=== PATIENT | female | born 1945 | race African-American/Black ===

== ENCOUNTER 2017-04-20 21:58 | Inpatient (IN) | payer MEDICARE, MEDICAID ==
[~2017-04-20] VITALS: Ht 165.1 cm; Wt 95.3 kg
[2017-04-20 22:00] VITALS: BP 146/110
[2017-04-20 22:43] LABS: BASOPHILS % (AUTO) 2.2 % (0.0-2.0); EOSINOPHILS % (AUTO) 2.5 % (0.0-3.0); HEMATOCRIT 31.4 % (37.0-47.0); HEMOGLOBIN 10.8 G/DL (12.0-16.0); MEAN CORPUSCULAR VOLUME 100 FL (80-99); MONOCYTES % (AUTO) 12.7 % (1.0-10.0); NEUTROPHILS % (AUTO) 68.7 % (45.0-75.0); PLATELET COUNT 207 K/UL (150-450); RED BLOOD COUNT 3.15 M/UL (4.20-5.40); RED CELL DISTRIBUTION WIDTH 12.8 % (11.6-14.8); WHITE BLOOD COUNT 5.4 K/UL (4.8-10.8)
[2017-04-20 22:57] LABS: ANION GAP 12 mmol/L (5-15); BLOOD UREA NITROGEN 22 mg/dL (7-18); CALCIUM 9.4 MG/DL (8.5-10.1); CARBON DIOXIDE 26 MMOL/L (21-32); CHLORIDE 96 MMOL/L (98-107); CREATININE 4.8 MG/DL (0.55-1.30); POTASSIUM 3.9 MMOL/L (3.5-5.1); SODIUM 134 MMOL/L (136-145)
[2017-04-20 23:13] LABS: ALANINE AMINOTRANSFERASE 11 U/L (12-78); ALBUMIN 3.6 G/DL (3.4-5.0); ALBUMIN/GLOBULIN RATIO 0.8 (1.0-2.7); ALKALINE PHOSPHATASE 43 U/L (46-116); ASPARTATE AMINO TRANSFERASE 21 U/L (15-37); BILIRUBIN,TOTAL 0.4 MG/DL (0.2-1.0); CKMB 0.9 NG/ML (0.0-3.6); CREATINE KINASE 66 U/L (26-308)
[2017-04-21] VITALS (7 sets, daily range): BP systolic 127–156; BP diastolic 54–89
--- NOTE | 2017-04-21 01:06 | Emergency Room Report ---
History of Present Illness General Chief Complaint: Dyspnea/Respdistress Source: Patient Present Illness HPI 71-year-old female presents ED physician started at home today. Sudden onset. EMS states patient was wheezing in his breathing treatments. Patient denies history of asthma. She is feeling better of the breathing treatment. Fevers or chills. Denies cough denies chest pain. History of end-stage renal disease on dialysis. States she is compliant with her dialysis. No other aggravating or leading factors. Denies any other associated symptoms Allergies: Coded Allergies: No Known Allergies (Unverified , 04/20/17) Patient History Past Medical History: HTN, renal disease, dialysis Past Surgical History: none Pertinent Family History: none Social History: Denies: smoking, alcohol use, drug use Now: No Immunizations: UTD Reviewed Nursing Documentation: PMH: Agreed, PSxH: Agreed Nursing Documentation-PMH Past Medical History: No History, Except For Hx Hypertension: Yes Hx Dialysis: Yes - right upper arm M,W,F Review of Systems All Other Systems: negative except mentioned in HPI Physical Exam Vital Signs Date Time Temp Pulse Resp B/P (MAP) Pulse Ox O2 Delivery O2 Flow Rate FiO2 04/20/17 21:51 99.0 105 22 146/110 100 Room Air Sp02 EP Interpretation: reviewed, normal General Appearance: no apparent distress, alert, GCS 15, non-toxic Head: normocephalic, atraumatic Eyes: bilateral eye normal inspection, bilateral eye PERRL ENT: hearing grossly normal, normal pharynx, no angioedema, normal voice Neck: full range of motion, supple/symm/no masses Respiratory: chest non-tender, lungs clear, normal breath sounds, speaking full sentences Cardiovascular #1: regular rate, rhythm, no edema Cardiovascular #2: 2+ carotid (R), 2+ carotid (L), 2+ radial (R), 2+ radial (L) , 2+ dorsalis pedis (R), 2+ dorsalis pedis (L) Gastrointestinal: normal bowel sounds, non tender, soft, non-distended, no guarding, no rebound Rectal: deferred Genitourinary: normal inspection, no CVA tenderness Musculoskeletal: back normal, gait/station normal, normal range of motion, non- tender Neurologic: alert, oriented x3, responsive, motor strength/tone normal, sensory intact, speech normal Psychiatric: judgement/insight normal, memory normal, mood/affect normal, no suicidal/homicidal ideation Reflexes: 3+ bicep (R), 3+ bicep (L), 3+ tricep (R), 3+ tricep (L), 3+ knee (R) , 3+ knee (L) Skin: normal color, no rash, warm/dry, well hydrated Lymphatic: no adenopathy Medical Decision Making Diagnostic Impression: Primary Impression: ESRD (end stage renal disease) on dialysis Additional Impression: Respiratory distress ER Course Hospital Course 71-year-old male presents ED complaining of shortness of breath Differential diagnoses include: NV/unstable angina, contusion, muscle strain, PTX, rib fracture Clinical course Patient placed on stretcher. on athletic monitor. After initial history and physical I ordered labs, EKG, chest x-ray Lungs clear no indication for additional breathing treatments at this time labs reviewed- no leukocytosis, hemoglobin/hematocrit stable, BUN/creatinine elevated, troponins 0.096, BNP elevated EKG - sinus tachycardia, no acute ischemic changes interpreted by me influenza negative Chest x-ray- cardiomegaly, interstitial congestion, dialysis catheter in place patient denies chest pain. likely troponin leak given ESRD Antibiotics given. Case discussed with Dr. Peters and he agreed to accept the patient to his service for further care and support I. I feel this is a highly complex case requiring extensive working including EKG/Rhythm strip, Xray/CT/US, Blood/urine lab work, repeat exams while in ED, and administration of strong opiates/narcotics for pain control, admission to hospital or close patient follow up. Diagnosis - ESRD on dialysis, respiratory distress admitted to telemetry in serious condition Labs Test 04/20/17 22:15 White Blood Count 5.4 K/UL (4.8-10.8) Red Blood Count 3.15 M/UL (4.20-5.40) Hemoglobin 10.8 G/DL (12.0-16.0) Hematocrit 31.4 % (37.0-47.0) Mean Corpuscular Volume 100 FL (80-99) Mean Corpuscular Hemoglobin 34.2 PG (27.0-31.0) Mean Corpuscular Hemoglobin Concent 34.4 G/DL (32.0-36.0) Red Cell Distribution Width 12.8 % (11.6-14.8) Platelet Count 207 K/UL (150-450) Mean Platelet Volume 6.5 FL (6.5-10.1) Neutrophils (%) (Auto) 68.7 % (45.0-75.0) Lymphocytes (%) (Auto) 14.0 % (20.0-45.0) Monocytes (%) (Auto) 12.7 % (1.0-10.0) Eosinophils (%) (Auto) 2.5 % (0.0-3.0) Basophils (%) (Auto) 2.2 % (0.0-2.0) Sodium Level 134 MMOL/L (136-145) Potassium Level 3.9 MMOL/L (3.5-5.1) Chloride Level 96 MMOL/L (98-107) Carbon Dioxide Level 26 MMOL/L (21-32) Anion Gap 12 mmol/L (5-15) Blood Urea Nitrogen 22 mg/dL (7-18) Creatinine 4.8 MG/DL (0.55-1.30) Estimat Glomerular Filtration Rate mL/min (>60) Glucose Level 110 MG/DL (74-106) Lactic Acid Level 2.30 mmol/L (0.66-2.22) Calcium Level 9.4 MG/DL (8.5-10.1) Total Bilirubin 0.4 MG/DL (0.2-1.0) Aspartate Amino Transf (AST/SGOT) 21 U/L (15-37) Alanine Aminotransferase (ALT/SGPT) 11 U/L (12-78) Alkaline Phosphatase 43 U/L (46-116) Total Creatine Kinase 66 U/L (26-308) Creatine Kinase MB 0.9 NG/ML (0.0-3.6) Creatine Kinase MB Relative Index 1.3 Troponin I 0.096 ng/mL (0.000-0.056) Pro-B-Type Natriuretic Peptide 69521 pg/mL (0-125) Total Protein 7.9 G/DL (6.4-8.2) Albumin 3.6 G/DL (3.4-5.0) Globulin 4.3 g/dL Albumin/Globulin Ratio 0.8 (1.0-2.7) EKG Diagnostic Results Rate: tachycardiac Rhythm: NSR ST Segments: no acute changes ASA given to the pt in ED: No Rhythm Strip Diag. Results EP Interpretation: yes Rhythm: NSR, no PVC's, no ectopy Chest X-Ray Diagnostic Results Chest X-Ray Diagnostic Results : Chest X-Ray Ordered: Yes # of Views/Limited/Complete: 1 View Indication: Shortness of Breath EP Interpretation: Yes Interpretation: no consolidation, no pneumothorax, other - cardiomegaly. interstitial congestion. dialysis catheter Impression: Other - CHF/congestion Electronically Signed by: Electronically signed by Rosalino Jones MD Last Vital Signs Date Time Temp Pulse Resp B/P (MAP) Pulse Ox O2 Delivery O2 Flow Rate FiO2 04/20/17 21:51 99.0 105 22 146/110 100 Room Air Status: improved Disposition: ADMITTED INPATIENT Condition: Serious Referrals: NOT CHOSEN CANDICE/,REFERRING (PCP) ROSALINO JONES M.D. Apr 21, 2017 01:05
[2017-04-21] MEDS ORDERED: ASPIR 8181 MG ORAL (03:01)
[2017-04-21] MEDS ORDERED: Promethazine/Codeine 5ml UD ORAL PRN (05:30)
[2017-04-21] MEDS ORDERED: Albuterol/Ipratropium 3ml neb HHN PRN (05:30)
[2017-04-21] MEDS ORDERED: Miralax 17gm pkt ORAL PRN (05:30)
[2017-04-21] MEDS ORDERED: Vancomycin 1.5 GM/D5W 250ML IVPB ONE ×2 (06:30→08:30)
[2017-04-21] MEDS: Albuterol/Ipratropium 3ml neb HHN SCH ×3 (07:45→19:36)
[2017-04-21] MEDS ORDERED: Piperacillin/Tazobactam 2.25 GM in NS 110 ML IVPB SCH (08:00)
[2017-04-21] MEDS: Heparin 5000 units/ml inj SUBQ SCH ×2 (08:41→21:47)
--- NOTE | 2017-04-21 09:56 | Cardiac Electrophysiology PN ---
Subjective Subjective Cardiology consult dictated HTN Troponin leak CHF ESRD [id number] Objective Last 24 Hour Vital Signs Date Time Temp Pulse Resp B/P (MAP) Pulse Ox O2 Delivery O2 Flow Rate FiO2 04/21/17 04:00 115 04/21/17 04:00 115 04/21/17 03:30 99.0 105 20 143/73 100 Nasal Cannula 2.0 04/21/17 03:15 99.0 105 20 143/73 100 Nasal Cannula 2.0 04/21/17 02:00 104 21 137/68 100 Nasal Cannula 2.0 04/21/17 00:00 101 21 142/71 100 Nasal Cannula 2.0 04/20/17 22:00 105 22 Room Air 04/20/17 22:00 99.0 105 22 146/110 100 Room Air 04/20/17 21:51 99.0 105 22 146/110 100 Room Air Intake and Output 04/20/17 04/21/17 19:00 07:00 Intake Total 0 ml Balance 0 ml Intake Oral 0 ml # Voids 2 # Bowel Movements 2 Laboratory Tests Test 04/20/17 22:15 04/21/17 02:15 White Blood Count 5.4 K/UL (4.8-10.8) Red Blood Count 3.15 M/UL (4.20-5.40) L Hemoglobin 10.8 G/DL (12.0-16.0) L Hematocrit 31.4 % (37.0-47.0) L Mean Corpuscular Volume 100 FL (80-99) H Mean Corpuscular Hemoglobin 34.2 PG (27.0-31.0) H Mean Corpuscular Hemoglobin Concent 34.4 G/DL (32.0-36.0) Red Cell Distribution Width 12.8 % (11.6-14.8) Platelet Count 207 K/UL (150-450) Mean Platelet Volume 6.5 FL (6.5-10.1) Neutrophils (%) (Auto) 68.7 % (45.0-75.0) Lymphocytes (%) (Auto) 14.0 % (20.0-45.0) L Monocytes (%) (Auto) 12.7 % (1.0-10.0) H Eosinophils (%) (Auto) 2.5 % (0.0-3.0) Basophils (%) (Auto) 2.2 % (0.0-2.0) H Sodium Level 134 MMOL/L (136-145) L Potassium Level 3.9 MMOL/L (3.5-5.1) Chloride Level 96 MMOL/L (98-107) L Carbon Dioxide Level 26 MMOL/L (21-32) Anion Gap 12 mmol/L (5-15) Blood Urea Nitrogen 22 mg/dL (7-18) H Creatinine 4.8 MG/DL (0.55-1.30) H Estimat Glomerular Filtration Rate mL/min (>60) Glucose Level 110 MG/DL (74-106) H Lactic Acid Level 2.30 mmol/L (0.66-2.22) H 2.10 mmol/L (0.66-2.22) Calcium Level 9.4 MG/DL (8.5-10.1) Total Bilirubin 0.4 MG/DL (0.2-1.0) Aspartate Amino Transf (AST/SGOT) 21 U/L (15-37) Alanine Aminotransferase (ALT/SGPT) 11 U/L (12-78) L Alkaline Phosphatase 43 U/L (46-116) L Total Creatine Kinase 66 U/L (26-308) Creatine Kinase MB 0.9 NG/ML (0.0-3.6) Creatine Kinase MB Relative Index 1.3 Troponin I 0.096 ng/mL (0.000-0.056) Pro-B-Type Natriuretic Peptide 87721 pg/mL (0-125) H Total Protein 7.9 G/DL (6.4-8.2) Albumin 3.6 G/DL (3.4-5.0) Globulin 4.3 g/dL Albumin/Globulin Ratio 0.8 (1.0-2.7) L Microbiology Date/Time Source Procedure Growth Status 04/20/17 22:15 Nasal Nares Influenza Types A,B Antigen (ANNA) - Final Complete JAKE GARCIA Apr 21, 2017 09:56
--- NOTE | 2017-04-21 12:07 | Diagnostic Imaging Report ---
Indication: Shortness of breath Technique: One view of the chest Comparison: none Findings: Heart is enlarged. There is mild interstitial edema bilaterally. There is a right jugular tunneled dialysis catheter. Aorta is tortuous and calcified Impression: Mild cardiomegaly and mild interstitial edema Other findings as noted
--- NOTE | 2017-04-21 12:24 | Consultation ---
History of Present Illness General Date patient seen: Apr 21, 2017 Chief Complaint: Dyspnea/Respdistress Reason for Consultation: dyspnea Present Illness HPI 71-year-old female with hx of ESRF on HD presented to ED with shortness of breath with sudden onset. EMS states patient was wheezing and got some breathing treatments. She didn't have any Fevers or chills. Denies cough denies chest pain. States she is compliant with her dialysis. No other aggravating or leading factors. Denies any other associated symptoms. Her troponin was high and she is admitted to telemetry for further evaluation. Allergies: Coded Allergies: No Known Allergies (Unverified , 04/20/17) Medication History Scheduled Aspirin* (Aspir 81*), 81 MG ORAL DAILY, (Reported) Patient History Healthcare decision maker Resuscitation status Full Code Advanced Directive on File Past Medical/Surgical History Past Medical/Surgical History: (1) ESRD (end stage renal disease) on dialysis Review of Systems Respiratory: Reports: shortness of breath All Other Systems: negative except mentioned in HPI Physical Exam General Appearance: WD/WN Lines, tubes and drains: peripheral HEENT: normocephalic, anicteric Neck: non-tender, normal alignment Respiratory/Chest: chest wall non-tender, normal breath sounds Cardiovascular/Chest: normal peripheral pulses, regular rhythm Abdomen: normal bowel sounds, non tender Genitourinary/Rectal: normal rectal exam, normal prostate exam Last 24 Hour Vital Signs Date Time Temp Pulse Resp B/P (MAP) Pulse Ox O2 Delivery O2 Flow Rate FiO2 04/21/17 08:00 97.7 107 20 156/89 99 Nasal Cannula 2.0 04/21/17 08:00 101 04/21/17 04:00 115 04/21/17 04:00 115 04/21/17 03:30 99.0 105 20 143/73 100 Nasal Cannula 2.0 04/21/17 03:15 99.0 105 20 143/73 100 Nasal Cannula 2.0 04/21/17 02:00 104 21 137/68 100 Nasal Cannula 2.0 04/21/17 00:00 101 21 142/71 100 Nasal Cannula 2.0 04/20/17 22:00 105 22 Room Air 04/20/17 22:00 99.0 105 22 146/110 100 Room Air 04/20/17 21:51 99.0 105 22 146/110 100 Room Air Intake and Output 04/20/17 04/21/17 19:00 07:00 Intake Total 0 ml Balance 0 ml Intake Oral 0 ml # Voids 2 # Bowel Movements 2 Laboratory Tests Test 04/20/17 22:15 04/21/17 02:15 04/21/17 11:20 White Blood Count 5.4 K/UL (4.8-10.8) Red Blood Count 3.15 M/UL (4.20-5.40) L Hemoglobin 10.8 G/DL (12.0-16.0) L Hematocrit 31.4 % (37.0-47.0) L Mean Corpuscular Volume 100 FL (80-99) H Mean Corpuscular Hemoglobin 34.2 PG (27.0-31.0) H Mean Corpuscular Hemoglobin Concent 34.4 G/DL (32.0-36.0) Red Cell Distribution Width 12.8 % (11.6-14.8) Platelet Count 207 K/UL (150-450) Mean Platelet Volume 6.5 FL (6.5-10.1) Neutrophils (%) (Auto) 68.7 % (45.0-75.0) Lymphocytes (%) (Auto) 14.0 % (20.0-45.0) L Monocytes (%) (Auto) 12.7 % (1.0-10.0) H Eosinophils (%) (Auto) 2.5 % (0.0-3.0) Basophils (%) (Auto) 2.2 % (0.0-2.0) H Sodium Level 134 MMOL/L (136-145) L Potassium Level 3.9 MMOL/L (3.5-5.1) Chloride Level 96 MMOL/L (98-107) L Carbon Dioxide Level 26 MMOL/L (21-32) Anion Gap 12 mmol/L (5-15) Blood Urea Nitrogen 22 mg/dL (7-18) H Creatinine 4.8 MG/DL (0.55-1.30) H Estimat Glomerular Filtration Rate mL/min (>60) Glucose Level 110 MG/DL (74-106) H Lactic Acid Level 2.30 mmol/L (0.66-2.22) H 2.10 mmol/L (0.66-2.22) Calcium Level 9.4 MG/DL (8.5-10.1) Total Bilirubin 0.4 MG/DL (0.2-1.0) Aspartate Amino Transf (AST/SGOT) 21 U/L (15-37) Alanine Aminotransferase (ALT/SGPT) 11 U/L (12-78) L Alkaline Phosphatase 43 U/L (46-116) L Total Creatine Kinase 66 U/L (26-308) Creatine Kinase MB 0.9 NG/ML (0.0-3.6) Creatine Kinase MB Relative Index 1.3 Troponin I 0.096 ng/mL (0.000-0.056) Pending Pro-B-Type Natriuretic Peptide 14196 pg/mL (0-125) H Total Protein 7.9 G/DL (6.4-8.2) Albumin 3.6 G/DL (3.4-5.0) Globulin 4.3 g/dL Albumin/Globulin Ratio 0.8 (1.0-2.7) L D-Dimer Pending Microbiology Date/Time Source Procedure Growth Status 04/20/17 22:15 Nasal Nares Influenza Types A,B Antigen (ANNA) - Final Complete Height (Feet): 5 Height (Inches): 5.00 Weight (Pounds): 210 Medications Current Medications Medications (Trade) Dose Ordered Sig/Ladarius Route PRN Reason Start Time Stop Time Status Last Admin Dose Admin Acetaminophen (Tylenol) 650 mg Q4H PRN ORAL Fever 04/21/17 05:30 05/21/17 05:29 Albuterol/ Ipratropium (Albuterol/ Ipratropium) 3 ml Q4H PRN HHN Shortness of Breath 04/21/17 05:30 04/26/17 05:29 Albuterol/ Ipratropium (Albuterol/ Ipratropium) 3 ml Q6HRT HHN 04/21/17 07:00 04/26/17 06:59 04/21/17 07:45 Ceftriaxone Sodium 1 gm/ Sodium Chloride 55 ml @ 110 mls/hr Q24H IVPB 04/21/17 12:00 04/28/17 11:59 Dextrose (Dextrose 50%) STAT PRN IV Hypoglycemia 04/21/17 05:30 05/21/17 05:29 Heparin Sodium (Porcine) (Heparin 5000 units/ml) 5,000 units EVERY 12 HOURS SUBQ 2/7/18 09:00 05/21/17 08:59 04/21/17 08:41 Metoprolol Tartrate (Lopressor) 25 mg Q12HR ORAL 04/21/17 21:00 05/21/17 20:59 Ondansetron HCl (Zofran) 4 mg Q6H PRN IVP Nausea & Vomiting 04/21/17 05:30 05/21/17 05:29 04/21/17 08:40 Polyethylene Glycol (Miralax) 17 gm DAILYPRN PRN ORAL Constipation 04/21/17 05:30 05/21/17 05:29 Promethazine HCl/ Codeine (Phenergan with Codeine) 5 ml Q4H PRN ORAL For Cough 04/21/17 05:30 05/21/17 05:29 Temazepam (Restoril) 15 mg HSPRN PRN ORAL Insomnia 04/21/17 05:30 04/28/17 05:29 Assessment/Plan Problem List: (1) Acute respiratory failure ICD Codes: J96.00 - Acute respiratory failure, unspecified whether with hypoxia or hypercapnia SNOMED: 78505076 (2) ESRD (end stage renal disease) on dialysis ICD Codes: N18.6 - End stage renal disease; Z99.2 - Dependence on renal dialysis SNOMED: 282280402 (3) Non-STEMI (non-ST elevated myocardial infarction) ICD Codes: I21.4 - Non-ST elevation (NSTEMI) myocardial infarction SNOMED: 543413610 Assessment/Plan HD michael check cxr respiratory treatment cxr in am 2decho cariology to follow dvt prophylaxis. SARA SAWYER Apr 21, 2017 12:24
[2017-04-21] MEDS: cefTRIAXone 1 GM in NS 55 ML IVPB SCH (13:19)
--- NOTE | 2017-04-21 13:42 | Consultation ---
Consult Note Consult Note asked to eval for dialysis management Chief Complaint: Dyspnea/Respdistress 71-year-old female presents ED physician started at home today. Sudden onset. EMS states patient was wheezing in his breathing treatments. Patient denies history of asthma. She is feeling better of the breathing treatment. Fevers or chills. Denies cough denies chest pain. History of end-stage renal disease on dialysis. States she is compliant with her dialysis. No other aggravating or leading factors. Denies any other associated symptoms Past Medical History: HTN, renal disease, dialysis Past Medical History: No History, Except For Hx Hypertension: Yes Hx Dialysis: Yes - right upper arm M,W,F Assessment/Plan 71 y old- presents with respiratory distress: HTN Troponin leak, likely NSTEMI CHF ESRD last HD 04/20- Has a permacath right chest Plan: HD in am 2D echo Adjust BP meds per orders MEGAN GUIDRY Apr 21, 2017 13:41
[2017-04-21] MEDS ORDERED: Lisinopril 2.5mg tab ORAL ONE (14:00)
--- NOTE | 2017-04-21 15:15 | Consultation ---
DATE OF CONSULTATION: 04/21/2017 CARDIOLOGY CONSULTATION CONSULTING PHYSICIAN: Duc Batista M.D. REFERRING PHYSICIAN: Mateusz Peters D.O. REASON FOR CONSULTATION: Congestive heart failure and abnormal electrocardiogram. HISTORY OF PRESENT ILLNESS: The patient is a 71-year-old lady with history of hypertension and end-stage renal disease, on hemodialysis, who was brought to the emergency room from home for sudden onset of shortness of breath and wheezing. The patient denies any prior history of asthma. Denies any fever, chills, chest pain, or cough. The patient has been compliant with her dialysis and that she gets every Wednesday, , and Wednesday. The patient's blood pressure is 146/110 with a heart rate of 120 12-lead EKG. The patient had abnormal electrocardiogram with repolarization abnormality. REVIEW OF SYSTEMS: Review of systems was performed and was negative other than what was mentioned in the history of present illness. PAST MEDICAL HISTORY: 1. Hypertension. 2. End-stage renal disease, on hemodialysis. FAMILY HISTORY: Noncontributory. SOCIAL HISTORY: She lives at home. Does not smoke or drink alcohol. PHYSICAL EXAMINATION: VITAL SIGNS: Blood pressure is 142/73, pulse is 115, respirations 18, and temperature 99. HEAD AND NECK: Shows no JVD. LUNGS: Clear. CARDIOVASCULAR: Shows regular S1 and S2 with no gallop or murmur. ABDOMEN: Soft. EXTREMITIES: There is 1+ bilateral lower extremity edema. Her dialysis access is right IJ PermCath. LABORATORY DATA: Show white count 5.1, hematocrit 10.8, hematocrit 31.4, and platelet count 207. Sodium 134, potassium 3.9, BUN of 22, creatinine 4.8, and glucose of 110. Troponin is 0.096 and BNP is 23,000. ASSESSMENT AND PLAN: 1. Troponin elevation. This is likely due to the patient's chronic kidney disease. We will consider cardiac enzymes. Again the echocardiogram to evaluate for ejection fraction and wall motion abnormality. 2. Abnormal electrocardiogram with left ventricular hypertrophy and repolarization abnormality as well as left anterior fascicular block. Again, the echocardiogram will be ordered. In the meantime, the patient's aspirin and beta-rhianna with tachycardia and hypertension. 3. Lower extremity edema. Lower extremity Doppler is pending. Echocardiogram is pending. 4. End-stage renal disease, on hemodialysis. 5. Possible sepsis. The patient is on IV antibiotic with vancomycin and Zosyn. Thank you very much, Dr. Peters, for allowing me to participate in the care of this patient. Please do not hesitate to contact me for any questions regarding my evaluation. Duc Batista M.D. DR: ALANNA JOB#: [id number] CC:
--- NOTE | 2017-04-21 15:30 | Consultation ---
DATE OF CONSULTATION: 04/21/2017 INFECTIOUS DISEASE CONSULTATION CONSULTING PHYSICIAN: Srinivas Prakash M.D. PRIMARY ATTENDING PHYSICIAN: Mateusz Peters D.O. REASON FOR CONSULTATION: Bronchitis, pneumonia. HISTORY OF PRESENT ILLNESS: This is a 71-year-old female admitted last night because of shortness of breath, wheezing, and respiratory distress. Denies any fever and coughing. She had shortness of breath for a while, but it is increasing recently. PAST MEDICAL HISTORY: Significant for end-stage renal disease, on hemodialysis for 1 year, hypertension, anemia. ALLERGIES: No known drug allergy. MEDICATIONS: Metoprolol, Zosyn, heparin, vancomycin, albuterol, ipratropium, Zofran, Tylenol, MiraLAX, temazepam, promethazine with codeine. SOCIAL HISTORY: Lives at home with son. Single. Denies alcohol, drug abuse, or smoking. REVIEW OF SYSTEMS: No fever. No chills. Shortness of breath. She has shortness of breath with exertion also. Nausea. No urinary problems. PHYSICAL EXAMINATION: VITAL SIGNS: Temperature 99, pulse is 115, blood pressure is 143/73. Afebrile since admission. GENERAL APPEARANCE: No acute distress. HEAD AND NECK: Ault conjunctivae. HEART: S1, S2. Tachycardic. LUNGS: Clear at the time of examination getting oxygen by nasal cannula. The patient has PermCath in the right side. ABDOMEN: Soft, nontender. EXTREMITIES: She has mild edema. NEUROLOGIC: Awake, alert, oriented x3. LABORATORY DATA: Sodium 134, potassium 3.9, chloride 96, bicarbonate 26, BUN 22, creatinine 4.8, glucose 110. Lactic acid was 2.3 that came down to 2.1. Troponin is modestly elevated at 0.09. BNP is 20,296. Chest x-ray showed some congestion. Echocardiogram showed severe aortic insufficiency and diastolic CHF with mild decrease in ejection fraction. IMPRESSION: Respiratory distress, may have bronchitis. The patient seems to have diastolic congestive heart failure, aortic insufficiency, has end-stage renal disease, on hemodialysis, anemia. RECOMMENDATION: We will change the antibiotic to ceftriaxone. We will follow up the cultures. At the end of my exam, I thank Dr. Mateusz Peters for involving me in the care of this patient. Srinivas Prakash M.D. DR: Eugenio JOB#: [id number] CC: PROSPER
[2017-04-21] MEDS: Morphine Sulfate 2mg/ml Inj IVP PRN (15:43)
[2017-04-21] MEDS ORDERED: Piperacillin/Tazobactam 2.25 GM in NS 110 ML IV SCH (16:00)
--- NOTE | 2017-04-21 17:11 | Cardiology Report ---
APPROVED REPORT EKG Measurement Heart [id number] [place] [id number] Sinus tachycardia Left anterior fascicular block Left ventricular hypertrophy with QRS widening and repolarization abnormality Cannot rule out Septal infarct, age undetermined Abnormal ECG
[2017-04-21] MEDS: Lisinopril 2.5mg tab ORAL SCH (17:27)
--- NOTE | 2017-04-21 20:01 | History and Physical Report ---
DATE OF ADMISSION: 04/20/2017 TIME: 1 p.m. CONSULTANTS: 1. Deshaun Jiang M.D. 2. Duc Batista M.D. 3. Dr. Cottrell. 4. Josue Miller M.D. CHIEF COMPLAINT: Shortness of breath x2 days. BRIEF HISTORY: The patient is a 71-year-old female who lives at home, presented with increased shortness breath x2 days, coughing, congestion, came to [facility] last night, diagnosed with pneumonia, sepsis, and CHF and admitted to telemetry for further care. Currently, 00:26, slightly anxious, slight short of breath, in bed, oriented x2, in no acute distress. PAST MEDICAL HISTORY: CHF and ESRD. PAST SURGICAL HISTORY: Shunt. MEDICATIONS: Lopressor, Zosyn, ceftriaxone, heparin, vancomycin, albuterol, Zofran, Tylenol, MiraLAX, temazepam, and Phenergan with codeine. ALLERGIES: Denies. SOCIAL HISTORY: No smoking. No alcohol. No intravenous drug abuse. FAMILY HISTORY: Noncontributory. REVIEW OF SYSTEMS: No chest pain. Slight short of breath. No nausea, vomiting, or diarrhea. PHYSICAL EXAMINATION: GENERAL: Slightly anxious in bed, oriented x2, in no acute distress. VITAL SIGNS: Temperature is 98 degrees, pulse 101, respiratory rate 21, and blood pressure 132/79. CARDIOVASCULAR: No murmur. LUNGS: Poor air exchange. ABDOMEN: Bowel sounds distant. EXTREMITIES: No cyanosis, clubbing or edema. NEUROLOGIC: The patient moves all extremities, slightly weak. LABORATORY AND DIAGNOSTIC DATA: Hemoglobin 10.8, otherwise CBC is normal. BMP shows sodium 134, chloride 96, BUN and creatinine 22/4.8 and glucose 110. Troponin 0.096. D-dimer is 0.81. ASSESSMENT: 1. Pneumonia. 2. Sepsis. 3. Short of breath. 4. Anemia. 5. Congestive heart failure. 6. Respiratory distress. 7. End-stage renal disease. 8. [id number] myocardial infarction. PLAN: Continue premedications. O2 and pulmonary treatment. Antibiotics per Infectious Disease. Blood pressure control. Dialysis and dietary followup. Mateusz Peters D.O. DR: CARMEN JOB#: [id number] CC:
[2017-04-21] MEDS: Metoprolol 25mg tab ORAL SCH (21:45)
[2017-04-22] VITALS: BP 125/60
[2017-04-22] MEDS: Albuterol/Ipratropium 3ml neb HHN SCH ×5 (00:58→23:14)
[2017-04-22 04:00] VITALS: BP 129/54
[2017-04-22 05:04] LABS: BASOPHILS % (AUTO) 2.2 % (0.0-2.0); EOSINOPHILS % (AUTO) 0.5 % (0.0-3.0); HEMATOCRIT 26.5 % (37.0-47.0); HEMOGLOBIN 9.7 G/DL (12.0-16.0); LYMPHOCYTES % (AUTO) 9.5 % (20.0-45.0); MEAN CORPUSCULAR VOLUME 99 FL (80-99); MONOCYTES % (AUTO) 12.8 % (1.0-10.0); NEUTROPHILS % (AUTO) 75.1 % (45.0-75.0); PLATELET COUNT 174 K/UL (150-450); RED BLOOD COUNT 2.67 M/UL (4.20-5.40); RED CELL DISTRIBUTION WIDTH 12.9 % (11.6-14.8); WHITE BLOOD COUNT 3.9 K/UL (4.8-10.8)
[2017-04-22 05:08] LABS: % IRON SATURATION 12 % (15-50); IRON 22 ug/dL (50-175); TOTAL IRON BINDING CAPACITY 177 ug/dL (250-450)
[2017-04-22 05:16] LABS: CREATINE KINASE 86 U/L (26-308); GAMMA GLUTAMYL TRANSPEPTIDASE 32 U/L (5-85); PHOSPHORUS 6.2 MG/DL (2.5-4.9)
[2017-04-22 05:40] LABS: ALANINE AMINOTRANSFERASE 10 U/L (12-78); ALBUMIN/GLOBULIN RATIO 0.8 (1.0-2.7); ALKALINE PHOSPHATASE 37 U/L (46-116); ANION GAP 11 mmol/L (5-15); ASPARTATE AMINO TRANSFERASE 16 U/L (15-37); BILIRUBIN,TOTAL 0.4 MG/DL (0.2-1.0); BLOOD UREA NITROGEN 37 mg/dL (7-18); CALCIUM 9.1 MG/DL (8.5-10.1); CARBON DIOXIDE 27 MMOL/L (21-32); CHLORIDE 95 MMOL/L (98-107); CHOLESTEROL 245 MG/DL (< 200); CREATININE 7.6 MG/DL (0.55-1.30); FERRITIN 1485 NG/ML (8-388); HDL CHOLESTEROL 63 MG/DL (40-60); POTASSIUM 4.7 MMOL/L (3.5-5.1); SODIUM 132 MMOL/L (136-145); TRIGLYCERIDES 54 MG/DL (30-150)
[2017-04-22 08:19] VITALS: BP 138/65
[2017-04-22] MEDS: Heparin 5000 units/ml inj SUBQ SCH ×2 (08:21→21:33)
[2017-04-22] MEDS: Lisinopril 2.5mg tab ORAL SCH ×2 (08:21→17:26)
[2017-04-22] MEDS: Metoprolol 25mg tab ORAL SCH ×2 (08:40→21:31)
--- NOTE | 2017-04-22 10:20 | Nephrology Progress Note ---
Assessment/Plan Problem List: (1) ESRD (end stage renal disease) on dialysis (2) Respiratory distress (3) Non-STEMI (non-ST elevated myocardial infarction) Assessment HTN Troponin leak, likely NSTEMI CHF, Ej Fx 40% - global hypokinesis ESRD last HD 04/20- Has a permacath right chest Plan Plan: HD in process 2D echo- pending Adjust BP meds PO digoxin once per orders Subjective ROS Limited/Unobtainable: No Constitutional: Reports: malaise, weakness Objective Objective Last 24 Hour Vital Signs Date Time Temp Pulse Resp B/P (MAP) Pulse Ox O2 Delivery O2 Flow Rate FiO2 04/22/17 08:40 103 138/65 04/22/17 08:21 138/65 04/22/17 08:19 101.8 103 20 138/65 97 Nasal Cannula 2.0 04/22/17 08:00 100 04/22/17 07:23 94 20 100 Nasal Cannula 2.0 04/22/17 07:17 95 20 Nasal Cannula 2.0 04/22/17 07:16 94 20 98 Nasal Cannula 2.0 04/22/17 04:12 106 04/22/17 04:00 97.2 106 20 129/54 92 Nasal Cannula 2.0 04/22/17 01:05 97 20 100 Nasal Cannula 2.0 04/22/17 00:58 90 20 98 Nasal Cannula 2.0 04/22/17 00:00 98.0 93 20 125/60 100 Nasal Cannula 2.0 04/21/17 23:51 84 04/21/17 21:45 98 127/54 04/21/17 20:00 98.1 95 20 127/54 100 Nasal Cannula 2.0 04/21/17 19:56 99 04/21/17 19:44 98 22 100 Nasal Cannula 2.0 04/21/17 19:41 94 20 Nasal Cannula 2.0 04/21/17 19:36 94 20 99 Nasal Cannula 2.0 04/21/17 17:27 140/61 04/21/17 16:13 97.8 04/21/17 16:00 97.8 116 22 140/61 99 Nasal Cannula 2.0 04/21/17 16:00 118 04/21/17 14:39 156/79 04/21/17 13:49 Nasal Cannula 2.0 04/21/17 12:00 98.0 101 21 152/79 99 Nasal Cannula 2.0 04/21/17 12:00 101 Intake and Output 04/21/17 04/22/17 19:00 07:00 Intake Total 610 ml Balance 610 ml Intake Oral 610 ml IV Total 0 ml # Voids 2 2 Laboratory Tests 04/21/17 11:20: D-Dimer 0.81H, Troponin I 0.207H 04/21/17 14:45: C-Reactive Protein, Quantitative 2.7H 04/21/17 18:52: Troponin I 0.217H 04/22/17 03:05: Troponin I 0.201H, White Blood Count 3.9L, Red Blood Count 2.67L, Hemoglobin 9.7L, Hematocrit 26.5L, Mean Corpuscular Volume 99, Mean Corpuscular Hemoglobin 36.3H, Mean Corpuscular Hemoglobin Concent 36.5H, Red Cell Distribution Width 12.9, Platelet Count 174, Mean Platelet Volume 6.6, Neutrophils (%) (Auto) 75.1H , Lymphocytes (%) (Auto) 9.5L, Monocytes (%) (Auto) 12.8H, Eosinophils (%) (Auto ) 0.5, Basophils (%) (Auto) 2.2H, Sodium Level 132L, Potassium Level 4.7, Chloride Level 95L, Carbon Dioxide Level 27, Anion Gap 11, Blood Urea Nitrogen 37H, Creatinine 7.6#H, Estimat Glomerular Filtration Rate , Glucose Level 98, Hemoglobin A1c 5.5, Uric Acid 4.7, Calcium Level 9.1, Phosphorus Level 6.2H, Magnesium Level 1.8, Iron Level 22L, Total Iron Binding Capacity 177L, Percent Iron Saturation 12L, Unsaturated Iron Binding 155, Ferritin 1485H, Total Bilirubin 0.4, Gamma Glutamyl Transpeptidase 32, Aspartate Amino Transf (AST/ SGOT) 16, Alanine Aminotransferase (ALT/SGPT) 10L, Alkaline Phosphatase 37L, Total Creatine Kinase 86, Pro-B-Type Natriuretic Peptide 68644M, Total Protein 7.0, Albumin 3.0L, Globulin 4.0, Albumin/Globulin Ratio 0.8L, Triglycerides Level 54, Cholesterol Level 245H, LDL Cholesterol 173H, HDL Cholesterol 63H, Cholesterol/HDL Ratio 3.9, Vitamin B12 Level 544, Folate 8.6, Thyroid Stimulating Hormone (TSH) 1.562, Free Thyroxine 0.85 Height (Feet): 5 Height (Inches): 5.00 Weight (Pounds): 210 General Appearance: no apparent distress, lethargic Cardiovascular: tachycardia Respiratory/Chest: decreased breath sounds Abdomen: soft Objective no other changes MEGAN GUIDRY Apr 22, 2017 10:20
--- NOTE | 2017-04-22 10:21 | Infectious Diseases Prog Note ---
Assessment/Plan Assessment/Plan A; Respiratory distress Bronchitis ESRD on HD Diastolic CHF Aortic insufficiency P: Continue Rocephin If cultures remain negative will stop antibiotics Subjective ROS Limited/Unobtainable: No Constitutional: Reports: no symptoms Respiratory: Reports: dry cough Cardiovascular: Reports: no symptoms Gastrointestinal/Abdominal: Reports: no symptoms Genitourinary: Reports: no symptoms Allergies: Coded Allergies: No Known Allergies (Unverified , 04/20/17) Objective Vital Signs Last 24 Hour Vital Signs Date Time Temp Pulse Resp B/P (MAP) Pulse Ox O2 Delivery O2 Flow Rate FiO2 04/22/17 08:40 103 138/65 04/22/17 08:21 138/65 04/22/17 08:19 101.8 103 20 138/65 97 Nasal Cannula 2.0 04/22/17 08:00 100 04/22/17 07:23 94 20 100 Nasal Cannula 2.0 04/22/17 07:17 95 20 Nasal Cannula 2.0 04/22/17 07:16 94 20 98 Nasal Cannula 2.0 04/22/17 04:12 106 04/22/17 04:00 97.2 106 20 129/54 92 Nasal Cannula 2.0 04/22/17 01:05 97 20 100 Nasal Cannula 2.0 04/22/17 00:58 90 20 98 Nasal Cannula 2.0 04/22/17 00:00 98.0 93 20 125/60 100 Nasal Cannula 2.0 04/21/17 23:51 84 04/21/17 21:45 98 127/54 04/21/17 20:00 98.1 95 20 127/54 100 Nasal Cannula 2.0 04/21/17 19:56 99 04/21/17 19:44 98 22 100 Nasal Cannula 2.0 04/21/17 19:41 94 20 Nasal Cannula 2.0 04/21/17 19:36 94 20 99 Nasal Cannula 2.0 04/21/17 17:27 140/61 04/21/17 16:13 97.8 04/21/17 16:00 97.8 116 22 140/61 99 Nasal Cannula 2.0 04/21/17 16:00 118 04/21/17 14:39 156/79 04/21/17 13:49 Nasal Cannula 2.0 04/21/17 12:00 98.0 101 21 152/79 99 Nasal Cannula 2.0 2/7/18 12:00 101 Height (Feet): 5 Height (Inches): 5.00 Weight (Pounds): 210 General Appearance: no acute distress Respiratory/Chest: lungs clear, other - O2 by nasal cannula Cardiovascular: tachycardia, other - R permacath Extremities: no edema Neurologic/Psychiatric: alert, oriented x 3, responsive Microbiology Date/Time Source Procedure Growth Status 04/20/17 22:30 Blood Blood Culture - Preliminary NO GROWTH AFTER 24 HOURS Resulted 04/20/17 22:15 Blood Blood Culture - Preliminary NO GROWTH AFTER 24 HOURS Resulted 04/21/17 15:00 Sputum Gram Stain Pending Resulted 04/21/17 15:00 Sputum Sputum Culture - Preliminary NO GROWTH Resulted 04/20/17 22:15 Nasal Nares Influenza Types A,B Antigen (ANNA) - Final Complete Laboratory Tests Test 04/21/17 11:20 04/21/17 14:45 04/21/17 18:52 04/22/17 03:05 D-Dimer 0.81 mg/L FEU (0.00-0.49) H Troponin I 0.207 ng/mL (0.000-0.056) 0.217 ng/mL (0.000-0.056) 0.201 ng/mL (0.000-0.056) C-Reactive Protein, Quantitative 2.7 mg/dL (0.00-0.90) H White Blood Count 3.9 K/UL (4.8-10.8) L Red Blood Count 2.67 M/UL (4.20-5.40) L Hemoglobin 9.7 G/DL (12.0-16.0) L Hematocrit 26.5 % (37.0-47.0) L Mean Corpuscular Volume 99 FL (80-99) Mean Corpuscular Hemoglobin 36.3 PG (27.0-31.0) H Mean Corpuscular Hemoglobin Concent 36.5 G/DL (32.0-36.0) H Red Cell Distribution Width 12.9 % (11.6-14.8) Platelet Count 174 K/UL (150-450) Mean Platelet Volume 6.6 FL (6.5-10.1) Neutrophils (%) (Auto) 75.1 % (45.0-75.0) H Lymphocytes (%) (Auto) 9.5 % (20.0-45.0) L Monocytes (%) (Auto) 12.8 % (1.0-10.0) H Eosinophils (%) (Auto) 0.5 % (0.0-3.0) Basophils (%) (Auto) 2.2 % (0.0-2.0) H Sodium Level 132 MMOL/L (136-145) L Potassium Level 4.7 MMOL/L (3.5-5.1) Chloride Level 95 MMOL/L (98-107) L Carbon Dioxide Level 27 MMOL/L (21-32) Anion Gap 11 mmol/L (5-15) Blood Urea Nitrogen 37 mg/dL (7-18) H Creatinine 7.6 MG/DL (0.55-1.30) #H Estimat Glomerular Filtration Rate mL/min (>60) Glucose Level 98 MG/DL (74-106) Hemoglobin A1c 5.5 % (4.3-6.0) Uric Acid 4.7 MG/DL (2.6-7.2) Calcium Level 9.1 MG/DL (8.5-10.1) Phosphorus Level 6.2 MG/DL (2.5-4.9) H Magnesium Level 1.8 MG/DL (1.8-2.4) Iron Level 22 ug/dL (50-175) L Total Iron Binding Capacity 177 ug/dL (250-450) L Percent Iron Saturation 12 % (15-50) L Unsaturated Iron Binding 155 ug/dL (112-346) Ferritin 1485 NG/ML (8-388) H Total Bilirubin 0.4 MG/DL (0.2-1.0) Gamma Glutamyl Transpeptidase 32 U/L (5-85) Aspartate Amino Transf (AST/SGOT) 16 U/L (15-37) Alanine Aminotransferase (ALT/SGPT) 10 U/L (12-78) L Alkaline Phosphatase 37 U/L (46-116) L Total Creatine Kinase 86 U/L (26-308) Pro-B-Type Natriuretic Peptide 21191 pg/mL (0-125) H Total Protein 7.0 G/DL (6.4-8.2) Albumin 3.0 G/DL (3.4-5.0) L Globulin 4.0 g/dL Albumin/Globulin Ratio 0.8 (1.0-2.7) L Triglycerides Level 54 MG/DL (30-150) Cholesterol Level 245 MG/DL (< 200) H LDL Cholesterol 173 mg/dL (<100) H HDL Cholesterol 63 MG/DL (40-60) H Cholesterol/HDL Ratio 3.9 (3.3-4.4) Vitamin B12 Level 544 PG/ML (193-986) Folate 8.6 NG/ML (8.6-58.9) Thyroid Stimulating Hormone (TSH) 1.562 uiU/mL (0.358-3.740) Free Thyroxine 0.85 NG/DL (0.76-1.46) Current Medications Medications (Trade) Dose Ordered Sig/Ladarius Route PRN Reason Start Time Stop Time Status Last Admin Dose Admin Acetaminophen (Tylenol) 650 mg Q4H PRN ORAL Fever 04/21/17 05:30 05/21/17 05:29 04/22/17 08:20 Albuterol/ Ipratropium (Albuterol/ Ipratropium) 3 ml Q4H PRN HHN Shortness of Breath 04/21/17 05:30 04/26/17 05:29 04/21/17 15:23 Albuterol/ Ipratropium (Albuterol/ Ipratropium) 3 ml Q6HRT HHN 04/21/17 07:00 04/26/17 06:59 04/22/17 07:16 Aspirin (ASA) 325 mg DAILY ORAL 04/21/17 14:00 05/21/17 13:59 04/22/17 08:21 Ceftriaxone Sodium 1 gm/ Sodium Chloride 55 ml @ 110 mls/hr Q24H IVPB 04/21/17 12:00 04/28/17 11:59 04/21/17 13:19 Dextrose (Dextrose 50%) STAT PRN IV Hypoglycemia 04/21/17 05:30 05/21/17 05:29 Heparin Sodium (Porcine) (Heparin 5000 units/ml) 5,000 units EVERY 12 HOURS SUBQ 04/21/17 09:00 05/21/17 08:59 04/21/17 21:47 Lisinopril (Zestril) 5 mg BID ORAL 04/21/17 18:00 05/21/17 17:59 04/22/17 08:21 Metoprolol Tartrate (Lopressor) 25 mg Q12HR ORAL 04/21/17 21:00 05/21/17 20:59 04/22/17 08:40 Morphine Sulfate (Morphine Sulfate) 2 mg Q4H PRN IVP Severe Pain (Pain Scale 7-10) 04/21/17 15:30 04/28/17 15:29 04/21/17 15:43 Ondansetron HCl (Zofran) 4 mg Q6H PRN IVP Nausea & Vomiting 04/21/17 05:30 05/21/17 05:29 04/21/17 08:40 Pantoprazole (Protonix) 40 mg DAILY ORAL 04/21/17 14:00 05/21/17 13:59 04/22/17 08:20 Polyethylene Glycol (Miralax) 17 gm DAILYPRN PRN ORAL Constipation 04/21/17 05:30 05/21/17 05:29 Promethazine HCl/ Codeine (Phenergan with Codeine) 5 ml Q4H PRN ORAL For Cough 04/21/17 05:30 05/21/17 05:29 04/21/17 22:45 Sevelamer Carbonate (Renvela) 800 mg THREE TIMES A DAY ORAL 04/22/17 13:00 05/22/17 12:59 UNV Temazepam (Restoril) 15 mg HSPRN PRN ORAL Insomnia 04/21/17 05:30 04/28/17 05:29 MERISSA LOZANO Apr 22, 2017 10:21
--- NOTE | 2017-04-22 10:41 | Cardiac Electrophysiology PN ---
Assessment/Plan Assessment/Plan 1. Troponin elevation. Due to the patient's chronic kidney disease. Echo EF 45-50% 2. Abnormal electrocardiogram with left ventricular hypertrophy and repolarization abnormality as well as left anterior fascicular block.On aspirin and Metoprolol 25 bid 3. Lower extremity edema. Lower extremity Doppler is negative yanet DVT 4. End-stage renal disease, on hemodialysis.Refusing fluid removal. 5. Possible sepsis. The patient is on IV antibiotic with vancomycin and Zosyn. ANGIE RN Subjective Subjective Feeling better. No chest pain or SOB. Getting HD but refusing fluid removal Objective Last 24 Hour Vital Signs Date Time Temp Pulse Resp B/P (MAP) Pulse Ox O2 Delivery O2 Flow Rate FiO2 04/22/17 08:40 103 138/65 04/22/17 08:21 138/65 04/22/17 08:19 101.8 103 20 138/65 97 Nasal Cannula 2.0 04/22/17 08:00 100 04/22/17 07:23 94 20 100 Nasal Cannula 2.0 04/22/17 07:17 95 20 Nasal Cannula 2.0 04/22/17 07:16 94 20 98 Nasal Cannula 2.0 04/22/17 04:12 106 04/22/17 04:00 97.2 106 20 129/54 92 Nasal Cannula 2.0 04/22/17 01:05 97 20 100 Nasal Cannula 2.0 04/22/17 00:58 90 20 98 Nasal Cannula 2.0 04/22/17 00:00 98.0 93 20 125/60 100 Nasal Cannula 2.0 04/21/17 23:51 84 04/21/17 21:45 98 127/54 04/21/17 20:00 98.1 95 20 127/54 100 Nasal Cannula 2.0 04/21/17 19:56 99 04/21/17 19:44 98 22 100 Nasal Cannula 2.0 04/21/17 19:41 94 20 Nasal Cannula 2.0 04/21/17 19:36 94 20 99 Nasal Cannula 2.0 04/21/17 17:27 140/61 04/21/17 16:13 97.8 04/21/17 16:00 97.8 116 22 140/61 99 Nasal Cannula 2.0 04/21/17 16:00 118 04/21/17 14:39 156/79 04/21/17 13:49 Nasal Cannula 2.0 04/21/17 12:00 98.0 101 21 152/79 99 Nasal Cannula 2.0 04/21/17 12:00 101 Intake and Output 04/21/17 04/22/17 19:00 07:00 Intake Total 610 ml Balance 610 ml Intake Oral 610 ml IV Total 0 ml # Voids 2 2 Laboratory Tests Test 04/21/17 11:20 04/21/17 14:45 04/21/17 18:52 04/22/17 03:05 D-Dimer 0.81 mg/L FEU (0.00-0.49) H Troponin I 0.207 ng/mL (0.000-0.056) 0.217 ng/mL (0.000-0.056) 0.201 ng/mL (0.000-0.056) C-Reactive Protein, Quantitative 2.7 mg/dL (0.00-0.90) H White Blood Count 3.9 K/UL (4.8-10.8) L Red Blood Count 2.67 M/UL (4.20-5.40) L Hemoglobin 9.7 G/DL (12.0-16.0) L Hematocrit 26.5 % (37.0-47.0) L Mean Corpuscular Volume 99 FL (80-99) Mean Corpuscular Hemoglobin 36.3 PG (27.0-31.0) H Mean Corpuscular Hemoglobin Concent 36.5 G/DL (32.0-36.0) H Red Cell Distribution Width 12.9 % (11.6-14.8) Platelet Count 174 K/UL (150-450) Mean Platelet Volume 6.6 FL (6.5-10.1) Neutrophils (%) (Auto) 75.1 % (45.0-75.0) H Lymphocytes (%) (Auto) 9.5 % (20.0-45.0) L Monocytes (%) (Auto) 12.8 % (1.0-10.0) H Eosinophils (%) (Auto) 0.5 % (0.0-3.0) Basophils (%) (Auto) 2.2 % (0.0-2.0) H Sodium Level 132 MMOL/L (136-145) L Potassium Level 4.7 MMOL/L (3.5-5.1) Chloride Level 95 MMOL/L (98-107) L Carbon Dioxide Level 27 MMOL/L (21-32) Anion Gap 11 mmol/L (5-15) Blood Urea Nitrogen 37 mg/dL (7-18) H Creatinine 7.6 MG/DL (0.55-1.30) #H Estimat Glomerular Filtration Rate mL/min (>60) Glucose Level 98 MG/DL (74-106) Hemoglobin A1c 5.5 % (4.3-6.0) Uric Acid 4.7 MG/DL (2.6-7.2) Calcium Level 9.1 MG/DL (8.5-10.1) Phosphorus Level 6.2 MG/DL (2.5-4.9) H Magnesium Level 1.8 MG/DL (1.8-2.4) Iron Level 22 ug/dL (50-175) L Total Iron Binding Capacity 177 ug/dL (250-450) L Percent Iron Saturation 12 % (15-50) L Unsaturated Iron Binding 155 ug/dL (112-346) Ferritin 1485 NG/ML (8-388) H Total Bilirubin 0.4 MG/DL (0.2-1.0) Gamma Glutamyl Transpeptidase 32 U/L (5-85) Aspartate Amino Transf (AST/SGOT) 16 U/L (15-37) Alanine Aminotransferase (ALT/SGPT) 10 U/L (12-78) L Alkaline Phosphatase 37 U/L (46-116) L Total Creatine Kinase 86 U/L (26-308) Pro-B-Type Natriuretic Peptide 47343 pg/mL (0-125) H Total Protein 7.0 G/DL (6.4-8.2) Albumin 3.0 G/DL (3.4-5.0) L Globulin 4.0 g/dL Albumin/Globulin Ratio 0.8 (1.0-2.7) L Triglycerides Level 54 MG/DL (30-150) Cholesterol Level 245 MG/DL (< 200) H LDL Cholesterol 173 mg/dL (<100) H HDL Cholesterol 63 MG/DL (40-60) H Cholesterol/HDL Ratio 3.9 (3.3-4.4) Vitamin B12 Level 544 PG/ML (193-986) Folate 8.6 NG/ML (8.6-58.9) Thyroid Stimulating Hormone (TSH) 1.562 uiU/mL (0.358-3.740) Free Thyroxine 0.85 NG/DL (0.76-1.46) Microbiology Date/Time Source Procedure Growth Status 04/20/17 22:30 Blood Blood Culture - Preliminary NO GROWTH AFTER 24 HOURS Resulted 04/20/17 22:15 Blood Blood Culture - Preliminary NO GROWTH AFTER 24 HOURS Resulted 04/21/17 15:00 Sputum Gram Stain Pending Resulted 04/21/17 15:00 Sputum Sputum Culture - Preliminary NO GROWTH Resulted 04/20/17 22:15 Nasal Nares Influenza Types A,B Antigen (ANNA) - Final Complete Objective HEAD AND NECK: No JVD. LUNGS: Clear. CARDIOVASCULAR: Regular S1 and S2 with no gallop or murmur. ABDOMEN: Soft. EXTREMITIES: 1+ bilateral lower extremity edema. Her dialysis access is right IJ PermCath. JAKE GARICA Apr 22, 2017 10:41
[2017-04-22 12:00] VITALS: BP 120/55
[2017-04-22] MEDS: cefTRIAXone 1 GM in NS 55 ML IVPB SCH (12:06)
--- NOTE | 2017-04-22 14:00 | General Progress Note ---
Assessment/Plan Problem List: (1) Pneumonia ICD Codes: J18.9 - Pneumonia, unspecified organism SNOMED: 189807316 (2) Sepsis ICD Codes: A41.9 - Sepsis, unspecified organism SNOMED: 22373300 (3) ESRD (end stage renal disease) on dialysis ICD Codes: N18.6 - End stage renal disease; Z99.2 - Dependence on renal dialysis SNOMED: 431189978 (4) Acute respiratory failure ICD Codes: J96.00 - Acute respiratory failure, unspecified whether with hypoxia or hypercapnia SNOMED: 87571773 (5) Non-STEMI (non-ST elevated myocardial infarction) ICD Codes: I21.4 - Non-ST elevation (NSTEMI) myocardial infarction SNOMED: 956132021 (6) Respiratory distress ICD Codes: R06.03 - Acute respiratory distress SNOMED: 911737563 Status: unchanged Assessment/Plan o2 pulm tx abx ot pt diet cbc bmp am Subjective Constitutional: Reports: weakness Allergies: Coded Allergies: No Known Allergies (Unverified , 04/20/17) All Systems: reviewed and negative except above Subjective sl sob Objective Last 24 Hour Vital Signs Date Time Temp Pulse Resp B/P (MAP) Pulse Ox O2 Delivery O2 Flow Rate FiO2 04/22/17 12:45 Nasal Cannula 2.0 04/22/17 12:00 97.7 90 18 120/55 97 Nasal Cannula 2.0 04/22/17 11:48 66 04/22/17 11:43 Nasal Cannula 2.0 28 04/22/17 11:43 Nasal Cannula 2.0 28 04/22/17 11:00 70 04/22/17 09:40 Nasal Cannula 2.0 04/22/17 09:19 98.6 04/22/17 09:00 98.6 04/22/17 08:40 103 138/65 04/22/17 08:21 138/65 04/22/17 08:19 101.8 103 20 138/65 97 Nasal Cannula 2.0 04/22/17 08:00 100 04/22/17 07:23 94 20 100 Nasal Cannula 2.0 04/22/17 07:17 95 20 Nasal Cannula 2.0 04/22/17 07:16 94 20 98 Nasal Cannula 2.0 04/22/17 04:12 106 04/22/17 04:00 97.2 106 20 129/54 92 Nasal Cannula 2.0 04/22/17 01:05 97 20 100 Nasal Cannula 2.0 04/22/17 00:58 90 20 98 Nasal Cannula 2.0 04/22/17 00:00 98.0 93 20 125/60 100 Nasal Cannula 2.0 04/21/17 23:51 84 04/21/17 21:45 98 127/54 04/21/17 20:00 98.1 95 20 127/54 100 Nasal Cannula 2.0 04/21/17 19:56 99 04/21/17 19:44 98 22 100 Nasal Cannula 2.0 04/21/17 19:41 94 20 Nasal Cannula 2.0 04/21/17 19:36 94 20 99 Nasal Cannula 2.0 04/21/17 17:27 140/61 04/21/17 16:13 97.8 04/21/17 16:00 97.8 116 22 140/61 99 Nasal Cannula 2.0 04/21/17 16:00 118 04/21/17 14:39 156/79 Intake and Output 04/21/17 04/22/17 19:00 07:00 Intake Total 610 ml Balance 610 ml Intake Oral 610 ml IV Total 0 ml # Voids 2 2 Laboratory Tests 04/21/17 14:45: C-Reactive Protein, Quantitative 2.7H 04/21/17 18:52: Troponin I 0.217H 04/22/17 03:05: Troponin I 0.201H, White Blood Count 3.9L, Red Blood Count 2.67L, Hemoglobin 9.7L, Hematocrit 26.5L, Mean Corpuscular Volume 99, Mean Corpuscular Hemoglobin 36.3H, Mean Corpuscular Hemoglobin Concent 36.5H, Red Cell Distribution Width 12.9, Platelet Count 174, Mean Platelet Volume 6.6, Neutrophils (%) (Auto) 75.1H , Lymphocytes (%) (Auto) 9.5L, Monocytes (%) (Auto) 12.8H, Eosinophils (%) (Auto ) 0.5, Basophils (%) (Auto) 2.2H, Sodium Level 132L, Potassium Level 4.7, Chloride Level 95L, Carbon Dioxide Level 27, Anion Gap 11, Blood Urea Nitrogen 37H, Creatinine 7.6#H, Estimat Glomerular Filtration Rate , Glucose Level 98, Hemoglobin A1c 5.5, Uric Acid 4.7, Calcium Level 9.1, Phosphorus Level 6.2H, Magnesium Level 1.8, Iron Level 22L, Total Iron Binding Capacity 177L, Percent Iron Saturation 12L, Unsaturated Iron Binding 155, Ferritin 1485H, Total Bilirubin 0.4, Gamma Glutamyl Transpeptidase 32, Aspartate Amino Transf (AST/ SGOT) 16, Alanine Aminotransferase (ALT/SGPT) 10L, Alkaline Phosphatase 37L, Total Creatine Kinase 86, Pro-B-Type Natriuretic Peptide 58699T, Total Protein 7.0, Albumin 3.0L, Globulin 4.0, Albumin/Globulin Ratio 0.8L, Triglycerides Level 54, Cholesterol Level 245H, LDL Cholesterol 173H, HDL Cholesterol 63H, Cholesterol/HDL Ratio 3.9, Vitamin B12 Level 544, Folate 8.6, Thyroid Stimulating Hormone (TSH) 1.562, Free Thyroxine 0.85 04/22/17 07:05: C-Reactive Protein, Quantitative 5.8H Height (Feet): 5 Height (Inches): 5.00 Weight (Pounds): 210 General Appearance: lethargic EENT: normal ENT inspection Neck: normal alignment Cardiovascular: normal peripheral pulses, normal rate, regular rhythm Respiratory/Chest: decreased breath sounds Abdomen: normal bowel sounds, non tender, soft Extremities: normal inspection Edema: no edema noted Arm (L), no edema noted Arm (R), no edema noted Leg (L), no edema noted Leg (R), no edema noted Pedal (L), no edema noted Pedal (R), no edema noted Generalized Neurologic: responsive, motor weakness Skin: normal pigmentation, warm/dry ROSA NEIL Apr 22, 2017 14:00
[2017-04-22 17:05] VITALS: BP 139/70
--- NOTE | 2017-04-22 17:11 | Pulmonology Progress Note ---
Assessment/Plan Problems: (1) Sepsis (2) Acute respiratory failure (3) ESRD (end stage renal disease) on dialysis (4) Non-STEMI (non-ST elevated myocardial infarction) Assessment/Plan one episode of fever last night continue HD check cultures contine abx f/u by Id check electrolytes. Subjective ROS Limited/Unobtainable: No Constitutional: Reports: no symptoms HEENT: Repors: no symptoms Respiratory: Reports: no symptoms Allergies: Coded Allergies: No Known Allergies (Unverified , 04/20/17) Objective Last 24 Hour Vital Signs Date Time Temp Pulse Resp B/P (MAP) Pulse Ox O2 Delivery O2 Flow Rate FiO2 04/22/17 12:45 Nasal Cannula 2.0 04/22/17 12:00 97.7 90 18 120/55 97 Nasal Cannula 2.0 04/22/17 11:48 66 04/22/17 11:43 Nasal Cannula 2.0 28 04/22/17 11:43 Nasal Cannula 2.0 28 04/22/17 11:00 70 04/22/17 09:40 Nasal Cannula 2.0 04/22/17 09:19 98.6 04/22/17 09:00 98.6 04/22/17 08:40 103 138/65 04/22/17 08:21 138/65 04/22/17 08:19 101.8 103 20 138/65 97 Nasal Cannula 2.0 04/22/17 08:00 100 04/22/17 07:23 94 20 100 Nasal Cannula 2.0 04/22/17 07:17 95 20 Nasal Cannula 2.0 04/22/17 07:16 94 20 98 Nasal Cannula 2.0 04/22/17 04:12 106 04/22/17 04:00 97.2 106 20 129/54 92 Nasal Cannula 2.0 04/22/17 01:05 97 20 100 Nasal Cannula 2.0 04/22/17 00:58 90 20 98 Nasal Cannula 2.0 04/22/17 00:00 98.0 93 20 125/60 100 Nasal Cannula 2.0 04/21/17 23:51 84 04/21/17 21:45 98 127/54 04/21/17 20:00 98.1 95 20 127/54 100 Nasal Cannula 2.0 04/21/17 19:56 99 04/21/17 19:44 98 22 100 Nasal Cannula 2.0 04/21/17 19:41 94 20 Nasal Cannula 2.0 04/21/17 19:36 94 20 99 Nasal Cannula 2.0 04/21/17 17:27 140/61 Intake and Output 04/21/17 04/22/17 19:00 07:00 Intake Total 610 ml Balance 610 ml Intake Oral 610 ml IV Total 0 ml # Voids 2 2 Objective General Appearance: WD/WN, mil HEENT: normocephalic, atraumatic Neck: normal alignment, supple Respiratory/Chest: chest wall non-tender, lungs clear, Hd access right chest Cardiovascular/Chest: normal peripheral pulses, normal rate Abdomen: normal bowel sounds, non tender Genitourinary/Rectal: normal genital exam Extremities: normal range of motion, Microbiology Date/Time Source Procedure Growth Status 04/20/17 22:30 Blood Blood Culture - Preliminary NO GROWTH AFTER 24 HOURS Resulted 04/20/17 22:15 Blood Blood Culture - Preliminary NO GROWTH AFTER 24 HOURS Resulted 04/21/17 15:00 Sputum Gram Stain - Final Resulted 04/21/17 15:00 Sputum Sputum Culture - Preliminary NO GROWTH Resulted 04/20/17 22:15 Nasal Nares Influenza Types A,B Antigen (ANNA) - Final Complete Laboratory Tests 04/21/17 18:52: Troponin I 0.217H 04/22/17 03:05: Troponin I 0.201H, White Blood Count 3.9L, Red Blood Count 2.67L, Hemoglobin 9.7L, Hematocrit 26.5L, Mean Corpuscular Volume 99, Mean Corpuscular Hemoglobin 36.3H, Mean Corpuscular Hemoglobin Concent 36.5H, Red Cell Distribution Width 12.9, Platelet Count 174, Mean Platelet Volume 6.6, Neutrophils (%) (Auto) 75.1H , Lymphocytes (%) (Auto) 9.5L, Monocytes (%) (Auto) 12.8H, Eosinophils (%) (Auto ) 0.5, Basophils (%) (Auto) 2.2H, Sodium Level 132L, Potassium Level 4.7, Chloride Level 95L, Carbon Dioxide Level 27, Anion Gap 11, Blood Urea Nitrogen 37H, Creatinine 7.6#H, Estimat Glomerular Filtration Rate , Glucose Level 98, Hemoglobin A1c 5.5, Uric Acid 4.7, Calcium Level 9.1, Phosphorus Level 6.2H, Magnesium Level 1.8, Iron Level 22L, Total Iron Binding Capacity 177L, Percent Iron Saturation 12L, Unsaturated Iron Binding 155, Ferritin 1485H, Total Bilirubin 0.4, Gamma Glutamyl Transpeptidase 32, Aspartate Amino Transf (AST/ SGOT) 16, Alanine Aminotransferase (ALT/SGPT) 10L, Alkaline Phosphatase 37L, Total Creatine Kinase 86, Pro-B-Type Natriuretic Peptide 02794Q, Total Protein 7.0, Albumin 3.0L, Globulin 4.0, Albumin/Globulin Ratio 0.8L, Triglycerides Level 54, Cholesterol Level 245H, LDL Cholesterol 173H, HDL Cholesterol 63H, Cholesterol/HDL Ratio 3.9, Vitamin B12 Level 544, Folate 8.6, Thyroid Stimulating Hormone (TSH) 1.562, Free Thyroxine 0.85 04/22/17 07:05: C-Reactive Protein, Quantitative 5.8H Current Medications Medications (Trade) Dose Ordered Sig/Ladarius Route PRN Reason Start Time Stop Time Status Last Admin Dose Admin Acetaminophen (Tylenol) 650 mg Q4H PRN ORAL Fever 04/21/17 05:30 05/21/17 05:29 04/22/17 08:20 Albuterol/ Ipratropium (Albuterol/ Ipratropium) 3 ml Q4H PRN HHN Shortness of Breath 04/21/17 05:30 04/26/17 05:29 04/21/17 15:23 Albuterol/ Ipratropium (Albuterol/ Ipratropium) 3 ml Q6HRT HHN 04/21/17 07:00 04/26/17 06:59 04/22/17 07:16 Aspirin (ASA) 325 mg DAILY ORAL 04/21/17 14:00 05/21/17 13:59 04/22/17 08:21 Atorvastatin Calcium (Lipitor) 10 mg BEDTIME ORAL 04/22/17 21:00 05/22/17 20:59 Ceftriaxone Sodium 1 gm/ Sodium Chloride 55 ml @ 110 mls/hr Q24H IVPB 04/21/17 12:00 04/28/17 11:59 04/22/17 12:06 Dextrose (Dextrose 50%) STAT PRN IV Hypoglycemia 04/21/17 05:30 05/21/17 05:29 Heparin Sodium (Porcine) (Heparin 5000 units/ml) 5,000 units EVERY 12 HOURS SUBQ 04/21/17 09:00 05/21/17 08:59 04/21/17 21:47 Lisinopril (Zestril) 5 mg BID ORAL 04/21/17 18:00 05/21/17 17:59 04/22/17 08:21 Metoprolol Tartrate (Lopressor) 25 mg Q12HR ORAL 04/21/17 21:00 05/21/17 20:59 04/22/17 08:40 Morphine Sulfate (Morphine Sulfate) 2 mg Q4H PRN IVP Severe Pain (Pain Scale 7-10) 04/21/17 15:30 04/28/17 15:29 04/21/17 15:43 Ondansetron HCl (Zofran) 4 mg Q6H PRN IVP Nausea & Vomiting 04/21/17 05:30 05/21/17 05:29 04/21/17 08:40 Pantoprazole (Protonix) 40 mg DAILY ORAL 04/21/17 14:00 05/21/17 13:59 04/22/17 08:20 Polyethylene Glycol (Miralax) 17 gm DAILYPRN PRN ORAL Constipation 04/21/17 05:30 05/21/17 05:29 Promethazine HCl/ Codeine (Phenergan with Codeine) 5 ml Q4H PRN ORAL For Cough 04/21/17 05:30 05/21/17 05:29 04/21/17 22:45 Sevelamer Carbonate (Renvela) 800 mg THREE TIMES A DAY ORAL 04/22/17 13:00 05/22/17 12:59 04/22/17 12:07 Temazepam (Restoril) 15 mg HSPRN PRN ORAL Insomnia 04/21/17 05:30 04/28/17 05:29 SARA SAWYER Apr 22, 2017 17:11
[2017-04-22 20:00] VITALS: BP 145/67
[2017-04-22] MEDS: Morphine Sulfate 2mg/ml Inj IVP PRN (20:13)
[2017-04-23] VITALS: BP 139/63
[2017-04-23 04:00] VITALS: BP 136/76
[2017-04-23] MEDS: Morphine Sulfate 2mg/ml Inj IVP PRN (04:44)
[2017-04-23] MEDS: Albuterol/Ipratropium 3ml neb HHN SCH ×3 (07:53→19:00)
[2017-04-23] MEDS: Metoprolol 25mg tab ORAL SCH ×2 (08:23→21:30)
[2017-04-23] MEDS: Lisinopril 2.5mg tab ORAL SCH (08:24)
[2017-04-23] MEDS: Heparin 5000 units/ml inj SUBQ SCH ×2 (08:27→21:00)
[2017-04-23 09:00] VITALS: BP 154/75
[2017-04-23 09:29] LABS: BASOPHILS % (AUTO) 1.5 % (0.0-2.0); EOSINOPHILS % (AUTO) 1.4 % (0.0-3.0); HEMATOCRIT 27.5 % (37.0-47.0); HEMOGLOBIN 9.2 G/DL (12.0-16.0); LYMPHOCYTES % (AUTO) 15.7 % (20.0-45.0); MEAN CORPUSCULAR VOLUME 103 FL (80-99); MONOCYTES % (AUTO) 10.7 % (1.0-10.0); NEUTROPHILS % (AUTO) 70.6 % (45.0-75.0); PLATELET COUNT 138 K/UL (150-450); RED BLOOD COUNT 2.66 M/UL (4.20-5.40); RED CELL DISTRIBUTION WIDTH 13.6 % (11.6-14.8); WHITE BLOOD COUNT 3.8 K/UL (4.8-10.8)
[2017-04-23 09:55] LABS: ALANINE AMINOTRANSFERASE 10 U/L (12-78); ALBUMIN 2.8 G/DL (3.4-5.0); ALBUMIN/GLOBULIN RATIO 0.7 (1.0-2.7); ALKALINE PHOSPHATASE 34 U/L (46-116); ANION GAP 10 mmol/L (5-15); ASPARTATE AMINO TRANSFERASE 23 U/L (15-37); BILIRUBIN,TOTAL 0.4 MG/DL (0.2-1.0); BLOOD UREA NITROGEN 29 mg/dL (7-18); CALCIUM 8.7 MG/DL (8.5-10.1); CARBON DIOXIDE 25 MMOL/L (21-32); CHLORIDE 104 MMOL/L (98-107); CREATININE 6.2 MG/DL (0.55-1.30); PHOSPHORUS 4.8 MG/DL (2.5-4.9); POTASSIUM 4.1 MMOL/L (3.5-5.1); SODIUM 139 MMOL/L (136-145)
--- NOTE | 2017-04-23 11:12 | Cardiac Electrophysiology PN ---
Assessment/Plan Assessment/Plan 1. Troponin elevation. Due to the patient's chronic kidney disease. Echo EF 45-50% 2. Abnormal electrocardiogram with left ventricular hypertrophy and repolarization abnormality as well as left anterior fascicular block. On aspirin and Metoprolol 25 bid 3. HTN On Lopressor 25 bid and Lisinopril 5 bid and HD. 4. Lower extremity edema. Lower extremity Doppler is negative yanet DVT 5. End-stage renal disease, on hemodialysis. 6. Possible sepsis. On IV antibiotic. ANGIE RN Subjective Subjective Feeling better. No chest pain or SOB. No arrhythmias on tele. In SR 80-90 Objective Last 24 Hour Vital Signs Date Time Temp Pulse Resp B/P (MAP) Pulse Ox O2 Delivery O2 Flow Rate FiO2 04/23/17 09:00 97.2 99 19 154/75 99 Nasal Cannula 2.0 04/23/17 08:24 154/75 04/23/17 08:23 103 154/75 04/23/17 08:03 87 18 98 Nasal Cannula 2.0 04/23/17 08:00 96 04/23/17 07:57 87 20 Nasal Cannula 2.0 04/23/17 07:53 87 18 95 Nasal Cannula 2.0 28 04/23/17 04:00 97.2 88 19 136/76 88 Nasal Cannula 2.0 04/23/17 03:54 91 04/23/17 00:00 98.4 84 19 139/63 99 Nasal Cannula 2.0 04/22/17 23:49 91 04/22/17 23:36 84 18 100 Nasal Cannula 2.0 04/22/17 23:33 67 18 97 Nasal Cannula 2.0 28 04/22/17 21:31 100 145/67 04/22/17 20:05 100 04/22/17 20:00 98.8 100 18 145/67 98 Nasal Cannula 2.0 04/22/17 19:12 114 22 Nasal Cannula 2.0 04/22/17 19:10 Nasal Cannula 2.0 28 04/22/17 19:10 Nasal Cannula 2.0 28 04/22/17 17:26 139/70 04/22/17 17:05 98.6 93 18 139/70 97 Nasal Cannula 2.0 04/22/17 15:53 85 04/22/17 12:45 Nasal Cannula 2.0 04/22/17 12:00 97.7 90 18 120/55 97 Nasal Cannula 2.0 04/22/17 11:48 66 04/22/17 11:43 Nasal Cannula 2.0 28 04/22/17 11:43 Nasal Cannula 2.0 28 Intake and Output 04/22/17 04/23/17 19:00 07:00 Intake Total 470 ml Output Total 1100 ml 300 ml Balance -630 ml -300 ml Intake Oral 360 ml IV Total 110 ml Output Urine Total 300 ml Hemodialysis UF 1100 ml # Bowel Movements 2 Laboratory Tests Test 04/23/17 07:34 White Blood Count 3.8 K/UL (4.8-10.8) L Red Blood Count 2.66 M/UL (4.20-5.40) L Hemoglobin 9.2 G/DL (12.0-16.0) L Hematocrit 27.5 % (37.0-47.0) L Mean Corpuscular Volume 103 FL (80-99) H Mean Corpuscular Hemoglobin 34.7 PG (27.0-31.0) H Mean Corpuscular Hemoglobin Concent 33.7 G/DL (32.0-36.0) Red Cell Distribution Width 13.6 % (11.6-14.8) Platelet Count 138 K/UL (150-450) L Mean Platelet Volume 6.8 FL (6.5-10.1) Neutrophils (%) (Auto) 70.6 % (45.0-75.0) Lymphocytes (%) (Auto) 15.7 % (20.0-45.0) L Monocytes (%) (Auto) 10.7 % (1.0-10.0) H Eosinophils (%) (Auto) 1.4 % (0.0-3.0) Basophils (%) (Auto) 1.5 % (0.0-2.0) Sodium Level 139 MMOL/L (136-145) Potassium Level 4.1 MMOL/L (3.5-5.1) Chloride Level 104 MMOL/L (98-107) Carbon Dioxide Level 25 MMOL/L (21-32) Anion Gap 10 mmol/L (5-15) Blood Urea Nitrogen 29 mg/dL (7-18) H Creatinine 6.2 MG/DL (0.55-1.30) H Estimat Glomerular Filtration Rate mL/min (>60) Glucose Level 139 MG/DL (74-106) H Calcium Level 8.7 MG/DL (8.5-10.1) Phosphorus Level 4.8 MG/DL (2.5-4.9) Magnesium Level 2.0 MG/DL (1.8-2.4) Total Bilirubin 0.4 MG/DL (0.2-1.0) Aspartate Amino Transf (AST/SGOT) 23 U/L (15-37) Alanine Aminotransferase (ALT/SGPT) 10 U/L (12-78) L Alkaline Phosphatase 34 U/L (46-116) L Troponin I 0.656 ng/mL (0.000-0.056) Pro-B-Type Natriuretic Peptide 48197 pg/mL (0-125) H Total Protein 6.6 G/DL (6.4-8.2) Albumin 2.8 G/DL (3.4-5.0) L Globulin 3.8 g/dL Albumin/Globulin Ratio 0.7 (1.0-2.7) L Digoxin Level 0.7 NG/ML (0.9-2.0) L Microbiology Date/Time Source Procedure Growth Status 04/20/17 22:30 Blood Blood Culture - Preliminary NO GROWTH AFTER 48 HOURS Resulted 04/20/17 22:15 Blood Blood Culture - Preliminary NO GROWTH AFTER 48 HOURS Resulted 04/21/17 15:00 Sputum Gram Stain - Final Complete 04/21/17 15:00 Sputum Sputum Culture - Final NORMAL UPPER RESPIRATORY ALEJANDRO PRESENT Complete 04/21/17 03:15 Nasal Nares MRSA Culture - Final NO METHICILLIN RESISTANT STAPH AUREUS... Complete 04/20/17 22:15 Nasal Nares Influenza Types A,B Antigen (ANNA) - Final Complete 04/21/17 03:15 Rectum VRE Culture - Final NO VANCOMYCIN RESISTANT ENTEROCOCCUS ... Complete Objective HEAD AND NECK: No JVD. LUNGS: Clear. CARDIOVASCULAR: Regular S1 and S2 with no gallop or murmur. ABDOMEN: Soft. EXTREMITIES: 1+ bilateral lower extremity edema. Her dialysis access is right IJ PermCath. JAKE GARCIA Apr 23, 2017 11:12
[2017-04-23 12:00] VITALS: BP 140/66
--- NOTE | 2017-04-23 12:23 | General Progress Note ---
Assessment/Plan Problem List: (1) Pneumonia ICD Codes: J18.9 - Pneumonia, unspecified organism SNOMED: 586633904 (2) Sepsis ICD Codes: A41.9 - Sepsis, unspecified organism SNOMED: 52957725 (3) ESRD (end stage renal disease) on dialysis ICD Codes: N18.6 - End stage renal disease; Z99.2 - Dependence on renal dialysis SNOMED: 319662746 (4) Acute respiratory failure ICD Codes: J96.00 - Acute respiratory failure, unspecified whether with hypoxia or hypercapnia SNOMED: 07085114 (5) Non-STEMI (non-ST elevated myocardial infarction) ICD Codes: I21.4 - Non-ST elevation (NSTEMI) myocardial infarction SNOMED: 786138850 (6) Respiratory distress ICD Codes: R06.03 - Acute respiratory distress SNOMED: 891321049 Status: unchanged Assessment/Plan o2 pulm tx abx ot pt diet cbc bmp am heme eval dc plan w hh Subjective Constitutional: Reports: weakness Allergies: Coded Allergies: No Known Allergies (Unverified , 04/20/17) All Systems: reviewed and negative except above Subjective sl sob Objective Last 24 Hour Vital Signs Date Time Temp Pulse Resp B/P (MAP) Pulse Ox O2 Delivery O2 Flow Rate FiO2 04/23/17 09:00 97.2 99 19 154/75 99 Nasal Cannula 2.0 04/23/17 08:24 154/75 04/23/17 08:23 103 154/75 04/23/17 08:03 87 18 98 Nasal Cannula 2.0 04/23/17 08:00 96 04/23/17 07:57 87 20 Nasal Cannula 2.0 04/23/17 07:53 87 18 95 Nasal Cannula 2.0 28 04/23/17 04:00 97.2 88 19 136/76 88 Nasal Cannula 2.0 04/23/17 03:54 91 04/23/17 00:00 98.4 84 19 139/63 99 Nasal Cannula 2.0 04/22/17 23:49 91 04/22/17 23:36 84 18 100 Nasal Cannula 2.0 04/22/17 23:33 67 18 97 Nasal Cannula 2.0 28 04/22/17 21:31 100 145/67 04/22/17 20:05 100 2/8/18 20:00 98.8 100 18 145/67 98 Nasal Cannula 2.0 04/22/17 19:12 114 22 Nasal Cannula 2.0 04/22/17 19:10 Nasal Cannula 2.0 28 04/22/17 19:10 Nasal Cannula 2.0 28 04/22/17 17:26 139/70 04/22/17 17:05 98.6 93 18 139/70 97 Nasal Cannula 2.0 04/22/17 15:53 85 04/22/17 12:45 Nasal Cannula 2.0 Intake and Output 04/22/17 04/23/17 19:00 07:00 Intake Total 470 ml Output Total 1100 ml 300 ml Balance -630 ml -300 ml Intake Oral 360 ml IV Total 110 ml Output Urine Total 300 ml Hemodialysis UF 1100 ml # Bowel Movements 2 Laboratory Tests 04/23/17 07:34: White Blood Count 3.8L, Red Blood Count 2.66L, Hemoglobin 9.2L, Hematocrit 27.5L , Mean Corpuscular Volume 103H, Mean Corpuscular Hemoglobin 34.7H, Mean Corpuscular Hemoglobin Concent 33.7, Red Cell Distribution Width 13.6, Platelet Count 138L, Mean Platelet Volume 6.8, Neutrophils (%) (Auto) 70.6, Lymphocytes ( %) (Auto) 15.7L, Monocytes (%) (Auto) 10.7H, Eosinophils (%) (Auto) 1.4, Basophils (%) (Auto) 1.5, Sodium Level 139, Potassium Level 4.1, Chloride Level 104, Carbon Dioxide Level 25, Anion Gap 10, Blood Urea Nitrogen 29H, Creatinine 6.2H, Estimat Glomerular Filtration Rate , Glucose Level 139H, Calcium Level 8.7 , Phosphorus Level 4.8, Magnesium Level 2.0, Total Bilirubin 0.4, Aspartate Amino Transf (AST/SGOT) 23, Alanine Aminotransferase (ALT/SGPT) 10L, Alkaline Phosphatase 34L, Troponin I 0.656H, Pro-B-Type Natriuretic Peptide 52489T, Total Protein 6.6, Albumin 2.8L, Globulin 3.8, Albumin/Globulin Ratio 0.7L, Digoxin Level 0.7L Height (Feet): 5 Height (Inches): 5.00 Weight (Pounds): 210 General Appearance: lethargic EENT: normal ENT inspection Neck: normal alignment Cardiovascular: normal peripheral pulses, normal rate, regular rhythm Respiratory/Chest: decreased breath sounds Abdomen: normal bowel sounds, non tender, soft Extremities: normal inspection Edema: no edema noted Arm (L), no edema noted Arm (R), no edema noted Leg (L), no edema noted Leg (R), no edema noted Pedal (L), no edema noted Pedal (R), no edema noted Generalized Neurologic: responsive, motor weakness Skin: normal pigmentation, warm/dry ROSA NEIL Apr 23, 2017 12:23
[2017-04-23] MEDS ORDERED: traMADol 50mg tab ORAL PRN (12:30)
--- NOTE | 2017-04-23 12:30 | Nephrology Progress Note ---
Assessment/Plan Problem List: (1) ESRD (end stage renal disease) on dialysis (2) Respiratory distress (3) Non-STEMI (non-ST elevated myocardial infarction) Assessment HTN Troponin leak, likely NSTEMI CHF, Ej Fx 40% - global hypokinesis ESRD last HD 04/22- Has a permacath right chest Plan Plan: increase Lisinopril- Add Nitro HD in am again 2D echo- Ej Fx 40-45% Adjust BP meds PO digoxin one more dose per orders Subjective ROS Limited/Unobtainable: No Constitutional: Reports: malaise, other - feels stronger Objective Objective Last 24 Hour Vital Signs Date Time Temp Pulse Resp B/P (MAP) Pulse Ox O2 Delivery O2 Flow Rate FiO2 04/23/17 09:00 97.2 99 19 154/75 99 Nasal Cannula 2.0 04/23/17 08:24 154/75 04/23/17 08:23 103 154/75 04/23/17 08:03 87 18 98 Nasal Cannula 2.0 04/23/17 08:00 96 04/23/17 07:57 87 20 Nasal Cannula 2.0 04/23/17 07:53 87 18 95 Nasal Cannula 2.0 28 04/23/17 04:00 97.2 88 19 136/76 88 Nasal Cannula 2.0 04/23/17 03:54 91 04/23/17 00:00 98.4 84 19 139/63 99 Nasal Cannula 2.0 04/22/17 23:49 91 04/22/17 23:36 84 18 100 Nasal Cannula 2.0 04/22/17 23:33 67 18 97 Nasal Cannula 2.0 28 04/22/17 21:31 100 145/67 04/22/17 20:05 100 04/22/17 20:00 98.8 100 18 145/67 98 Nasal Cannula 2.0 04/22/17 19:12 114 22 Nasal Cannula 2.0 04/22/17 19:10 Nasal Cannula 2.0 28 04/22/17 19:10 Nasal Cannula 2.0 28 04/22/17 17:26 139/70 04/22/17 17:05 98.6 93 18 139/70 97 Nasal Cannula 2.0 04/22/17 15:53 85 04/22/17 12:45 Nasal Cannula 2.0 Intake and Output 04/22/17 04/23/17 19:00 07:00 Intake Total 470 ml Output Total 1100 ml 300 ml Balance -630 ml -300 ml Intake Oral 360 ml IV Total 110 ml Output Urine Total 300 ml Hemodialysis UF 1100 ml # Bowel Movements 2 Laboratory Tests 04/23/17 07:34: White Blood Count 3.8L, Red Blood Count 2.66L, Hemoglobin 9.2L, Hematocrit 27.5L , Mean Corpuscular Volume 103H, Mean Corpuscular Hemoglobin 34.7H, Mean Corpuscular Hemoglobin Concent 33.7, Red Cell Distribution Width 13.6, Platelet Count 138L, Mean Platelet Volume 6.8, Neutrophils (%) (Auto) 70.6, Lymphocytes ( %) (Auto) 15.7L, Monocytes (%) (Auto) 10.7H, Eosinophils (%) (Auto) 1.4, Basophils (%) (Auto) 1.5, Sodium Level 139, Potassium Level 4.1, Chloride Level 104, Carbon Dioxide Level 25, Anion Gap 10, Blood Urea Nitrogen 29H, Creatinine 6.2H, Estimat Glomerular Filtration Rate , Glucose Level 139H, Calcium Level 8.7 , Phosphorus Level 4.8, Magnesium Level 2.0, Total Bilirubin 0.4, Aspartate Amino Transf (AST/SGOT) 23, Alanine Aminotransferase (ALT/SGPT) 10L, Alkaline Phosphatase 34L, Troponin I 0.656H, Pro-B-Type Natriuretic Peptide 84024N, Total Protein 6.6, Albumin 2.8L, Globulin 3.8, Albumin/Globulin Ratio 0.7L, Digoxin Level 0.7L Height (Feet): 5 Height (Inches): 5.00 Weight (Pounds): 210 General Appearance: no apparent distress Cardiovascular: tachycardia Respiratory/Chest: decreased breath sounds Abdomen: soft Objective no other changes MEGAN GUIDRY Apr 23, 2017 12:30
[2017-04-23] MEDS: cefTRIAXone 1 GM in NS 55 ML IVPB SCH (12:47)
[2017-04-23] MEDS ORDERED: Nitroglycerin Patch 0.4mg TDERMAL SCH (13:00)
--- NOTE | 2017-04-23 14:03 | Wound Care Consultation ---
Wound Assessment Wound Assessment : Wound Number: 1 Wound Present on Admission: Yes New Wound: No Status Change of Wound: No Wound Location Body Site Modif: mid Wound Location Body Site: sacral - and left and right buttocks Wound Type: scar Aime Test: Does not Aime Wound Thickness: Full Thickness Percent of Wound [place]/Red: 100 Wound Drainage Amount: None Wound Drainage Odor: None/Absent Tissue Surrounding Wound: Intact Wound General Appearance: Asymptomatic Wound Comment #1 Scar tissue on sacral area and left and right buttocks Recommendation -Keep clean and dry -Turn and reposition -Offload both heels -Optimize nutrition -Heel protector on both heels -Assess and f/u accordingly for any changes CAMILLE SHANKAR RN Apr 23, 2017 14:03
--- NOTE | 2017-04-23 14:28 | Pulmonology Progress Note ---
Assessment/Plan Problems: (1) Sepsis (2) Acute respiratory failure (3) ESRD (end stage renal disease) on dialysis (4) Non-STEMI (non-ST elevated myocardial infarction) Assessment/Plan no new complains continue HD check cultures contine abx f/u by Id check electrolytes. Subjective ROS Limited/Unobtainable: No Constitutional: Reports: no symptoms HEENT: Repors: no symptoms Respiratory: Reports: no symptoms Allergies: Coded Allergies: No Known Allergies (Unverified , 04/20/17) Objective Last 24 Hour Vital Signs Date Time Temp Pulse Resp B/P (MAP) Pulse Ox O2 Delivery O2 Flow Rate FiO2 04/23/17 13:01 99 04/23/17 13:00 154/75 04/23/17 09:00 97.2 99 19 154/75 99 Nasal Cannula 2.0 04/23/17 08:24 154/75 04/23/17 08:23 103 154/75 04/23/17 08:03 87 18 98 Nasal Cannula 2.0 04/23/17 08:00 96 04/23/17 07:57 87 20 Nasal Cannula 2.0 04/23/17 07:53 87 18 95 Nasal Cannula 2.0 28 04/23/17 04:00 97.2 88 19 136/76 88 Nasal Cannula 2.0 04/23/17 03:54 91 04/23/17 00:00 98.4 84 19 139/63 99 Nasal Cannula 2.0 04/22/17 23:49 91 04/22/17 23:36 84 18 100 Nasal Cannula 2.0 04/22/17 23:33 67 18 97 Nasal Cannula 2.0 28 04/22/17 21:31 100 145/67 04/22/17 20:05 100 04/22/17 20:00 98.8 100 18 145/67 98 Nasal Cannula 2.0 04/22/17 19:12 114 22 Nasal Cannula 2.0 04/22/17 19:10 Nasal Cannula 2.0 28 04/22/17 19:10 Nasal Cannula 2.0 28 04/22/17 17:26 139/70 04/22/17 17:05 98.6 93 18 139/70 97 Nasal Cannula 2.0 04/22/17 15:53 85 Intake and Output 04/22/17 04/23/17 19:00 07:00 Intake Total 470 ml Output Total 1100 ml 300 ml Balance -630 ml -300 ml Intake Oral 360 ml IV Total 110 ml Output Urine Total 300 ml Hemodialysis UF 1100 ml # Bowel Movements 2 Objective General Appearance: WD/WN, mil HEENT: normocephalic, atraumatic Neck: normal alignment, supple Respiratory/Chest: chest wall non-tender, lungs clear, Hd access right chest Cardiovascular/Chest: normal peripheral pulses, normal rate Abdomen: normal bowel sounds, non tender Genitourinary/Rectal: normal genital exam Extremities: normal range of motion, Microbiology Date/Time Source Procedure Growth Status 04/20/17 22:30 Blood Blood Culture - Preliminary NO GROWTH AFTER 48 HOURS Resulted 04/20/17 22:15 Blood Blood Culture - Preliminary NO GROWTH AFTER 48 HOURS Resulted 04/21/17 15:00 Sputum Gram Stain - Final Complete 04/21/17 15:00 Sputum Sputum Culture - Final NORMAL UPPER RESPIRATORY ALEJANDRO PRESENT Complete 04/21/17 03:15 Nasal Nares MRSA Culture - Final NO METHICILLIN RESISTANT STAPH AUREUS... Complete 04/20/17 22:15 Nasal Nares Influenza Types A,B Antigen (ANNA) - Final Complete 04/21/17 03:15 Rectum VRE Culture - Final NO VANCOMYCIN RESISTANT ENTEROCOCCUS ... Complete Laboratory Tests 04/23/17 07:34: White Blood Count 3.8L, Red Blood Count 2.66L, Hemoglobin 9.2L, Hematocrit 27.5L , Mean Corpuscular Volume 103H, Mean Corpuscular Hemoglobin 34.7H, Mean Corpuscular Hemoglobin Concent 33.7, Red Cell Distribution Width 13.6, Platelet Count 138L, Mean Platelet Volume 6.8, Neutrophils (%) (Auto) 70.6, Lymphocytes ( %) (Auto) 15.7L, Monocytes (%) (Auto) 10.7H, Eosinophils (%) (Auto) 1.4, Basophils (%) (Auto) 1.5, Sodium Level 139, Potassium Level 4.1, Chloride Level 104, Carbon Dioxide Level 25, Anion Gap 10, Blood Urea Nitrogen 29H, Creatinine 6.2H, Estimat Glomerular Filtration Rate , Glucose Level 139H, Calcium Level 8.7 , Phosphorus Level 4.8, Magnesium Level 2.0, Total Bilirubin 0.4, Aspartate Amino Transf (AST/SGOT) 23, Alanine Aminotransferase (ALT/SGPT) 10L, Alkaline Phosphatase 34L, Troponin I 0.656H, C-Reactive Protein, Quantitative 9.7H, Pro-B -Type Natriuretic Peptide 23654J, Total Protein 6.6, Albumin 2.8L, Globulin 3.8 , Albumin/Globulin Ratio 0.7L, Digoxin Level 0.7L Current Medications Medications (Trade) Dose Ordered Sig/Ladarius Route PRN Reason Start Time Stop Time Status Last Admin Dose Admin Acetaminophen (Tylenol) 650 mg Q4H PRN ORAL Fever 04/21/17 05:30 05/21/17 05:29 04/22/17 08:20 Albuterol/ Ipratropium (Albuterol/ Ipratropium) 3 ml Q4H PRN HHN Shortness of Breath 04/21/17 05:30 04/26/17 05:29 04/21/17 15:23 Albuterol/ Ipratropium (Albuterol/ Ipratropium) 3 ml Q6HRT HHN 04/21/17 07:00 04/26/17 06:59 04/23/17 07:53 Aspirin (ASA) 325 mg DAILY ORAL 04/21/17 14:00 05/21/17 13:59 04/23/17 08:24 Atorvastatin Calcium (Lipitor) 10 mg BEDTIME ORAL 04/22/17 21:00 05/22/17 20:59 04/22/17 21:31 Ceftriaxone Sodium 1 gm/ Sodium Chloride 55 ml @ 110 mls/hr Q24H IVPB 04/21/17 12:00 04/28/17 11:59 04/23/17 12:47 Dextrose (Dextrose 50%) STAT PRN IV Hypoglycemia 04/21/17 05:30 05/21/17 05:29 Heparin Sodium (Porcine) (Heparin 5000 units/ml) 5,000 units EVERY 12 HOURS SUBQ 04/21/17 09:00 05/21/17 08:59 04/23/17 08:27 Lisinopril (Zestril) 10 mg BID ORAL 04/23/17 18:00 05/23/17 17:59 Metoprolol Tartrate (Lopressor) 25 mg Q12HR ORAL 04/21/17 21:00 05/21/17 20:59 04/23/17 08:23 Nitroglycerin (Ntg) 1 patch Q24H TDERMAL 04/23/17 13:00 05/23/17 12:59 Ondansetron HCl (Zofran) 4 mg Q6H PRN IVP Nausea & Vomiting 04/21/17 05:30 05/21/17 05:29 04/21/17 08:40 Pantoprazole (Protonix) 40 mg DAILY ORAL 04/21/17 14:00 05/21/17 13:59 04/23/17 08:23 Polyethylene Glycol (Miralax) 17 gm DAILYPRN PRN ORAL Constipation 04/21/17 05:30 05/21/17 05:29 Promethazine HCl/ Codeine (Phenergan with Codeine) 5 ml Q4H PRN ORAL For Cough 04/21/17 05:30 05/21/17 05:29 04/21/17 22:45 Sevelamer Carbonate (Renvela) 800 mg THREE TIMES A DAY ORAL 04/22/17 13:00 05/22/17 12:59 04/23/17 08:24 Temazepam (Restoril) 15 mg HSPRN PRN ORAL Insomnia 04/21/17 05:30 04/28/17 05:29 Tramadol HCl (Ultram) 50 mg Q6H PRN ORAL pain of 6 and above 04/23/17 12:30 04/30/17 12:29 SARA SAWYER Apr 23, 2017 14:27
--- NOTE | 2017-04-23 14:39 | Infectious Diseases Prog Note ---
Assessment/Plan Assessment/Plan A; Respiratory distress Bronchitis ESRD on HD Diastolic CHF Aortic insufficiency P: discontinue Rocephin agree with discharge Subjective ROS Limited/Unobtainable: No Respiratory: Reports: dry cough Gastrointestinal/Abdominal: Reports: no symptoms Genitourinary: Reports: no symptoms Allergies: Coded Allergies: No Known Allergies (Unverified , 04/20/17) Objective Vital Signs Last 24 Hour Vital Signs Date Time Temp Pulse Resp B/P (MAP) Pulse Ox O2 Delivery O2 Flow Rate FiO2 04/23/17 13:01 99 04/23/17 13:00 154/75 04/23/17 12:00 98.0 87 20 140/66 96 Nasal Cannula 2.0 04/23/17 12:00 84 04/23/17 09:00 97.2 99 19 154/75 99 Nasal Cannula 2.0 04/23/17 08:24 154/75 04/23/17 08:23 103 154/75 04/23/17 08:03 87 18 98 Nasal Cannula 2.0 04/23/17 08:00 96 04/23/17 07:57 87 20 Nasal Cannula 2.0 04/23/17 07:53 87 18 95 Nasal Cannula 2.0 28 04/23/17 04:00 97.2 88 19 136/76 88 Nasal Cannula 2.0 04/23/17 03:54 91 04/23/17 00:00 98.4 84 19 139/63 99 Nasal Cannula 2.0 04/22/17 23:49 91 04/22/17 23:36 84 18 100 Nasal Cannula 2.0 04/22/17 23:33 67 18 97 Nasal Cannula 2.0 28 04/22/17 21:31 100 145/67 04/22/17 20:05 100 04/22/17 20:00 98.8 100 18 145/67 98 Nasal Cannula 2.0 04/22/17 19:12 114 22 Nasal Cannula 2.0 04/22/17 19:10 Nasal Cannula 2.0 28 04/22/17 19:10 Nasal Cannula 2.0 28 04/22/17 17:26 139/70 04/22/17 17:05 98.6 93 18 139/70 97 Nasal Cannula 2.0 04/22/17 15:53 85 Height (Feet): 5 Height (Inches): 5.00 Weight (Pounds): 210 General Appearance: no acute distress HEENT: mucous membranes moist Respiratory/Chest: other - coarese sounds Cardiovascular: normal rate, other - Permacath Abdomen: soft, non tender Extremities: no edema Neurologic/Psychiatric: alert, oriented x 3, responsive Microbiology Date/Time Source Procedure Growth Status 04/20/17 22:30 Blood Blood Culture - Preliminary NO GROWTH AFTER 48 HOURS Resulted 04/20/17 22:15 Blood Blood Culture - Preliminary NO GROWTH AFTER 48 HOURS Resulted 04/21/17 15:00 Sputum Gram Stain - Final Complete 04/21/17 15:00 Sputum Sputum Culture - Final NORMAL UPPER RESPIRATORY ALEJANDRO PRESENT Complete 04/21/17 03:15 Nasal Nares MRSA Culture - Final NO METHICILLIN RESISTANT STAPH AUREUS... Complete 04/20/17 22:15 Nasal Nares Influenza Types A,B Antigen (ANNA) - Final Complete 04/21/17 03:15 Rectum VRE Culture - Final NO VANCOMYCIN RESISTANT ENTEROCOCCUS ... Complete Laboratory Tests Test 04/23/17 07:34 White Blood Count 3.8 K/UL (4.8-10.8) L Red Blood Count 2.66 M/UL (4.20-5.40) L Hemoglobin 9.2 G/DL (12.0-16.0) L Hematocrit 27.5 % (37.0-47.0) L Mean Corpuscular Volume 103 FL (80-99) H Mean Corpuscular Hemoglobin 34.7 PG (27.0-31.0) H Mean Corpuscular Hemoglobin Concent 33.7 G/DL (32.0-36.0) Red Cell Distribution Width 13.6 % (11.6-14.8) Platelet Count 138 K/UL (150-450) L Mean Platelet Volume 6.8 FL (6.5-10.1) Neutrophils (%) (Auto) 70.6 % (45.0-75.0) Lymphocytes (%) (Auto) 15.7 % (20.0-45.0) L Monocytes (%) (Auto) 10.7 % (1.0-10.0) H Eosinophils (%) (Auto) 1.4 % (0.0-3.0) Basophils (%) (Auto) 1.5 % (0.0-2.0) Sodium Level 139 MMOL/L (136-145) Potassium Level 4.1 MMOL/L (3.5-5.1) Chloride Level 104 MMOL/L (98-107) Carbon Dioxide Level 25 MMOL/L (21-32) Anion Gap 10 mmol/L (5-15) Blood Urea Nitrogen 29 mg/dL (7-18) H Creatinine 6.2 MG/DL (0.55-1.30) H Estimat Glomerular Filtration Rate mL/min (>60) Glucose Level 139 MG/DL (74-106) H Calcium Level 8.7 MG/DL (8.5-10.1) Phosphorus Level 4.8 MG/DL (2.5-4.9) Magnesium Level 2.0 MG/DL (1.8-2.4) Total Bilirubin 0.4 MG/DL (0.2-1.0) Aspartate Amino Transf (AST/SGOT) 23 U/L (15-37) Alanine Aminotransferase (ALT/SGPT) 10 U/L (12-78) L Alkaline Phosphatase 34 U/L (46-116) L Troponin I 0.656 ng/mL (0.000-0.056) C-Reactive Protein, Quantitative 9.7 mg/dL (0.00-0.90) H Pro-B-Type Natriuretic Peptide 33205 pg/mL (0-125) H Total Protein 6.6 G/DL (6.4-8.2) Albumin 2.8 G/DL (3.4-5.0) L Globulin 3.8 g/dL Albumin/Globulin Ratio 0.7 (1.0-2.7) L Digoxin Level 0.7 NG/ML (0.9-2.0) L Current Medications Medications (Trade) Dose Ordered Sig/Ladarius Route PRN Reason Start Time Stop Time Status Last Admin Dose Admin Acetaminophen (Tylenol) 650 mg Q4H PRN ORAL Fever 04/21/17 05:30 05/21/17 05:29 04/22/17 08:20 Albuterol/ Ipratropium (Albuterol/ Ipratropium) 3 ml Q4H PRN HHN Shortness of Breath 04/21/17 05:30 04/26/17 05:29 04/21/17 15:23 Albuterol/ Ipratropium (Albuterol/ Ipratropium) 3 ml Q6HRT HHN 04/21/17 07:00 04/26/17 06:59 04/23/17 07:53 Aspirin (ASA) 325 mg DAILY ORAL 04/21/17 14:00 05/21/17 13:59 04/23/17 08:24 Atorvastatin Calcium (Lipitor) 10 mg BEDTIME ORAL 04/22/17 21:00 05/22/17 20:59 04/22/17 21:31 Ceftriaxone Sodium 1 gm/ Sodium Chloride 55 ml @ 110 mls/hr Q24H IVPB 04/21/17 12:00 04/28/17 11:59 04/23/17 12:47 Dextrose (Dextrose 50%) STAT PRN IV Hypoglycemia 04/21/17 05:30 05/21/17 05:29 Heparin Sodium (Porcine) (Heparin 5000 units/ml) 5,000 units EVERY 12 HOURS SUBQ 04/21/17 09:00 05/21/17 08:59 04/23/17 08:27 Lisinopril (Zestril) 10 mg BID ORAL 04/23/17 18:00 05/23/17 17:59 Metoprolol Tartrate (Lopressor) 25 mg Q12HR ORAL 04/21/17 21:00 05/21/17 20:59 04/23/17 08:23 Nitroglycerin (Ntg) 1 patch Q24H TDERMAL 04/23/17 13:00 05/23/17 12:59 Ondansetron HCl (Zofran) 4 mg Q6H PRN IVP Nausea & Vomiting 04/21/17 05:30 05/21/17 05:29 04/21/17 08:40 Pantoprazole (Protonix) 40 mg DAILY ORAL 04/21/17 14:00 05/21/17 13:59 04/23/17 08:23 Polyethylene Glycol (Miralax) 17 gm DAILYPRN PRN ORAL Constipation 04/21/17 05:30 05/21/17 05:29 Promethazine HCl/ Codeine (Phenergan with Codeine) 5 ml Q4H PRN ORAL For Cough 04/21/17 05:30 05/21/17 05:29 04/21/17 22:45 Sevelamer Carbonate (Renvela) 800 mg THREE TIMES A DAY ORAL 04/22/17 13:00 05/22/17 12:59 04/23/17 08:24 Temazepam (Restoril) 15 mg HSPRN PRN ORAL Insomnia 04/21/17 05:30 04/28/17 05:29 Tramadol HCl (Ultram) 50 mg Q6H PRN ORAL pain of 6 and above 04/23/17 12:30 04/30/17 12:29 MERISSA LOZANO Apr 23, 2017 14:39
[2017-04-23 16:00] VITALS: BP 148/77
[2017-04-23] MEDS ORDERED: Lisinopril 2.5mg tab ORAL SCH (18:00)
[2017-04-23 20:33] VITALS: BP 150/68
[2017-04-23] MEDS ORDERED: Promethazine/Codeine 5ml UD ORAL PRN (21:30)
[2017-04-23] MEDS ORDERED: Albuterol/Ipratropium 3ml neb HHN PRN (21:30)
[2017-04-23] MEDS: traMADol 50mg tab ORAL PRN (22:54)
[2017-04-24 00:11] VITALS: BP 141/74
[2017-04-24] MEDS: Albuterol/Ipratropium 3ml neb HHN SCH ×4 (02:07→20:55)
--- NOTE | 2017-04-24 02:30 | Consultation ---
DATE OF CONSULTATION: 04/23/2017 HEMATOLOGY/ONCOLOGY CONSULTATION CONSULTING PHYSICIAN: Chas Mijaers M.D. REQUESTING PHYSICIAN: Mateusz Peters D.O. REASON FOR CONSULTATION: Evaluation of pancytopenia. IDENTIFYING DATA: Dear First Vangie, I appreciate the courtesy of this consultation. The patient is a pleasant 71-year-old female who lives at home, at this time she presented to the hospital. She has a past medical history significant for end-stage renal disease, CHF, presented with shortness of breath for the last several days with congestion, likely sepsis, pneumonia related or CHF exacerbation, has been seen by Cardiology service, Dr. Batista. Troponin was elevated. Echocardiogram showed 45% to 50% ejection fraction. She has been on aspirin and metoprolol. Lower extremity edema, however, negative for DVT. The patient with dialysis refusing fluid removal. The patient was seen by Infectious Disease service as well with regard to bronchitis. She is on ceftriaxone. Hematology service consulted for evaluation of underlying pancytopenia, which appears to be acute onset in terms of the patient's platelet count downtrending at this time. PAST MEDICAL HISTORY: End-stage renal disease, on dialysis. PAST SURGICAL HISTORY: Shunt placement. REVIEW OF SYSTEMS: CONSTITUTIONAL: No fevers, chills, or night sweats. SKIN: No rashes, bumps, or itching. HEENT: No headache, hearing or vision changes. BREASTS: No lumps, pain, or discharge. PULMONARY: No cough, sputum, or shortness of breath. GASTROINTESTINAL: No nausea, vomiting, or diarrhea. GENITOURINARY: No dysuria, frequency, or urgency. MUSCULOSKELETAL: No joint swelling, muscle pain, or trauma. PHYSICAL EXAMINATION: VITAL SIGNS: Reviewed. GENERAL: No acute distress. PULMONARY: Decreased breath sounds. CARDIOVASCULAR: Regular rate. No S3 or S4. ABDOMEN: Soft, nontender and nondistended. EXTREMITIES: No cyanosis, clubbing, or edema. LABORATORY DATA: WBC 3.8, hemoglobin 9.2, hematocrit 28, platelet count 138,000. INR reviewed. The patient's anemia workup has been ordered and reviewed. Ferritin . ASSESSMENT AND RECOMMENDATIONS: 1. Pancytopenia related to underlying sepsis versus underlying medications. The patient is on heparin drip. We will continue to closely monitor. 2. Anemia due to underlying chronic disease. Anemia workup has been reviewed including B12, folic acid, TSH, free T4, as well as anemia workup. Continue to closely monitor. Hemoglobin goal is above 7. 3. Thrombocytopenia, currently on heparin. Closely monitor. 4. Coagulopathy. We will obtain repeat INR. 5. Demand elevated troponin, potentially related to underlying end-stage renal disease. 6. Respiratory distress. She is on broad-spectrum antibiotics. 7. [id number] myocardial infarction, seen by Cardiology Service. 8. End-stage renal disease, on hemodialysis. 9. Continue to closely monitor. Chas Mijares M.D. DR: Curly JOB#: [id number] CC:
[2017-04-24 04:53] VITALS: BP 153/73
[2017-04-24] MEDS ORDERED: Miralax 17gm pkt ORAL PRN (05:30)
[2017-04-24 08:00] VITALS: BP 165/73
--- NOTE | 2017-04-24 08:45 | General Progress Note ---
Assessment/Plan Problem List: (1) Pneumonia ICD Codes: J18.9 - Pneumonia, unspecified organism SNOMED: 624533738 (2) Sepsis ICD Codes: A41.9 - Sepsis, unspecified organism SNOMED: 61925329 (3) ESRD (end stage renal disease) on dialysis ICD Codes: N18.6 - End stage renal disease; Z99.2 - Dependence on renal dialysis SNOMED: 980349329 (4) Acute respiratory failure ICD Codes: J96.00 - Acute respiratory failure, unspecified whether with hypoxia or hypercapnia SNOMED: 91167954 (5) Non-STEMI (non-ST elevated myocardial infarction) ICD Codes: I21.4 - Non-ST elevation (NSTEMI) myocardial infarction SNOMED: 024551957 (6) Respiratory distress ICD Codes: R06.03 - Acute respiratory distress SNOMED: 823162715 Status: stable, progressing, tolerating diet Assessment/Plan o2 pulm tx abx ot pt diet cbc bmp am heme eval dc plan w hh after dialysis if clear Subjective Constitutional: Reports: weakness Allergies: Coded Allergies: No Known Allergies (Unverified , 04/20/17) All Systems: reviewed and negative except above Subjective sl sob Objective Last 24 Hour Vital Signs Date Time Temp Pulse Resp B/P (MAP) Pulse Ox O2 Delivery O2 Flow Rate FiO2 04/24/17 07:17 106 20 98 Room Air 21 04/24/17 07:08 88 20 Room Air 04/24/17 07:05 94 20 88 Room Air 04/24/17 04:53 102.0 99 19 153/73 92 04/24/17 02:00 104 20 98 Room Air 21 04/24/17 02:00 108 20 98 Room Air 21 04/24/17 00:11 98.8 99 20 141/74 93 04/23/17 21:30 96 141/73 04/23/17 20:33 99.0 94 19 150/68 93 04/23/17 19:30 Room Air 21 04/23/17 19:30 94 20 Room Air 21 04/23/17 19:30 Room Air 21 04/23/17 18:14 148/77 04/23/17 16:00 97.0 94 21 148/77 97 Nasal Cannula 2.0 04/23/17 15:01 88 18 97 Nasal Cannula 2.0 04/23/17 14:53 85 18 93 Nasal Cannula 2.0 28 04/23/17 13:01 99 04/23/17 13:00 154/75 04/23/17 12:00 98.0 87 20 140/66 96 Nasal Cannula 2.0 04/23/17 12:00 84 04/23/17 09:00 97.2 99 19 154/75 99 Nasal Cannula 2.0 Intake and Output 04/23/17 04/24/17 19:00 07:00 Intake Total 860 ml 360 ml Balance 860 ml 360 ml Intake Oral 750 ml 360 ml IV Total 110 ml # Voids 1 3 # Bowel Movements 1 Laboratory Tests 04/23/17 16:30: Prothrombin Time 10.3, Prothromb Time International Ratio 1.0 04/24/17 08:20: White Blood Count [Pending], Red Blood Count [Pending], Hemoglobin [Pending], Hematocrit [Pending], Mean Corpuscular Volume [Pending], Mean Corpuscular Hemoglobin [Pending], Mean Corpuscular Hemoglobin Concent [Pending], Red Cell Distribution Width [Pending], Platelet Count [Pending], Mean Platelet Volume [ Pending], Neutrophils (%) (Auto) [Pending], Lymphocytes (%) (Auto) [Pending], Monocytes (%) (Auto) [Pending], Eosinophils (%) (Auto) [Pending], Basophils (%) (Auto) [Pending], Sodium Level [Pending], Potassium Level [Pending], Chloride Level [Pending], Carbon Dioxide Level [Pending], Blood Urea Nitrogen [Pending], Creatinine [Pending], Estimat Glomerular Filtration Rate [Pending], Glucose Level [Pending], Uric Acid [Pending], Calcium Level [Pending], Phosphorus Level [Pending], Magnesium Level [Pending], Total Bilirubin [Pending], Aspartate Amino Transf (AST/SGOT) [Pending], Alanine Aminotransferase (ALT/SGPT) [Pending] , Alkaline Phosphatase [Pending], Troponin I [Pending], Pro-B-Type Natriuretic Peptide [Pending], Total Protein [Pending], Albumin [Pending], Globulin [Pending ] Height (Feet): 5 Height (Inches): 5.00 Weight (Pounds): 210 General Appearance: lethargic EENT: normal ENT inspection Neck: normal alignment Cardiovascular: normal peripheral pulses, normal rate, regular rhythm Respiratory/Chest: chest wall non-tender, lungs clear, normal breath sounds Abdomen: normal bowel sounds, non tender, soft Extremities: normal inspection Edema: no edema noted Arm (L), no edema noted Arm (R), no edema noted Leg (L), no edema noted Leg (R), no edema noted Pedal (L), no edema noted Pedal (R), no edema noted Generalized Neurologic: responsive, motor weakness Skin: normal pigmentation, warm/dry ROSA NELI Apr 24, 2017 08:45
[2017-04-24] MEDS: Heparin 5000 units/ml inj SUBQ SCH ×2 (09:00→20:41)
[2017-04-24] MEDS ORDERED: Lisinopril 2.5mg tab ORAL SCH (09:00)
[2017-04-24] MEDS: Metoprolol 25mg tab ORAL SCH (09:05)
[2017-04-24 09:21] LABS: BASOPHILS % (AUTO) 1.1 % (0.0-2.0); EOSINOPHILS % (AUTO) 0.9 % (0.0-3.0); HEMATOCRIT 25.3 % (37.0-47.0); HEMOGLOBIN 8.6 G/DL (12.0-16.0); LYMPHOCYTES % (AUTO) 10.8 % (20.0-45.0); MEAN CORPUSCULAR VOLUME 102 FL (80-99); MONOCYTES % (AUTO) 6.9 % (1.0-10.0); NEUTROPHILS % (AUTO) 80.4 % (45.0-75.0); PLATELET COUNT 128 K/UL (150-450); RED BLOOD COUNT 2.48 M/UL (4.20-5.40); RED CELL DISTRIBUTION WIDTH 13.1 % (11.6-14.8)
[2017-04-24 09:42] LABS: ALANINE AMINOTRANSFERASE 9 U/L (12-78); ALBUMIN 2.7 G/DL (3.4-5.0); ALBUMIN/GLOBULIN RATIO 0.7 (1.0-2.7); ALKALINE PHOSPHATASE 31 U/L (46-116); ANION GAP 14 mmol/L (5-15); ASPARTATE AMINO TRANSFERASE 21 U/L (15-37); BILIRUBIN,TOTAL 0.4 MG/DL (0.2-1.0); BLOOD UREA NITROGEN 47 mg/dL (7-18); CALCIUM 8.5 MG/DL (8.5-10.1); CARBON DIOXIDE 22 MMOL/L (21-32); CHLORIDE 104 MMOL/L (98-107); CREATININE 9.2 MG/DL (0.55-1.30); POTASSIUM 4.6 MMOL/L (3.5-5.1); SODIUM 140 MMOL/L (136-145)
--- NOTE | 2017-04-24 10:44 | Pulmonology Progress Note ---
Assessment/Plan Problems: (1) Sepsis (2) Acute respiratory failure (3) ESRD (end stage renal disease) on dialysis (4) Non-STEMI (non-ST elevated myocardial infarction) Assessment/Plan still coughing a antitussives check sputum continue HD check cultures contine abx f/u by Id check electrolytes. Subjective ROS Limited/Unobtainable: No Constitutional: Reports: no symptoms HEENT: Repors: no symptoms Allergies: Coded Allergies: No Known Allergies (Unverified , 04/20/17) Objective Last 24 Hour Vital Signs Date Time Temp Pulse Resp B/P (MAP) Pulse Ox O2 Delivery O2 Flow Rate FiO2 04/24/17 10:10 101.3 04/24/17 09:05 101 165/73 04/24/17 09:05 165/73 04/24/17 08:00 101.1 101 19 165/73 94 04/24/17 07:17 106 20 98 Room Air 21 04/24/17 07:08 88 20 Room Air 21 04/24/17 07:05 94 20 88 Room Air 21 04/24/17 04:53 102.0 99 19 153/73 92 04/24/17 02:00 104 20 98 Room Air 21 04/24/17 02:00 108 20 98 Room Air 21 04/24/17 00:11 98.8 99 20 141/74 93 04/23/17 21:30 96 141/73 04/23/17 20:33 99.0 94 19 150/68 93 04/23/17 19:30 Room Air 21 04/23/17 19:30 94 20 Room Air 21 04/23/17 19:30 Room Air 21 04/23/17 18:14 148/77 04/23/17 16:00 97.0 94 21 148/77 97 Nasal Cannula 2.0 04/23/17 15:01 88 18 97 Nasal Cannula 2.0 04/23/17 14:53 85 18 93 Nasal Cannula 2.0 28 04/23/17 13:01 99 04/23/17 13:00 154/75 04/23/17 12:00 98.0 87 20 140/66 96 Nasal Cannula 2.0 04/23/17 12:00 84 Intake and Output 04/23/17 04/24/17 19:00 07:00 Intake Total 860 ml 360 ml Balance 860 ml 360 ml Intake Oral 750 ml 360 ml IV Total 110 ml # Voids 1 3 # Bowel Movements 1 Objective General Appearance: WD/WN, mil HEENT: normocephalic, atraumatic Neck: normal alignment, supple Respiratory/Chest: chest wall non-tender, lungs clear, Hd access right chest Cardiovascular/Chest: normal peripheral pulses, normal rate Abdomen: normal bowel sounds, non tender Genitourinary/Rectal: normal genital exam Extremities: normal range of motion, Microbiology Date/Time Source Procedure Growth Status 04/21/17 15:00 Sputum Gram Stain - Final Complete 04/21/17 15:00 Sputum Sputum Culture - Final NORMAL UPPER RESPIRATORY ALEJANDRO PRESENT Complete Laboratory Tests 04/23/17 16:30: Prothrombin Time 10.3, Prothromb Time International Ratio 1.0 04/24/17 08:20: White Blood Count 6.0#, Red Blood Count 2.48L, Hemoglobin 8.6L, Hematocrit 25.3L , Mean Corpuscular Volume 102H, Mean Corpuscular Hemoglobin 34.8H, Mean Corpuscular Hemoglobin Concent 34.2, Red Cell Distribution Width 13.1, Platelet Count 128L, Mean Platelet Volume 6.8, Neutrophils (%) (Auto) 80.4H, Lymphocytes (%) (Auto) 10.8L, Monocytes (%) (Auto) 6.9, Eosinophils (%) (Auto) 0.9, Basophils (%) (Auto) 1.1, Sodium Level 140, Potassium Level 4.6, Chloride Level 104, Carbon Dioxide Level 22, Anion Gap 14, Blood Urea Nitrogen 47H, Creatinine 9.2H, Estimat Glomerular Filtration Rate , Glucose Level 91, Uric Acid 6.0, Calcium Level 8.5, Phosphorus Level 6.0H, Magnesium Level 2.1, Total Bilirubin 0.4, Aspartate Amino Transf (AST/SGOT) 21, Alanine Aminotransferase (ALT/SGPT) 9L, Alkaline Phosphatase 31L, Troponin I 0.852H, Pro-B-Type Natriuretic Peptide 31230Q, Total Protein 6.5, Albumin 2.7L, Globulin 3.8, Albumin/Globulin Ratio 0.7L Current Medications Medications (Trade) Dose Ordered Sig/Ladarius Route PRN Reason Start Time Stop Time Status Last Admin Dose Admin Acetaminophen (Tylenol) 650 mg Q4H PRN ORAL Fever 04/23/17 21:30 05/21/17 05:29 04/24/17 09:03 Albuterol/ Ipratropium (Albuterol/ Ipratropium) 3 ml Q4H PRN HHN Shortness of Breath 04/23/17 21:30 04/26/17 05:29 Albuterol/ Ipratropium (Albuterol/ Ipratropium) 3 ml Q6HRT HHN 04/23/17 19:00 04/26/17 06:59 04/24/17 07:05 Aspirin (ASA) 325 mg DAILY ORAL 04/24/17 09:00 05/21/17 13:59 04/24/17 09:06 Atorvastatin Calcium (Lipitor) 10 mg BEDTIME ORAL 04/23/17 21:00 05/22/17 20:59 04/23/17 21:30 Ceftriaxone Sodium 1 gm/ Dextrose 55 ml @ 110 mls/hr Q24H IVPB 04/24/17 10:30 05/01/17 10:29 UNV Dextrose (Dextrose 50%) STAT PRN IV Hypoglycemia 04/24/17 05:30 05/21/17 05:29 Heparin Sodium (Porcine) (Heparin 5000 units/ml) 5,000 units EVERY 12 HOURS SUBQ 04/23/17 21:00 05/21/17 08:59 Lisinopril (Zestril) 10 mg BID ORAL 04/24/17 09:00 05/23/17 17:59 04/24/17 09:05 Metoprolol Tartrate (Lopressor) 25 mg Q12HR ORAL 04/23/17 21:00 05/21/17 20:59 04/24/17 09:05 Nitroglycerin (Ntg) 1 patch Q24H TDERMAL 04/24/17 13:00 05/23/17 12:59 Ondansetron HCl (Zofran) 4 mg Q6H PRN IVP Nausea & Vomiting 04/23/17 23:30 05/21/17 05:29 04/24/17 09:25 Pantoprazole (Protonix) 40 mg DAILY ORAL 04/24/17 09:00 05/21/17 13:59 04/24/17 09:05 Polyethylene Glycol (Miralax) 17 gm DAILYPRN PRN ORAL Constipation 04/24/17 05:30 05/21/17 05:29 Promethazine HCl/ Codeine (Phenergan with Codeine) 5 ml Q4H PRN ORAL For Cough 04/23/17 21:30 05/21/17 05:29 Sevelamer Carbonate (Renvela) 800 mg THREE TIMES A DAY ORAL 04/24/17 09:00 05/22/17 12:59 Temazepam (Restoril) 15 mg HSPRN PRN ORAL Insomnia 04/24/17 05:30 04/28/17 05:29 Tramadol HCl (Ultram) 50 mg Q6H PRN ORAL pain of 6 and above 04/24/17 00:30 04/30/17 12:29 04/23/17 22:54 Vancomycin HCl (Vanco rx to dose) 1 ea DAILY PRN MISC Per rx protocol 04/24/17 10:30 05/24/17 10:29 SARA SHEPARD Apr 24, 2017 10:44
--- NOTE | 2017-04-24 11:01 | Diagnostic Imaging Report ---
Indication: Reason For Exam: INFECT Technique: XRAY Chest 1v Comparison: 04/20/2017 Findings: Patient rotation to the right. Stable cardiomegaly. Dialysis catheter again noted. There is interstitial opacification/edema. Unchanged. No new focal airspace consolidation. No pleural effusion or pneumothorax. No acute osseous abnormality. Impression: Cardiomegaly and mild interstitial opacification/edema. Dialysis catheter in place.
--- NOTE | 2017-04-24 11:29 | Infectious Diseases Prog Note ---
Assessment/Plan Assessment/Plan antibiotics : vancomycin iv, ceftriaxone A 1. pneumonia 2. fever improving 3. renal failure 4. CHF P 1. continue vancomycin iv, ceftriaxone 2. will follow up cultures Subjective Constitutional: Denies: fever, chills Respiratory: Denies: shortness of breath, dry cough Gastrointestinal/Abdominal: Denies: nausea, vomiting, diarrhea Musculoskeletal: Denies: pain Allergies: Coded Allergies: No Known Allergies (Unverified , 04/20/17) Objective Vital Signs Last 24 Hour Vital Signs Date Time Temp Pulse Resp B/P (MAP) Pulse Ox O2 Delivery O2 Flow Rate FiO2 04/24/17 10:10 101.3 04/24/17 09:05 101 165/73 04/24/17 09:05 165/73 04/24/17 08:00 101.1 101 19 165/73 94 04/24/17 07:17 106 20 98 Room Air 21 04/24/17 07:08 88 20 Room Air 21 04/24/17 07:05 94 20 88 Room Air 21 04/24/17 04:53 102.0 99 19 153/73 92 04/24/17 02:00 104 20 98 Room Air 21 04/24/17 02:00 108 20 98 Room Air 21 04/24/17 00:11 98.8 99 20 141/74 93 04/23/17 21:30 96 141/73 04/23/17 20:33 99.0 94 19 150/68 93 04/23/17 19:30 Room Air 21 04/23/17 19:30 94 20 Room Air 21 04/23/17 19:30 Room Air 21 04/23/17 18:14 148/77 04/23/17 16:00 97.0 94 21 148/77 97 Nasal Cannula 2.0 04/23/17 15:01 88 18 97 Nasal Cannula 2.0 04/23/17 14:53 85 18 93 Nasal Cannula 2.0 28 04/23/17 13:01 99 04/23/17 13:00 154/75 04/23/17 12:00 98.0 87 20 140/66 96 Nasal Cannula 2.0 04/23/17 12:00 84 Height (Feet): 5 Height (Inches): 5.00 Weight (Pounds): 210 Respiratory/Chest: lungs clear Cardiovascular: normal rate, regular rhythm, no gallop/murmur Abdomen: soft, non tender Extremities: other - + edema bilaterally, right subclavian catheter Microbiology Date/Time Source Procedure Growth Status 04/21/17 15:00 Sputum Gram Stain - Final Complete 04/21/17 15:00 Sputum Sputum Culture - Final NORMAL UPPER RESPIRATORY ALEJANDRO PRESENT Complete Laboratory Tests Test 04/23/17 16:30 04/24/17 08:20 Prothrombin Time 10.3 SEC (9.30-11.50) Prothromb Time International Ratio 1.0 (0.9-1.1) White Blood Count 6.0 K/UL (4.8-10.8) # Red Blood Count 2.48 M/UL (4.20-5.40) L Hemoglobin 8.6 G/DL (12.0-16.0) L Hematocrit 25.3 % (37.0-47.0) L Mean Corpuscular Volume 102 FL (80-99) H Mean Corpuscular Hemoglobin 34.8 PG (27.0-31.0) H Mean Corpuscular Hemoglobin Concent 34.2 G/DL (32.0-36.0) Red Cell Distribution Width 13.1 % (11.6-14.8) Platelet Count 128 K/UL (150-450) L Mean Platelet Volume 6.8 FL (6.5-10.1) Neutrophils (%) (Auto) 80.4 % (45.0-75.0) H Lymphocytes (%) (Auto) 10.8 % (20.0-45.0) L Monocytes (%) (Auto) 6.9 % (1.0-10.0) Eosinophils (%) (Auto) 0.9 % (0.0-3.0) Basophils (%) (Auto) 1.1 % (0.0-2.0) Sodium Level 140 MMOL/L (136-145) Potassium Level 4.6 MMOL/L (3.5-5.1) Chloride Level 104 MMOL/L (98-107) Carbon Dioxide Level 22 MMOL/L (21-32) Anion Gap 14 mmol/L (5-15) Blood Urea Nitrogen 47 mg/dL (7-18) H Creatinine 9.2 MG/DL (0.55-1.30) H Estimat Glomerular Filtration Rate mL/min (>60) Glucose Level 91 MG/DL (74-106) Uric Acid 6.0 MG/DL (2.6-7.2) Calcium Level 8.5 MG/DL (8.5-10.1) Phosphorus Level 6.0 MG/DL (2.5-4.9) H Magnesium Level 2.1 MG/DL (1.8-2.4) Total Bilirubin 0.4 MG/DL (0.2-1.0) Aspartate Amino Transf (AST/SGOT) 21 U/L (15-37) Alanine Aminotransferase (ALT/SGPT) 9 U/L (12-78) L Alkaline Phosphatase 31 U/L (46-116) L Troponin I 0.852 ng/mL (0.000-0.056) Pro-B-Type Natriuretic Peptide 93040 pg/mL (0-125) H Total Protein 6.5 G/DL (6.4-8.2) Albumin 2.7 G/DL (3.4-5.0) L Globulin 3.8 g/dL Albumin/Globulin Ratio 0.7 (1.0-2.7) L YOLANDA HUBBARD Apr 24, 2017 11:29
--- NOTE | 2017-04-24 11:31 | Nephrology Progress Note ---
Assessment/Plan Problem List: (1) ESRD (end stage renal disease) on dialysis (2) Respiratory distress (3) Non-STEMI (non-ST elevated myocardial infarction) Assessment HTN Troponin leak, likely NSTEMI CHF, Ej Fx 40% - global hypokinesis ESRD last HD 04/22- Has a permacath right chest Plan Plan: cultures increase Lisinopril- and lopressor Add Nitro HD today 2D echo- Ej Fx 40-45% Adjust BP meds PO digoxin one more dose per orders Subjective ROS Limited/Unobtainable: No Constitutional: Reports: malaise, other - spiked Objective Objective Last 24 Hour Vital Signs Date Time Temp Pulse Resp B/P (MAP) Pulse Ox O2 Delivery O2 Flow Rate FiO2 04/24/17 10:10 101.3 04/24/17 09:05 101 165/73 04/24/17 09:05 165/73 04/24/17 08:00 101.1 101 19 165/73 94 04/24/17 07:17 106 20 98 Room Air 21 04/24/17 07:08 88 20 Room Air 21 04/24/17 07:05 94 20 88 Room Air 21 04/24/17 04:53 102.0 99 19 153/73 92 04/24/17 02:00 104 20 98 Room Air 21 04/24/17 02:00 108 20 98 Room Air 21 04/24/17 00:11 98.8 99 20 141/74 93 04/23/17 21:30 96 141/73 04/23/17 20:33 99.0 94 19 150/68 93 04/23/17 19:30 Room Air 21 04/23/17 19:30 94 20 Room Air 21 04/23/17 19:30 Room Air 21 04/23/17 18:14 148/77 04/23/17 16:00 97.0 94 21 148/77 97 Nasal Cannula 2.0 04/23/17 15:01 88 18 97 Nasal Cannula 2.0 04/23/17 14:53 85 18 93 Nasal Cannula 2.0 28 04/23/17 13:01 99 04/23/17 13:00 154/75 04/23/17 12:00 98.0 87 20 140/66 96 Nasal Cannula 2.0 04/23/17 12:00 84 Intake and Output 04/23/17 04/24/17 19:00 07:00 Intake Total 860 ml 360 ml Balance 860 ml 360 ml Intake Oral 750 ml 360 ml IV Total 110 ml # Voids 1 3 # Bowel Movements 1 Laboratory Tests 04/23/17 16:30: Prothrombin Time 10.3, Prothromb Time International Ratio 1.0 04/24/17 08:20: White Blood Count 6.0#, Red Blood Count 2.48L, Hemoglobin 8.6L, Hematocrit 25.3L , Mean Corpuscular Volume 102H, Mean Corpuscular Hemoglobin 34.8H, Mean Corpuscular Hemoglobin Concent 34.2, Red Cell Distribution Width 13.1, Platelet Count 128L, Mean Platelet Volume 6.8, Neutrophils (%) (Auto) 80.4H, Lymphocytes (%) (Auto) 10.8L, Monocytes (%) (Auto) 6.9, Eosinophils (%) (Auto) 0.9, Basophils (%) (Auto) 1.1, Sodium Level 140, Potassium Level 4.6, Chloride Level 104, Carbon Dioxide Level 22, Anion Gap 14, Blood Urea Nitrogen 47H, Creatinine 9.2H, Estimat Glomerular Filtration Rate , Glucose Level 91, Uric Acid 6.0, Calcium Level 8.5, Phosphorus Level 6.0H, Magnesium Level 2.1, Total Bilirubin 0.4, Aspartate Amino Transf (AST/SGOT) 21, Alanine Aminotransferase (ALT/SGPT) 9L, Alkaline Phosphatase 31L, Troponin I 0.852H, Pro-B-Type Natriuretic Peptide 80124Z, Total Protein 6.5, Albumin 2.7L, Globulin 3.8, Albumin/Globulin Ratio 0.7L Height (Feet): 5 Height (Inches): 5.00 Weight (Pounds): 210 General Appearance: no apparent distress, lethargic Cardiovascular: tachycardia Respiratory/Chest: decreased breath sounds Abdomen: soft Objective no other changes MEGAN GUIDRY Apr 24, 2017 11:31
[2017-04-24 12:00] VITALS: BP 154/71
[2017-04-24] MEDS: cefTRIAXone 1 GM in NS 55 ML IVPB SCH (12:50)
[2017-04-24] MEDS: Nitroglycerin Patch 0.4mg TDERMAL SCH (12:55)
[2017-04-24] MEDS ORDERED: Vancomycin 1500mg IVPB ONE (15:00)
[2017-04-24] MEDS ORDERED: Tubing IV Secondary IV ONE (16:07)
[2017-04-24 16:47] VITALS: BP 141/76
[2017-04-24] MEDS: Lisinopril 20mg tab ORAL SCH (17:31)
--- NOTE | 2017-04-24 17:49 | Cardiac Electrophysiology PN ---
Assessment/Plan Assessment/Plan 1. Troponin elevation. Due to chronic kidney disease. Echo EF 45-50% 2. Abnormal electrocardiogram with left ventricular hypertrophy and repolarization abnormality as well as left anterior fascicular block. On aspirin and Metoprolol 25 bid 3. HTN On Lopressor 25 bid and Lisinopril 5 bid and HD. 4. Severe AI and MR. No vegetrations. 5. Lower extremity edema. Doppler is negative yanet DVT 6. End-stage renal disease, on hemodialysis. 7. Possible sepsis. On IV antibiotic. ANGIE RN Subjective Subjective No chest pain or SOB. Discharge cancelled as was febrile. Had HD. Had Blood cultures done and started on Rocephin and Vancomycin. Objective Last 24 Hour Vital Signs Date Time Temp Pulse Resp B/P (MAP) Pulse Ox O2 Delivery O2 Flow Rate FiO2 04/24/17 17:31 141/76 04/24/17 16:47 97 Nasal Cannula 3.0 04/24/17 16:47 98.6 98 20 141/76 97 04/24/17 16:29 Nasal Cannula 04/24/17 16:29 Room Air 04/24/17 16:27 Nasal Cannula 3.0 21 04/24/17 13:10 Nasal Cannula 3.0 21 04/24/17 12:55 154/71 04/24/17 12:00 97.6 98 20 154/71 99 Nasal Cannula 3.0 04/24/17 10:11 101.3 Nasal Cannula 3.0 04/24/17 10:10 101.3 04/24/17 09:05 101 165/73 04/24/17 09:05 165/73 04/24/17 08:00 94 Nasal Cannula 3.0 04/24/17 08:00 101.1 101 19 165/73 94 04/24/17 07:17 106 20 98 Room Air 21 04/24/17 07:08 88 20 Room Air 21 04/24/17 07:05 94 20 88 Room Air 21 04/24/17 04:53 102.0 99 19 153/73 92 04/24/17 02:00 104 20 98 Room Air 21 04/24/17 02:00 108 20 98 Room Air 21 04/24/17 00:11 98.8 99 20 141/74 93 04/23/17 21:30 96 141/73 04/23/17 20:33 99.0 94 19 150/68 93 04/23/17 19:30 Room Air 21 04/23/17 19:30 94 20 Room Air 21 04/23/17 19:30 Room Air 21 04/23/17 18:14 148/77 Intake and Output 04/23/17 04/24/17 19:00 07:00 Intake Total 860 ml 360 ml Balance 860 ml 360 ml Intake Oral 750 ml 360 ml IV Total 110 ml # Voids 1 3 # Bowel Movements 1 Laboratory Tests Test 04/24/17 08:20 White Blood Count 6.0 K/UL (4.8-10.8) # Red Blood Count 2.48 M/UL (4.20-5.40) L Hemoglobin 8.6 G/DL (12.0-16.0) L Hematocrit 25.3 % (37.0-47.0) L Mean Corpuscular Volume 102 FL (80-99) H Mean Corpuscular Hemoglobin 34.8 PG (27.0-31.0) H Mean Corpuscular Hemoglobin Concent 34.2 G/DL (32.0-36.0) Red Cell Distribution Width 13.1 % (11.6-14.8) Platelet Count 128 K/UL (150-450) L Mean Platelet Volume 6.8 FL (6.5-10.1) Neutrophils (%) (Auto) 80.4 % (45.0-75.0) H Lymphocytes (%) (Auto) 10.8 % (20.0-45.0) L Monocytes (%) (Auto) 6.9 % (1.0-10.0) Eosinophils (%) (Auto) 0.9 % (0.0-3.0) Basophils (%) (Auto) 1.1 % (0.0-2.0) Sodium Level 140 MMOL/L (136-145) Potassium Level 4.6 MMOL/L (3.5-5.1) Chloride Level 104 MMOL/L (98-107) Carbon Dioxide Level 22 MMOL/L (21-32) Anion Gap 14 mmol/L (5-15) Blood Urea Nitrogen 47 mg/dL (7-18) H Creatinine 9.2 MG/DL (0.55-1.30) H Estimat Glomerular Filtration Rate mL/min (>60) Glucose Level 91 MG/DL (74-106) Uric Acid 6.0 MG/DL (2.6-7.2) Calcium Level 8.5 MG/DL (8.5-10.1) Phosphorus Level 6.0 MG/DL (2.5-4.9) H Magnesium Level 2.1 MG/DL (1.8-2.4) Total Bilirubin 0.4 MG/DL (0.2-1.0) Aspartate Amino Transf (AST/SGOT) 21 U/L (15-37) Alanine Aminotransferase (ALT/SGPT) 9 U/L (12-78) L Alkaline Phosphatase 31 U/L (46-116) L Troponin I 0.852 ng/mL (0.000-0.056) C-Reactive Protein, Quantitative 8.7 mg/dL (0.00-0.90) H Pro-B-Type Natriuretic Peptide 10514 pg/mL (0-125) H Total Protein 6.5 G/DL (6.4-8.2) Albumin 2.7 G/DL (3.4-5.0) L Globulin 3.8 g/dL Albumin/Globulin Ratio 0.7 (1.0-2.7) L Objective HEAD AND NECK: No JVD. LUNGS: Clear. CARDIOVASCULAR: Regular S1 and S2 with no gallop or murmur. ABDOMEN: Soft. EXTREMITIES: 1+ bilateral lower extremity edema. Her dialysis access is right IJ PermCath. JAKE GARCIA Apr 24, 2017 17:49
[2017-04-24 20:00] VITALS: BP 158/63
[2017-04-24] MEDS: Metoprolol Tartrate 50mg tab ORAL SCH (20:40)
--- NOTE | 2017-04-24 23:35 | General Progress Note ---
Assessment/Plan Assessment/Plan 1. Pancytopenia related to underlying sepsis versus underlying medications. --> The patient is on heparin drip. --> We will continue to closely monitor. 2. Anemia due to underlying chronic disease. --> Anemia workup has been reviewed including B12, folic acid, TSH, free T4, as well as anemia workup. --> Continue to closely monitor. Hemoglobin goal is above 7. 3. Thrombocytopenia, currently on heparin. --> Closely monitor. 4. Coagulopathy. --> INR is currently 1 --> Goal between 2 and 3. On heparin. 5. Demand elevated troponin, potentially related to underlying end-stage renal disease. 6. Respiratory distress. She is on broad-spectrum antibiotics. 7. [id number] myocardial infarction, seen by Cardiology Service. 8. End-stage renal disease, on hemodialysis. 9. Continue to closely monitor. Subjective Date patient seen: Apr 24, 2017 Constitutional: Denies: no symptoms, chills, diaphoresis, fever, malaise, weakness, other HEENT: Denies: no symptoms, eye pain, blurred vision, tearing, double vision, ear pain, ear discharge, nose pain, nose congestion, throat pain, throat swelling, mouth pain, mouth swelling, other Cardiovascular: Denies: no symptoms, chest pain, edema, irregular heart rate, lightheadedness, palpitations, syncope, other Respiratory: Denies: no symptoms, cough, orthopnea, shortness of breath, SOB with excertion, SOB at rest, sputum, stridor, wheezing, other Gastrointestinal/Abdominal: Denies: no symptoms, abdomen distended, abdominal pain, black stools, tarry stools, blood in stool, constipated, diarrhea, difficulty swallowing, nausea, poor appetite, poor fluid intake, rectal bleeding , vomiting, other Genitourinary: Denies: no symptoms, burning, discharge, frequency, flank pain, hematuria, incontinence, pain, urgency, other Neurologic/Psychiatric: Denies: no symptoms, anxiety, depressed, emotional problems, headache, numbness, paresthesia, pre-existing deficit, seizure, tingling, tremors, weakness, other Allergies: Coded Allergies: No Known Allergies (Unverified , 04/20/17) Subjective On heparin. Resting in bed. Febrile. Objective Last 24 Hour Vital Signs Date Time Temp Pulse Resp B/P (MAP) Pulse Ox O2 Delivery O2 Flow Rate FiO2 04/24/17 21:06 72 16 99 Room Air 21 04/24/17 20:54 98 16 Room Air 21 04/24/17 20:54 98 16 93 Room Air 21 04/24/17 20:54 21 04/24/17 20:40 83 152/65 04/24/17 20:00 98.9 87 18 158/63 93 Room Air 04/24/17 17:31 141/76 04/24/17 16:47 97 Nasal Cannula 3.0 04/24/17 16:47 98.6 98 20 141/76 97 04/24/17 16:29 Nasal Cannula 04/24/17 16:29 Room Air 04/24/17 16:27 Nasal Cannula 3.0 21 04/24/17 13:10 Nasal Cannula 3.0 21 04/24/17 12:55 154/71 04/24/17 12:00 97.6 98 20 154/71 99 Nasal Cannula 3.0 04/24/17 10:11 101.3 Nasal Cannula 3.0 04/24/17 10:10 101.3 04/24/17 09:05 101 165/73 04/24/17 09:05 165/73 04/24/17 08:00 94 Nasal Cannula 3.0 04/24/17 08:00 101.1 101 19 165/73 94 04/24/17 07:17 106 20 98 Room Air 21 04/24/17 07:08 88 20 Room Air 21 04/24/17 07:05 94 20 88 Room Air 04/24/17 04:53 102.0 99 19 153/73 92 04/24/17 02:00 104 20 98 Room Air 21 04/24/17 02:00 108 20 98 Room Air 21 04/24/17 00:11 98.8 99 20 141/74 93 Intake and Output 04/23/17 04/24/17 19:00 07:00 Intake Total 860 ml 360 ml Balance 860 ml 360 ml Intake Oral 750 ml 360 ml IV Total 110 ml # Voids 1 3 # Bowel Movements 1 Laboratory Tests 04/24/17 08:20: White Blood Count 6.0#, Red Blood Count 2.48L, Hemoglobin 8.6L, Hematocrit 25.3L , Mean Corpuscular Volume 102H, Mean Corpuscular Hemoglobin 34.8H, Mean Corpuscular Hemoglobin Concent 34.2, Red Cell Distribution Width 13.1, Platelet Count 128L, Mean Platelet Volume 6.8, Neutrophils (%) (Auto) 80.4H, Lymphocytes (%) (Auto) 10.8L, Monocytes (%) (Auto) 6.9, Eosinophils (%) (Auto) 0.9, Basophils (%) (Auto) 1.1, Sodium Level 140, Potassium Level 4.6, Chloride Level 104, Carbon Dioxide Level 22, Anion Gap 14, Blood Urea Nitrogen 47H, Creatinine 9.2H, Estimat Glomerular Filtration Rate , Glucose Level 91, Uric Acid 6.0, Calcium Level 8.5, Phosphorus Level 6.0H, Magnesium Level 2.1, Total Bilirubin 0.4, Aspartate Amino Transf (AST/SGOT) 21, Alanine Aminotransferase (ALT/SGPT) 9L, Alkaline Phosphatase 31L, Troponin I 0.852H, C-Reactive Protein, Quantitative 8.7H, Pro-B-Type Natriuretic Peptide 20154A, Total Protein 6.5, Albumin 2.7L, Globulin 3.8, Albumin/Globulin Ratio 0.7L Height (Feet): 5 Height (Inches): 5.00 Weight (Pounds): 210 General Appearance: lethargic Cardiovascular: normal rate Respiratory/Chest: decreased breath sounds Abdomen: non tender Chas Mijares Apr 24, 2017 23:35
[2017-04-25 00:56] VITALS: BP 132/67
[2017-04-25] MEDS: Albuterol/Ipratropium 3ml neb HHN SCH ×4 (01:52→19:46)
[2017-04-25 04:00] VITALS: BP 158/68
[2017-04-25 07:54] VITALS: BP 142/72
[2017-04-25] MEDS: Lisinopril 20mg tab ORAL SCH ×2 (08:46→17:18)
[2017-04-25] MEDS: Metoprolol Tartrate 50mg tab ORAL SCH ×2 (08:47→21:41)
[2017-04-25] MEDS: Heparin 5000 units/ml inj SUBQ SCH ×2 (08:48→21:00)
--- NOTE | 2017-04-25 09:10 | General Progress Note ---
Assessment/Plan Problem List: (1) Pneumonia ICD Codes: J18.9 - Pneumonia, unspecified organism SNOMED: 968437145 (2) Sepsis ICD Codes: A41.9 - Sepsis, unspecified organism SNOMED: 80897078 (3) ESRD (end stage renal disease) on dialysis ICD Codes: N18.6 - End stage renal disease; Z99.2 - Dependence on renal dialysis SNOMED: 235804723 (4) Acute respiratory failure ICD Codes: J96.00 - Acute respiratory failure, unspecified whether with hypoxia or hypercapnia SNOMED: 29979460 (5) Non-STEMI (non-ST elevated myocardial infarction) ICD Codes: I21.4 - Non-ST elevation (NSTEMI) myocardial infarction SNOMED: 347148587 (6) Respiratory distress ICD Codes: R06.03 - Acute respiratory distress SNOMED: 982724041 Status: unchanged Assessment/Plan o2 pulm tx abx ot pt diet cbc bmp am heme eval dc plan w hh after dialysis if clear Subjective Constitutional: Reports: weakness Allergies: Coded Allergies: No Known Allergies (Unverified , 04/20/17) All Systems: reviewed and negative except above Subjective sl sob Objective Last 24 Hour Vital Signs Date Time Temp Pulse Resp B/P (MAP) Pulse Ox O2 Delivery O2 Flow Rate FiO2 04/25/17 08:47 70 142/72 04/25/17 08:46 142/72 04/25/17 08:17 Room Air 04/25/17 08:15 Room Air 04/25/17 07:54 97.0 70 19 142/72 98 Room Air 04/25/17 04:00 99.6 93 19 158/68 95 Room Air 04/25/17 02:12 98.6 04/25/17 02:09 81 20 98 Room Air 21 04/25/17 01:51 81 20 94 Room Air 21 04/25/17 01:51 21 04/25/17 00:56 99.2 89 18 132/67 95 Room Air 04/24/17 21:06 72 16 99 Room Air 21 04/24/17 20:54 98 16 Room Air 21 04/24/17 20:54 98 16 93 Room Air 21 04/24/17 20:54 21 04/24/17 20:40 83 152/65 04/24/17 20:00 98.9 87 18 158/63 93 Room Air 04/24/17 17:31 141/76 04/24/17 16:47 97 Nasal Cannula 3.0 04/24/17 16:47 98.6 98 20 141/76 97 04/24/17 16:29 Nasal Cannula 04/24/17 16:29 Room Air 04/24/17 16:27 Nasal Cannula 3.0 21 04/24/17 13:10 Nasal Cannula 3.0 21 04/24/17 12:55 154/71 04/24/17 12:00 97.6 98 20 154/71 99 Nasal Cannula 3.0 04/24/17 10:11 101.3 Nasal Cannula 3.0 04/24/17 10:10 101.3 Intake and Output 04/24/17 04/25/17 19:00 07:00 Intake Total 535 ml 300 ml Output Total 1700 ml Balance -1165 ml 300 ml Intake Oral 480 ml 300 ml IV Total 55 ml Hemodialysis UF 1700 ml # Voids 2 1 # Bowel Movements 1 1 Height (Feet): 5 Height (Inches): 5.00 Weight (Pounds): 210 General Appearance: lethargic EENT: normal ENT inspection Neck: normal alignment Cardiovascular: normal peripheral pulses, normal rate, regular rhythm Respiratory/Chest: chest wall non-tender, lungs clear, normal breath sounds Abdomen: normal bowel sounds, non tender, soft Extremities: normal inspection Edema: no edema noted Arm (L), no edema noted Arm (R), no edema noted Leg (L), no edema noted Leg (R), no edema noted Pedal (L), no edema noted Pedal (R), no edema noted Generalized Neurologic: responsive, motor weakness Skin: normal pigmentation, warm/dry ROSA NEIL Apr 25, 2017 09:10
--- NOTE | 2017-04-25 09:11 | Infectious Diseases Prog Note ---
Assessment/Plan Assessment/Plan A; Fever R/O sepsis Respiratory distress Bronchitis ESRD on HD Diastolic CHF Aortic insufficiency P: continue Rocephin & Vancomycin will f/u cultures case was D/W PMD Subjective Constitutional: Reports: fever, other - yesterday Respiratory: Reports: no symptoms Cardiovascular: Reports: no symptoms Gastrointestinal/Abdominal: Reports: no symptoms Genitourinary: Reports: no symptoms Allergies: Coded Allergies: No Known Allergies (Unverified , 04/20/17) Objective Vital Signs Last 24 Hour Vital Signs Date Time Temp Pulse Resp B/P (MAP) Pulse Ox O2 Delivery O2 Flow Rate FiO2 04/25/17 08:47 70 142/72 04/25/17 08:46 142/72 04/25/17 08:17 Room Air 04/25/17 08:15 Room Air 04/25/17 07:54 97.0 70 19 142/72 98 Room Air 04/25/17 04:00 99.6 93 19 158/68 95 Room Air 04/25/17 02:12 98.6 04/25/17 02:09 81 20 98 Room Air 21 04/25/17 01:51 81 20 94 Room Air 21 04/25/17 01:51 21 04/25/17 00:56 99.2 89 18 132/67 95 Room Air 04/24/17 21:06 72 16 99 Room Air 21 04/24/17 20:54 98 16 Room Air 21 04/24/17 20:54 98 16 93 Room Air 21 04/24/17 20:54 21 04/24/17 20:40 83 152/65 04/24/17 20:00 98.9 87 18 158/63 93 Room Air 04/24/17 17:31 141/76 04/24/17 16:47 97 Nasal Cannula 3.0 04/24/17 16:47 98.6 98 20 141/76 97 04/24/17 16:29 Nasal Cannula 04/24/17 16:29 Room Air 04/24/17 16:27 Nasal Cannula 3.0 21 04/24/17 13:10 Nasal Cannula 3.0 21 04/24/17 12:55 154/71 04/24/17 12:00 97.6 98 20 154/71 99 Nasal Cannula 3.0 04/24/17 10:11 101.3 Nasal Cannula 3.0 04/24/17 10:10 101.3 Height (Feet): 5 Height (Inches): 5.00 Weight (Pounds): 210 General Appearance: no acute distress HEENT: mucous membranes moist Respiratory/Chest: lungs clear Cardiovascular: normal rate, other - Permacath Abdomen: soft, non tender Extremities: no edema Neurologic/Psychiatric: alert, oriented x 3, responsive Current Medications Medications (Trade) Dose Ordered Sig/Ladarius Route PRN Reason Start Time Stop Time Status Last Admin Dose Admin Acetaminophen (Tylenol) 650 mg Q4H PRN ORAL Fever 04/23/17 21:30 05/21/17 05:29 04/25/17 08:25 Albuterol/ Ipratropium (Albuterol/ Ipratropium) 3 ml Q4H PRN HHN Shortness of Breath 04/23/17 21:30 04/26/17 05:29 Albuterol/ Ipratropium (Albuterol/ Ipratropium) 3 ml Q6HRT HHN 04/23/17 19:00 04/26/17 06:59 04/25/17 01:52 Aspirin (ASA) 325 mg DAILY ORAL 04/24/17 09:00 05/21/17 13:59 04/25/17 08:46 Atorvastatin Calcium (Lipitor) 10 mg BEDTIME ORAL 04/23/17 21:00 05/22/17 20:59 04/24/17 20:40 Ceftriaxone Sodium 1 gm/ Sodium Chloride 55 ml @ 110 mls/hr Q24H IVPB 04/24/17 13:00 05/01/17 12:59 04/24/17 12:50 Dextrose (Dextrose 50%) STAT PRN IV Hypoglycemia 04/24/17 05:30 05/21/17 05:29 Heparin Sodium (Porcine) (Heparin 5000 units/ml) 5,000 units EVERY 12 HOURS SUBQ 04/23/17 21:00 05/21/17 08:59 Lisinopril (Prinivil) 20 mg BID ORAL 04/24/17 18:00 05/24/17 17:59 04/25/17 08:46 Metoprolol Tartrate (Lopressor) 50 mg Q12HR ORAL 04/24/17 21:00 05/24/17 20:59 04/25/17 08:47 Nitroglycerin (Ntg) 1 patch Q24H TDERMAL 04/24/17 13:00 05/23/17 12:59 04/24/17 12:55 Ondansetron HCl (Zofran) 4 mg Q6H PRN IVP Nausea & Vomiting 04/23/17 23:30 05/21/17 05:29 04/24/17 09:25 Pantoprazole (Protonix) 40 mg DAILY ORAL 04/24/17 09:00 05/21/17 13:59 04/25/17 08:46 Polyethylene Glycol (Miralax) 17 gm DAILYPRN PRN ORAL Constipation 04/24/17 05:30 05/21/17 05:29 Promethazine HCl/ Codeine (Phenergan with Codeine) 5 ml Q4H PRN ORAL For Cough 04/23/17 21:30 05/21/17 05:29 Sevelamer Carbonate (Renvela) 1,600 mg THREE TIMES A DAY ORAL 04/24/17 13:00 05/24/17 12:59 Temazepam (Restoril) 15 mg HSPRN PRN ORAL Insomnia 04/24/17 05:30 04/28/17 05:29 Tramadol HCl (Ultram) 50 mg Q6H PRN ORAL pain of 6 and above 04/24/17 00:30 04/30/17 12:29 04/23/17 22:54 Vancomycin HCl (Vanco rx to dose) 1 ea DAILY PRN MISC Per rx protocol 04/24/17 10:30 05/24/17 10:29 MERISSA LOZANO Apr 25, 2017 09:11
--- NOTE | 2017-04-25 09:37 | Pulmonology Progress Note ---
Assessment/Plan Problems: (1) Sepsis (2) Acute respiratory failure (3) ESRD (end stage renal disease) on dialysis (4) Non-STEMI (non-ST elevated myocardial infarction) Assessment/Plan less cough getting better antitussives check sputum continue HD check cultures contine abx f/u by Id check electrolytes. dc planning soon Subjective ROS Limited/Unobtainable: No Allergies: Coded Allergies: No Known Allergies (Unverified , 04/20/17) Objective Last 24 Hour Vital Signs Date Time Temp Pulse Resp B/P (MAP) Pulse Ox O2 Delivery O2 Flow Rate FiO2 04/25/17 09:24 97.0 04/25/17 08:47 70 142/72 04/25/17 08:46 142/72 04/25/17 08:17 Room Air 04/25/17 08:15 Room Air 04/25/17 07:54 97.0 70 19 142/72 98 Room Air 04/25/17 04:00 99.6 93 19 158/68 95 Room Air 04/25/17 02:12 98.6 04/25/17 02:09 81 20 98 Room Air 21 04/25/17 01:51 81 20 94 Room Air 21 04/25/17 01:51 21 04/25/17 00:56 99.2 89 18 132/67 95 Room Air 04/24/17 21:06 72 16 99 Room Air 21 04/24/17 20:54 98 16 Room Air 21 04/24/17 20:54 98 16 93 Room Air 21 04/24/17 20:54 21 04/24/17 20:40 83 152/65 04/24/17 20:00 98.9 87 18 158/63 93 Room Air 04/24/17 17:31 141/76 04/24/17 16:47 97 Nasal Cannula 3.0 04/24/17 16:47 98.6 98 20 141/76 97 04/24/17 16:29 Nasal Cannula 04/24/17 16:29 Room Air 04/24/17 16:27 Nasal Cannula 3.0 21 04/24/17 13:10 Nasal Cannula 3.0 21 04/24/17 12:55 154/71 04/24/17 12:00 97.6 98 20 154/71 99 Nasal Cannula 3.0 04/24/17 10:11 101.3 Nasal Cannula 3.0 Intake and Output 2/10/18 2/11/18 19:00 07:00 Intake Total 535 ml 300 ml Output Total 1700 ml Balance -1165 ml 300 ml Intake Oral 480 ml 300 ml IV Total 55 ml Hemodialysis UF 1700 ml # Voids 2 1 # Bowel Movements 1 1 Objective General Appearance: WD/WN, mil HEENT: normocephalic, atraumatic Neck: normal alignment, supple Respiratory/Chest: chest wall non-tender, lungs clear, Hd access right chest Cardiovascular/Chest: normal peripheral pulses, normal rate Abdomen: normal bowel sounds, non tender Genitourinary/Rectal: normal genital exam Extremities: normal range of motion, Current Medications Medications (Trade) Dose Ordered Sig/Ladarius Route PRN Reason Start Time Stop Time Status Last Admin Dose Admin Acetaminophen (Tylenol) 650 mg Q4H PRN ORAL Fever 04/23/17 21:30 05/21/17 05:29 04/25/17 08:25 Albuterol/ Ipratropium (Albuterol/ Ipratropium) 3 ml Q4H PRN HHN Shortness of Breath 04/23/17 21:30 04/26/17 05:29 Albuterol/ Ipratropium (Albuterol/ Ipratropium) 3 ml Q6HRT HHN 04/23/17 19:00 04/26/17 06:59 04/25/17 01:52 Aspirin (ASA) 325 mg DAILY ORAL 04/24/17 09:00 05/21/17 13:59 04/25/17 08:46 Atorvastatin Calcium (Lipitor) 10 mg BEDTIME ORAL 04/23/17 21:00 05/22/17 20:59 04/24/17 20:40 Ceftriaxone Sodium 1 gm/ Sodium Chloride 55 ml @ 110 mls/hr Q24H IVPB 04/24/17 13:00 05/01/17 12:59 04/24/17 12:50 Dextrose (Dextrose 50%) STAT PRN IV Hypoglycemia 04/24/17 05:30 05/21/17 05:29 Heparin Sodium (Porcine) (Heparin 5000 units/ml) 5,000 units EVERY 12 HOURS SUBQ 04/23/17 21:00 05/21/17 08:59 Lisinopril (Prinivil) 20 mg BID ORAL 04/24/17 18:00 05/24/17 17:59 04/25/17 08:46 Metoprolol Tartrate (Lopressor) 50 mg Q12HR ORAL 04/24/17 21:00 05/24/17 20:59 04/25/17 08:47 Nitroglycerin (Ntg) 1 patch Q24H TDERMAL 04/24/17 13:00 05/23/17 12:59 04/24/17 12:55 Ondansetron HCl (Zofran) 4 mg Q6H PRN IVP Nausea & Vomiting 04/23/17 23:30 05/21/17 05:29 04/24/17 09:25 Pantoprazole (Protonix) 40 mg DAILY ORAL 04/24/17 09:00 05/21/17 13:59 04/25/17 08:46 Polyethylene Glycol (Miralax) 17 gm DAILYPRN PRN ORAL Constipation 04/24/17 05:30 05/21/17 05:29 Promethazine HCl/ Codeine (Phenergan with Codeine) 5 ml Q4H PRN ORAL For Cough 04/23/17 21:30 05/21/17 05:29 Sevelamer Carbonate (Renvela) 1,600 mg THREE TIMES A DAY ORAL 04/24/17 13:00 05/24/17 12:59 Temazepam (Restoril) 15 mg HSPRN PRN ORAL Insomnia 04/24/17 05:30 04/28/17 05:29 Tramadol HCl (Ultram) 50 mg Q6H PRN ORAL pain of 6 and above 04/24/17 00:30 04/30/17 12:29 04/23/17 22:54 Vancomycin HCl (Vanco rx to dose) 1 ea DAILY PRN MISC Per rx protocol 04/24/17 10:30 05/24/17 10:29 SARA SAWYER Apr 25, 2017 09:37
--- NOTE | 2017-04-25 10:48 | Nephrology Progress Note ---
Assessment/Plan Problem List: (1) ESRD (end stage renal disease) on dialysis (2) Respiratory distress (3) Non-STEMI (non-ST elevated myocardial infarction) Assessment HTN Troponin leak, likely NSTEMI CHF, Ej Fx 40% - global hypokinesis ESRD last HD 04/22- Has a permacath right chest Plan Plan: cultures increase Lisinopril- and lopressor Add Nitro HD next 04/26 2D echo- Ej Fx 40-45% Adjust BP meds PO digoxin one more dose per orders Subjective ROS Limited/Unobtainable: No Constitutional: Reports: malaise Objective Objective Last 24 Hour Vital Signs Date Time Temp Pulse Resp B/P (MAP) Pulse Ox O2 Delivery O2 Flow Rate FiO2 04/25/17 09:24 97.0 04/25/17 08:47 70 142/72 04/25/17 08:46 142/72 04/25/17 08:17 Room Air 04/25/17 08:15 Room Air 04/25/17 07:54 97.0 70 19 142/72 98 Room Air 04/25/17 04:00 99.6 93 19 158/68 95 Room Air 04/25/17 02:12 98.6 04/25/17 02:09 81 20 98 Room Air 21 04/25/17 01:51 81 20 94 Room Air 21 04/25/17 01:51 21 04/25/17 00:56 99.2 89 18 132/67 95 Room Air 04/24/17 21:06 72 16 99 Room Air 21 04/24/17 20:54 98 16 Room Air 21 04/24/17 20:54 98 16 93 Room Air 21 04/24/17 20:54 21 04/24/17 20:40 83 152/65 04/24/17 20:00 98.9 87 18 158/63 93 Room Air 04/24/17 17:31 141/76 04/24/17 16:47 97 Nasal Cannula 3.0 04/24/17 16:47 98.6 98 20 141/76 97 04/24/17 16:29 Nasal Cannula 04/24/17 16:29 Room Air 04/24/17 16:27 Nasal Cannula 3.0 21 04/24/17 13:10 Nasal Cannula 3.0 21 04/24/17 12:55 154/71 04/24/17 12:00 97.6 98 20 154/71 99 Nasal Cannula 3.0 Intake and Output 04/24/17 04/25/17 19:00 07:00 Intake Total 535 ml 300 ml Output Total 1700 ml Balance -1165 ml 300 ml Intake Oral 480 ml 300 ml IV Total 55 ml Hemodialysis UF 1700 ml # Voids 2 1 # Bowel Movements 1 1 Laboratory Tests 04/25/17 09:45: White Blood Count [Pending], Red Blood Count [Pending], Hemoglobin [Pending], Hematocrit [Pending], Mean Corpuscular Volume [Pending], Mean Corpuscular Hemoglobin [Pending], Mean Corpuscular Hemoglobin Concent [Pending], Red Cell Distribution Width [Pending], Platelet Count [Pending], Mean Platelet Volume [ Pending], Neutrophils (%) (Auto) [Pending], Lymphocytes (%) (Auto) [Pending], Monocytes (%) (Auto) [Pending], Eosinophils (%) (Auto) [Pending], Basophils (%) (Auto) [Pending], Sodium Level [Pending], Potassium Level [Pending], Chloride Level [Pending], Carbon Dioxide Level [Pending], Blood Urea Nitrogen [Pending], Creatinine [Pending], Estimat Glomerular Filtration Rate [Pending], Glucose Level [Pending], Uric Acid [Pending], Calcium Level [Pending], Phosphorus Level [Pending], Magnesium Level [Pending], Total Bilirubin [Pending], Aspartate Amino Transf (AST/SGOT) [Pending], Alanine Aminotransferase (ALT/SGPT) [Pending] , Alkaline Phosphatase [Pending], Pro-B-Type Natriuretic Peptide [Pending], Total Protein [Pending], Albumin [Pending], Globulin [Pending], Digoxin Level [ Pending] Height (Feet): 5 Height (Inches): 5.00 Weight (Pounds): 210 General Appearance: no apparent distress Cardiovascular: normal rate Respiratory/Chest: decreased breath sounds Abdomen: soft Objective no other changes MEGAN GUIDRY Apr 25, 2017 10:48
[2017-04-25 11:07] LABS: ALANINE AMINOTRANSFERASE 10 U/L (12-78); ALBUMIN 2.6 G/DL (3.4-5.0); ALBUMIN/GLOBULIN RATIO 0.7 (1.0-2.7); ALKALINE PHOSPHATASE 31 U/L (46-116); ANION GAP 9 mmol/L (5-15); ASPARTATE AMINO TRANSFERASE 24 U/L (15-37); BILIRUBIN,TOTAL 0.4 MG/DL (0.2-1.0); BLOOD UREA NITROGEN 37 mg/dL (7-18); CALCIUM 8.4 MG/DL (8.5-10.1); CARBON DIOXIDE 28 MMOL/L (21-32); CHLORIDE 101 MMOL/L (98-107); CREATININE 7.9 MG/DL (0.55-1.30); SODIUM 138 MMOL/L (136-145)
[2017-04-25 11:19] LABS: EOSINOPHILS % (AUTO) 5.3 % (0.0-3.0); HEMATOCRIT 26.4 % (37.0-47.0); HEMOGLOBIN 8.8 G/DL (12.0-16.0); LYMPHOCYTES % (AUTO) 8.7 % (20.0-45.0); MEAN CORPUSCULAR VOLUME 102 FL (80-99); MONOCYTES % (AUTO) 9.5 % (1.0-10.0); NEUTROPHILS % (AUTO) 74.6 % (45.0-75.0); PLATELET COUNT 114 K/UL (150-450); RED BLOOD COUNT 2.59 M/UL (4.20-5.40); RED CELL DISTRIBUTION WIDTH 12.8 % (11.6-14.8); WHITE BLOOD COUNT 4.4 K/UL (4.8-10.8)
[2017-04-25] MEDS: traMADol 50mg tab ORAL PRN (11:28)
[2017-04-25 12:00] VITALS: BP 142/76
[2017-04-25] MEDS: Nitroglycerin Patch 0.4mg TDERMAL SCH (12:31)
[2017-04-25] MEDS: cefTRIAXone 1 GM in NS 55 ML IVPB SCH (12:31)
[2017-04-25 15:54] VITALS: BP 156/72
[2017-04-25 20:00] VITALS: BP 130/60
[2017-04-26] VITALS (8 sets, daily range): BP systolic 143–179; BP diastolic 65–110
--- NOTE | 2017-04-26 00:19 | General Progress Note ---
Assessment/Plan Assessment/Plan 1. Pancytopenia related to underlying sepsis versus underlying medications. --> The patient is on heparin drip. --> We will continue to closely monitor. --> Trend cbc daily. 2. Anemia due to underlying chronic disease. --> Anemia workup has been reviewed including B12, folic acid, TSH, free T4, as well as anemia workup. --> Continue to closely monitor. Hemoglobin goal is above 7. --> Blood transfusion not required unless symptomatic or hgb below goal. 3. Thrombocytopenia, currently on heparin. --> Closely monitor. 4. Coagulopathy. --> INR is currently 1 --> Goal between 2 and 3. On heparin. 5. Demand elevated troponin, potentially related to underlying end-stage renal disease. 6. Respiratory distress. She is on broad-spectrum antibiotics. 7. [id number] myocardial infarction, seen by Cardiology Service. 8. End-stage renal disease, on hemodialysis. 9. Continue to closely monitor. Subjective Date patient seen: Apr 26, 2017 Constitutional: Denies: no symptoms, chills, diaphoresis, fever, malaise, weakness, other HEENT: Denies: no symptoms, eye pain, blurred vision, tearing, double vision, ear pain, ear discharge, nose pain, nose congestion, throat pain, throat swelling, mouth pain, mouth swelling, other Cardiovascular: Denies: no symptoms, chest pain, edema, irregular heart rate, lightheadedness, palpitations, syncope, other Respiratory: Denies: no symptoms, cough, orthopnea, shortness of breath, SOB with excertion, SOB at rest, sputum, stridor, wheezing, other Gastrointestinal/Abdominal: Denies: no symptoms, abdomen distended, abdominal pain, black stools, tarry stools, blood in stool, constipated, diarrhea, difficulty swallowing, nausea, poor appetite, poor fluid intake, rectal bleeding , vomiting, other Genitourinary: Denies: no symptoms, burning, discharge, frequency, flank pain, hematuria, incontinence, pain, urgency, other Neurologic/Psychiatric: Denies: no symptoms, anxiety, depressed, emotional problems, headache, numbness, paresthesia, pre-existing deficit, seizure, tingling, tremors, weakness, other Hematologic/Lymphatic: Reports: anemia, other - pancytopenia Allergies: Coded Allergies: No Known Allergies (Unverified , 04/20/17) Subjective On heparin. No fever or chills. NAD. Objective Last 24 Hour Vital Signs Date Time Temp Pulse Resp B/P (MAP) Pulse Ox O2 Delivery O2 Flow Rate FiO2 04/25/17 21:41 79 130/60 04/25/17 20:00 98.2 79 18 130/60 94 Room Air 04/25/17 19:57 68 20 99 Room Air 21 04/25/17 19:46 21 04/25/17 19:46 79 20 93 Room Air 21 04/25/17 17:18 156/72 04/25/17 15:54 98.0 80 18 156/72 93 Room Air 04/25/17 12:58 64 18 99 Room Air 21 04/25/17 12:50 21 04/25/17 12:48 72 20 95 Room Air 21 04/25/17 12:31 142/76 04/25/17 12:27 99.4 04/25/17 12:00 99.4 70 18 142/76 95 Room Air 04/25/17 09:24 97.0 04/25/17 08:47 70 142/72 04/25/17 08:46 142/72 04/25/17 08:17 Room Air 04/25/17 08:15 Room Air 04/25/17 07:54 97.0 70 19 142/72 98 Room Air 04/25/17 04:00 99.6 93 19 158/68 95 Room Air 04/25/17 02:12 98.6 04/25/17 02:09 81 20 98 Room Air 21 04/25/17 01:51 81 20 94 Room Air 21 04/25/17 01:51 21 04/25/17 00:56 99.2 89 18 132/67 95 Room Air Intake and Output 04/25/17 04/26/17 19:00 07:00 Intake Total 505 ml Balance 505 ml Intake Oral 450 ml IV Total 55 ml # Voids 2 # Bowel Movements 3 Laboratory Tests 04/25/17 09:45: White Blood Count 4.4L, Red Blood Count 2.59L, Hemoglobin 8.8L, Hematocrit 26.4L , Mean Corpuscular Volume 102H, Mean Corpuscular Hemoglobin 34.1H, Mean Corpuscular Hemoglobin Concent 33.4, Red Cell Distribution Width 12.8, Platelet Count 114L, Mean Platelet Volume 7.9, Neutrophils (%) (Auto) 74.6, Lymphocytes ( %) (Auto) 8.7L, Monocytes (%) (Auto) 9.5, Eosinophils (%) (Auto) 5.3H, Basophils (%) (Auto) 2.0, Sodium Level 138, Potassium Level 4.0, Chloride Level 101, Carbon Dioxide Level 28, Anion Gap 9, Blood Urea Nitrogen 37H, Creatinine 7.9H, Estimat Glomerular Filtration Rate , Glucose Level 114H, Uric Acid 4.6, Calcium Level 8.4L, Phosphorus Level 5.0H, Magnesium Level 2.0, Total Bilirubin 0.4, Aspartate Amino Transf (AST/SGOT) 24, Alanine Aminotransferase (ALT/SGPT) 10L, Alkaline Phosphatase 31L, C-Reactive Protein, Quantitative 11.8H, Pro-B- Type Natriuretic Peptide 46122I, Total Protein 6.4, Albumin 2.6L, Globulin 3.8, Albumin/Globulin Ratio 0.7L, Digoxin Level 1.7 Height (Feet): 5 Height (Inches): 5.00 Weight (Pounds): 210 Chas Mijares Apr 26, 2017 00:19
[2017-04-26] MEDS: Albuterol/Ipratropium 3ml neb HHN SCH (01:49)
[2017-04-26 05:47] LABS: BASOPHILS % (AUTO) 1.4 % (0.0-2.0); EOSINOPHILS % (AUTO) 6.7 % (0.0-3.0); HEMATOCRIT 26.1 % (37.0-47.0); HEMOGLOBIN 8.7 G/DL (12.0-16.0); LYMPHOCYTES % (AUTO) 14.4 % (20.0-45.0); MEAN CORPUSCULAR VOLUME 102 FL (80-99); MONOCYTES % (AUTO) 12.4 % (1.0-10.0); NEUTROPHILS % (AUTO) 65.2 % (45.0-75.0); PLATELET COUNT 122 K/UL (150-450); RED BLOOD COUNT 2.57 M/UL (4.20-5.40); RED CELL DISTRIBUTION WIDTH 12.6 % (11.6-14.8); WHITE BLOOD COUNT 4.3 K/UL (4.8-10.8)
[2017-04-26 06:03] LABS: ALANINE AMINOTRANSFERASE 12 U/L (12-78); ALBUMIN 2.5 G/DL (3.4-5.0); ALBUMIN/GLOBULIN RATIO 0.7 (1.0-2.7); ALKALINE PHOSPHATASE 33 U/L (46-116); ANION GAP 12 mmol/L (5-15); ASPARTATE AMINO TRANSFERASE 20 U/L (15-37); BILIRUBIN,TOTAL 0.4 MG/DL (0.2-1.0); BLOOD UREA NITROGEN 44 mg/dL (7-18); CALCIUM 8.4 MG/DL (8.5-10.1); CARBON DIOXIDE 26 MMOL/L (21-32); CHLORIDE 103 MMOL/L (98-107); CREATININE 9.6 MG/DL (0.55-1.30); POTASSIUM 4.2 MMOL/L (3.5-5.1); SODIUM 141 MMOL/L (136-145)
[2017-04-26 07:37] LABS: PHOSPHORUS 6.3 MG/DL (2.5-4.9)
[2017-04-26] MEDS: Heparin 5000 units/ml inj SUBQ SCH ×2 (08:48→20:22)
[2017-04-26] MEDS: Metoprolol Tartrate 50mg tab ORAL SCH ×2 (09:00→20:22)
[2017-04-26] MEDS: Lisinopril 20mg tab ORAL SCH ×2 (09:00→18:20)
[2017-04-26] MEDS ORDERED: Tubing IV Secondary IV ONE (10:07)
--- NOTE | 2017-04-26 11:21 | Nephrology Progress Note ---
Assessment/Plan Problem List: (1) ESRD (end stage renal disease) on dialysis (2) Respiratory distress (3) Non-STEMI (non-ST elevated myocardial infarction) Assessment HTN Troponin leak, likely NSTEMI CHF, Ej Fx 40% - global hypokinesis ESRD last HD 04/22- Has a permacath right chest Plan Plan: cultures increase Lisinopril- and lopressor Add Nitro HD next 04/26 2D echo- Ej Fx 40-45% Adjust BP meds stable for DC from renal stand point after HD per orders Subjective ROS Limited/Unobtainable: No Constitutional: Reports: malaise Objective Objective Last 24 Hour Vital Signs Date Time Temp Pulse Resp B/P (MAP) Pulse Ox O2 Delivery O2 Flow Rate FiO2 04/26/17 08:00 98.5 79 16 160/69 96 Room Air 04/26/17 05:09 99.1 04/26/17 04:00 98.6 80 16 149/71 95 Room Air 04/26/17 01:58 66 20 98 Room Air 21 04/26/17 01:49 21 04/26/17 01:49 60 22 93 Room Air 21 04/26/17 00:00 99.1 82 22 149/71 94 Room Air 04/25/17 21:41 79 130/60 04/25/17 20:00 98.2 79 18 130/60 94 Room Air 04/25/17 19:57 68 20 99 Room Air 21 04/25/17 19:46 21 04/25/17 19:46 79 20 93 Room Air 21 04/25/17 17:18 156/72 04/25/17 15:54 98.0 80 18 156/72 93 Room Air 04/25/17 12:58 64 18 99 Room Air 21 04/25/17 12:50 21 04/25/17 12:48 72 20 95 Room Air 21 04/25/17 12:31 142/76 04/25/17 12:27 99.4 04/25/17 12:00 99.4 70 18 142/76 95 Room Air Intake and Output 04/25/17 04/26/17 19:00 07:00 Intake Total 505 ml 120 ml Balance 505 ml 120 ml Intake Oral 450 ml 120 ml IV Total 55 ml # Voids 2 1 # Bowel Movements 3 1 Laboratory Tests 04/26/17 05:05: White Blood Count 4.3L, Red Blood Count 2.57L, Hemoglobin 8.7L, Hematocrit 26.1L , Mean Corpuscular Volume 102H, Mean Corpuscular Hemoglobin 33.9H, Mean Corpuscular Hemoglobin Concent 33.4, Red Cell Distribution Width 12.6, Platelet Count 122L, Mean Platelet Volume 7.3, Neutrophils (%) (Auto) 65.2, Lymphocytes ( %) (Auto) 14.4L, Monocytes (%) (Auto) 12.4H, Eosinophils (%) (Auto) 6.7H, Basophils (%) (Auto) 1.4, Sodium Level 141, Potassium Level 4.2, Chloride Level 103, Carbon Dioxide Level 26, Anion Gap 12, Blood Urea Nitrogen 44H, Creatinine 9.6H, Estimat Glomerular Filtration Rate , Glucose Level 90, Uric Acid 5.7, Calcium Level 8.4L, Phosphorus Level 6.3H, Magnesium Level 2.2, Total Bilirubin 0.4, Aspartate Amino Transf (AST/SGOT) 20, Alanine Aminotransferase (ALT/SGPT) 12, Alkaline Phosphatase 33L, Troponin I 0.324H, Pro-B-Type Natriuretic Peptide 22008A, Total Protein 6.3L, Albumin 2.5L, Globulin 3.8, Albumin/Globulin Ratio 0.7L, Random Vancomycin Level 33.6 Height (Feet): 5 Height (Inches): 5.00 Weight (Pounds): 210 General Appearance: no apparent distress Cardiovascular: normal rate Respiratory/Chest: decreased breath sounds Abdomen: soft Objective no other changes MEGAN GUIDRY Apr 26, 2017 11:21
--- NOTE | 2017-04-26 12:05 | Cardiac Electrophysiology PN ---
Assessment/Plan Assessment/Plan 1. Troponin elevation. Due to chronic kidney disease. Echo EF 45-50% 2. Abnormal electrocardiogram with left ventricular hypertrophy and repolarization abnormality as well as left anterior fascicular block. On aspirin and Metoprolol 25 bid 3. HTN On Lopressor 50 bid and Lisinopril 20 bid and HD. 4. Severe AI and MR. No vegetations. May need bivalvular surgery as out patient 5. Lower extremity edema. Doppler is negative yanet DVT 6. End-stage renal disease, on hemodialysis. 7. Possible sepsis. On IV Vancomycin DW RN Subjective Subjective No chest pain or SOB. Discharge planning today after HD.RN at bedside. Objective Last 24 Hour Vital Signs Date Time Temp Pulse Resp B/P (MAP) Pulse Ox O2 Delivery O2 Flow Rate FiO2 04/26/17 08:00 98.5 79 16 160/69 96 Room Air 04/26/17 05:09 99.1 04/26/17 04:00 98.6 80 16 149/71 95 Room Air 04/26/17 01:58 66 20 98 Room Air 21 04/26/17 01:49 21 04/26/17 01:49 60 22 93 Room Air 21 04/26/17 00:00 99.1 82 22 149/71 94 Room Air 04/25/17 21:41 79 130/60 04/25/17 20:00 98.2 79 18 130/60 94 Room Air 04/25/17 19:57 68 20 99 Room Air 21 04/25/17 19:46 21 04/25/17 19:46 79 20 93 Room Air 21 04/25/17 17:18 156/72 04/25/17 15:54 98.0 80 18 156/72 93 Room Air 04/25/17 12:58 64 18 99 Room Air 21 04/25/17 12:50 21 04/25/17 12:48 72 20 95 Room Air 21 04/25/17 12:31 142/76 04/25/17 12:27 99.4 Intake and Output 04/25/17 04/26/17 19:00 07:00 Intake Total 505 ml 120 ml Balance 505 ml 120 ml Intake Oral 450 ml 120 ml IV Total 55 ml # Voids 2 1 # Bowel Movements 3 1 Laboratory Tests Test 04/26/17 05:05 White Blood Count 4.3 K/UL (4.8-10.8) L Red Blood Count 2.57 M/UL (4.20-5.40) L Hemoglobin 8.7 G/DL (12.0-16.0) L Hematocrit 26.1 % (37.0-47.0) L Mean Corpuscular Volume 102 FL (80-99) H Mean Corpuscular Hemoglobin 33.9 PG (27.0-31.0) H Mean Corpuscular Hemoglobin Concent 33.4 G/DL (32.0-36.0) Red Cell Distribution Width 12.6 % (11.6-14.8) Platelet Count 122 K/UL (150-450) L Mean Platelet Volume 7.3 FL (6.5-10.1) Neutrophils (%) (Auto) 65.2 % (45.0-75.0) Lymphocytes (%) (Auto) 14.4 % (20.0-45.0) L Monocytes (%) (Auto) 12.4 % (1.0-10.0) H Eosinophils (%) (Auto) 6.7 % (0.0-3.0) H Basophils (%) (Auto) 1.4 % (0.0-2.0) Sodium Level 141 MMOL/L (136-145) Potassium Level 4.2 MMOL/L (3.5-5.1) Chloride Level 103 MMOL/L (98-107) Carbon Dioxide Level 26 MMOL/L (21-32) Anion Gap 12 mmol/L (5-15) Blood Urea Nitrogen 44 mg/dL (7-18) H Creatinine 9.6 MG/DL (0.55-1.30) H Estimat Glomerular Filtration Rate mL/min (>60) Glucose Level 90 MG/DL (74-106) Uric Acid 5.7 MG/DL (2.6-7.2) Calcium Level 8.4 MG/DL (8.5-10.1) L Phosphorus Level 6.3 MG/DL (2.5-4.9) H Magnesium Level 2.2 MG/DL (1.8-2.4) Total Bilirubin 0.4 MG/DL (0.2-1.0) Aspartate Amino Transf (AST/SGOT) 20 U/L (15-37) Alanine Aminotransferase (ALT/SGPT) 12 U/L (12-78) Alkaline Phosphatase 33 U/L (46-116) L Troponin I 0.324 ng/mL (0.000-0.056) Pro-B-Type Natriuretic Peptide 88478 pg/mL (0-125) H Total Protein 6.3 G/DL (6.4-8.2) L Albumin 2.5 G/DL (3.4-5.0) L Globulin 3.8 g/dL Albumin/Globulin Ratio 0.7 (1.0-2.7) L Random Vancomycin Level 33.6 ug/mL Microbiology Date/Time Source Procedure Growth Status 04/24/17 10:55 Blood Blood Culture - Preliminary NO GROWTH AFTER 24 HOURS Resulted 04/24/17 10:50 Blood Blood Culture - Preliminary NO GROWTH AFTER 24 HOURS Resulted Objective HEAD AND NECK: No JVD. LUNGS: Clear. CARDIOVASCULAR: Regular S1 and S2 with no gallop or murmur. ABDOMEN: Soft. EXTREMITIES: 1+ bilateral lower extremity edema. Dialysis access is right IJ PermCath. JAKE GARCIA Apr 26, 2017 12:05
--- NOTE | 2017-04-26 12:31 | Infectious Diseases Prog Note ---
Assessment/Plan Assessment/Plan A; Fever resolved Respiratory distress Bronchitis ESRD on HD Diastolic CHF Aortic insufficiency P: discontinue Rocephin & Vancomycin PO Levaquin X 3 days, agree with discharge Subjective ROS Limited/Unobtainable: No Constitutional: Reports: no symptoms Respiratory: Reports: dry cough Gastrointestinal/Abdominal: Reports: no symptoms Genitourinary: Reports: no symptoms Allergies: Coded Allergies: No Known Allergies (Unverified , 04/20/17) Objective Vital Signs Last 24 Hour Vital Signs Date Time Temp Pulse Resp B/P (MAP) Pulse Ox O2 Delivery O2 Flow Rate FiO2 04/26/17 08:00 98.5 79 16 160/69 96 Room Air 04/26/17 05:09 99.1 04/26/17 04:00 98.6 80 16 149/71 95 Room Air 04/26/17 01:58 66 20 98 Room Air 21 04/26/17 01:49 21 04/26/17 01:49 60 22 93 Room Air 21 04/26/17 00:00 99.1 82 22 149/71 94 Room Air 04/25/17 21:41 79 130/60 04/25/17 20:00 98.2 79 18 130/60 94 Room Air 04/25/17 19:57 68 20 99 Room Air 21 04/25/17 19:46 21 04/25/17 19:46 79 20 93 Room Air 21 04/25/17 17:18 156/72 04/25/17 15:54 98.0 80 18 156/72 93 Room Air 04/25/17 12:58 64 18 99 Room Air 21 04/25/17 12:50 21 04/25/17 12:48 72 20 95 Room Air 21 04/25/17 12:31 142/76 Height (Feet): 5 Height (Inches): 5.00 Weight (Pounds): 210 General Appearance: no acute distress HEENT: mucous membranes moist Respiratory/Chest: lungs clear Cardiovascular: normal rate, other - Portacath Abdomen: soft, non tender Extremities: no edema Neurologic/Psychiatric: alert, oriented x 3, responsive Microbiology Date/Time Source Procedure Growth Status 04/24/17 10:55 Blood Blood Culture - Preliminary NO GROWTH AFTER 24 HOURS Resulted 04/24/17 10:50 Blood Blood Culture - Preliminary NO GROWTH AFTER 24 HOURS Resulted Laboratory Tests Test 04/26/17 05:05 White Blood Count 4.3 K/UL (4.8-10.8) L Red Blood Count 2.57 M/UL (4.20-5.40) L Hemoglobin 8.7 G/DL (12.0-16.0) L Hematocrit 26.1 % (37.0-47.0) L Mean Corpuscular Volume 102 FL (80-99) H Mean Corpuscular Hemoglobin 33.9 PG (27.0-31.0) H Mean Corpuscular Hemoglobin Concent 33.4 G/DL (32.0-36.0) Red Cell Distribution Width 12.6 % (11.6-14.8) Platelet Count 122 K/UL (150-450) L Mean Platelet Volume 7.3 FL (6.5-10.1) Neutrophils (%) (Auto) 65.2 % (45.0-75.0) Lymphocytes (%) (Auto) 14.4 % (20.0-45.0) L Monocytes (%) (Auto) 12.4 % (1.0-10.0) H Eosinophils (%) (Auto) 6.7 % (0.0-3.0) H Basophils (%) (Auto) 1.4 % (0.0-2.0) Sodium Level 141 MMOL/L (136-145) Potassium Level 4.2 MMOL/L (3.5-5.1) Chloride Level 103 MMOL/L (98-107) Carbon Dioxide Level 26 MMOL/L (21-32) Anion Gap 12 mmol/L (5-15) Blood Urea Nitrogen 44 mg/dL (7-18) H Creatinine 9.6 MG/DL (0.55-1.30) H Estimat Glomerular Filtration Rate mL/min (>60) Glucose Level 90 MG/DL (74-106) Uric Acid 5.7 MG/DL (2.6-7.2) Calcium Level 8.4 MG/DL (8.5-10.1) L Phosphorus Level 6.3 MG/DL (2.5-4.9) H Magnesium Level 2.2 MG/DL (1.8-2.4) Total Bilirubin 0.4 MG/DL (0.2-1.0) Aspartate Amino Transf (AST/SGOT) 20 U/L (15-37) Alanine Aminotransferase (ALT/SGPT) 12 U/L (12-78) Alkaline Phosphatase 33 U/L (46-116) L Troponin I 0.324 ng/mL (0.000-0.056) Pro-B-Type Natriuretic Peptide 16596 pg/mL (0-125) H Total Protein 6.3 G/DL (6.4-8.2) L Albumin 2.5 G/DL (3.4-5.0) L Globulin 3.8 g/dL Albumin/Globulin Ratio 0.7 (1.0-2.7) L Random Vancomycin Level 33.6 ug/mL Current Medications Medications (Trade) Dose Ordered Sig/Ladarius Route PRN Reason Start Time Stop Time Status Last Admin Dose Admin Acetaminophen (Tylenol) 650 mg Q4H PRN ORAL Fever 04/23/17 21:30 05/21/17 05:29 04/26/17 04:10 Aspirin (ASA) 325 mg DAILY ORAL 04/24/17 09:00 05/21/17 13:59 04/26/17 08:47 Atorvastatin Calcium (Lipitor) 10 mg BEDTIME ORAL 04/23/17 21:00 05/22/17 20:59 04/25/17 21:41 Ceftriaxone Sodium 1 gm/ Sodium Chloride 55 ml @ 110 mls/hr Q24H IVPB 04/24/17 13:00 05/01/17 12:59 04/25/17 12:31 Dextrose (Dextrose 50%) STAT PRN IV Hypoglycemia 04/24/17 05:30 05/21/17 05:29 Epoetin Devon (Procrit (for ESRD on dialysis)) 4,000 units WED-WED-WED SUBQ 04/26/17 21:00 05/26/17 20:59 Heparin Sodium (Porcine) (Heparin 5000 units/ml) 5,000 units EVERY 12 HOURS SUBQ 04/23/17 21:00 05/21/17 08:59 Lisinopril (Prinivil) 20 mg BID ORAL 04/24/17 18:00 05/24/17 17:59 04/25/17 17:18 Metoprolol Tartrate (Lopressor) 50 mg Q12HR ORAL 04/24/17 21:00 05/24/17 20:59 04/25/17 21:41 Nitroglycerin (Ntg) 1 patch Q24H TDERMAL 04/24/17 13:00 05/23/17 12:59 04/25/17 12:31 Ondansetron HCl (Zofran) 4 mg Q6H PRN IVP Nausea & Vomiting 04/23/17 23:30 05/21/17 05:29 04/24/17 09:25 Pantoprazole (Protonix) 40 mg DAILY ORAL 04/24/17 09:00 05/21/17 13:59 04/26/17 08:47 Polyethylene Glycol (Miralax) 17 gm DAILYPRN PRN ORAL Constipation 04/24/17 05:30 05/21/17 05:29 Promethazine HCl/ Codeine (Phenergan with Codeine) 5 ml Q4H PRN ORAL For Cough 04/23/17 21:30 05/21/17 05:29 04/25/17 21:41 Sevelamer Carbonate (Renvela) 2,400 mg THREE TIMES A DAY ORAL 04/26/17 13:00 05/26/17 12:59 Temazepam (Restoril) 15 mg HSPRN PRN ORAL Insomnia 04/24/17 05:30 04/28/17 05:29 Tramadol HCl (Ultram) 50 mg Q6H PRN ORAL pain of 6 and above 04/24/17 00:30 04/30/17 12:29 04/25/17 11:28 Vancomycin HCl (Vanco rx to dose) 1 ea DAILY PRN MISC Per rx protocol 04/24/17 10:30 05/24/17 10:29 MERISSA LOZANO Apr 26, 2017 12:31
[2017-04-26] MEDS: Nitroglycerin Patch 0.4mg TDERMAL SCH ×2 (13:00→15:59)
--- NOTE | 2017-04-26 13:13 | Pulmonology Progress Note ---
Assessment/Plan Problems: (1) Sepsis (2) Acute respiratory failure (3) ESRD (end stage renal disease) on dialysis (4) Non-STEMI (non-ST elevated myocardial infarction) Assessment/Plan doing better less cough antitussives continue HD check cultures f/u by Id check electrolytes. dc planning for today Subjective ROS Limited/Unobtainable: No Allergies: Coded Allergies: No Known Allergies (Unverified , 04/20/17) Objective Last 24 Hour Vital Signs Date Time Temp Pulse Resp B/P (MAP) Pulse Ox O2 Delivery O2 Flow Rate FiO2 04/26/17 08:00 98.5 79 16 160/69 96 Room Air 04/26/17 05:09 99.1 04/26/17 04:00 98.6 80 16 149/71 95 Room Air 04/26/17 01:58 66 20 98 Room Air 21 04/26/17 01:49 21 04/26/17 01:49 60 22 93 Room Air 21 04/26/17 00:00 99.1 82 22 149/71 94 Room Air 04/25/17 21:41 79 130/60 04/25/17 20:00 98.2 79 18 130/60 94 Room Air 04/25/17 19:57 68 20 99 Room Air 21 04/25/17 19:46 21 04/25/17 19:46 79 20 93 Room Air 21 04/25/17 17:18 156/72 04/25/17 15:54 98.0 80 18 156/72 93 Room Air Intake and Output 04/25/17 04/26/17 19:00 07:00 Intake Total 505 ml 120 ml Balance 505 ml 120 ml Intake Oral 450 ml 120 ml IV Total 55 ml # Voids 2 1 # Bowel Movements 3 1 Objective General Appearance: WD/WN, mil HEENT: normocephalic, atraumatic Neck: normal alignment, supple Respiratory/Chest: chest wall non-tender, lungs clear, Hd access right chest Cardiovascular/Chest: normal peripheral pulses, normal rate Abdomen: normal bowel sounds, non tender Genitourinary/Rectal: normal genital exam Extremities: normal range of motion, Microbiology Date/Time Source Procedure Growth Status 04/24/17 10:55 Blood Blood Culture - Preliminary NO GROWTH AFTER 24 HOURS Resulted 04/24/17 10:50 Blood Blood Culture - Preliminary NO GROWTH AFTER 24 HOURS Resulted Laboratory Tests 04/26/17 05:05: White Blood Count 4.3L, Red Blood Count 2.57L, Hemoglobin 8.7L, Hematocrit 26.1L , Mean Corpuscular Volume 102H, Mean Corpuscular Hemoglobin 33.9H, Mean Corpuscular Hemoglobin Concent 33.4, Red Cell Distribution Width 12.6, Platelet Count 122L, Mean Platelet Volume 7.3, Neutrophils (%) (Auto) 65.2, Lymphocytes ( %) (Auto) 14.4L, Monocytes (%) (Auto) 12.4H, Eosinophils (%) (Auto) 6.7H, Basophils (%) (Auto) 1.4, Sodium Level 141, Potassium Level 4.2, Chloride Level 103, Carbon Dioxide Level 26, Anion Gap 12, Blood Urea Nitrogen 44H, Creatinine 9.6H, Estimat Glomerular Filtration Rate , Glucose Level 90, Uric Acid 5.7, Calcium Level 8.4L, Phosphorus Level 6.3H, Magnesium Level 2.2, Total Bilirubin 0.4, Aspartate Amino Transf (AST/SGOT) 20, Alanine Aminotransferase (ALT/SGPT) 12, Alkaline Phosphatase 33L, Troponin I 0.324H, Pro-B-Type Natriuretic Peptide 74865Q, Total Protein 6.3L, Albumin 2.5L, Globulin 3.8, Albumin/Globulin Ratio 0.7L, Random Vancomycin Level 33.6 Current Medications Medications (Trade) Dose Ordered Sig/Ladarius Route PRN Reason Start Time Stop Time Status Last Admin Dose Admin Acetaminophen (Tylenol) 650 mg Q4H PRN ORAL Fever 04/23/17 21:30 05/21/17 05:29 04/26/17 04:10 Aspirin (ASA) 325 mg DAILY ORAL 04/24/17 09:00 05/21/17 13:59 04/26/17 08:47 Atorvastatin Calcium (Lipitor) 10 mg BEDTIME ORAL 04/23/17 21:00 05/22/17 20:59 04/25/17 21:41 Dextrose (Dextrose 50%) STAT PRN IV Hypoglycemia 04/24/17 05:30 05/21/17 05:29 Epoetin Devon (Procrit (for ESRD on dialysis)) 4,000 units MON-WED-WED SUBQ 04/26/17 21:00 05/26/17 20:59 Heparin Sodium (Porcine) (Heparin 5000 units/ml) 5,000 units EVERY 12 HOURS SUBQ 04/23/17 21:00 05/21/17 08:59 Levofloxacin (Levaquin) 250 mg DAILY ORAL 04/27/17 09:00 05/04/17 08:59 Lisinopril (Prinivil) 20 mg BID ORAL 04/24/17 18:00 05/24/17 17:59 04/25/17 17:18 Metoprolol Tartrate (Lopressor) 50 mg Q12HR ORAL 04/24/17 21:00 05/24/17 20:59 04/25/17 21:41 Nitroglycerin (Ntg) 1 patch Q24H TDERMAL 04/24/17 13:00 05/23/17 12:59 04/25/17 12:31 Ondansetron HCl (Zofran) 4 mg Q6H PRN IVP Nausea & Vomiting 04/23/17 23:30 05/21/17 05:29 04/24/17 09:25 Pantoprazole (Protonix) 40 mg DAILY ORAL 04/24/17 09:00 05/21/17 13:59 04/26/17 08:47 Polyethylene Glycol (Miralax) 17 gm DAILYPRN PRN ORAL Constipation 04/24/17 05:30 05/21/17 05:29 Promethazine HCl/ Codeine (Phenergan with Codeine) 5 ml Q4H PRN ORAL For Cough 04/23/17 21:30 05/21/17 05:29 04/25/17 21:41 Sevelamer Carbonate (Renvela) 2,400 mg THREE TIMES A DAY ORAL 04/26/17 13:00 05/26/17 12:59 Temazepam (Restoril) 15 mg HSPRN PRN ORAL Insomnia 04/24/17 05:30 04/28/17 05:29 Tramadol HCl (Ultram) 50 mg Q6H PRN ORAL pain of 6 and above 04/24/17 00:30 04/30/17 12:29 04/25/17 11:28 SARA SAWYER Apr 26, 2017 13:13
--- NOTE | 2017-04-26 13:36 | General Progress Note ---
Assessment/Plan Problem List: (1) Pneumonia ICD Codes: J18.9 - Pneumonia, unspecified organism SNOMED: 394193808 (2) Sepsis ICD Codes: A41.9 - Sepsis, unspecified organism SNOMED: 19025356 (3) ESRD (end stage renal disease) on dialysis ICD Codes: N18.6 - End stage renal disease; Z99.2 - Dependence on renal dialysis SNOMED: 229873591 (4) Acute respiratory failure ICD Codes: J96.00 - Acute respiratory failure, unspecified whether with hypoxia or hypercapnia SNOMED: 82019616 (5) Non-STEMI (non-ST elevated myocardial infarction) ICD Codes: I21.4 - Non-ST elevation (NSTEMI) myocardial infarction SNOMED: 210163910 (6) Respiratory distress ICD Codes: R06.03 - Acute respiratory distress SNOMED: 467977991 Status: stable, progressing, tolerating diet Assessment/Plan o2 pulm tx abx ot pt diet cbc bmp am heme eval dc plan w hh after dialysis if clear Subjective Constitutional: Reports: weakness Allergies: Coded Allergies: No Known Allergies (Unverified , 04/20/17) All Systems: reviewed and negative except above Subjective sl sob Objective Last 24 Hour Vital Signs Date Time Temp Pulse Resp B/P (MAP) Pulse Ox O2 Delivery O2 Flow Rate FiO2 04/26/17 12:00 97.9 77 19 143/65 99 Room Air 04/26/17 08:00 98.5 79 16 160/69 96 Room Air 04/26/17 05:09 99.1 04/26/17 04:00 98.6 80 16 149/71 95 Room Air 04/26/17 01:58 66 20 98 Room Air 21 04/26/17 01:49 21 04/26/17 01:49 60 22 93 Room Air 21 04/26/17 00:00 99.1 82 22 149/71 94 Room Air 04/25/17 21:41 79 130/60 04/25/17 20:00 98.2 79 18 130/60 94 Room Air 04/25/17 19:57 68 20 99 Room Air 21 04/25/17 19:46 21 04/25/17 19:46 79 20 93 Room Air 21 04/25/17 17:18 156/72 04/25/17 15:54 98.0 80 18 156/72 93 Room Air Intake and Output 04/25/17 04/26/17 19:00 07:00 Intake Total 505 ml 120 ml Balance 505 ml 120 ml Intake Oral 450 ml 120 ml IV Total 55 ml # Voids 2 1 # Bowel Movements 3 1 Laboratory Tests 04/26/17 05:05: White Blood Count 4.3L, Red Blood Count 2.57L, Hemoglobin 8.7L, Hematocrit 26.1L , Mean Corpuscular Volume 102H, Mean Corpuscular Hemoglobin 33.9H, Mean Corpuscular Hemoglobin Concent 33.4, Red Cell Distribution Width 12.6, Platelet Count 122L, Mean Platelet Volume 7.3, Neutrophils (%) (Auto) 65.2, Lymphocytes ( %) (Auto) 14.4L, Monocytes (%) (Auto) 12.4H, Eosinophils (%) (Auto) 6.7H, Basophils (%) (Auto) 1.4, Sodium Level 141, Potassium Level 4.2, Chloride Level 103, Carbon Dioxide Level 26, Anion Gap 12, Blood Urea Nitrogen 44H, Creatinine 9.6H, Estimat Glomerular Filtration Rate , Glucose Level 90, Uric Acid 5.7, Calcium Level 8.4L, Phosphorus Level 6.3H, Magnesium Level 2.2, Total Bilirubin 0.4, Aspartate Amino Transf (AST/SGOT) 20, Alanine Aminotransferase (ALT/SGPT) 12, Alkaline Phosphatase 33L, Troponin I 0.324H, Pro-B-Type Natriuretic Peptide 78801V, Total Protein 6.3L, Albumin 2.5L, Globulin 3.8, Albumin/Globulin Ratio 0.7L, Random Vancomycin Level 33.6 Height (Feet): 5 Height (Inches): 5.00 Weight (Pounds): 210 General Appearance: alert EENT: normal ENT inspection Neck: normal alignment Cardiovascular: normal peripheral pulses, normal rate, regular rhythm Respiratory/Chest: chest wall non-tender, lungs clear, normal breath sounds Abdomen: normal bowel sounds, non tender, soft Extremities: normal inspection Edema: no edema noted Arm (L), no edema noted Arm (R), no edema noted Leg (L), no edema noted Leg (R), no edema noted Pedal (L), no edema noted Pedal (R), no edema noted Generalized Neurologic: responsive, motor weakness Skin: normal pigmentation, warm/dry NEIL,ROSA Apr 26, 2017 13:36
[2017-04-26] MEDS: traMADol 50mg tab ORAL PRN (15:00)
[2017-04-26] MEDS ORDERED: LEVAQUIN250 M1 ORAL (15:12)
[2017-04-26] MEDS ORDERED: LISINOPRIL20 MG ORAL (17:48)
[2017-04-26] MEDS ORDERED: METOPROLOL TART50 M1 ORAL (17:50)
[2017-04-26] MEDS ORDERED: LOPRESSOR25 M1 ORAL (17:50)
[2017-04-26] MEDS ORDERED: NITROGLYCERIN1 EAC2 TD (17:52)
[2017-04-26] MEDS ORDERED: NITROGLYCERIN1 EAC3 TD (17:55)
[2017-04-26] MEDS ORDERED: PANTOPRAZOLE SO40 MG ORAL (17:56)
[2017-04-26] MEDS ORDERED: MIRALAX17 G2 ORAL (17:57)
[2017-04-26] MEDS ORDERED: RENVELA2.4 GM ORAL (17:58)
[2017-04-26] MEDS ORDERED: TEMAZEPAM15 MG ORAL (17:59)
[2017-04-26] MEDS ORDERED: TRAMADOL HCL50 MG ORAL (18:00)
[2017-04-26] MEDS ORDERED: ASPIRIN325 MG ORAL (18:01)
[2017-04-26] MEDS ORDERED: ACETAMINOPHEN325 M1 ORAL (18:02)
[2017-04-26] MEDS ORDERED: ATORVASTATIN CA10 MG ORAL (18:07)
[2017-04-26] MEDS ORDERED: HEPARIN SO5000 UNIT2 SUBQ (18:09)
[2017-04-26] MEDS ORDERED: EPOGEN4000 UNIT/ SUBQ (18:10)
[2017-04-26] MEDS ORDERED: Epogen (for ESRD on dialysis) SUBQ SCH (21:00)
--- NOTE | 2017-04-26 23:55 | General Progress Note ---
Assessment/Plan Status: stable Assessment/Plan 1. Pancytopenia related to underlying sepsis versus underlying medications. --> Has improved. --> The patient is on heparin drip. --> We will continue to closely monitor. --> Trend cbc daily. 2. Anemia due to underlying chronic disease. --> Anemia workup has been reviewed including B12, folic acid, TSH, free T4, as well as anemia workup. --> Continue to closely monitor. Hemoglobin goal is above 7. --> Blood transfusion not required unless symptomatic or hgb below goal. --> Has not required blood transfusion 3. Thrombocytopenia, currently on heparin. --> Closely monitor. 4. Coagulopathy. --> INR is currently 1 --> Goal between 2 and 3. On heparin. 5. Demand elevated troponin, potentially related to underlying end-stage renal disease. 6. Respiratory distress. She is on broad-spectrum antibiotics. 7. [id number] myocardial infarction, seen by Cardiology Service. 8. End-stage renal disease, on hemodialysis. 9. Continue to closely monitor. Subjective Date patient seen: Apr 26, 2017 Constitutional: Denies: no symptoms, chills, diaphoresis, fever, malaise, weakness, other HEENT: Denies: no symptoms, eye pain, blurred vision, tearing, double vision, ear pain, ear discharge, nose pain, nose congestion, throat pain, throat swelling, mouth pain, mouth swelling, other Cardiovascular: Denies: no symptoms, chest pain, edema, irregular heart rate, lightheadedness, palpitations, syncope, other Respiratory: Denies: no symptoms, cough, orthopnea, shortness of breath, SOB with excertion, SOB at rest, sputum, stridor, wheezing, other Gastrointestinal/Abdominal: Denies: no symptoms, abdomen distended, abdominal pain, black stools, tarry stools, blood in stool, constipated, diarrhea, difficulty swallowing, nausea, poor appetite, poor fluid intake, rectal bleeding , vomiting, other Genitourinary: Denies: no symptoms, burning, discharge, frequency, flank pain, hematuria, incontinence, pain, urgency, other Allergies: Coded Allergies: No Known Allergies (Unverified , 04/20/17) Subjective On heparin. No major events. Stable. Objective Last 24 Hour Vital Signs Date Time Temp Pulse Resp B/P (MAP) Pulse Ox O2 Delivery O2 Flow Rate FiO2 04/26/17 20:22 88 179/81 04/26/17 20:00 98.6 82 18 179/82 100 Room Air 04/26/17 18:20 160/75 04/26/17 16:30 99.0 82 20 160/110 Room Air 04/26/17 16:30 Room Air 04/26/17 15:59 160/100 04/26/17 13:30 98.1 80 20 158/75 Room Air 04/26/17 13:30 Room Air 04/26/17 12:00 97.9 77 19 143/65 99 Room Air 04/26/17 08:00 98.5 79 16 160/69 96 Room Air 04/26/17 05:09 99.1 04/26/17 04:00 98.6 80 16 149/71 95 Room Air 04/26/17 01:58 66 20 98 Room Air 21 04/26/17 01:49 21 04/26/17 01:49 60 22 93 Room Air 21 04/26/17 00:00 99.1 82 22 149/71 94 Room Air Intake and Output 04/25/17 04/26/17 19:00 07:00 Intake Total 505 ml 120 ml Balance 505 ml 120 ml Intake Oral 450 ml 120 ml IV Total 55 ml # Voids 2 1 # Bowel Movements 3 1 Laboratory Tests 04/26/17 05:05: White Blood Count 4.3L, Red Blood Count 2.57L, Hemoglobin 8.7L, Hematocrit 26.1L , Mean Corpuscular Volume 102H, Mean Corpuscular Hemoglobin 33.9H, Mean Corpuscular Hemoglobin Concent 33.4, Red Cell Distribution Width 12.6, Platelet Count 122L, Mean Platelet Volume 7.3, Neutrophils (%) (Auto) 65.2, Lymphocytes ( %) (Auto) 14.4L, Monocytes (%) (Auto) 12.4H, Eosinophils (%) (Auto) 6.7H, Basophils (%) (Auto) 1.4, Sodium Level 141, Potassium Level 4.2, Chloride Level 103, Carbon Dioxide Level 26, Anion Gap 12, Blood Urea Nitrogen 44H, Creatinine 9.6H, Estimat Glomerular Filtration Rate , Glucose Level 90, Uric Acid 5.7, Calcium Level 8.4L, Phosphorus Level 6.3H, Magnesium Level 2.2, Total Bilirubin 0.4, Aspartate Amino Transf (AST/SGOT) 20, Alanine Aminotransferase (ALT/SGPT) 12, Alkaline Phosphatase 33L, Troponin I 0.324H, Pro-B-Type Natriuretic Peptide 45096D, Total Protein 6.3L, Albumin 2.5L, Globulin 3.8, Albumin/Globulin Ratio 0.7L, Random Vancomycin Level 33.6 Height (Feet): 5 Height (Inches): 5.00 Weight (Pounds): 210 General Appearance: no apparent distress Cardiovascular: normal rate, regular rhythm Respiratory/Chest: lungs clear Abdomen: soft Chas Mijares Apr 26, 2017 23:55
--- NOTE | 2017-04-27 13:16 | Diagnostic Imaging Report ---
APPROVED REPORT CPT Code: 48352 Present Symptoms Lower Extremity Pain: Bilateral Comments: R/O DVT Technically difficult study due to vessel depth (mid-thigh and calf area) and pain. BILATERAL: Imaging reveals a patent deep venous system bilaterally. There is no evidence of thrombus within the femoral, popliteal or tibial segments. The greater saphenous veins are also within normal limits. Doppler indicates normal spontaneous flow within these segments.
--- NOTE | 2017-04-28 13:49 | Discharge Summary ---
Discharge Summary Hospital Course Date of Admission Apr 20, 2017 at 23:02 Date of Discharge Apr 26, 2017 at 20:50 Admitting Diagnosis SOB HPI Scarlet Murray is a 71 year old female who was admitted on Apr 20, 2017 at 23:02 for Shortness Of Breath Hospital Course dc summary #[id number] Discharge Medications Continued Medications: Acetaminophen* (Acetaminophen 325MG Tablet*) 325 Mg Tablet 650 MG ORAL Q4H PRN for Fever/Headache/Mild Pain, TAB Aspirin* (Aspirin*) 325 Mg Tablet 325 MG ORAL DAILY, TAB Atorvastatin Calcium* (Lipitor*) 10 Mg Tablet 10 MG ORAL BEDTIME, TAB Epoetin Devon (Epogen) 4,000 Unit/1 Ml Vial 4000 UNIT SUBQ 3XW, VIAL Heparin Sod (Porcine) (Heparin Sodium*) 5 000/1 Ml Vial 5000 UNITS SUBQ EVERY 12 HOURS, VIAL Levofloxacin* (Levaquin*) 250 Mg Tablet 250 MG ORAL DAILY for 3 Days, TAB Lisinopril (Lisinopril*) 20 Mg Tablet 20 MG ORAL BID, TAB Metoprolol Tartrate* (Metoprolol Tartrate*) 50 Mg Tablet 50 MG ORAL EVERY 12 HOURS, TAB Nitroglycerin (Nitroglycerin Patch) 1 Each Patch.td24 1 EACH TD Q24 HR, PATCH Pantoprazole* (Pantoprazole*) 40 Mg Tablet.dr 40 MG ORAL DAILY, TAB Polyethylene Glycol 3350* (Miralax*) 17 Gm Powd.pack 17 GM ORAL DAILY PRN for Constipation, PACKET Sevelamer Carbonate* (Renvela*) 2.4 Gm Powd.pack 2400 MG ORAL THREE TIMES A DAY, PACK Temazepam (Temazepam*) 15 Mg Capsule 15 MG ORAL BEDTIME PRN for Insomnia, CAP 0 Refills Tramadol Hcl* (Ultram*) 50 Mg Tablet 50 MG ORAL Q6H PRN for For Pain, TAB 0 Refills Discontinued Medications: Aspirin* (Aspir 81*) 81 Mg Tablet.dr 81 MG ORAL DAILY, TAB Discharge Condition Upon Discharge: stable Discharge Disposition Patient was discharged to Home with Home Health(06) Discharge Diagnoses: Franki (Reyna)Neha NP Apr 28, 2017 13:49
--- NOTE | 2017-04-29 03:01 | Discharge Summary 2 SIG ---
DATE OF ADMISSION: 04/20/2017 DATE OF DISCHARGE: 04/26/2017 CONSULTANTS: 1. Commercial Artist, Dr. Duc Batista. 2. Anchorman, Dr. Deshaun Jiang. 3. Infectious Disease, Dr. Srinivas Prakash. 4. Nurse'S Assistant, Dr. Josue Miller. 5. Model Technician, Dr. Chas Mijares. REASON FOR ADMISSION: 71-year-old female with a history of end-stage renal disease, on hemodialysis and hypertension, presented to emergency department with shortness of breath and wheezing. The patient had no history of asthma. She denied chest pain, but reported dry cough. Blood pressure in the emergency room was elevated-146/110. The patient exhibited evidence of respiratory distress. Troponin was elevated -0.096. The patient was admitted with respiratory distress and end-stage renal disease, on hemodialysis. HOSPITAL COURSE: The patient was admitted to telemetry floor. Hemodialysis was requested as soon as possible. Nurse'S Assistant directed the hemodialysis management. Electrolytes and renal parameters were closely monitored. Electrolytes were corrected as needed. Nephrotoxics were avoided. Commercial Artist closely followed. Serial troponin from initial 0.096 increased to maximal-0.852 and then started to trend down, last -0.324. The patient probably had troponin leak secondary to renal failure, likely NSTEMI. The patient was on aspirin, beta rhianna, and statin. Blood pressure was managed with beta-rhianna and SHAUN inhibitor. Venous duplex of bilateral lower extremities was negative. Patient had abnormal electrocardiogram with left ventricular hypertrophy, repolarization abnormality, as well as the left anterior fascicular block. Echocardiogram revealed ejection fraction 45% to 50% and right ventricular systolic pressure of 36 consistent with mild pulmonary hypertension. There was also evidence of severe aortic insufficiency and severe mitral regurgitation. The patient had evidence of diastolic congestive heart failure. Per deck steward, the patient may need bivalvular surgery as an outpatient. Patient to follow up with deck steward as outpatient. The patient was on empiric antibiotic. ID closely followed. Blood culture negative. Sputum culture negative. Influenza screen test negative. The patient had bronchitis and possible pneumonia. Supplemental oxygen and pulmonary toilet with bronchodilators 'provided as needed. Antitussives administered as needed. The patient was followed up with chest x-ray. The patient to continue on oral Levaquin for additional three days upon discharge as specified by ID specialist. Per ID specialist, the patient possibly had sepsis. Anemia workup was consistent with anemia of chronic disease. Counts were closely monitored. Model Technician followed. No need for transfusion unless the patient hemodynamically unstable or hemoglobin below 7. The patient clinically improved and was stable for discharge home with home health services. FINAL DIAGNOSES: 1. Possible sepsis. 2. Acute respiratory failure. 3. End-stage renal disease. 4. Bronchitis. 5. Possible pneumonia. 6. Probable troponin leak. 7. Likely djk-YR-ounemhtbt myocardial infarction. 8. Severe mitral regurgitation. 9. Severe aortic insufficiency. 10.Anemia of chronic kidney disease. 11. Diastolic congestive heart failure. 12. Hypertension. 13. Bilateral lower extremities edema. DISCHARGE MEDICATIONS: See medication reconciliation list. DISCHARGE INSTRUCTIONS: The patient was discharged home with home health services. Follow up with the primary care provider and deck steward. Follow up with outpatient hemodialysis. Mateusz Peters D.O. I have been assigned to dictate discharge summary on this account and I was not involved in the patient's management. Neha Bolanosmyesha N.PSalbador DR: DARYL JOB#: [id number] CC: PROSPER
== END 2017-04-26 20:50 | disposition home health service (06) | DRG 871 ==
LOC: EDBD 21:58 → EMR 23:01 → 2E 23:02 → EDBEDREQ 23:36 → 3E 04-23 18:48
PROC: 5A1D70Z Performance of Urinary Filtration, Intermittent, Less than 6 Hours Per Day (ICD-10-PCS; principal; 2017-04-21)
DX: A41.9 Sepsis, unspecified organism (principal); J96.00 Acute respiratory failure, unspecified whether with hypoxia or hypercapnia; I21.4 Non-ST elevation (NSTEMI) myocardial infarction; I13.2 Hypertensive heart and chronic kidney disease with heart failure and with stage 5 chronic kidney disease, or end stage renal disease; J18.9 Pneumonia, unspecified organism; N18.6 End stage renal disease; D68.9 Coagulation defect, unspecified; D61.818 Other pancytopenia; I50.30 Unspecified diastolic (congestive) heart failure; Z99.2 Dependence on renal dialysis; D63.1 Anemia in chronic kidney disease; D69.6 Thrombocytopenia, unspecified; I35.1 Nonrheumatic aortic (valve) insufficiency; I34.0 Nonrheumatic mitral (valve) insufficiency; J40 Bronchitis, not specified as acute or chronic; I27.20 Pulmonary hypertension, unspecified
CPT/HCPCS: 36415; 71045; 80053; 80061; 80162; 80202; 82550; 82553; 82607; 82728; 82746; 82977; 83036; 83540; 83550; 83605; 83735; 83880; 84100; 84439; 84443; 84484; 84550; 85025; 85379; 85610; 86140; 86710; 87040; 87070; 87081; 87205; 93005; 93306; 93970; 94640; 94664; 97803; 99285; J2405; J7620

== ENCOUNTER 2017-06-02 22:53 | Inpatient (IN) | payer MEDICARE, MEDICAID ==
[~2017-06-02] VITALS: Ht 152.4 cm; Wt 74.0 kg
[~2017-06-02 22:53] MED LIST: ACETAMINOPHEN325 M1 ORAL; ASPIR 8181 MG ORAL; ASPIRIN325 MG ORAL; ATORVASTATIN CA10 MG ORAL; EPOGEN4000 UNIT/ SUBQ; HEPARIN SO5000 UNIT2 SUBQ; LEVAQUIN250 M1 ORAL; LISINOPRIL20 MG ORAL; LOPRESSOR25 M1 ORAL; METOPROLOL TART50 M1 ORAL; MIRALAX17 G2 ORAL; NITROGLYCERIN1 EAC2 TD; NITROGLYCERIN1 EAC3 TD; PANTOPRAZOLE SO40 MG ORAL; RENVELA2.4 GM ORAL; TEMAZEPAM15 MG ORAL; TRAMADOL HCL50 MG ORAL
[2017-06-02] MEDS ORDERED: ATENOLOL25 MG ORAL (22:58)
[2017-06-02] MEDS ORDERED: ZANTAC150 MG ORAL (22:58)
[2017-06-02 23:40] LABS: BASOPHILS % (AUTO) 1.6 % (0.0-2.0); EOSINOPHILS % (AUTO) 6.2 % (0.0-3.0); HEMATOCRIT 32.9 % (37.0-47.0); LYMPHOCYTES % (AUTO) 14.4 % (20.0-45.0); MEAN CORPUSCULAR VOLUME 104 FL (80-99); MONOCYTES % (AUTO) 8.4 % (1.0-10.0); NEUTROPHILS % (AUTO) 69.4 % (45.0-75.0); PLATELET COUNT 188 K/UL (150-450); RED BLOOD COUNT 3.16 M/UL (4.20-5.40); RED CELL DISTRIBUTION WIDTH 15.9 % (11.6-14.8); WHITE BLOOD COUNT 5.6 K/UL (4.8-10.8)
[2017-06-02 23:46] LABS: ANION GAP 13 mmol/L (5-15); BLOOD UREA NITROGEN 52 mg/dL (7-18); CALCIUM 9.5 MG/DL (8.5-10.1); CARBON DIOXIDE 26 MMOL/L (21-32); CHLORIDE 102 MMOL/L (98-107); CREATININE 9.5 MG/DL (0.55-1.30); SODIUM 141 MMOL/L (136-145)
[2017-06-02 23:57] LABS: ALANINE AMINOTRANSFERASE 13 U/L (12-78); ALBUMIN 3.5 G/DL (3.4-5.0); ALBUMIN/GLOBULIN RATIO 0.8 (1.0-2.7); ALKALINE PHOSPHATASE 46 U/L (46-116); ASPARTATE AMINO TRANSFERASE 16 U/L (15-37); BILIRUBIN,TOTAL 0.4 MG/DL (0.2-1.0); CREATINE KINASE 45 U/L (26-308)
[2017-06-03] VITALS (7 sets, daily range): BP systolic 128–155; BP diastolic 61–79
[2017-06-03 00:06] LABS: INR 0.9 (0.9-1.1)
--- NOTE | 2017-06-03 00:10 | Emergency Room Report ---
History of Present Illness General Chief Complaint: Palpitations Source: Patient Present Illness HPI The patient presents after feeling palpitations. She felt that her heart rate was racing. Paramedics transported the patient's year and did a 12-lead to did not show a STEMI. She stated she did not feel dizzy at the time, but felt anxious. The patient is a dialysis patient. Her last dialysis was on Wednesday. She states she still makes urine. She states that the palpitations feel better at this time. She feels this is related to her relaxing somewhat. They allegedly treated her with aspirin in the field. She denies having any pain or shortness of breath. She does have edema in her legs but denies pain there. No fevers, chills, NVD, dysuria, rashes. No bleeding problems. She denies any heart valve problems. Allergies: Coded Allergies: No Known Allergies (Unverified , 04/20/17) Patient History Past Medical History: see triage record Social History: Denies: smoking, alcohol use, drug use Social History Narrative SNF Last Menstrual Period: NA Reviewed Nursing Documentation: PMH: Agreed; PSxH: Agreed Nursing Documentation-PMH Hx Hypertension: Yes Hx Cancer: No Hx Gastrointestinal Problems: No Hx Dialysis: Yes - Wednesday, , Wednesday Hx Neurological Problems: No Hx Cerebrovascular Accident: Yes Review of Systems All Other Systems: negative except mentioned in HPI Physical Exam Vital Signs Date Time Temp Pulse Resp B/P (MAP) Pulse Ox O2 Delivery O2 Flow Rate FiO2 06/02/17 22:54 99.1 106 14 172/94 98 Room Air 99.1 Sp02 EP Interpretation: reviewed, normal General Appearance: no apparent distress, GCS 15, Chronically Ill Head: normocephalic, atraumatic Eyes: bilateral eye normal inspection, bilateral eye PERRL ENT: moist mucus membranes Neck: supple Respiratory: no respiratory distress, no wheezing, other - vascath R chest Cardiovascular #1: no JVD, no rub, systolic murmur - radiate to axilla 4/6, gallop/S3, other - heave , edema - bilaterally 2+ pitting Cardiovascular #2: 2+ radial (R) Gastrointestinal: normal inspection, normal bowel sounds, non tender, no mass, non-distended, overweight Musculoskeletal: back normal, normal range of motion, no calf tenderness, pelvis stable Neurologic: alert, sensory intact, speech normal, motor weakness - LE -- UE with normal strength, oriented - X2 Psychiatric: depressed affect Skin: warm/dry, other - minimal erythema LE Medical Decision Making Diagnostic Impression: Primary Impression: Non-STEMI (non-ST elevated myocardial infarction) Additional Impressions: ESRD (end stage renal disease) Mitral regurgitation Qualified Codes: I34.0 - Nonrheumatic mitral (valve) insufficiency ER Course Patient with palpitations and ESRD. DDx: arrhythmia, AMI, CHF, electrolyte abnormality. Clear mitral regurgitant murmur and heave. Evaluation with EKG, CXR, labs. Treatment with cardiac observation. EKG without injury (ST). CXR with inc cor, no chf. Labs with ESRD. Called with + troponin. Aspirin had been given in the field. Nitrolpaste was ordered as well as metoprolol. Patient still denies pain. No longer tachycardic. Improved but needs cardiac evaluation and treatment. Will need dialysis. Consider echocardiogram to evaluate wall motion and also regurgitant murmur. Still reports no pain. Laboratory Tests Test 06/02/17 23:32 06/03/17 09:25 White Blood Count 5.6 K/UL (4.8-10.8) 4.9 K/UL (4.8-10.8) Red Blood Count 3.16 M/UL (4.20-5.40) L 2.76 M/UL (4.20-5.40) L Hemoglobin 11.0 G/DL (12.0-16.0) L 9.4 G/DL (12.0-16.0) L Hematocrit 32.9 % (37.0-47.0) L 29.3 % (37.0-47.0) L Mean Corpuscular Volume 104 FL (80-99) H 106 FL (80-99) H Mean Corpuscular Hemoglobin 34.8 PG (27.0-31.0) H 34.2 PG (27.0-31.0) H Mean Corpuscular Hemoglobin Concent 33.4 G/DL (32.0-36.0) 32.3 G/DL (32.0-36.0) Red Cell Distribution Width 15.9 % (11.6-14.8) H 15.9 % (11.6-14.8) H Platelet Count 188 K/UL (150-450) 166 K/UL (150-450) Mean Platelet Volume 7.7 FL (6.5-10.1) 6.8 FL (6.5-10.1) Neutrophils (%) (Auto) 69.4 % (45.0-75.0) 66.4 % (45.0-75.0) Lymphocytes (%) (Auto) 14.4 % (20.0-45.0) L 16.7 % (20.0-45.0) L Monocytes (%) (Auto) 8.4 % (1.0-10.0) 9.4 % (1.0-10.0) Eosinophils (%) (Auto) 6.2 % (0.0-3.0) H 6.0 % (0.0-3.0) H Basophils (%) (Auto) 1.6 % (0.0-2.0) 1.5 % (0.0-2.0) Prothrombin Time 9.8 SEC (9.30-11.50) Prothrombin Time INR 0.9 (0.9-1.1) PTT 23 SEC (23-33) Sodium Level 141 MMOL/L (136-145) 146 MMOL/L (136-145) H Potassium Level 4.0 MMOL/L (3.5-5.1) 4.2 MMOL/L (3.5-5.1) Chloride Level 102 MMOL/L (98-107) 106 MMOL/L (98-107) Carbon Dioxide Level 26 MMOL/L (21-32) 27 MMOL/L (21-32) Anion Gap 13 mmol/L (5-15) 13 mmol/L (5-15) Blood Urea Nitrogen 52 mg/dL (7-18) H 58 mg/dL (7-18) H Creatinine 9.5 MG/DL (0.55-1.30) H 10.3 MG/DL (0.55-1.30) H Estimate Glomerular Filtration Rate mL/min (>60) mL/min (>60) Glucose Level 94 MG/DL (74-106) 108 MG/DL (74-106) H Calcium Level 9.5 MG/DL (8.5-10.1) 9.2 MG/DL (8.5-10.1) Total Bilirubin 0.4 MG/DL (0.2-1.0) Aspartate Amino Transferase (AST) 16 U/L (15-37) Alanine Aminotransferase (ALT) 13 U/L (12-78) Alkaline Phosphatase 46 U/L (46-116) Total Creatine Kinase 45 U/L (26-308) Troponin I 0.097 ng/mL (0.000-0.056) 0.104 ng/mL (0.000-0.056) Pro-B-Type Natriuretic Peptide 28447 pg/mL (0-125) H Total Protein 8.1 G/DL (6.4-8.2) Albumin 3.5 G/DL (3.4-5.0) Globulin 4.6 g/dL Albumin/Globulin Ratio 0.8 (1.0-2.7) L Phosphorus Level 7.0 MG/DL (2.5-4.9) H Magnesium Level 2.5 MG/DL (1.8-2.4) H EKG Diagnostic Results Rate: tachycardiac ST Segments: no acute changes Rhythm Strip Diag. Results EP Interpretation: yes Rhythm: no PVC's, no ectopy, other - ST Chest X-Ray Diagnostic Results Chest X-Ray Diagnostic Results : Chest X-Ray Ordered: Yes # of Views/Limited/Complete: 1 View Indication: Other EP Interpretation: Yes Interpretation: no consolidation, no effusion, no pneumothorax, other - inc cor and vas cath Impression: Other Electronically Signed by: Electronically signed by Phil Evans MD Last Vital Signs Date Time Temp Pulse Resp B/P (MAP) Pulse Ox O2 Delivery O2 Flow Rate FiO2 06/03/17 09:00 139/79 06/03/17 08:00 97.5 87 18 97 Room Air 97.5 Status: improved Disposition: ADMITTED INPATIENT Condition: Serious Phil Evans M.D. Jun 03, 2017 00:10
[2017-06-03] MEDS ORDERED: Metoprolol 5mg/5ml Inj IVP SCH (00:15)
[2017-06-03] MEDS ORDERED: Nitroglycerin 2% oint pkt TOPIC ONE (00:15)
[2017-06-03] MEDS ORDERED: Lisinopril 20mg tab ORAL SCH (09:00)
--- NOTE | 2017-06-03 09:47 | Diagnostic Imaging Report ---
Indication: Chest pain Technique: One view of the chest Comparison: April 24, 2017 Findings: Lungs and pleural spaces are clear. The heart is borderline enlarged. Right jugular central dialysis catheter is again demonstrated. Findings are unchanged Impression: No acute process This agrees with the preliminary interpretation provided by the emergency room physician
[2017-06-03 10:12] LABS: BASOPHILS % (AUTO) 1.5 % (0.0-2.0); HEMATOCRIT 29.3 % (37.0-47.0); HEMOGLOBIN 9.4 G/DL (12.0-16.0); LYMPHOCYTES % (AUTO) 16.7 % (20.0-45.0); MEAN CORPUSCULAR VOLUME 106 FL (80-99); MONOCYTES % (AUTO) 9.4 % (1.0-10.0); NEUTROPHILS % (AUTO) 66.4 % (45.0-75.0); PLATELET COUNT 166 K/UL (150-450); RED BLOOD COUNT 2.76 M/UL (4.20-5.40); RED CELL DISTRIBUTION WIDTH 15.9 % (11.6-14.8); WHITE BLOOD COUNT 4.9 K/UL (4.8-10.8)
[2017-06-03 10:28] LABS: ANION GAP 13 mmol/L (5-15); BLOOD UREA NITROGEN 58 mg/dL (7-18); CALCIUM 9.2 MG/DL (8.5-10.1); CARBON DIOXIDE 27 MMOL/L (21-32); CHLORIDE 106 MMOL/L (98-107); CREATININE 10.3 MG/DL (0.55-1.30); POTASSIUM 4.2 MMOL/L (3.5-5.1); SODIUM 146 MMOL/L (136-145)
--- NOTE | 2017-06-03 11:03 | General Progress Note ---
Progress Note Progress Note [id number] full consult dictated SCAR COOLEY Jun 03, 2017 11:03
--- NOTE | 2017-06-03 12:37 | Consultation ---
History of Present Illness General Date patient seen: Jun 03, 2017 Chief Complaint: Palpitations Present Illness HPI 71 year old female with hx of HTN, ESRF on HD presented to ER after feeling palpitations and dyspnea. She felt that her heart rate was racing. She states that the palpitations feel better in the ER. She feels this is related to her relaxing somewhat. They treated with aspirin in the field. Her troponin was elevated and she is admitted to telemetry for further evaluation. She is asymptomatic right now. Allergies: Coded Allergies: No Known Allergies (Unverified , 04/20/17) Medication History Scheduled Aspirin* (Aspirin*), 325 MG ORAL DAILY, (Reported) Atenolol* (Tenormin*), Unknown Dose ORAL DAILY, (Reported) Atorvastatin Calcium* (Lipitor*), 10 MG ORAL BEDTIME, (Reported) Epoetin Devon (Epogen), 4,000 UNIT SUBQ 3XW, (Reported) Heparin Sod (Porcine) (Heparin Sodium*), 5,000 UNITS SUBQ EVERY 12 HOURS, ( Reported) Levofloxacin* (Levaquin*), 250 MG ORAL DAILY, (Reported) Lisinopril (Lisinopril*), 20 MG ORAL BID, (Reported) Metoprolol Tartrate (Metoprolol Tartrate), 25 MG ORAL EVERY 12 HOURS, (Reported) Metoprolol Tartrate* (Metoprolol Tartrate*), 50 MG ORAL EVERY 12 HOURS, ( Reported) Nitroglycerin (Nitroglycerin Patch), 1 EACH TD Q24 HR, (Reported) Pantoprazole* (Pantoprazole*), 40 MG ORAL DAILY, (Reported) Ranitidine Hcl* (Zantac*), Unknown Dose ORAL DAILY, (Reported) Sevelamer Carbonate* (Renvela*), 2,400 MG ORAL THREE TIMES A DAY, (Reported) Scheduled PRN Acetaminophen* (Acetaminophen 325MG Tablet*), 650 MG ORAL Q4H PRN for Fever/ Headache/Mild Pain, (Reported) Polyethylene Glycol 3350* (Miralax*), 17 GM ORAL DAILY PRN for Constipation, ( Reported) Temazepam (Temazepam*), 15 MG ORAL BEDTIME PRN for Insomnia, (Reported) Tramadol Hcl* (Ultram*), 50 MG ORAL Q6H PRN for For Pain, (Reported) Miscellaneous Medications Nitroglycerin (Nitroglycerin Patch), 1 EACH TD, (Reported) Patient History Healthcare decision maker Resuscitation status Advanced Directive on File Past Medical/Surgical History Past Medical/Surgical History: (1) ESRD (end stage renal disease) (2) Non-STEMI (non-ST elevated myocardial infarction) (3) Mitral regurgitation Review of Systems Respiratory: Reports: shortness of breath Cardiovascular: Reports: palpitations All Other Systems: negative except mentioned in HPI Physical Exam General Appearance: WD/WN Lines, tubes and drains: peripheral, dialysis access - right chest HEENT: normocephalic, atraumatic Neck: non-tender, normal alignment, supple Respiratory/Chest: no respiratory distress Cardiovascular/Chest: regular rhythm Abdomen: normal bowel sounds, non tender Genitourinary/Rectal: normal genital exam, normal rectal exam Extremities: normal range of motion, non-tender, non-pitting Neurologic: anesthesia attending II-XII grossly normal Last 24 Hour Vital Signs Date Time Temp Pulse Resp B/P (MAP) Pulse Ox O2 Delivery O2 Flow Rate FiO2 06/03/17 11:53 97.2 90 20 151/73 99 Room Air 97.2 06/03/17 09:00 139/79 06/03/17 08:00 97.5 87 18 139/79 97 Room Air 97.5 06/03/17 07:34 93 06/03/17 04:00 78 06/03/17 04:00 97.7 89 18 141/73 97 Room Air 97.7 06/03/17 01:30 98.1 78 18 128/66 99 Room Air 98.1 06/03/17 01:25 98.3 82 21 131/61 98 Room Air 98.3 06/03/17 01:12 98.3 82 21 131/61 98 Room Air 98.3 06/03/17 00:24 93 145/65 06/03/17 00:19 145/65 06/02/17 22:54 99.1 106 14 172/94 98 Room Air 99.1 Intake and Output 06/02/17 06/03/17 19:00 07:00 Intake Total 20 ml Output Total 0 ml Balance 20 ml Intake Oral 20 ml Output Urine Total 0 ml # Bowel Movements 2 Laboratory Tests Test 06/02/17 23:32 06/03/17 09:25 White Blood Count 5.6 K/UL (4.8-10.8) 4.9 K/UL (4.8-10.8) Red Blood Count 3.16 M/UL (4.20-5.40) L 2.76 M/UL (4.20-5.40) L Hemoglobin 11.0 G/DL (12.0-16.0) L 9.4 G/DL (12.0-16.0) L Hematocrit 32.9 % (37.0-47.0) L 29.3 % (37.0-47.0) L Mean Corpuscular Volume 104 FL (80-99) H 106 FL (80-99) H Mean Corpuscular Hemoglobin 34.8 PG (27.0-31.0) H 34.2 PG (27.0-31.0) H Mean Corpuscular Hemoglobin Concent 33.4 G/DL (32.0-36.0) 32.3 G/DL (32.0-36.0) Red Cell Distribution Width 15.9 % (11.6-14.8) H 15.9 % (11.6-14.8) H Platelet Count 188 K/UL (150-450) 166 K/UL (150-450) Mean Platelet Volume 7.7 FL (6.5-10.1) 6.8 FL (6.5-10.1) Neutrophils (%) (Auto) 69.4 % (45.0-75.0) 66.4 % (45.0-75.0) Lymphocytes (%) (Auto) 14.4 % (20.0-45.0) L 16.7 % (20.0-45.0) L Monocytes (%) (Auto) 8.4 % (1.0-10.0) 9.4 % (1.0-10.0) Eosinophils (%) (Auto) 6.2 % (0.0-3.0) H 6.0 % (0.0-3.0) H Basophils (%) (Auto) 1.6 % (0.0-2.0) 1.5 % (0.0-2.0) Prothrombin Time 9.8 SEC (9.30-11.50) Prothromb Time International Ratio 0.9 (0.9-1.1) Activated Partial Thromboplast Time 23 SEC (23-33) Sodium Level 141 MMOL/L (136-145) 146 MMOL/L (136-145) H Potassium Level 4.0 MMOL/L (3.5-5.1) 4.2 MMOL/L (3.5-5.1) Chloride Level 102 MMOL/L (98-107) 106 MMOL/L (98-107) Carbon Dioxide Level 26 MMOL/L (21-32) 27 MMOL/L (21-32) Anion Gap 13 mmol/L (5-15) 13 mmol/L (5-15) Blood Urea Nitrogen 52 mg/dL (7-18) H 58 mg/dL (7-18) H Creatinine 9.5 MG/DL (0.55-1.30) H 10.3 MG/DL (0.55-1.30) H Estimat Glomerular Filtration Rate mL/min (>60) mL/min (>60) Glucose Level 94 MG/DL (74-106) 108 MG/DL (74-106) H Calcium Level 9.5 MG/DL (8.5-10.1) 9.2 MG/DL (8.5-10.1) Total Bilirubin 0.4 MG/DL (0.2-1.0) Aspartate Amino Transf (AST/SGOT) 16 U/L (15-37) Alanine Aminotransferase (ALT/SGPT) 13 U/L (12-78) Alkaline Phosphatase 46 U/L (46-116) Total Creatine Kinase 45 U/L (26-308) Troponin I 0.097 ng/mL (0.000-0.056) 0.104 ng/mL (0.000-0.056) Pro-B-Type Natriuretic Peptide 69268 pg/mL (0-125) H Total Protein 8.1 G/DL (6.4-8.2) Albumin 3.5 G/DL (3.4-5.0) Globulin 4.6 g/dL Albumin/Globulin Ratio 0.8 (1.0-2.7) L Phosphorus Level 7.0 MG/DL (2.5-4.9) H Magnesium Level 2.5 MG/DL (1.8-2.4) H Height (Feet): 5 Height (Inches): 0.00 Weight (Pounds): 150 Medications Current Medications Medications (Trade) Dose Ordered Sig/Ladarius Route PRN Reason Start Time Stop Time Status Last Admin Dose Admin Acetaminophen (Tylenol) 650 mg Q4H PRN ORAL Mild Pain/Temp > 100.5 06/03/17 08:00 07/03/17 07:59 Aspirin (ASA) 325 mg DAILY ORAL 06/03/17 09:00 07/03/17 08:59 06/03/17 09:40 Chlorhexidine Gluconate (Nisha-Hex 2%) 1 applic DAILY@1999 TOPIC 06/03/17 20:00 07/03/17 19:59 Epoetin Devon (Procrit (for ESRD on dialysis)) 5,000 units WED-WED-WED SUBQ 06/04/17 21:00 07/04/17 20:59 Lisinopril (Prinivil) 20 mg BID ORAL 06/03/17 09:00 07/03/17 08:59 Sevelamer Carbonate (Renvela) 800 mg THREE TIMES A DAY ORAL 06/03/17 13:00 07/03/17 12:59 Assessment/Plan Problem List: (1) Non-STEMI (non-ST elevated myocardial infarction) ICD Codes: I21.4 - Non-ST elevation (NSTEMI) myocardial infarction SNOMED: 778010056 (2) Dyspnea ICD Codes: R06.00 - Dyspnea, unspecified SNOMED: 622629491 (3) Mitral regurgitation ICD Codes: I34.0 - Nonrheumatic mitral (valve) insufficiency SNOMED: 64331081 Qualifiers: Qualified Codes: I34.0 - Nonrheumatic mitral (valve) insufficiency (4) ESRD (end stage renal disease) ICD Codes: N18.6 - End stage renal disease SNOMED: 00272255 Assessment/Plan serial ekg, troponin echo symptomatic treatment f/u troponin check electrolytes HD by renal dvt prophylaxis Deshaun Jiang MD Jun 03, 2017 12:37
[2017-06-03 14:47] LABS: APPEARANCE,URINE CLOUDY; BILIRUBIN, URINE NEGATIVE (NEGATIVE); COLOR,URINE YELLOW; GLUCOSE, URINE (UA) NEGATIVE (NEGATIVE); KETONES,URINE NEGATIVE (NEGATIVE); NITRITE,URINE NEGATIVE (NEGATIVE); PH,URINE 7 (4.5-8.0); PROTEIN,URINE 4+ (NEGATIVE); UROBILINOGEN,URINE NORMAL MG/DL (0.0-1.0)
[2017-06-03 14:48] LABS: LEUKOCYTE ESTERASE ,URINE 3+ (NEGATIVE)
[2017-06-03] MEDS ORDERED: Cathflo Alteplase 2mg Inj INJ ONE ×2 (16:15→18:00)
--- NOTE | 2017-06-03 16:50 | Consultation ---
History of Present Illness General Date patient seen: Jun 03, 2017 Chief Complaint: Palpitations Present Illness HPI 71 y/o F with hx of HTN, CVA, ESRD on HD T//Wed presents to ED on 06/02 with palpitations, SOB. Took aspirin. Trops elevated and admitted to telemetry. Afebrile, no leukocytosis CXR with o acute process. Dnies f/c, abd pain,n/v/d, dysuria Allergies: Coded Allergies: No Known Allergies (Unverified , 04/20/17) Medication History Scheduled Aspirin* (Aspirin*), 325 MG ORAL DAILY, (Reported) Atenolol* (Tenormin*), Unknown Dose ORAL DAILY, (Reported) Atorvastatin Calcium* (Lipitor*), 10 MG ORAL BEDTIME, (Reported) Epoetin Devon (Epogen), 4,000 UNIT SUBQ 3XW, (Reported) Heparin Sod (Porcine) (Heparin Sodium*), 5,000 UNITS SUBQ EVERY 12 HOURS, ( Reported) Levofloxacin* (Levaquin*), 250 MG ORAL DAILY, (Reported) Lisinopril (Lisinopril*), 20 MG ORAL BID, (Reported) Metoprolol Tartrate (Metoprolol Tartrate), 25 MG ORAL EVERY 12 HOURS, (Reported) Metoprolol Tartrate* (Metoprolol Tartrate*), 50 MG ORAL EVERY 12 HOURS, ( Reported) Nitroglycerin (Nitroglycerin Patch), 1 EACH TD Q24 HR, (Reported) Pantoprazole* (Pantoprazole*), 40 MG ORAL DAILY, (Reported) Ranitidine Hcl* (Zantac*), Unknown Dose ORAL DAILY, (Reported) Sevelamer Carbonate* (Renvela*), 2,400 MG ORAL THREE TIMES A DAY, (Reported) Scheduled PRN Acetaminophen* (Acetaminophen 325MG Tablet*), 650 MG ORAL Q4H PRN for Fever/ Headache/Mild Pain, (Reported) Polyethylene Glycol 3350* (Miralax*), 17 GM ORAL DAILY PRN for Constipation, ( Reported) Temazepam (Temazepam*), 15 MG ORAL BEDTIME PRN for Insomnia, (Reported) Tramadol Hcl* (Ultram*), 50 MG ORAL Q6H PRN for For Pain, (Reported) Miscellaneous Medications Nitroglycerin (Nitroglycerin Patch), 1 EACH TD, (Reported) Patient History Healthcare decision maker Resuscitation status Advanced Directive on File Review of Systems All Other Systems: negative except mentioned in HPI Physical Exam Physical Exam Narrative General Appearance: WD/WN Lines, tubes and drains: peripheral, dialysis access - right chest HEENT: normocephalic, atraumatic Neck: non-tender, normal alignment, supple Respiratory/Chest: no respiratory distress Cardiovascular/Chest: regular rhythm Abdomen: normal bowel sounds, non tender Genitourinary/Rectal: normal genital exam, normal rectal exam Extremities: normal range of motion, non-tender, non-pitting Neurologic: aircraft servicer II-XII grossly normal Last 24 Hour Vital Signs Date Time Temp Pulse Resp B/P (MAP) Pulse Ox O2 Delivery O2 Flow Rate FiO2 06/03/17 16:00 98.1 91 21 147/74 94 Room Air 98.1 06/03/17 11:53 97.2 90 20 151/73 99 Room Air 97.2 06/03/17 11:43 90 06/03/17 09:00 139/79 06/03/17 08:00 97.5 87 18 139/79 97 Room Air 97.5 06/03/17 07:34 93 06/03/17 04:00 78 06/03/17 04:00 97.7 89 18 141/73 97 Room Air 97.7 06/03/17 01:30 98.1 78 18 128/66 99 Room Air 98.1 06/03/17 01:25 98.3 82 21 131/61 98 Room Air 98.3 06/03/17 01:12 98.3 82 21 131/61 98 Room Air 98.3 06/03/17 00:24 93 145/65 06/03/17 00:19 145/65 06/02/17 22:54 99.1 106 14 172/94 98 Room Air 99.1 Intake and Output 06/02/17 06/03/17 19:00 07:00 Intake Total 20 ml Output Total 0 ml Balance 20 ml Intake Oral 20 ml Output Urine Total 0 ml # Bowel Movements 2 Laboratory Tests Test 06/02/17 23:32 06/03/17 09:25 06/03/17 14:15 06/03/17 15:35 White Blood Count 5.6 K/UL (4.8-10.8) 4.9 K/UL (4.8-10.8) Red Blood Count 3.16 M/UL (4.20-5.40) L 2.76 M/UL (4.20-5.40) L Hemoglobin 11.0 G/DL (12.0-16.0) L 9.4 G/DL (12.0-16.0) L Hematocrit 32.9 % (37.0-47.0) L 29.3 % (37.0-47.0) L Mean Corpuscular Volume 104 FL (80-99) H 106 FL (80-99) H Mean Corpuscular Hemoglobin 34.8 PG (27.0-31.0) H 34.2 PG (27.0-31.0) H Mean Corpuscular Hemoglobin Concent 33.4 G/DL (32.0-36.0) 32.3 G/DL (32.0-36.0) Red Cell Distribution Width 15.9 % (11.6-14.8) H 15.9 % (11.6-14.8) H Platelet Count 188 K/UL (150-450) 166 K/UL (150-450) Mean Platelet Volume 7.7 FL (6.5-10.1) 6.8 FL (6.5-10.1) Neutrophils (%) (Auto) 69.4 % (45.0-75.0) 66.4 % (45.0-75.0) Lymphocytes (%) (Auto) 14.4 % (20.0-45.0) L 16.7 % (20.0-45.0) L Monocytes (%) (Auto) 8.4 % (1.0-10.0) 9.4 % (1.0-10.0) Eosinophils (%) (Auto) 6.2 % (0.0-3.0) H 6.0 % (0.0-3.0) H Basophils (%) (Auto) 1.6 % (0.0-2.0) 1.5 % (0.0-2.0) Prothrombin Time 9.8 SEC (9.30-11.50) Pending Prothromb Time International Ratio 0.9 (0.9-1.1) Pending Activated Partial Thromboplast Time 23 SEC (23-33) Pending Sodium Level 141 MMOL/L (136-145) 146 MMOL/L (136-145) H Potassium Level 4.0 MMOL/L (3.5-5.1) 4.2 MMOL/L (3.5-5.1) Chloride Level 102 MMOL/L (98-107) 106 MMOL/L (98-107) Carbon Dioxide Level 26 MMOL/L (21-32) 27 MMOL/L (21-32) Anion Gap 13 mmol/L (5-15) 13 mmol/L (5-15) Blood Urea Nitrogen 52 mg/dL (7-18) H 58 mg/dL (7-18) H Creatinine 9.5 MG/DL (0.55-1.30) H 10.3 MG/DL (0.55-1.30) H Estimat Glomerular Filtration Rate mL/min (>60) mL/min (>60) Glucose Level 94 MG/DL (74-106) 108 MG/DL (74-106) H Calcium Level 9.5 MG/DL (8.5-10.1) 9.2 MG/DL (8.5-10.1) Total Bilirubin 0.4 MG/DL (0.2-1.0) Aspartate Amino Transf (AST/SGOT) 16 U/L (15-37) Alanine Aminotransferase (ALT/SGPT) 13 U/L (12-78) Alkaline Phosphatase 46 U/L (46-116) Total Creatine Kinase 45 U/L (26-308) Troponin I 0.097 ng/mL (0.000-0.056) 0.104 ng/mL (0.000-0.056) Pro-B-Type Natriuretic Peptide 38308 pg/mL (0-125) H Total Protein 8.1 G/DL (6.4-8.2) Albumin 3.5 G/DL (3.4-5.0) Globulin 4.6 g/dL Albumin/Globulin Ratio 0.8 (1.0-2.7) L Phosphorus Level 7.0 MG/DL (2.5-4.9) H Magnesium Level 2.5 MG/DL (1.8-2.4) H Urine Color Yellow Urine Appearance Cloudy Urine pH 7 (4.5-8.0) Urine Specific [place] 1.010 (1.005-1.035) Urine Protein 4+ (NEGATIVE) H Urine Glucose (UA) Negative (NEGATIVE) Urine Ketones Negative (NEGATIVE) Urine Occult Blood 2+ (NEGATIVE) H Urine Nitrite Negative (NEGATIVE) Urine Bilirubin Negative (NEGATIVE) Urine Urobilinogen Normal MG/DL (0.0-1.0) Urine Leukocyte Esterase 3+ (NEGATIVE) H Urine RBC 5-10 /HPF (0 - 2) H Urine WBC 20-30 /HPF (0 - 2) H Urine Squamous Epithelial Cells Many /LPF (NONE/OCC) H Urine Bacteria Moderate /HPF (NONE) H Urine Eosinophils None seen Urine Random Creatinine Pending Urine Random Microalbumin Pending Urine Random Total Protein 465 MG/DL (< 11.9) H Urine Random Sodium 79 mmol/L (20-110) Urine Creatinine 154.7 MG/DL (30.0-125.0) H Urine Microalbumin/Creatinine Ratio Pending Height (Feet): 5 Height (Inches): 0.00 Weight (Pounds): 150 Medications Current Medications Medications (Trade) Dose Ordered Sig/Ladarius Route PRN Reason Start Time Stop Time Status Last Admin Dose Admin Acetaminophen (Tylenol) 650 mg Q4H PRN ORAL Mild Pain/Temp > 100.5 06/03/17 08:00 07/03/17 07:59 Aspirin (ASA) 325 mg DAILY ORAL 06/03/17 09:00 07/03/17 08:59 06/03/17 09:40 Chlorhexidine Gluconate (Nisha-Hex 2%) 1 applic DAILY@2000 TOPIC 06/03/17 20:00 07/03/17 19:59 Epoetin Devon (Procrit (for ESRD on dialysis)) 5,000 units WED-WED-WED SUBQ 06/04/17 21:00 07/04/17 20:59 Heparin Sodium (Porcine) (Heparin 5000 units/ml) 5,000 units EVERY 12 HOURS SUBQ 06/03/17 21:00 07/03/17 20:59 Lisinopril (Prinivil) 20 mg Q12HR ORAL 06/03/17 21:00 07/03/17 08:59 Sevelamer Carbonate (Renvela) 800 mg THREE TIMES A DAY ORAL 06/03/17 13:00 07/03/17 12:59 Assessment/Plan Assessment/Plan Abx: None Assessment: NSTEMI SOB - 2ry to above. CXR no PNA -CXR: no acute process Afebrile, no leukocytosis Pyuria, mild-however u/a contaminated with many sq cells HTN ESRD on HD hx CVA Plan: -Continue to monitor off abx -f/u Cx -MOnitor CBC/BMP, temperatures -aspiration precautions -cards, renal f/u Thank you for this consultation. Will continue to follow along with you. Discussed with REAGAN. Sapna Bautista M.D. Jun 03, 2017 16:50
[2017-06-03] MEDS: Heparin 5000 units/ml inj SUBQ SCH (20:35)
[2017-06-03] MEDS: Lisinopril 20mg tab ORAL SCH (20:35)
[2017-06-03] MEDS: Dyna-Hex 2% Top Sol 2oz TOPIC SCH (20:36)
--- NOTE | 2017-06-03 21:46 | History and Physical Report ---
DATE OF ADMISSION: 06/03/2017 TIME SEEN: At 3 p.m. ATTENDING: Mateusz Peters D.O. CONSULTANTS: 1. Deshaun Jiang M.D. 2. Duc Hawk M.D. 3. Anne Mcneill M.D. 4. Parish Fajardo M.D. CHIEF COMPLAINT: Shortness of breath, tachycardia, and weak. BRIEF HISTORY: The patient is a 71-year-old female, who lives at home by herself, presents with increased shortness of breath with feeling fast heartbeat as well. The patient went to [facility], diagnosed with the above, NSTEMI, ESRD, shortness of breath, and tachycardia and admitted to [facility] for further care. Currently, slight short of breath in bed. Slightly anxious. No complaints. REVIEW OF SYSTEMS: No chest pain. Slight short of breath. No nausea, vomiting, or diarrhea. PAST MEDICAL HISTORY: Includes ESRD, shortness of breath, and hypertension. PAST SURGICAL HISTORY: None. ALLERGIES: Denies. MEDICATIONS: Include Procrit, heparin, lisinopril, Glucophage, sevelamer, aspirin, lisinopril, and metoprolol. SOCIAL HISTORY: No smoke. No alcohol. No intravenous drug abuse. FAMILY HISTORY: Noncontributory. PHYSICAL EXAMINATION: GENERAL: Slightly anxious in bed, oriented x2, in no acute distress. VITAL SIGNS: Temperature is 97, pulse 90, respirations 20, and blood pressure 151/73. CARDIOVASCULAR: No murmur. LUNGS: Poor air exchange. ABDOMEN: Bowel sounds positive. Nontender, nondistended. EXTREMITIES: Showed no cyanosis, clubbing, or edema. NEUROLOGIC: The patient moves all extremities slightly weak. LABORATORY DATA: Labs at this time show hemoglobin and hematocrit of 9.4/29.3, otherwise CBC is normal. BMP shows sodium of 146, BUN and creatinine 50/10.3, and glucose 108. Troponin 0.097 to 0.104. INR 0.9. Urinalysis show 3+ leukocyte esterase. ASSESSMENT: 1. UTI. 2. NSTEMI. 3. Shortness of breath. 4. Tachycardia. 5. ESRD. 6. Anemia. 7. Hypertension. PLAN: 1. Continue premeds. 2. Antibiotics per Infectious Disease. 3. OT, PT, and dietary evaluation. 4. O2 and pulmonary treatment. 5. Resume home medications. 6. Blood pressure control. 7. Pain control. 8. CBC and BMP in the morning. 9. We will continue to follow this patient medically. Mateusz Peters D.O. DR: KATHY JOB#: [id number] CC:
--- NOTE | 2017-06-03 23:55 | Cardiology Progress Note ---
Assessment/Plan Assessment/Plan The patient is seen and examined, full consultation note will be provided shortly. Objective Last 24 Hour Vital Signs Date Time Temp Pulse Resp B/P (MAP) Pulse Ox O2 Delivery O2 Flow Rate FiO2 06/03/17 22:00 Room Air 06/03/17 20:00 98.1 88 20 155/74 94 Room Air 96.0 98.1 06/03/17 19:30 95 06/03/17 19:15 Room Air 06/03/17 16:00 98.1 91 21 147/74 94 Room Air 98.1 06/03/17 15:16 94 06/03/17 11:53 97.2 90 20 151/73 99 Room Air 97.2 06/03/17 11:43 90 06/03/17 09:00 139/79 06/03/17 08:00 97.5 87 18 139/79 97 Room Air 97.5 06/03/17 07:34 93 06/03/17 04:00 78 06/03/17 04:00 97.7 89 18 141/73 97 Room Air 97.7 06/03/17 01:30 98.1 78 18 128/66 99 Room Air 98.1 06/03/17 01:25 98.3 82 21 131/61 98 Room Air 98.3 06/03/17 01:12 98.3 82 21 131/61 98 Room Air 98.3 06/03/17 00:24 93 145/65 06/03/17 00:19 145/65 Intake and Output 06/02/17 06/03/17 19:00 07:00 Intake Total 20 ml Output Total 0 ml Balance 20 ml Intake Oral 20 ml Output Urine Total 0 ml # Bowel Movements 2 Laboratory Tests Test 06/03/17 09:25 06/03/17 14:15 06/03/17 15:35 White Blood Count 4.9 K/UL (4.8-10.8) Red Blood Count 2.76 M/UL (4.20-5.40) L Hemoglobin 9.4 G/DL (12.0-16.0) L Hematocrit 29.3 % (37.0-47.0) L Mean Corpuscular Volume 106 FL (80-99) H Mean Corpuscular Hemoglobin 34.2 PG (27.0-31.0) H Mean Corpuscular Hemoglobin Concent 32.3 G/DL (32.0-36.0) Red Cell Distribution Width 15.9 % (11.6-14.8) H Platelet Count 166 K/UL (150-450) Mean Platelet Volume 6.8 FL (6.5-10.1) Neutrophils (%) (Auto) 66.4 % (45.0-75.0) Lymphocytes (%) (Auto) 16.7 % (20.0-45.0) L Monocytes (%) (Auto) 9.4 % (1.0-10.0) Eosinophils (%) (Auto) 6.0 % (0.0-3.0) H Basophils (%) (Auto) 1.5 % (0.0-2.0) Sodium Level 146 MMOL/L (136-145) H Potassium Level 4.2 MMOL/L (3.5-5.1) Chloride Level 106 MMOL/L (98-107) Carbon Dioxide Level 27 MMOL/L (21-32) Anion Gap 13 mmol/L (5-15) Blood Urea Nitrogen 58 mg/dL (7-18) H Creatinine 10.3 MG/DL (0.55-1.30) H Estimat Glomerular Filtration Rate mL/min (>60) Glucose Level 108 MG/DL (74-106) H Calcium Level 9.2 MG/DL (8.5-10.1) Phosphorus Level 7.0 MG/DL (2.5-4.9) H Magnesium Level 2.5 MG/DL (1.8-2.4) H Troponin I 0.104 ng/mL (0.000-0.056) Urine Color Yellow Urine Appearance Cloudy Urine pH 7 (4.5-8.0) Urine Specific [place] 1.010 (1.005-1.035) Urine Protein 4+ (NEGATIVE) H Urine Glucose (UA) Negative (NEGATIVE) Urine Ketones Negative (NEGATIVE) Urine Occult Blood 2+ (NEGATIVE) H Urine Nitrite Negative (NEGATIVE) Urine Bilirubin Negative (NEGATIVE) Urine Urobilinogen Normal MG/DL (0.0-1.0) Urine Leukocyte Esterase 3+ (NEGATIVE) H Urine RBC 5-10 /HPF (0 - 2) H Urine WBC 20-30 /HPF (0 - 2) H Urine Squamous Epithelial Cells Many /LPF (NONE/OCC) H Urine Bacteria Moderate /HPF (NONE) H Urine Eosinophils None seen Urine Random Creatinine Pending Urine Random Microalbumin Pending Urine Random Total Protein 465 MG/DL (< 11.9) H Urine Random Sodium 79 mmol/L (20-110) Urine Creatinine 154.7 MG/DL (30.0-125.0) H Urine Microalbumin/Creatinine Ratio Pending Prothrombin Time 10.4 SEC (9.30-11.50) Prothromb Time International Ratio 1.0 (0.9-1.1) Activated Partial Thromboplast Time 34 SEC (23-33) H JAKE DOE Jun 03, 2017 23:54
[2017-06-04] VITALS: BP 145/74
--- NOTE | 2017-06-04 01:16 | Consultation ---
DATE OF CONSULTATION: 06/03/2017 NOTE: POOR AUDIO NEPHROLOGY CONSULTATION CONSULTING PHYSICIAN: Anne Mcneill M.D. REFERRING PHYSICIAN: Mateusz Peters D.O. REASON FOR CONSULTATION: End-stage renal disease and hypernatremia. HISTORY OF PRESENT ILLNESS: The patient is a very pleasant 71-year-old female with past medical history significant for history of end-stage renal disease and chronic kidney disease, renal osteodystrophy, history of admission not too long ago in April for CHF exacerbation and pneumonia with ejection fraction of 45%-50%. She was discharged on 04/26/2017 and she presented to emergency room with increasing palpitation and shortness of breath. The patient found to have a mild elevation in troponin and an elevation of the BNP around 3000. The patient was admitted with non-ST elevation NE in the hospital. I was called for management of renal disease and electrolyte imbalance. The patient is found to have a malfunctioning catheter at dialysis unit. Her last dialysis was on Wednesday and was not also found to be effective due to malfunctioning catheter. This morning, she is complaining of mild shortness of breath, palpitation, had resolved. She complained of decreased appetite. Denies any nausea, vomiting, or any other complaints. PAST MEDICAL HISTORY: 1. End-stage renal disease. 2. Anemia of chronic kidney disease. 3. Renal osteodystrophy. 4. History of mitral regurgitation. 5. History of CHF with ejection fraction of 45% to 50%. 6. History of aortic insufficiency. 7. History of diastolic heart failure. 8. History of hypertension. 9. History of pneumonia. PAST SURGICAL HISTORY: History of Perm-A-Cath placement. ALLERGIES: No known drug allergies. MEDICATIONS: At home are includin. Tylenol 650 mg q.6 h. p.r.n. pain. 2. Aspirin 325 mg p.o. daily. 3. 5 mg p.o. daily. 4. Epogen 4000 units. 5. Levaquin 250 mg daily. 6. mg p.o. daily. 7. Metoprolol 25 mg p.o. b.i.d. 8. Nitroglycerin p.r.n. 9. Protonix 40 mg p.o. daily. 10. Zantac 150 mg p.o. daily. 11. Renvela 2.4 mg p.o. t.i.d. with meals. 12. Tramadol p.r.n. pain. REVIEW OF SYSTEMS: GENERAL: She complained of generalized weakness. Denies any fever, chills, or night sweats. HEAD AND NECK: Denies any dysphagia, odynophagia, blurry vision, headache, or neck stiffness. PULMONARY: Mild shortness of breath. There is occasional cough. No hemoptysis. CARDIOVASCULAR: Complained of palpitation. Complained of orthopnea and leg swelling. GASTROINTESTINAL: Denies any nausea, vomiting, diarrhea, hematemesis, or hematochezia. GENITOURINARY: Denies any dysuria, frequency, or hematuria. MUSCULOSKELETAL: Complained of generalized weakness. Denies any localized weakness or numbness. PHYSICAL EXAMINATION: VITAL SIGNS: The patient has a temperature of 98 degrees, blood pressure 131/61, pulse rate of 98 and respiratory rate of 18. HEAD AND NECK: No JVP. No LAD. No thyromegaly. Extraocular movement intact. Pupils are reactive to light and accommodation. LUNGS: She has bilateral rhonchi. CARDIAC: Regular rate and rhythm. S1 and S2. No murmur. No rub. ABDOMEN: Soft, nontender, and nondistended. EXTREMITIES: No edema. No clubbing. No cyanosis. LABORATORY AND DIAGNOSTIC DATA: Sodium 141, potassium 4, chloride 102, bicarbonate 26, BUN 63, creatinine 9.5, and glucose of 94. Calcium of 9.5. AST of 16 and ALT is 13, and alkaline phosphatase of 46 and total protein of 8.1. ASSESSMENT: 1. Fluid overload. 2. End-stage renal disease with hypernatremia. 3. Renal osteodystrophy with elevation of the phosphorus of 7. 4. Anemia of chronic kidney disease. PLAN: To start the patient back on Renvela . I would plan for patient to receive dialysis and also plan for patient to have an elevation of dialysis catheter. I would restart the patient back on Epogen and check the iron panel. I would like to the check the . I would like to thank, Dr. Mateusz Peters, for allowing me to participate in the care of this patient. Anne Mcneill M.D. DR: SOLOMON JOB#: [id number] CC:
[2017-06-04 04:00] VITALS: BP 141/71
[2017-06-04 05:46] LABS: BASOPHILS % (AUTO) 1.3 % (0.0-2.0); EOSINOPHILS % (AUTO) 5.3 % (0.0-3.0); HEMATOCRIT 28.3 % (37.0-47.0); HEMOGLOBIN 9.3 G/DL (12.0-16.0); LYMPHOCYTES % (AUTO) 20.3 % (20.0-45.0); MEAN CORPUSCULAR VOLUME 104 FL (80-99); MONOCYTES % (AUTO) 10.7 % (1.0-10.0); NEUTROPHILS % (AUTO) 62.4 % (45.0-75.0); PLATELET COUNT 129 K/UL (150-450); RED BLOOD COUNT 2.73 M/UL (4.20-5.40); RED CELL DISTRIBUTION WIDTH 15.6 % (11.6-14.8); WHITE BLOOD COUNT 4.4 K/UL (4.8-10.8)
[2017-06-04 06:01] LABS: ALANINE AMINOTRANSFERASE 11 U/L (12-78); ALBUMIN 2.7 G/DL (3.4-5.0); ALBUMIN/GLOBULIN RATIO 0.7 (1.0-2.7); ALKALINE PHOSPHATASE 43 U/L (46-116); ANION GAP 12 mmol/L (5-15); ASPARTATE AMINO TRANSFERASE 15 U/L (15-37); BILIRUBIN,TOTAL 0.4 MG/DL (0.2-1.0); BLOOD UREA NITROGEN 35 mg/dL (7-18); CALCIUM 8.7 MG/DL (8.5-10.1); CARBON DIOXIDE 29 MMOL/L (21-32); CHLORIDE 100 MMOL/L (98-107); CREATININE 7.4 MG/DL (0.55-1.30); POTASSIUM 3.2 MMOL/L (3.5-5.1); SODIUM 141 MMOL/L (136-145)
[2017-06-04 08:00] VITALS: BP 139/71
[2017-06-04] MEDS: Lisinopril 20mg tab ORAL SCH ×2 (08:58→20:55)
[2017-06-04] MEDS: Heparin 5000 units/ml inj SUBQ SCH ×2 (08:59→21:00)
--- NOTE | 2017-06-04 10:48 | Pulmonology Progress Note ---
Assessment/Plan Problems: (1) Non-STEMI (non-ST elevated myocardial infarction) (2) Dyspnea (3) Mitral regurgitation (4) ESRD (end stage renal disease) (5) Decubital ulcer Assessment/Plan feeling better cardio evaluation appreciated Dobutamine echo has been ordered. check electrolytes HD by nephrology f/u trend of troponin. wound care dvt prophylaxis. Subjective ROS Limited/Unobtainable: No Interval Events: awake, comfortable Allergies: Coded Allergies: No Known Allergies (Unverified , 04/20/17) Objective Last 24 Hour Vital Signs Date Time Temp Pulse Resp B/P (MAP) Pulse Ox O2 Delivery O2 Flow Rate FiO2 06/04/17 08:58 139/71 06/04/17 08:00 98.0 87 18 139/71 97 Room Air 98.0 06/04/17 06:13 98.9 06/04/17 05:14 98.9 06/04/17 04:00 84 06/04/17 04:00 98.9 84 20 141/71 100 Room Air 98.9 06/04/17 00:00 98.1 85 20 145/74 96 Room Air 98.1 06/04/17 00:00 85 06/03/17 22:00 Room Air 06/03/17 20:00 98.1 88 20 155/74 94 Room Air 98.1 06/03/17 19:30 95 06/03/17 19:15 Room Air 06/03/17 16:00 98.1 91 21 147/74 94 Room Air 98.1 06/03/17 15:16 94 06/03/17 11:53 97.2 90 20 151/73 99 Room Air 97.2 06/03/17 11:43 90 Intake and Output 06/03/17 06/04/17 19:00 07:00 Intake Total 532 ml 300 ml Output Total 1730 ml Balance 532 ml -1430 ml Intake Oral 532 ml 300 ml Hemodialysis UF 1730 ml # Voids 1 # Bowel Movements 2 2 General Appearance: WD/WN HEENT: normocephalic, atraumatic Respiratory/Chest: chest wall non-tender, normal breath sounds Cardiovascular: normal peripheral pulses, normal rate Abdomen: soft, non tender Genitourinary: normal external genitalia Extremities: no cyanosis Skin: no lesions Laboratory Tests 06/03/17 14:15: Urine Color Yellow, Urine Appearance Cloudy, Urine pH 7, Urine Specific [place] 1.010, Urine Protein 4+H, Urine Glucose (UA) Negative, Urine Ketones Negative, Urine Occult Blood 2+H, Urine Nitrite Negative, Urine Bilirubin Negative, Urine Urobilinogen Normal, Urine Leukocyte Esterase 3+H, Urine RBC 5-10H, Urine WBC 20 -30H, Urine Squamous Epithelial Cells ManyH, Urine Bacteria ModerateH, Urine Eosinophils None seen, Urine Random Creatinine [Pending], Urine Random Microalbumin [Pending], Urine Random Total Protein 465H, Urine Random Sodium 79 , Urine Creatinine 154.7H, Urine Microalbumin/Creatinine Ratio [Pending] 06/03/17 15:35: Prothrombin Time 10.4, Prothromb Time International Ratio 1.0, Activated Partial Thromboplast Time 34H 06/04/17 04:00: White Blood Count 4.4L, Red Blood Count 2.73L, Hemoglobin 9.3L, Hematocrit 28.3L , Mean Corpuscular Volume 104H, Mean Corpuscular Hemoglobin 34.2H, Mean Corpuscular Hemoglobin Concent 33.0, Red Cell Distribution Width 15.6H, Platelet Count 129L, Mean Platelet Volume 7.3, Neutrophils (%) (Auto) 62.4, Lymphocytes (%) (Auto) 20.3, Monocytes (%) (Auto) 10.7H, Eosinophils (%) (Auto) 5.3H, Basophils (%) (Auto) 1.3 06/04/17 04:30: Sodium Level 141, Potassium Level 3.2L, Chloride Level 100, Carbon Dioxide Level 29, Anion Gap 12, Blood Urea Nitrogen 35H, Creatinine 7.4H, Estimat Glomerular Filtration Rate , Glucose Level 108H, Calcium Level 8.7, Total Bilirubin 0.4, Aspartate Amino Transf (AST/SGOT) 15, Alanine Aminotransferase ( ALT/SGPT) 11L, Alkaline Phosphatase 43L, Troponin I 0.092H, Total Protein 6.6, Albumin 2.7L, Globulin 3.9, Albumin/Globulin Ratio 0.7L Current Medications Medications (Trade) Dose Ordered Sig/Ladarius Route PRN Reason Start Time Stop Time Status Last Admin Dose Admin Acetaminophen (Tylenol) 650 mg Q4H PRN ORAL Mild Pain/Temp > 100.5 06/03/17 08:00 07/03/17 07:59 06/04/17 05:14 Aspirin (ASA) 325 mg DAILY ORAL 06/03/17 09:00 07/03/17 08:59 06/04/17 08:58 Chlorhexidine Gluconate (Nisha-Hex 2%) 1 applic DAILY@2000 TOPIC 06/03/17 20:00 07/03/17 19:59 06/03/17 20:36 Epoetin Devon (Procrit (for ESRD on dialysis)) 5,000 units WED-WED-WED SUBQ 06/04/17 21:00 07/04/17 20:59 Heparin Sodium (Porcine) (Heparin 5000 units/ml) 5,000 units EVERY 12 HOURS SUBQ 06/03/17 21:00 07/03/17 20:59 Lisinopril (Prinivil) 20 mg Q12HR ORAL 06/03/17 21:00 07/03/17 08:59 06/04/17 08:58 Sevelamer Carbonate (Renvela) 800 mg THREE TIMES A DAY ORAL 06/03/17 13:00 07/03/17 12:59 06/04/17 08:58 Deshaun Jiang MD Jun 04, 2017 10:48
--- NOTE | 2017-06-04 11:44 | Nephrology Progress Note ---
Assessment/Plan Assessment 1. Fluid overload. 2. End-stage renal disease with hypernatremia. 3. Renal osteodystrophy with elevation of the phosphorus of 7. 4. Anemia of chronic kidney disease. Plan use TPA Continue epogen continue renagel monitoring electrolyte Subjective Constitutional: Reports: no symptoms Genitourinary: Reports: no symptoms Neurologic/Psychiatric: Reports: no symptoms - have Subjective to have clothed arterial port refused intervention Objective Objective Last 24 Hour Vital Signs Date Time Temp Pulse Resp B/P (MAP) Pulse Ox O2 Delivery O2 Flow Rate FiO2 06/04/17 08:58 139/71 06/04/17 08:00 90 06/04/17 08:00 98.0 87 18 139/71 97 Room Air 98.0 06/04/17 06:13 98.9 06/04/17 05:14 98.9 06/04/17 04:00 84 06/04/17 04:00 98.9 84 20 141/71 100 Room Air 98.9 06/04/17 00:00 98.1 85 20 145/74 96 Room Air 98.1 06/04/17 00:00 85 06/03/17 22:00 Room Air 06/03/17 20:00 98.1 88 20 155/74 94 Room Air 98.1 06/03/17 19:30 95 06/03/17 19:15 Room Air 06/03/17 16:00 98.1 91 21 147/74 94 Room Air 98.1 06/03/17 15:16 94 06/03/17 11:53 97.2 90 20 151/73 99 Room Air 97.2 06/03/17 11:43 90 Intake and Output 06/03/17 06/04/17 19:00 07:00 Intake Total 532 ml 300 ml Output Total 1730 ml Balance 532 ml -1430 ml Intake Oral 532 ml 300 ml Hemodialysis UF 1730 ml # Voids 1 # Bowel Movements 2 2 Laboratory Tests 06/03/17 14:15: Urine Color Yellow, Urine Appearance Cloudy, Urine pH 7, Urine Specific [place] 1.010, Urine Protein 4+H, Urine Glucose (UA) Negative, Urine Ketones Negative, Urine Occult Blood 2+H, Urine Nitrite Negative, Urine Bilirubin Negative, Urine Urobilinogen Normal, Urine Leukocyte Esterase 3+H, Urine RBC 5-10H, Urine WBC 20 -30H, Urine Squamous Epithelial Cells ManyH, Urine Bacteria ModerateH, Urine Eosinophils None seen, Urine Random Creatinine [Pending], Urine Random Microalbumin [Pending], Urine Random Total Protein 465H, Urine Random Sodium 79 , Urine Creatinine 154.7H, Urine Microalbumin/Creatinine Ratio [Pending] 06/03/17 15:35: Prothrombin Time 10.4, Prothromb Time International Ratio 1.0, Activated Partial Thromboplast Time 34H 06/04/17 04:00: White Blood Count 4.4L, Red Blood Count 2.73L, Hemoglobin 9.3L, Hematocrit 28.3L , Mean Corpuscular Volume 104H, Mean Corpuscular Hemoglobin 34.2H, Mean Corpuscular Hemoglobin Concent 33.0, Red Cell Distribution Width 15.6H, Platelet Count 129L, Mean Platelet Volume 7.3, Neutrophils (%) (Auto) 62.4, Lymphocytes (%) (Auto) 20.3, Monocytes (%) (Auto) 10.7H, Eosinophils (%) (Auto) 5.3H, Basophils (%) (Auto) 1.3 06/04/17 04:30: Sodium Level 141, Potassium Level 3.2L, Chloride Level 100, Carbon Dioxide Level 29, Anion Gap 12, Blood Urea Nitrogen 35H, Creatinine 7.4H, Estimat Glomerular Filtration Rate , Glucose Level 108H, Calcium Level 8.7, Total Bilirubin 0.4, Aspartate Amino Transf (AST/SGOT) 15, Alanine Aminotransferase ( ALT/SGPT) 11L, Alkaline Phosphatase 43L, Troponin I 0.092H, Total Protein 6.6, Albumin 2.7L, Globulin 3.9, Albumin/Globulin Ratio 0.7L Height (Feet): 5 Height (Inches): 0.00 Weight (Pounds): 150 Objective HEAD AND NECK: No JVP. No LAD. No thyromegaly. Extraocular movement intact. Pupils are reactive to light and accommodation. LUNGS: She has bilateral rhonchi. CARDIAC: Regular rate and rhythm. S1 and S2. No murmur. No rub. ABDOMEN: Soft, nontender, and nondistended. EXTREMITIES: No edema. No clubbing. No cyanosis. SCAR COOLEY Jun 04, 2017 11:44
[2017-06-04 12:00] VITALS: BP 154/77
--- NOTE | 2017-06-04 14:11 | General Progress Note ---
Assessment/Plan Problem List: (1) UTI (urinary tract infection) ICD Codes: N39.0 - Urinary tract infection, site not specified SNOMED: 35302631 (2) HTN (hypertension) ICD Codes: I10 - Essential (primary) hypertension SNOMED: 09351010 (3) Anemia ICD Codes: D64.9 - Anemia, unspecified SNOMED: 902149086 (4) ESRD (end stage renal disease) ICD Codes: N18.6 - End stage renal disease SNOMED: 67922515 (5) Non-STEMI (non-ST elevated myocardial infarction) ICD Codes: I21.4 - Non-ST elevation (NSTEMI) myocardial infarction SNOMED: 751400982 (6) Dyspnea ICD Codes: R06.00 - Dyspnea, unspecified SNOMED: 639969200 Status: stable, progressing, tolerating diet Assessment/Plan ot pt diet dialysis abx cbc bmp am dc plan w hh Subjective Constitutional: Reports: weakness Allergies: Coded Allergies: No Known Allergies (Unverified , 04/20/17) All Systems: reviewed and negative except above Subjective calm in bed Objective Last 24 Hour Vital Signs Date Time Temp Pulse Resp B/P (MAP) Pulse Ox O2 Delivery O2 Flow Rate FiO2 06/04/17 08:58 139/71 06/04/17 08:00 90 06/04/17 08:00 98.0 87 18 139/71 97 Room Air 98.0 06/04/17 06:13 98.9 06/04/17 05:14 98.9 06/04/17 04:00 84 06/04/17 04:00 98.9 84 20 141/71 100 Room Air 98.9 06/04/17 00:00 98.1 85 20 145/74 96 Room Air 98.1 06/04/17 00:00 85 06/03/17 22:00 Room Air 06/03/17 20:00 98.1 88 20 155/74 94 Room Air 98.1 06/03/17 19:30 95 06/03/17 19:15 Room Air 06/03/17 16:00 98.1 91 21 147/74 94 Room Air 98.1 06/03/17 15:16 94 Intake and Output 06/03/17 06/04/17 19:00 07:00 Intake Total 532 ml 300 ml Output Total 1730 ml Balance 532 ml -1430 ml Intake Oral 532 ml 300 ml Hemodialysis UF 1730 ml # Voids 1 # Bowel Movements 2 2 Laboratory Tests 06/03/17 14:15: Urine Color Yellow, Urine Appearance Cloudy, Urine pH 7, Urine Specific [place] 1.010, Urine Protein 4+H, Urine Glucose (UA) Negative, Urine Ketones Negative, Urine Occult Blood 2+H, Urine Nitrite Negative, Urine Bilirubin Negative, Urine Urobilinogen Normal, Urine Leukocyte Esterase 3+H, Urine RBC 5-10H, Urine WBC 20 -30H, Urine Squamous Epithelial Cells ManyH, Urine Bacteria ModerateH, Urine Eosinophils None seen, Urine Random Creatinine [Pending], Urine Random Microalbumin [Pending], Urine Random Total Protein 465H, Urine Random Sodium 79 , Urine Creatinine 154.7H, Urine Microalbumin/Creatinine Ratio [Pending] 06/03/17 15:35: Prothrombin Time 10.4, Prothromb Time International Ratio 1.0, Activated Partial Thromboplast Time 34H 06/04/17 04:00: White Blood Count 4.4L, Red Blood Count 2.73L, Hemoglobin 9.3L, Hematocrit 28.3L , Mean Corpuscular Volume 104H, Mean Corpuscular Hemoglobin 34.2H, Mean Corpuscular Hemoglobin Concent 33.0, Red Cell Distribution Width 15.6H, Platelet Count 129L, Mean Platelet Volume 7.3, Neutrophils (%) (Auto) 62.4, Lymphocytes (%) (Auto) 20.3, Monocytes (%) (Auto) 10.7H, Eosinophils (%) (Auto) 5.3H, Basophils (%) (Auto) 1.3 06/04/17 04:30: Sodium Level 141, Potassium Level 3.2L, Chloride Level 100, Carbon Dioxide Level 29, Anion Gap 12, Blood Urea Nitrogen 35H, Creatinine 7.4H, Estimat Glomerular Filtration Rate , Glucose Level 108H, Calcium Level 8.7, Total Bilirubin 0.4, Aspartate Amino Transf (AST/SGOT) 15, Alanine Aminotransferase ( ALT/SGPT) 11L, Alkaline Phosphatase 43L, Troponin I 0.092H, Total Protein 6.6, Albumin 2.7L, Globulin 3.9, Albumin/Globulin Ratio 0.7L Height (Feet): 5 Height (Inches): 0.00 Weight (Pounds): 150 General Appearance: lethargic EENT: normal ENT inspection Neck: normal alignment Cardiovascular: normal peripheral pulses, normal rate, regular rhythm Respiratory/Chest: chest wall non-tender, lungs clear, normal breath sounds Abdomen: normal bowel sounds, non tender, soft Extremities: normal inspection Edema: no edema noted Arm (L), no edema noted Arm (R), no edema noted Leg (L), no edema noted Leg (R), no edema noted Pedal (L), no edema noted Pedal (R), no edema noted Generalized Neurologic: responsive, motor weakness Skin: normal pigmentation, warm/dry ROSA NEIL Jun 04, 2017 14:11
--- NOTE | 2017-06-04 14:45 | Infectious Diseases Prog Note ---
Assessment/Plan Assessment/Plan Abx: None Assessment: NSTEMI SOB - 2ry to above. CXR no PNA -CXR: no acute process Afebrile, no leukocytosis Pyuria, mild-however u/a contaminated with many sq cells HTN ESRD on HD hx CVA Plan: -Continue to monitor off abx -f/u Cx -MOnitor CBC/BMP, temperatures -aspiration precautions -cards, renal f/u Thank you for this consultation. Will continue to follow along with you. Discussed with RN. Subjective Allergies: Coded Allergies: No Known Allergies (Unverified , 04/20/17) Subjective afebrile no leukocytosis at RA off abx Objective Vital Signs Last 24 Hour Vital Signs Date Time Temp Pulse Resp B/P (MAP) Pulse Ox O2 Delivery O2 Flow Rate FiO2 06/04/17 08:58 139/71 06/04/17 08:00 90 06/04/17 08:00 98.0 87 18 139/71 97 Room Air 98.0 06/04/17 06:13 98.9 06/04/17 05:14 98.9 06/04/17 04:00 84 06/04/17 04:00 98.9 84 20 141/71 100 Room Air 98.9 06/04/17 00:00 98.1 85 20 145/74 96 Room Air 98.1 06/04/17 00:00 85 06/03/17 22:00 Room Air 06/03/17 20:00 98.1 88 20 155/74 94 Room Air 98.1 06/03/17 19:30 95 06/03/17 19:15 Room Air 06/03/17 16:00 98.1 91 21 147/74 94 Room Air 98.1 06/03/17 15:16 94 Height (Feet): 5 Height (Inches): 0.00 Weight (Pounds): 150 Objective General Appearance: WD/WN Lines, tubes and drains: peripheral, dialysis access - right chest HEENT: normocephalic, atraumatic Neck: non-tender, normal alignment, supple Respiratory/Chest: no respiratory distress Cardiovascular/Chest: regular rhythm Abdomen: normal bowel sounds, non tender Genitourinary/Rectal: normal genital exam, normal rectal exam Extremities: normal range of motion, non-tender, non-pitting 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 Complete Laboratory Tests Test 06/03/17 15:35 06/04/17 04:00 06/04/17 04:30 Prothrombin Time 10.4 SEC (9.30-11.50) Prothromb Time International Ratio 1.0 (0.9-1.1) Activated Partial Thromboplast Time 34 SEC (23-33) H White Blood Count 4.4 K/UL (4.8-10.8) L Red Blood Count 2.73 M/UL (4.20-5.40) L Hemoglobin 9.3 G/DL (12.0-16.0) L Hematocrit 28.3 % (37.0-47.0) L Mean Corpuscular Volume 104 FL (80-99) H Mean Corpuscular Hemoglobin 34.2 PG (27.0-31.0) H Mean Corpuscular Hemoglobin Concent 33.0 G/DL (32.0-36.0) Red Cell Distribution Width 15.6 % (11.6-14.8) H Platelet Count 129 K/UL (150-450) L Mean Platelet Volume 7.3 FL (6.5-10.1) Neutrophils (%) (Auto) 62.4 % (45.0-75.0) Lymphocytes (%) (Auto) 20.3 % (20.0-45.0) Monocytes (%) (Auto) 10.7 % (1.0-10.0) H Eosinophils (%) (Auto) 5.3 % (0.0-3.0) H Basophils (%) (Auto) 1.3 % (0.0-2.0) Sodium Level 141 MMOL/L (136-145) Potassium Level 3.2 MMOL/L (3.5-5.1) L Chloride Level 100 MMOL/L (98-107) Carbon Dioxide Level 29 MMOL/L (21-32) Anion Gap 12 mmol/L (5-15) Blood Urea Nitrogen 35 mg/dL (7-18) H Creatinine 7.4 MG/DL (0.55-1.30) H Estimat Glomerular Filtration Rate mL/min (>60) Glucose Level 108 MG/DL (74-106) H Calcium Level 8.7 MG/DL (8.5-10.1) Total Bilirubin 0.4 MG/DL (0.2-1.0) Aspartate Amino Transf (AST/SGOT) 15 U/L (15-37) Alanine Aminotransferase (ALT/SGPT) 11 U/L (12-78) L Alkaline Phosphatase 43 U/L (46-116) L Troponin I 0.092 ng/mL (0.000-0.056) Total Protein 6.6 G/DL (6.4-8.2) Albumin 2.7 G/DL (3.4-5.0) L Globulin 3.9 g/dL Albumin/Globulin Ratio 0.7 (1.0-2.7) L Current Medications Medications (Trade) Dose Ordered Sig/Ladarius Route PRN Reason Start Time Stop Time Status Last Admin Dose Admin Acetaminophen (Tylenol) 650 mg Q4H PRN ORAL Mild Pain/Temp > 100.5 06/03/17 08:00 07/03/17 07:59 06/04/17 05:14 Aspirin (ASA) 325 mg DAILY ORAL 06/03/17 09:00 07/03/17 08:59 06/04/17 08:58 Chlorhexidine Gluconate (Nisha-Hex 2%) 1 applic DAILY@1999 TOPIC 06/03/17 20:00 07/03/17 19:59 06/03/17 20:36 Epoetin Devon (Procrit (for ESRD on dialysis)) 5,000 units WED-WED-WED SUBQ 06/04/17 21:00 07/04/17 20:59 Heparin Sodium (Porcine) (Heparin 5000 units/ml) 5,000 units EVERY 12 HOURS SUBQ 06/03/17 21:00 07/03/17 20:59 Lisinopril (Prinivil) 20 mg Q12HR ORAL 06/03/17 21:00 07/03/17 08:59 06/04/17 08:58 Sevelamer Carbonate (Renvela) 800 mg THREE TIMES A DAY ORAL 06/03/17 13:00 07/03/17 12:59 06/04/17 08:58 Sapna Bautista M.D. Jun 04, 2017 14:45
[2017-06-04 16:00] VITALS: BP 149/74
--- NOTE | 2017-06-04 17:21 | Cardiology Progress Note ---
Subjective Cardiovascular: Reports: no symptoms Respiratory: Reports: no symptoms Gastrointestinal/Abdominal: Reports: no symptoms Genitourinary: Reports: no symptoms Objective Last 24 Hour Vital Signs Date Time Temp Pulse Resp B/P (MAP) Pulse Ox O2 Delivery O2 Flow Rate FiO2 06/04/17 16:00 94 06/04/17 16:00 98.5 87 20 149/74 97 Room Air 98.5 06/04/17 12:00 97.6 89 18 154/77 98 Room Air 97.6 06/04/17 12:00 85 06/04/17 08:58 139/71 06/04/17 08:00 90 06/04/17 08:00 98.0 87 18 139/71 97 Room Air 98.0 06/04/17 06:13 98.9 06/04/17 05:14 98.9 06/04/17 04:00 84 06/04/17 04:00 98.9 84 20 141/71 100 Room Air 98.9 06/04/17 00:00 98.1 85 20 145/74 96 Room Air 98.1 06/04/17 00:00 85 06/03/17 22:00 Room Air 06/03/17 20:00 98.1 88 20 155/74 94 Room Air 98.1 06/03/17 19:30 95 06/03/17 19:15 Room Air Intake and Output 06/03/17 06/04/17 19:00 07:00 Intake Total 532 ml 300 ml Output Total 1730 ml Balance 532 ml -1430 ml Intake Oral 532 ml 300 ml Hemodialysis UF 1730 ml # Voids 1 # Bowel Movements 2 2 Laboratory Tests Test 06/04/17 04:00 06/04/17 04:30 White Blood Count 4.4 K/UL (4.8-10.8) L Red Blood Count 2.73 M/UL (4.20-5.40) L Hemoglobin 9.3 G/DL (12.0-16.0) L Hematocrit 28.3 % (37.0-47.0) L Mean Corpuscular Volume 104 FL (80-99) H Mean Corpuscular Hemoglobin 34.2 PG (27.0-31.0) H Mean Corpuscular Hemoglobin Concent 33.0 G/DL (32.0-36.0) Red Cell Distribution Width 15.6 % (11.6-14.8) H Platelet Count 129 K/UL (150-450) L Mean Platelet Volume 7.3 FL (6.5-10.1) Neutrophils (%) (Auto) 62.4 % (45.0-75.0) Lymphocytes (%) (Auto) 20.3 % (20.0-45.0) Monocytes (%) (Auto) 10.7 % (1.0-10.0) H Eosinophils (%) (Auto) 5.3 % (0.0-3.0) H Basophils (%) (Auto) 1.3 % (0.0-2.0) Sodium Level 141 MMOL/L (136-145) Potassium Level 3.2 MMOL/L (3.5-5.1) L Chloride Level 100 MMOL/L (98-107) Carbon Dioxide Level 29 MMOL/L (21-32) Anion Gap 12 mmol/L (5-15) Blood Urea Nitrogen 35 mg/dL (7-18) H Creatinine 7.4 MG/DL (0.55-1.30) H Estimat Glomerular Filtration Rate mL/min (>60) Glucose Level 108 MG/DL (74-106) H Calcium Level 8.7 MG/DL (8.5-10.1) Total Bilirubin 0.4 MG/DL (0.2-1.0) Aspartate Amino Transf (AST/SGOT) 15 U/L (15-37) Alanine Aminotransferase (ALT/SGPT) 11 U/L (12-78) L Alkaline Phosphatase 43 U/L (46-116) L Troponin I 0.092 ng/mL (0.000-0.056) Total Protein 6.6 G/DL (6.4-8.2) Albumin 2.7 G/DL (3.4-5.0) L Globulin 3.9 g/dL Albumin/Globulin Ratio 0.7 (1.0-2.7) L Microbiology Date/Time Source Procedure Growth Status 06/03/17 06:00 Rectum VRE Culture - Final NO VANCOMYCIN RESISTANT ENTEROCOCCUS ... Complete Objective CARDIOVASCULAR: No murmur. LUNGS: Poor air exchange. ABDOMEN: Bowel sounds positive. Nontender, nondistended. EXTREMITIES: Showed no cyanosis, clubbing, or edema. NEUROLOGIC: The patient moves all extremities slightly weak. JAKE DOE Jun 04, 2017 17:21
[2017-06-04 20:00] VITALS: BP 141/81
[2017-06-04] MEDS: Dyna-Hex 2% Top Sol 2oz TOPIC SCH (20:54)
[2017-06-04] MEDS: HydrALAZINE 25mg tab ORAL SCH (20:54)
[2017-06-04] MEDS: Atorvastatin 20mg tab ORAL SCH (21:00)
[2017-06-04] MEDS ORDERED: Epogen (for ESRD on dialysis) SUBQ SCH (21:00)
--- NOTE | 2017-06-04 23:33 | Cardiology Progress Note ---
Assessment/Plan Assessment/Plan 1. Severe Aortic regurgitation, given low EF, symtomatic with dyspnea and e/o heart failure, she requires to have AVR done. Afterload therapy at this time. 2. Severe MR, based in internal dimension in systole and EF, she requires to have MVR as well. Afterload therapy with the meds, continue HD for decreasing preload. 3. Acute heart failure with preserved LV function. 4. Slight elevation of trop is due to renal failure. Subjective Subjective Sinus rhythm at 88. SOB with less than ordinary activities. Objective Last 24 Hour Vital Signs Date Time Temp Pulse Resp B/P (MAP) Pulse Ox O2 Delivery O2 Flow Rate FiO2 06/04/17 20:55 141/81 06/04/17 20:54 141/81 06/04/17 20:00 98.1 88 24 141/81 97 Room Air 98.1 06/04/17 16:00 94 06/04/17 16:00 98.5 87 20 149/74 97 Room Air 98.5 06/04/17 12:00 97.6 89 18 154/77 98 Room Air 97.6 06/04/17 12:00 85 06/04/17 08:58 139/71 06/04/17 08:00 90 06/04/17 08:00 98.0 87 18 139/71 97 Room Air 98.0 06/04/17 06:13 98.9 06/04/17 05:14 98.9 06/04/17 04:00 84 06/04/17 04:00 98.9 84 20 141/71 100 Room Air 98.9 06/04/17 00:00 98.1 85 20 145/74 96 Room Air 98.1 06/04/17 00:00 85 Intake and Output 06/03/17 06/04/17 19:00 07:00 Intake Total 532 ml 300 ml Output Total 1730 ml Balance 532 ml -1430 ml Intake Oral 532 ml 300 ml Hemodialysis UF 1730 ml # Voids 1 # Bowel Movements 2 2 2D Echo: EF45%,LVE,Global LV HK,SevMR/AR(poorly tolerated hemodyn), Pseudonormal LVDD Laboratory Tests Test 06/04/17 04:00 06/04/17 04:30 White Blood Count 4.4 K/UL (4.8-10.8) L Red Blood Count 2.73 M/UL (4.20-5.40) L Hemoglobin 9.3 G/DL (12.0-16.0) L Hematocrit 28.3 % (37.0-47.0) L Mean Corpuscular Volume 104 FL (80-99) H Mean Corpuscular Hemoglobin 34.2 PG (27.0-31.0) H Mean Corpuscular Hemoglobin Concent 33.0 G/DL (32.0-36.0) Red Cell Distribution Width 15.6 % (11.6-14.8) H Platelet Count 129 K/UL (150-450) L Mean Platelet Volume 7.3 FL (6.5-10.1) Neutrophils (%) (Auto) 62.4 % (45.0-75.0) Lymphocytes (%) (Auto) 20.3 % (20.0-45.0) Monocytes (%) (Auto) 10.7 % (1.0-10.0) H Eosinophils (%) (Auto) 5.3 % (0.0-3.0) H Basophils (%) (Auto) 1.3 % (0.0-2.0) Sodium Level 141 MMOL/L (136-145) Potassium Level 3.2 MMOL/L (3.5-5.1) L Chloride Level 100 MMOL/L (98-107) Carbon Dioxide Level 29 MMOL/L (21-32) Anion Gap 12 mmol/L (5-15) Blood Urea Nitrogen 35 mg/dL (7-18) H Creatinine 7.4 MG/DL (0.55-1.30) H Estimat Glomerular Filtration Rate mL/min (>60) Glucose Level 108 MG/DL (74-106) H Calcium Level 8.7 MG/DL (8.5-10.1) Total Bilirubin 0.4 MG/DL (0.2-1.0) Aspartate Amino Transf (AST/SGOT) 15 U/L (15-37) Alanine Aminotransferase (ALT/SGPT) 11 U/L (12-78) L Alkaline Phosphatase 43 U/L (46-116) L Troponin I 0.092 ng/mL (0.000-0.056) Total Protein 6.6 G/DL (6.4-8.2) Albumin 2.7 G/DL (3.4-5.0) L Globulin 3.9 g/dL Albumin/Globulin Ratio 0.7 (1.0-2.7) L Microbiology Date/Time Source Procedure Growth Status 06/03/17 06:00 Rectum VRE Culture - Final NO VANCOMYCIN RESISTANT ENTEROCOCCUS ... Complete Objective HEENT: PERRLA, EOMI, Anicteric, + pallor NECK: JVP cannot be assessed, B/L bruit CARDIOVASCULAR: Normal S1S2, 2/6 MSM at B, 3/6 EDM at [facility] ICS LUNGS: Poor air exchange o/w clear ABDOMEN: Bowel sounds positive. Nontender, nondistended. EXTREMITIES: No cyanosis, clubbing, or edema. NEUROLOGIC: The patient moves all extremities slightly weak. JAKE DOE Jun 04, 2017 23:33
[2017-06-05] VITALS: BP 154/85
--- NOTE | 2017-06-05 01:00 | Consultation ---
DATE OF CONSULTATION: 06/04/2017 CARDIOLOGY CONSULTATION CONSULTING PHYSICIAN: Duc Hawk M.D. REFERRING PHYSICIAN: Mateusz Peters D.O. REASON FOR CONSULTATION: Management of shortness of breath and palpitations. HISTORY OF PRESENT ILLNESS: The patient is an very unfortunate 71-year-old black [place] who presents to the hospital after feeling palpitations and heart flutters. She had some associated anxiety with this, new onset of palpitations, called the paramedics who brought the patient to the emergency department. A 12-lead electrocardiogram at the time of arrival to the emergency department was significant for sinus tachycardia. There was no ST and T-wave abnormalities. She claims that she is not short of breath. At the time of arrival to the hospital, blood pressure was 172/94 and pulse of 106. Cardiology consultation was made at request of Dr. Peters for management of this condition. PAST MEDICAL HISTORY: Including end-stage renal disease, history of hypertension, history of cerebrovascular accident with left hemiparesis. ALLERGIES: No known drug allergies. SOCIAL HISTORY: Denies any tobacco, alcohol, or illicit drug use. She lives at home with supportive family. MEDICATIONS: List of medications at home including acetaminophen 650 mg q.4 h. p.r.n. fever and headache pain, aspirin 325 mg p.o. daily, Tenormin 25 mg p.o. daily, Lipitor 10 mg p.o. at bedtime, Epogen 4000 subcutaneous three times a day, heparin 5000 subcutaneous q.12. and Levaquin 250 mg daily, lisinopril 20 mg p.o. twice daily, metoprolol 25 mg p.o. twice daily, nitroglycerin patch one patch transdermal daily, pantoprazole 40 mg p.o. daily, MiraLAX 17 g p.o. daily p.r.n. constipation, Zantac 150 mg p.o. daily, Renvela 2400 mg three times daily, temazepam 15 mg p.o. at bedtime p.r.n. insomnia, tramadol 50 mg p.o. q. 6 h p.r.n. pain. REVIEW OF SYSTEMS: HEENT: Denies any headache, diplopia, or blurred vision. CONSTITUTIONAL: any fever, chills, night sweats, or weight loss. Complaining of generalized weakness. CVS: Complains of palpitation but denies any chest pain. She states that she gets short of breath with less than ordinary activities. She is NYHA class 3. Complains of bilateral lower extremity edema as well as 3+ orthopnea but no PND. There is no history of syncope in the past. PULMONARY: Denies any cough, wheezing, or hemoptysis. GASTROINTESTINAL: Denies any nausea, vomiting, diarrhea, constipation, abdominal pain, or GI bleed. GENITOURINARY: On hemodialysis three days a week. Very compliant with it. NEUROLOGY: Denies any motor dysfunction, sensory deficit. There is some decrease in motor function in the left upper arm due to prior strokes. LABORATORY FINDINGS: INR was 0.9. WBC is 5.6, hemoglobin 11.0, hematocrit 32.9, and platelet count 188. Sodium was 141, potassium 4.0, chloride 102, bicarbonate 26, BUN 52, creatinine 9.5, glucose 94, and calcium is 9.5. ProBNP was 39,812. Chest x-ray showed mild interstitial edema with cardiomegaly and right subclavian PermCath. A 2D echocardiography was reviewed and essentially shows dilated left ventricle, left ventricular end-systolic diameter 46 mmHg with associated severe mitral regurgitation signifying poorly compensated mitral regurgitation and there is also severe aortic regurgitation with pressure half-time of regurgitant flow to be 400 millisecond consistent with poorly tolerated severe aortic regurgitation, there is grade 2 LV diastolic dysfunction LV pseudo-normal pattern consistent with moderately elevated intracardiac filling pressure or left atrial pressure. Right ventricular systolic pressure is not measured. ASSESSMENT AND PLAN: The patient is an very unfortunate 71-year-old female seen in Cardiology consultation at the request of Dr. Peters. 1. Acute diastolic heart failure most likely due to combined severe aortic and mitral regurgitation. The patient is on hemodialysis. We will continue with hemodialysis for afterload reduction. I would like to continue lisinopril which is afterload director of program management but do not recommend use of beta-rhianna in this patient. The patient will require consideration for both mitral and aortic valve replacement which can be discussed in the outpatient setting. In the meantime, the patient will continue with hemodialysis and optimization of her afterload reducers. 2. End-stage renal disease. 3. Palpitations, it appears that the patient was in sinus tachycardia which could be secondary to heart failure. 4. History of CVA with left hemiparesis. The patient will benefit from combination of aspirin and statins. I would like to thank, Dr. Peters, for the courtesy of this consultation Duc Hawk M.D. DR: Kathy JOB#: [id number] CC:
[2017-06-05 04:00] VITALS: BP 143/74
[2017-06-05] MEDS ORDERED: LORazepam 1mg tab ORAL PRN (04:15)
[2017-06-05 04:37] LABS: BASOPHILS % (AUTO) 1.9 % (0.0-2.0); EOSINOPHILS % (AUTO) 6.2 % (0.0-3.0); HEMATOCRIT 31.6 % (37.0-47.0); HEMOGLOBIN 10.2 G/DL (12.0-16.0); LYMPHOCYTES % (AUTO) 14.6 % (20.0-45.0); MEAN CORPUSCULAR VOLUME 105 FL (80-99); MONOCYTES % (AUTO) 13.4 % (1.0-10.0); NEUTROPHILS % (AUTO) 63.9 % (45.0-75.0); PLATELET COUNT 158 K/UL (150-450); RED CELL DISTRIBUTION WIDTH 15.7 % (11.6-14.8); WHITE BLOOD COUNT 4.9 K/UL (4.8-10.8)
[2017-06-05 05:11] LABS: ANION GAP 11 mmol/L (5-15); BLOOD UREA NITROGEN 54 mg/dL (7-18); CALCIUM 9.3 MG/DL (8.5-10.1); CARBON DIOXIDE 29 MMOL/L (21-32); CHLORIDE 101 MMOL/L (98-107); CREATININE 9.7 MG/DL (0.55-1.30); POTASSIUM 3.6 MMOL/L (3.5-5.1); SODIUM 141 MMOL/L (136-145)
[2017-06-05] MEDS: HydrALAZINE 25mg tab ORAL SCH ×3 (06:48→22:00)
--- NOTE | 2017-06-05 07:35 | Pulmonology Progress Note ---
Assessment/Plan Assessment/Plan ASSESSMENT Elevated troponin Possible NSTEMI Acute diastolic heart failure Valvular heart disease with moderate to severe AR and severe MR Dyspnea (due to CHF exacerbation ), resolving ESRD with hyper Na, on HD HTN Anemia of chronic kidney disease Hx of CVA PLAN OF CARE BARRY O2 HHN prn CXR no acute CP pathology, borderline CM fup with CXR on Wednesday Venous Duplex BLE ECHO with EF 35-40% and evidence of moderate to severe AR and severe MR as well as diastolic dysfunction grade II cardio follows on ASA , BP management with SHAUN and Hydralazine medical management of CHF per cardio cardio does not recommend BB for this patient but SHAUN ( for afterload reduction ) along with HD continue statin and ASA will need valve replacement both aortic and mitral as per cardio - as outpt HD as per nephro monitor renal parameters, correct lytes as needed Continue Renagel DVT prophylaxis ID input appreciated monitor off abx, no obvious source of infection monitor HH, transfuse prn with goal to keep Hgb above 7 On EPO case discussed and evaluated by supervising physician Subjective Allergies: Coded Allergies: No Known Allergies (Unverified , 04/20/17) Subjective denies chest pain, occasional SOB weaned from BiPAP to o2 via NC awaiting for HD Objective Last 24 Hour Vital Signs Date Time Temp Pulse Resp B/P (MAP) Pulse Ox O2 Delivery O2 Flow Rate FiO2 06/05/17 06:48 143/74 06/05/17 04:00 98.2 87 22 143/74 97 Room Air 98.2 06/05/17 03:35 77 06/05/17 00:00 97.7 96 24 154/85 96 Room Air 97.7 06/04/17 23:39 95 06/04/17 20:55 141/81 06/04/17 20:54 141/81 06/04/17 20:00 98.1 88 24 141/81 97 Room Air 98.1 06/04/17 19:06 92 06/04/17 16:00 94 06/04/17 16:00 98.5 87 20 149/74 97 Room Air 98.5 06/04/17 12:00 97.6 89 18 154/77 98 Room Air 97.6 06/04/17 12:00 85 06/04/17 08:58 139/71 06/04/17 08:00 90 06/04/17 08:00 98.0 87 18 139/71 97 Room Air 98.0 Intake and Output 06/04/17 06/05/17 19:00 07:00 Intake Total 600 ml 20 ml Balance 600 ml 20 ml Intake Oral 600 ml Other 20 ml # Voids 1 1 # Bowel Movements 2 2 General Appearance: no acute distress HEENT: normocephalic, atraumatic, anicteric Respiratory/Chest: decreased breath sounds - with poor air exchange , other - R jugular permacath intact Cardiovascular: normal peripheral pulses, normal rate, regular rhythm, murmur diastolic - EDM 2/6 at 2 nd ICS, murmur systolic - SM at LSB Abdomen: normal bowel sounds, soft, non tender Extremities: pedal pulses normal, other - trace eema Neurologic/Psychiatric: abnormal gait - with walker , alert, oriented x 3, responsive Musculoskeletal: atrophy - BLE Microbiology Date/Time Source Procedure Growth Status 06/03/17 06:00 Nasal Nares MRSA Culture - Final NO METHICILLIN RESISTANT STAPH AUREUS... Complete 06/03/17 14:15 Urine,Clean Catch Urine Culture - Preliminary Diphtheroids Resulted 06/03/17 06:00 Rectum VRE Culture - Final NO VANCOMYCIN RESISTANT ENTEROCOCCUS ... Complete Laboratory Tests 06/05/17 03:50: White Blood Count 4.9, Red Blood Count 3.00L, Hemoglobin 10.2L, Hematocrit 31.6L , Mean Corpuscular Volume 105H, Mean Corpuscular Hemoglobin 34.1H, Mean Corpuscular Hemoglobin Concent 32.3, Red Cell Distribution Width 15.7H, Platelet Count 158, Mean Platelet Volume 7.4, Neutrophils (%) (Auto) 63.9, Lymphocytes (%) (Auto) 14.6L, Monocytes (%) (Auto) 13.4H, Eosinophils (%) (Auto ) 6.2H, Basophils (%) (Auto) 1.9, Sodium Level 141, Potassium Level 3.6, Chloride Level 101, Carbon Dioxide Level 29, Anion Gap 11, Blood Urea Nitrogen 54H, Creatinine 9.7H, Estimat Glomerular Filtration Rate , Glucose Level 95, Calcium Level 9.3 Current Medications Medications (Trade) Dose Ordered Sig/Ladarius Route PRN Reason Start Time Stop Time Status Last Admin Dose Admin Acetaminophen (Tylenol) 650 mg Q4H PRN ORAL Mild Pain/Temp > 100.5 06/03/17 08:00 07/03/17 07:59 06/04/17 05:14 Aspirin (ASA) 325 mg DAILY ORAL 06/03/17 09:00 07/03/17 08:59 06/04/17 08:58 Atorvastatin Calcium (Lipitor) 40 mg BEDTIME ORAL 06/04/17 21:00 07/04/17 20:59 Chlorhexidine Gluconate (Nisha-Hex 2%) 1 applic DAILY@2000 TOPIC 06/03/17 20:00 07/03/17 19:59 06/04/17 20:54 Epoetin Devon (Procrit (for ESRD on dialysis)) 5,000 units WED-WED-WED SUBQ 06/04/17 21:00 07/04/17 20:59 06/04/17 21:21 Heparin Sodium (Porcine) (Heparin 5000 units/ml) 5,000 units EVERY 12 HOURS SUBQ 06/03/17 21:00 07/03/17 20:59 Hydralazine HCl (Apresoline) 25 mg Q8HR ORAL 06/04/17 20:16 07/04/17 20:15 06/05/17 06:48 Lisinopril (Prinivil) 20 mg Q12HR ORAL 06/03/17 21:00 07/03/17 08:59 06/04/17 20:55 Lorazepam (Ativan) 1 mg Q6H PRN ORAL For Anxiety 06/05/17 04:15 06/12/17 04:14 Sertraline HCl (Zoloft) 25 mg DAILY ORAL 06/05/17 09:00 07/05/17 08:59 Sevelamer Carbonate (Renvela) 800 mg THREE TIMES A DAY ORAL 06/03/17 13:00 07/03/17 12:59 06/04/17 08:58 Franki (Reyna)Neha NP Jun 05, 2017 07:35
--- NOTE | 2017-06-05 07:45 | Consultation ---
DATE OF CONSULTATION: 06/05/2017 INITIAL PSYCHIATRIC EVALUATION CONSULTING PHYSICIAN: Parish Fajardo M.D. HISTORY OF PRESENT ILLNESS: This patient came into the hospital complaining of some mood lability. , she came to the hospital at [facility]. Initially, her chief complaint was she has shortness of breath, tachycardia, but she has an overlying history of generalized anxiety disorder, that is why her attending physician has requested daily psychiatric consultation to evaluate this patient anxious and shortness of breath in the hospital. MEDICAL HISTORY: End-stage renal disease, shortness of breath, and hypertension. ALLERGIES: No known drug allergies. FAMILY PSYCHIATRIC HISTORY: Denies. SOCIAL HISTORY: Lives at home. Financially supported by [employer] and Medicare. SUBSTANCE ABUSE HISTORY: Denies drug and alcohol use. PSYCHIATRIC HISTORY: Major depressive disorder. MENTAL STATUS EXAMINATION: This is a 71-year-old female with psychomotor retardation. Mood is depressed and anxious. Affect is guarded and restricted. Intellect is fair. Appearance is slightly disheveled. Denies auditory or visual hallucinations or delusions. Denies suicidal or homicidal thoughts. Insight and judgement is fair. DIAGNOSIS: Generalized anxiety disorder, rule out major depressive disorder. PLAN: Treat her with Zoloft 25 mg daily and then also Ativan 1 q.6 h. p.r.n. anxiety and agitation. Chart was reviewed and discussed with staff. The patient was seen and assessed at bedside. A 20 minutes of supportive therapy provided. I would like to thank, Dr. Mateusz Peters, for this interesting consultation. Parish Fajardo M.D. DR: RACHEL JOB#: [id number] CC:
[2017-06-05 08:00] VITALS: BP 140/62
[2017-06-05] MEDS: Sertraline 50mg tab ORAL SCH (09:02)
[2017-06-05] MEDS: Lisinopril 20mg tab ORAL SCH ×2 (09:03→20:45)
[2017-06-05] MEDS: Heparin 5000 units/ml inj SUBQ SCH ×2 (09:05→20:43)
--- NOTE | 2017-06-05 11:08 | Infectious Diseases Prog Note ---
Assessment/Plan Assessment/Plan Abx: None Assessment: NSTEMI SOB - 2ry to above. CXR no PNA -CXR: no acute process Afebrile, no leukocytosis Pyuria, mild-however u/a contaminated with many sq cells; no UTI symptosm -ucx >100k diptheroids- colonizers HTN ESRD on HD hx CVA Plan: -Continue to monitor off abx; ok to discharge from ID perspective -f/u Cx -MOnitor CBC/BMP, temperatures -aspiration precautions -cards, renal f/u Thank you for this consultation. Will continue to follow along with you. Discussed with RN. Subjective Allergies: Coded Allergies: No Known Allergies (Unverified , 04/20/17) Subjective afebrile no leukocytosis at RA off abx awaiting discharge Objective Vital Signs Last 24 Hour Vital Signs Date Time Temp Pulse Resp B/P (MAP) Pulse Ox O2 Delivery O2 Flow Rate FiO2 06/05/17 09:03 140/62 06/05/17 08:00 96 06/05/17 08:00 97.0 89 20 140/62 95 Room Air 97.0 06/05/17 06:48 143/74 06/05/17 04:00 98.2 87 22 143/74 97 Room Air 98.2 06/05/17 03:35 77 06/05/17 00:00 97.7 96 24 154/85 96 Room Air 97.7 06/04/17 23:39 95 06/04/17 20:55 141/81 06/04/17 20:54 141/81 06/04/17 20:00 98.1 88 24 141/81 97 Room Air 98.1 06/04/17 19:06 92 06/04/17 16:00 94 06/04/17 16:00 98.5 87 20 149/74 97 Room Air 98.5 06/04/17 12:00 97.6 89 18 154/77 98 Room Air 97.6 06/04/17 12:00 85 Height (Feet): 5 Height (Inches): 0.00 Weight (Pounds): 170 Objective General Appearance: WD/WN Lines, tubes and drains: peripheral, dialysis access - right chest HEENT: normocephalic, atraumatic Neck: non-tender, normal alignment, supple Respiratory/Chest: no respiratory distress Cardiovascular/Chest: regular rhythm Abdomen: normal bowel sounds, non tender Genitourinary/Rectal: normal genital exam, normal rectal exam Extremities: normal range of motion, non-tender, non-pitting Neurologic: sports physiologist II-XII grossly normal Microbiology Date/Time Source Procedure Growth Status 06/03/17 06:00 Nasal Nares MRSA Culture - Final NO METHICILLIN RESISTANT STAPH AUREUS... Complete 06/03/17 14:15 Urine,Clean Catch Urine Culture - Preliminary Diphtheroids Resulted 06/03/17 06:00 Rectum VRE Culture - Final NO VANCOMYCIN RESISTANT ENTEROCOCCUS ... Complete Laboratory Tests Test 06/05/17 03:50 White Blood Count 4.9 K/UL (4.8-10.8) Red Blood Count 3.00 M/UL (4.20-5.40) L Hemoglobin 10.2 G/DL (12.0-16.0) L Hematocrit 31.6 % (37.0-47.0) L Mean Corpuscular Volume 105 FL (80-99) H Mean Corpuscular Hemoglobin 34.1 PG (27.0-31.0) H Mean Corpuscular Hemoglobin Concent 32.3 G/DL (32.0-36.0) Red Cell Distribution Width 15.7 % (11.6-14.8) H Platelet Count 158 K/UL (150-450) Mean Platelet Volume 7.4 FL (6.5-10.1) Neutrophils (%) (Auto) 63.9 % (45.0-75.0) Lymphocytes (%) (Auto) 14.6 % (20.0-45.0) L Monocytes (%) (Auto) 13.4 % (1.0-10.0) H Eosinophils (%) (Auto) 6.2 % (0.0-3.0) H Basophils (%) (Auto) 1.9 % (0.0-2.0) Sodium Level 141 MMOL/L (136-145) Potassium Level 3.6 MMOL/L (3.5-5.1) Chloride Level 101 MMOL/L (98-107) Carbon Dioxide Level 29 MMOL/L (21-32) Anion Gap 11 mmol/L (5-15) Blood Urea Nitrogen 54 mg/dL (7-18) H Creatinine 9.7 MG/DL (0.55-1.30) H Estimat Glomerular Filtration Rate mL/min (>60) Glucose Level 95 MG/DL (74-106) Calcium Level 9.3 MG/DL (8.5-10.1) Current Medications Medications (Trade) Dose Ordered Sig/Ladarius Route PRN Reason Start Time Stop Time Status Last Admin Dose Admin Acetaminophen (Tylenol) 650 mg Q4H PRN ORAL Mild Pain/Temp > 100.5 06/03/17 08:00 07/03/17 07:59 06/04/17 05:14 Aspirin (ASA) 325 mg DAILY ORAL 06/03/17 09:00 07/03/17 08:59 06/05/17 09:02 Atorvastatin Calcium (Lipitor) 40 mg BEDTIME ORAL 06/04/17 21:00 07/04/17 20:59 Chlorhexidine Gluconate (Nisha-Hex 2%) 1 applic DAILY@1999 TOPIC 06/03/17 20:00 07/03/17 19:59 06/04/17 20:54 Epoetin Devon (Procrit (for ESRD on dialysis)) 5,000 units WED-WED-WED SUBQ 06/04/17 21:00 07/04/17 20:59 06/04/17 21:21 Heparin Sodium (Porcine) (Heparin 5000 units/ml) 5,000 units EVERY 12 HOURS SUBQ 06/03/17 21:00 07/03/17 20:59 06/05/17 09:05 Hydralazine HCl (Apresoline) 25 mg Q8HR ORAL 06/04/17 20:16 07/04/17 20:15 06/05/17 06:48 Lisinopril (Prinivil) 20 mg Q12HR ORAL 06/03/17 21:00 07/03/17 08:59 06/05/17 09:03 Lorazepam (Ativan) 1 mg Q6H PRN ORAL For Anxiety 06/05/17 04:15 06/12/17 04:14 Sertraline HCl (Zoloft) 25 mg DAILY ORAL 06/05/17 09:00 07/05/17 08:59 06/05/17 09:02 Sevelamer Carbonate (Renvela) 800 mg THREE TIMES A DAY ORAL 06/03/17 13:00 07/03/17 12:59 06/05/17 09:03 Sapna Bautista M.D. Jun 05, 2017 11:08
[2017-06-05 12:00] VITALS: BP 167/79
--- NOTE | 2017-06-05 12:09 | General Progress Note ---
Assessment/Plan Problem List: (1) Pneumonia ICD Codes: J18.9 - Pneumonia, unspecified organism SNOMED: 671308397 (2) Dyspnea ICD Codes: R06.00 - Dyspnea, unspecified SNOMED: 830334364 (3) Mitral regurgitation ICD Codes: I34.0 - Nonrheumatic mitral (valve) insufficiency SNOMED: 99737074 Qualifiers: Qualified Codes: I34.0 - Nonrheumatic mitral (valve) insufficiency (4) ESRD (end stage renal disease) ICD Codes: N18.6 - End stage renal disease SNOMED: 25928302 (5) Non-STEMI (non-ST elevated myocardial infarction) ICD Codes: I21.4 - Non-ST elevation (NSTEMI) myocardial infarction SNOMED: 082223508 (6) Anemia ICD Codes: D64.9 - Anemia, unspecified SNOMED: 929457978 (7) HTN (hypertension) ICD Codes: I10 - Essential (primary) hypertension SNOMED: 75051661 Status: progressing Assessment/Plan afebrile chf resp insuff nstemi dyspnea reviewed chart and labs no cp Subjective ROS Limited/Unobtainable: Yes Allergies: Coded Allergies: No Known Allergies (Unverified , 04/20/17) Objective Last 24 Hour Vital Signs Date Time Temp Pulse Resp B/P (MAP) Pulse Ox O2 Delivery O2 Flow Rate FiO2 06/05/17 09:03 140/62 06/05/17 08:00 96 06/05/17 08:00 97.0 89 20 140/62 95 Room Air 97.0 06/05/17 06:48 143/74 06/05/17 04:00 98.2 87 22 143/74 97 Room Air 98.2 06/05/17 03:35 77 06/05/17 00:00 97.7 96 24 154/85 96 Room Air 97.7 06/04/17 23:39 95 06/04/17 20:55 141/81 06/04/17 20:54 141/81 06/04/17 20:00 98.1 88 24 141/81 97 Room Air 98.1 06/04/17 19:06 92 06/04/17 16:00 94 06/04/17 16:00 98.5 87 20 149/74 97 Room Air 98.5 Intake and Output 06/04/17 06/05/17 19:00 07:00 Intake Total 600 ml 20 ml Balance 600 ml 20 ml Intake Oral 600 ml Other 20 ml # Voids 1 1 # Bowel Movements 2 2 Laboratory Tests 06/05/17 03:50: White Blood Count 4.9, Red Blood Count 3.00L, Hemoglobin 10.2L, Hematocrit 31.6L , Mean Corpuscular Volume 105H, Mean Corpuscular Hemoglobin 34.1H, Mean Corpuscular Hemoglobin Concent 32.3, Red Cell Distribution Width 15.7H, Platelet Count 158, Mean Platelet Volume 7.4, Neutrophils (%) (Auto) 63.9, Lymphocytes (%) (Auto) 14.6L, Monocytes (%) (Auto) 13.4H, Eosinophils (%) (Auto ) 6.2H, Basophils (%) (Auto) 1.9, Sodium Level 141, Potassium Level 3.6, Chloride Level 101, Carbon Dioxide Level 29, Anion Gap 11, Blood Urea Nitrogen 54H, Creatinine 9.7H, Estimat Glomerular Filtration Rate , Glucose Level 95, Calcium Level 9.3 Height (Feet): 5 Height (Inches): 0.00 Weight (Pounds): 170 Respiratory/Chest: lungs clear Abdomen: soft Jon Martel MD Jun 05, 2017 12:09
--- NOTE | 2017-06-05 12:19 | Nephrology Progress Note ---
Assessment/Plan Assessment 1. Fluid overload. 2. End-stage renal disease with hypernatremia. 3. Renal osteodystrophy with elevation of the phosphorus of 7. 4. Anemia of chronic kidney disease. Plan use TPA Continue epogen continue renagel monitoring electrolyte Subjective Subjective to have clothed arterial port refused intervention Objective Objective Last 24 Hour Vital Signs Date Time Temp Pulse Resp B/P (MAP) Pulse Ox O2 Delivery O2 Flow Rate FiO2 06/05/17 09:03 140/62 06/05/17 08:00 96 06/05/17 08:00 97.0 89 20 140/62 95 Room Air 97.0 06/05/17 06:48 143/74 06/05/17 04:00 98.2 87 22 143/74 97 Room Air 98.2 06/05/17 03:35 77 06/05/17 00:00 97.7 96 24 154/85 96 Room Air 97.7 06/04/17 23:39 95 06/04/17 20:55 141/81 06/04/17 20:54 141/81 06/04/17 20:00 98.1 88 24 141/81 97 Room Air 98.1 06/04/17 19:06 92 06/04/17 16:00 94 06/04/17 16:00 98.5 87 20 149/74 97 Room Air 98.5 Intake and Output 06/04/17 06/05/17 19:00 07:00 Intake Total 600 ml 20 ml Balance 600 ml 20 ml Intake Oral 600 ml Other 20 ml # Voids 1 1 # Bowel Movements 2 2 Laboratory Tests 06/05/17 03:50: White Blood Count 4.9, Red Blood Count 3.00L, Hemoglobin 10.2L, Hematocrit 31.6L , Mean Corpuscular Volume 105H, Mean Corpuscular Hemoglobin 34.1H, Mean Corpuscular Hemoglobin Concent 32.3, Red Cell Distribution Width 15.7H, Platelet Count 158, Mean Platelet Volume 7.4, Neutrophils (%) (Auto) 63.9, Lymphocytes (%) (Auto) 14.6L, Monocytes (%) (Auto) 13.4H, Eosinophils (%) (Auto ) 6.2H, Basophils (%) (Auto) 1.9, Sodium Level 141, Potassium Level 3.6, Chloride Level 101, Carbon Dioxide Level 29, Anion Gap 11, Blood Urea Nitrogen 54H, Creatinine 9.7H, Estimat Glomerular Filtration Rate , Glucose Level 95, Calcium Level 9.3 Height (Feet): 5 Height (Inches): 0.00 Weight (Pounds): 170 Objective HEAD AND NECK: No JVP. No LAD. No thyromegaly. Extraocular movement intact. Pupils are reactive to light and accommodation. LUNGS: She has bilateral rhonchi. CARDIAC: Regular rate and rhythm. S1 and S2. No murmur. No rub. ABDOMEN: Soft, nontender, and nondistended. EXTREMITIES: No edema. No clubbing. No cyanosis. SCAR COOLEY Jun 05, 2017 12:19
[2017-06-05 16:00] VITALS: BP 160/80
--- NOTE | 2017-06-05 19:56 | Wound Care Consultation ---
Wound Assessment Wound Assessment #1: Wound Number: 1 Wound Present on Admission: Yes New Wound: No Status Change of Wound: No Wound Location Body Site Modif: mid Wound Location Body Site: sacral Wound Type: pressure ulcer Aime Test: Does not Aime Pressure Ulcer Stage: II Wound Thickness: Partial Thickness Wound Length: 0.5 Wound Width: 0.3 Wound Depth: less than 0.1 Percent of Wound [place]/Red: 100 Wound Drainage Amount: None Wound Drainage Odor: None/Absent Tissue Surrounding Wound: Intact Wound General Appearance: Reddened, Draining Wound Assessment #2: Wound Number: 2 Wound Present on Admission: Yes New Wound: No Status Change of Wound: No Wound Location Body Site Modif: right Wound Location Body Site: heel Wound Type: pressure ulcer Aime Test: Does not Aime Pressure Ulcer Stage: Deep Tissue Injury Wound Thickness: Full Thickness Wound Length: 2.0 Wound Width: 2.0 Wound Depth: utd Percent of Wound Bed Yellow/Wh: 100 - dry Wound Drainage Amount: None Wound Drainage Odor: None/Absent Tissue Surrounding Wound: Intact Wound General Appearance: Asymptomatic Wound Comment #1 Sacral stage II pressure ulcer #2 Right resolving DTI pressure ulcer Recommendation -Local wound care per protocol -Keep clean dry -Turn and reposition -Optimize nutrition -Heel Protector on both heels -Offload both heels -Low air loss mattress -Assess and f/u accordingly for any changes CAMILLE SHANKAR RN Jun 05, 2017 19:56
[2017-06-05 20:00] VITALS: BP 141/72
[2017-06-05] MEDS: Atorvastatin 20mg tab ORAL SCH (20:44)
[2017-06-05] MEDS: Dyna-Hex 2% Top Sol 2oz TOPIC SCH (20:45)
--- NOTE | 2017-06-05 23:57 | Cardiology Progress Note ---
Assessment/Plan Assessment/Plan 1. Severe Aortic regurgitation, given low EF, symtomatic with dyspnea and e/o heart failure, she requires to have AVR done. Afterload therapy at this time. Discussed with her and she agreed to follow up in the office. Will require to discuss with her next of kin. 2. Severe MR, based in internal dimension in systole and EF, she requires to have MVR as well. Afterload therapy with the meds, continue HD for decreasing preload. 3. Acute heart failure with preserved LV function. 4. Slight elevation of trop is due to renal failure. Subjective Subjective Sinus rhythm at 88. SOB with less than ordinary activities. Objective Last 24 Hour Vital Signs Date Time Temp Pulse Resp B/P (MAP) Pulse Ox O2 Delivery O2 Flow Rate FiO2 06/05/17 20:45 141/72 06/05/17 16:00 101 06/05/17 16:00 97.3 82 16 160/80 97 Room Air 97.3 06/05/17 14:45 Nasal Cannula 06/05/17 12:25 Nasal Cannula 06/05/17 12:00 98.1 96 22 167/79 97 Room Air 98.1 06/05/17 11:47 101 06/05/17 09:03 140/62 06/05/17 08:00 96 06/05/17 08:00 97.0 89 20 140/62 95 Room Air 97.0 06/05/17 06:48 143/74 06/05/17 04:00 98.2 87 22 143/74 97 Room Air 98.2 06/05/17 03:35 77 06/05/17 00:00 97.7 96 24 154/85 96 Room Air 97.7 Intake and Output 06/04/17 06/05/17 19:00 07:00 Intake Total 600 ml 20 ml Balance 600 ml 20 ml Intake Oral 600 ml Other 20 ml # Voids 1 1 # Bowel Movements 2 2 2D Echo: EF45%,LVE,Global LV HK,SevMR/AR(poorly tolerated hemodyn), Pseudonormal LVDD Laboratory Tests Test 06/05/17 03:50 White Blood Count 4.9 K/UL (4.8-10.8) Red Blood Count 3.00 M/UL (4.20-5.40) L Hemoglobin 10.2 G/DL (12.0-16.0) L Hematocrit 31.6 % (37.0-47.0) L Mean Corpuscular Volume 105 FL (80-99) H Mean Corpuscular Hemoglobin 34.1 PG (27.0-31.0) H Mean Corpuscular Hemoglobin Concent 32.3 G/DL (32.0-36.0) Red Cell Distribution Width 15.7 % (11.6-14.8) H Platelet Count 158 K/UL (150-450) Mean Platelet Volume 7.4 FL (6.5-10.1) Neutrophils (%) (Auto) 63.9 % (45.0-75.0) Lymphocytes (%) (Auto) 14.6 % (20.0-45.0) L Monocytes (%) (Auto) 13.4 % (1.0-10.0) H Eosinophils (%) (Auto) 6.2 % (0.0-3.0) H Basophils (%) (Auto) 1.9 % (0.0-2.0) Sodium Level 141 MMOL/L (136-145) Potassium Level 3.6 MMOL/L (3.5-5.1) Chloride Level 101 MMOL/L (98-107) Carbon Dioxide Level 29 MMOL/L (21-32) Anion Gap 11 mmol/L (5-15) Blood Urea Nitrogen 54 mg/dL (7-18) H Creatinine 9.7 MG/DL (0.55-1.30) H Estimat Glomerular Filtration Rate mL/min (>60) Glucose Level 95 MG/DL (74-106) Calcium Level 9.3 MG/DL (8.5-10.1) Microbiology Date/Time Source Procedure Growth Status 06/03/17 06:00 Nasal Nares MRSA Culture - Final NO METHICILLIN RESISTANT STAPH AUREUS... Complete 06/03/17 14:15 Urine,Clean Catch Urine Culture - Preliminary Diphtheroids Resulted 06/03/17 06:00 Rectum VRE Culture - Final NO VANCOMYCIN RESISTANT ENTEROCOCCUS ... Complete Objective HEENT: PERRLA, EOMI, Anicteric, + pallor NECK: JVP cannot be assessed, B/L bruit CARDIOVASCULAR: Normal S1S2, 2/6 MSM at LSB, 3/6 EDM at 2nd ICS LUNGS: Poor air exchange o/w clear ABDOMEN: Bowel sounds positive. Nontender, nondistended. EXTREMITIES: No cyanosis, clubbing, or edema. NEUROLOGIC: The patient moves all extremities slightly weak. JAKE DOE Jun 05, 2017 23:57
[2017-06-06] VITALS: BP 138/66
[2017-06-06 04:00] VITALS: BP 129/72
[2017-06-06] MEDS: HydrALAZINE 25mg tab ORAL SCH ×3 (06:00→21:48)
[2017-06-06 07:18] LABS: EOSINOPHILS % (AUTO) 6.9 % (0.0-3.0); HEMATOCRIT 29.9 % (37.0-47.0); HEMOGLOBIN 9.9 G/DL (12.0-16.0); MEAN CORPUSCULAR VOLUME 103 FL (80-99); MONOCYTES % (AUTO) 13.9 % (1.0-10.0); NEUTROPHILS % (AUTO) 53.1 % (45.0-75.0); PLATELET COUNT 134 K/UL (150-450); RED CELL DISTRIBUTION WIDTH 15.2 % (11.6-14.8); WHITE BLOOD COUNT 3.5 K/UL (4.8-10.8)
[2017-06-06 08:00] VITALS: BP 132/60
[2017-06-06] MEDS ORDERED: Albuterol/Ipratropium 3ml neb HHN PRN (08:00)
--- NOTE | 2017-06-06 08:00 | Pulmonology Progress Note ---
Assessment/Plan Assessment/Plan ASSESSMENT Elevated troponin Possible NSTEMI Acute diastolic heart failure Valvular heart disease with moderate to severe AR and severe MR Dyspnea (due to CHF exacerbation ), resolving ESRD with hyper Na, on HD HTN Anemia of chronic kidney disease Hx of CVA PLAN OF CARE tele O2 HHN prn CXR no acute CP pathology, borderline CM fup with CXR Venous Duplex BLE ECHO with EF 35-40% and evidence of moderate to severe AR and severe MR as well as diastolic dysfunction grade II cardio follows on ASA , BP management with SHAUN and Hydralazine medical management of CHF per cardio cardio does not recommend BB for this patient but SHAUN ( for afterload reduction ) along with HD continue statin and ASA will need valve replacement both aortic and mitral as per cardio - as outpt HD as per nephro monitor renal parameters, correct lytes as needed Continue Renagel DVT prophylaxis ID input appreciated monitor off abx, no obvious source of infection monitor HH, transfuse prn with goal to keep Hgb above 7 On EPO case discussed and evaluated by supervising physician Subjective Allergies: Coded Allergies: No Known Allergies (Unverified , 04/20/17) Subjective denies chest pain, occasional SOB weaned from BiPAP to O2 via NC Objective Last 24 Hour Vital Signs Date Time Temp Pulse Resp B/P (MAP) Pulse Ox O2 Delivery O2 Flow Rate FiO2 06/06/17 04:00 88 06/06/17 04:00 97.7 89 18 129/72 100 Room Air 97.7 06/06/17 00:00 98.1 87 18 138/66 98 Room Air 98.1 06/06/17 00:00 92 06/05/17 20:45 141/72 06/05/17 20:00 97.7 93 16 141/72 98 Room Air 97.7 06/05/17 20:00 93 06/05/17 16:00 101 06/05/17 16:00 97.3 82 16 160/80 97 Room Air 97.3 06/05/17 14:45 Nasal Cannula 06/05/17 12:25 Nasal Cannula 06/05/17 12:00 98.1 96 22 167/79 97 Room Air 98.1 06/05/17 11:47 101 06/05/17 09:03 140/62 06/05/17 08:00 96 06/05/17 08:00 97.0 89 20 140/62 95 Room Air 97.0 Intake and Output 06/05/17 06/06/17 19:00 07:00 Intake Total 350 ml 50 ml Output Total 1300 ml Balance -950 ml 50 ml Intake Oral 350 ml 50 ml Hemodialysis UF 1300 ml # Bowel Movements 2 2 Objective General Appearance: no acute distress HEENT: normocephalic, atraumatic, anicteric Respiratory/Chest: decreased breath sounds - with poor air exchange , other - R jugular permacath intact Cardiovascular: normal peripheral pulses, normal rate, regular rhythm, diastolic murmur - 2/6 at 2 nd ICS, systolic murmur at LSB Abdomen: normal bowel sounds, soft, non tender Extremities: pedal pulses normal, trace edema Neurologic/Psychiatric: abnormal gait - with walker , alert, oriented x 3, responsive Musculoskeletal: atrophy - BLE Microbiology Date/Time Source Procedure Growth Status 06/03/17 14:15 Urine,Clean Catch Urine Culture - Final Diphtheroids Complete Laboratory Tests 06/06/17 06:35: White Blood Count 3.5L, Red Blood Count 2.90L, Hemoglobin 9.9L, Hematocrit 29.9L , Mean Corpuscular Volume 103H, Mean Corpuscular Hemoglobin 34.0H, Mean Corpuscular Hemoglobin Concent 33.0, Red Cell Distribution Width 15.2H, Platelet Count 134L, Mean Platelet Volume 6.9, Neutrophils (%) (Auto) 53.1, Lymphocytes (%) (Auto) 24.0, Monocytes (%) (Auto) 13.9H, Eosinophils (%) (Auto) 6.9H, Basophils (%) (Auto) 2.0 Current Medications Medications (Trade) Dose Ordered Sig/Ladarius Route PRN Reason Start Time Stop Time Status Last Admin Dose Admin Acetaminophen (Tylenol) 650 mg Q4H PRN ORAL Mild Pain/Temp > 100.5 06/03/17 08:00 07/03/17 07:59 06/04/17 05:14 Aspirin (ASA) 325 mg DAILY ORAL 06/03/17 09:00 07/03/17 08:59 06/05/17 09:02 Atorvastatin Calcium (Lipitor) 40 mg BEDTIME ORAL 06/04/17 21:00 07/04/17 20:59 06/05/17 20:44 Chlorhexidine Gluconate (Nisha-Hex 2%) 1 applic DAILY@1999 TOPIC 06/03/17 20:00 07/03/17 19:59 06/05/17 20:45 Epoetin Devon (Procrit (for ESRD on dialysis)) 5,000 units WED-WED-WED SUBQ 06/04/17 21:00 07/04/17 20:59 06/04/17 21:21 Heparin Sodium (Porcine) (Heparin 5000 units/ml) 5,000 units EVERY 12 HOURS SUBQ 06/03/17 21:00 07/03/17 20:59 06/05/17 20:43 Hydralazine HCl (Apresoline) 25 mg Q8HR ORAL 06/04/17 20:16 07/04/17 20:15 06/05/17 06:48 Lisinopril (Prinivil) 20 mg Q12HR ORAL 06/03/17 21:00 07/03/17 08:59 06/05/17 20:45 Lorazepam (Ativan) 1 mg Q6H PRN ORAL For Anxiety 06/05/17 04:15 06/12/17 04:14 Ondansetron HCl (Zofran) 4 mg Q6H PRN IVP Nausea & Vomiting 06/05/17 12:00 07/05/17 11:59 06/05/17 11:55 Sertraline HCl (Zoloft) 25 mg DAILY ORAL 06/05/17 09:00 07/05/17 08:59 06/05/17 09:02 Sevelamer Carbonate (Renvela) 800 mg THREE TIMES A DAY ORAL 06/03/17 13:00 07/03/17 12:59 06/05/17 09:03 Frank[facility] CarlsonDoctors' HospitalNeha Motley NP Jun 06, 2017 08:00
[2017-06-06] MEDS: Lisinopril 20mg tab ORAL SCH ×2 (08:29→21:46)
[2017-06-06] MEDS: Sertraline 50mg tab ORAL SCH ×2 (08:29→08:38)
[2017-06-06] MEDS: Heparin 5000 units/ml inj SUBQ SCH ×3 (08:31→21:00)
--- NOTE | 2017-06-06 10:37 | Diagnostic Imaging Report ---
Indication: Shortness of breath Technique: XRAY Chest 1v Comparison: 06/02/2017 Findings: Cardiac silhouette is prominent. There is pulmonary vascular congestion and mild interstitial edema. There is atelectasis or small pleural effusion in the left base. Right internal jugular permacath is present. Degenerative changes of the spine are seen. Impression: Cardiomegaly with pulmonary congestion and mild interstitial edema. Left basilar atelectasis or small pleural effusion.
[2017-06-06 12:00] VITALS: BP 140/49
[2017-06-06 16:00] VITALS: BP 138/63
--- NOTE | 2017-06-06 16:48 | Nephrology Progress Note ---
Assessment/Plan Assessment 1. Fluid overload. 2. End-stage renal disease 3. Renal osteodystrophy with elevation of the phosphorus of 7. 4. Anemia of chronic kidney disease. Plan dialysis as schedule Continue epogen continue renagel monitoring electrolyte Subjective Constitutional: Reports: no symptoms HEENT: Reports: no symptoms Genitourinary: Reports: no symptoms Neurologic/Psychiatric: Reports: no symptoms Subjective had dialysis yesterday feeling much better good appetite Objective Objective Last 24 Hour Vital Signs Date Time Temp Pulse Resp B/P (MAP) Pulse Ox O2 Delivery O2 Flow Rate FiO2 06/06/17 14:07 132/60 06/06/17 12:00 96.6 86 19 140/49 94 Room Air 96.6 06/06/17 12:00 87 06/06/17 08:29 132/60 06/06/17 08:00 96.6 83 20 132/60 94 Room Air 96.6 06/06/17 08:00 86 06/06/17 04:00 88 06/06/17 04:00 97.7 89 18 129/72 100 Room Air 97.7 06/06/17 00:00 98.1 87 18 138/66 98 Room Air 98.1 06/06/17 00:00 92 06/05/17 20:45 141/72 06/05/17 20:00 97.7 93 16 141/72 98 Room Air 97.7 06/05/17 20:00 93 Intake and Output 06/05/17 06/06/17 19:00 07:00 Intake Total 350 ml 50 ml Output Total 1300 ml Balance -950 ml 50 ml Intake Oral 350 ml 50 ml Hemodialysis UF 1300 ml # Bowel Movements 2 2 Laboratory Tests 06/06/17 06:35: White Blood Count 3.5L, Red Blood Count 2.90L, Hemoglobin 9.9L, Hematocrit 29.9L , Mean Corpuscular Volume 103H, Mean Corpuscular Hemoglobin 34.0H, Mean Corpuscular Hemoglobin Concent 33.0, Red Cell Distribution Width 15.2H, Platelet Count 134L, Mean Platelet Volume 6.9, Neutrophils (%) (Auto) 53.1, Lymphocytes (%) (Auto) 24.0, Monocytes (%) (Auto) 13.9H, Eosinophils (%) (Auto) 6.9H, Basophils (%) (Auto) 2.0 Height (Feet): 5 Height (Inches): 0.00 Weight (Pounds): 151 Objective HEAD AND NECK: No JVP. No LAD. No thyromegaly. Extraocular movement intact. Pupils are reactive to light and accommodation. LUNGS: She has bilateral rhonchi. CARDIAC: Regular rate and rhythm. S1 and S2. No murmur. No rub. ABDOMEN: Soft, nontender, and nondistended. EXTREMITIES: No edema. No clubbing. No cyanosis. SCAR COOLEY Jun 06, 2017 16:48
[2017-06-06 20:00] VITALS: BP 136/66
--- NOTE | 2017-06-06 20:35 | General Progress Note ---
Assessment/Plan Problem List: (1) Pneumonia ICD Codes: J18.9 - Pneumonia, unspecified organism SNOMED: 803366754 (2) Dyspnea ICD Codes: R06.00 - Dyspnea, unspecified SNOMED: 285004895 (3) Mitral regurgitation ICD Codes: I34.0 - Nonrheumatic mitral (valve) insufficiency SNOMED: 97396245 Qualifiers: Qualified Codes: I34.0 - Nonrheumatic mitral (valve) insufficiency (4) ESRD (end stage renal disease) ICD Codes: N18.6 - End stage renal disease SNOMED: 87394223 (5) Non-STEMI (non-ST elevated myocardial infarction) ICD Codes: I21.4 - Non-ST elevation (NSTEMI) myocardial infarction SNOMED: 668055228 (6) Anemia ICD Codes: D64.9 - Anemia, unspecified SNOMED: 453219117 (7) HTN (hypertension) ICD Codes: I10 - Essential (primary) hypertension SNOMED: 39666644 Status: stable Assessment/Plan occasional cough chf improving rt to do cpt resp insuff nstemi Subjective ROS Limited/Unobtainable: Yes Allergies: Coded Allergies: No Known Allergies (Unverified , 04/20/17) Objective Last 24 Hour Vital Signs Date Time Temp Pulse Resp B/P (MAP) Pulse Ox O2 Delivery O2 Flow Rate FiO2 06/06/17 16:00 97.0 86 18 138/63 93 Room Air 97.0 06/06/17 16:00 95 06/06/17 14:07 132/60 06/06/17 12:00 96.6 86 19 140/49 94 Room Air 96.6 06/06/17 12:00 87 06/06/17 08:29 132/60 06/06/17 08:00 96.6 83 20 132/60 94 Room Air 96.6 06/06/17 08:00 86 06/06/17 04:00 88 06/06/17 04:00 97.7 89 18 129/72 100 Room Air 97.7 06/06/17 00:00 98.1 87 18 138/66 98 Room Air 98.1 06/06/17 00:00 92 06/05/17 20:45 141/72 Intake and Output 06/05/17 06/06/17 19:00 07:00 Intake Total 350 ml 50 ml Output Total 1300 ml Balance -950 ml 50 ml Intake Oral 350 ml 50 ml Hemodialysis UF 1300 ml # Bowel Movements 2 2 Laboratory Tests 06/06/17 06:35: White Blood Count 3.5L, Red Blood Count 2.90L, Hemoglobin 9.9L, Hematocrit 29.9L , Mean Corpuscular Volume 103H, Mean Corpuscular Hemoglobin 34.0H, Mean Corpuscular Hemoglobin Concent 33.0, Red Cell Distribution Width 15.2H, Platelet Count 134L, Mean Platelet Volume 6.9, Neutrophils (%) (Auto) 53.1, Lymphocytes (%) (Auto) 24.0, Monocytes (%) (Auto) 13.9H, Eosinophils (%) (Auto) 6.9H, Basophils (%) (Auto) 2.0 Height (Feet): 5 Height (Inches): 0.00 Weight (Pounds): 151 Neck: supple Cardiovascular: normal rate Respiratory/Chest: lungs clear Jon Martel MD Jun 06, 2017 20:35
[2017-06-06] MEDS: Atorvastatin 20mg tab ORAL SCH ×2 (21:00→21:45)
[2017-06-06] MEDS: Dyna-Hex 2% Top Sol 2oz TOPIC SCH (21:44)
--- NOTE | 2017-06-06 22:47 | Cardiology Progress Note ---
Assessment/Plan Assessment/Plan 1. Severe aortic regurgitation, given low EF, symptomatic with dyspnea and e/o heart failure, she requires to have AVR done. Continue hydralazine and lisinopril. 2. Severe MR, based in internal dimension in systole and EF, she requires to have MVR as well, continue HD for decreasing preload. 3. Acute heart failure with preserved LV function likely due to valvular disease. 4. Slight elevation of trop is due to renal failure. Subjective Subjective Sinus rhythm at 95. Objective Last 24 Hour Vital Signs Date Time Temp Pulse Resp B/P (MAP) Pulse Ox O2 Delivery O2 Flow Rate FiO2 06/06/17 21:48 136/66 06/06/17 21:46 136/66 06/06/17 16:00 97.0 86 18 138/63 93 Room Air 97.0 06/06/17 16:00 95 06/06/17 14:07 132/60 06/06/17 12:00 96.6 86 19 140/49 94 Room Air 96.6 06/06/17 12:00 87 06/06/17 08:29 132/60 06/06/17 08:00 96.6 83 20 132/60 94 Room Air 96.6 06/06/17 08:00 86 06/06/17 04:00 88 06/06/17 04:00 97.7 89 18 129/72 100 Room Air 97.7 06/06/17 00:00 98.1 87 18 138/66 98 Room Air 98.1 06/06/17 00:00 92 Intake and Output 06/05/17 06/06/17 19:00 07:00 Intake Total 350 ml 50 ml Output Total 1300 ml Balance -950 ml 50 ml Intake Oral 350 ml 50 ml Hemodialysis UF 1300 ml # Bowel Movements 2 2 2D Echo: EF45%,LVE,Global LV HK,SevMR/AR(poorly tolerated hemodyn), Pseudonormal LVD Laboratory Tests Test 06/06/17 06:35 White Blood Count 3.5 K/UL (4.8-10.8) L Red Blood Count 2.90 M/UL (4.20-5.40) L Hemoglobin 9.9 G/DL (12.0-16.0) L Hematocrit 29.9 % (37.0-47.0) L Mean Corpuscular Volume 103 FL (80-99) H Mean Corpuscular Hemoglobin 34.0 PG (27.0-31.0) H Mean Corpuscular Hemoglobin Concent 33.0 G/DL (32.0-36.0) Red Cell Distribution Width 15.2 % (11.6-14.8) H Platelet Count 134 K/UL (150-450) L Mean Platelet Volume 6.9 FL (6.5-10.1) Neutrophils (%) (Auto) 53.1 % (45.0-75.0) Lymphocytes (%) (Auto) 24.0 % (20.0-45.0) Monocytes (%) (Auto) 13.9 % (1.0-10.0) H Eosinophils (%) (Auto) 6.9 % (0.0-3.0) H Basophils (%) (Auto) 2.0 % (0.0-2.0) Objective HEENT: PERRLA, EOMI, Anicteric, + pallor NECK: JVP cannot be assessed, B/L bruit CARDIOVASCULAR: Normal S1S2, 2/6 MSM at LSB, 3/6 EDM at 2nd ICS LUNGS: Poor air exchange o/w clear ABDOMEN: Bowel sounds positive. Nontender, nondistended. EXTREMITIES: No cyanosis, clubbing, or edema. NEUROLOGIC: The patient moves all extremities slightly weak. JAKE DOE Jun 06, 2017 22:47
[2017-06-07] VITALS: BP 131/60
[2017-06-07 04:00] VITALS: BP 147/75
[2017-06-07] MEDS: HydrALAZINE 25mg tab ORAL SCH ×2 (05:56→14:52)
[2017-06-07 08:00] VITALS: BP 122/57
[2017-06-07 08:00] LABS: BASOPHILS % (AUTO) 1.4 % (0.0-2.0); EOSINOPHILS % (AUTO) 8.7 % (0.0-3.0); HEMATOCRIT 29.8 % (37.0-47.0); HEMOGLOBIN 9.9 G/DL (12.0-16.0); LYMPHOCYTES % (AUTO) 23.4 % (20.0-45.0); MEAN CORPUSCULAR VOLUME 103 FL (80-99); MONOCYTES % (AUTO) 9.9 % (1.0-10.0); NEUTROPHILS % (AUTO) 56.7 % (45.0-75.0); PLATELET COUNT 148 K/UL (150-450); RED BLOOD COUNT 2.88 M/UL (4.20-5.40); RED CELL DISTRIBUTION WIDTH 14.9 % (11.6-14.8); WHITE BLOOD COUNT 3.6 K/UL (4.8-10.8)
[2017-06-07 08:09] LABS: ANION GAP 11 mmol/L (5-15); BLOOD UREA NITROGEN 53 mg/dL (7-18); CARBON DIOXIDE 30 MMOL/L (21-32); CHLORIDE 102 MMOL/L (98-107); CREATININE 9.8 MG/DL (0.55-1.30); POTASSIUM 3.8 MMOL/L (3.5-5.1); SODIUM 143 MMOL/L (136-145)
--- NOTE | 2017-06-07 08:19 | Pulmonology Progress Note ---
Assessment/Plan Assessment/Plan ASSESSMENT Elevated troponin Possible NSTEMI Acute diastolic heart failure Valvular heart disease with moderate to severe AR and severe MR Dyspnea (due to CHF exacerbation ), resolving ESRD with hyper Na, on HD HTN Anemia of chronic kidney disease Hx of CVA PLAN OF CARE tele O2 HHN prn CXR no acute CP pathology, borderline CM fup with CXR this am Venous Duplex BLE ECHO with EF 35-40% and evidence of moderate to severe AR and severe MR as well as diastolic dysfunction grade II cardio follows on ASA , BP management with SHAUN and Hydralazine medical management of CHF per cardio cardio does not recommend BB for this patient but SHAUN ( for afterload reduction ) along with HD continue statin and ASA will need valve replacement both aortic and mitral as per cardio - as outpt HD as per nephro monitor renal parameters, correct lytes as needed Continue Renagel DVT prophylaxis ID input appreciated monitor off abx, no obvious source of infection monitor HH, transfuse prn with goal to keep Hgb above 7 On EPO case discussed and evaluated by supervising physician Subjective Allergies: Coded Allergies: No Known Allergies (Unverified , 04/20/17) Subjective on tele denies chest pain, occasional SOB weaned from BiPAP to O2 via NC Objective Last 24 Hour Vital Signs Date Time Temp Pulse Resp B/P (MAP) Pulse Ox O2 Delivery O2 Flow Rate FiO2 06/07/17 08:01 95 18 Room Air 21 06/07/17 05:56 147/75 06/07/17 04:00 98.1 89 21 147/75 96 Room Air 98.1 06/07/17 04:00 84 06/07/17 00:00 97.0 87 20 131/60 97 Room Air 97.0 06/07/17 00:00 89 06/06/17 21:48 136/66 06/06/17 21:46 136/66 06/06/17 20:00 89 06/06/17 20:00 98.0 88 20 136/66 100 Room Air 98.0 06/06/17 16:00 97.0 86 18 138/63 93 Room Air 97.0 06/06/17 16:00 95 06/06/17 14:07 132/60 06/06/17 12:00 96.6 86 19 140/49 94 Room Air 96.6 06/06/17 12:00 87 06/06/17 08:29 132/60 Intake and Output 06/06/17 06/07/17 19:00 07:00 Intake Total 476 ml Balance 476 ml Intake Oral 476 ml # Voids 1 2 # Bowel Movements 2 Objective General Appearance: no acute distress HEENT: normocephalic, atraumatic, anicteric Respiratory/Chest: decreased breath sounds - with poor air exchange , other - R jugular permacath intact Cardiovascular: normal peripheral pulses, normal rate, regular rhythm, diastolic murmur - 2/6 at 2 nd ICS, systolic murmur at LSB Abdomen: normal bowel sounds, soft, non tender Extremities: pedal pulses normal, trace edema Neurologic/Psychiatric: abnormal gait - with walker , alert, oriented x 3, responsive Musculoskeletal: atrophy - BLE Laboratory Tests 06/07/17 07:05: White Blood Count 3.6L, Red Blood Count 2.88L, Hemoglobin 9.9L, Hematocrit 29.8L , Mean Corpuscular Volume 103H, Mean Corpuscular Hemoglobin 34.3H, Mean Corpuscular Hemoglobin Concent 33.1, Red Cell Distribution Width 14.9H, Platelet Count 148L, Mean Platelet Volume 7.1, Neutrophils (%) (Auto) 56.7, Lymphocytes (%) (Auto) 23.4, Monocytes (%) (Auto) 9.9, Eosinophils (%) (Auto) 8.7H, Basophils (%) (Auto) 1.4, Sodium Level 143, Potassium Level 3.8, Chloride Level 102, Carbon Dioxide Level 30, Anion Gap 11, Blood Urea Nitrogen 53H, Creatinine 9.8H, Estimat Glomerular Filtration Rate , Glucose Level 85, Calcium Level 9.0 Current Medications Medications (Trade) Dose Ordered Sig/Ladarius Route PRN Reason Start Time Stop Time Status Last Admin Dose Admin Acetaminophen (Tylenol) 650 mg Q4H PRN ORAL Mild Pain/Temp > 100.5 06/03/17 08:00 07/03/17 07:59 06/04/17 05:14 Albuterol/ Ipratropium (Albuterol/ Ipratropium) 3 ml Q4H PRN HHN Shortness of Breath 06/06/17 08:00 06/11/17 07:59 Aspirin (ASA) 325 mg DAILY ORAL 06/03/17 09:00 07/03/17 08:59 06/06/17 08:29 Atorvastatin Calcium (Lipitor) 40 mg BEDTIME ORAL 06/04/17 21:00 07/04/17 20:59 06/05/17 20:44 Chlorhexidine Gluconate (Nisha-Hex 2%) 1 applic DAILY@2000 TOPIC 06/03/17 20:00 07/03/17 19:59 06/06/17 21:44 Epoetin Devon (Procrit (for ESRD on dialysis)) 5,000 units WED-WED-WED SUBQ 06/04/17 21:00 07/04/17 20:59 06/04/17 21:21 Heparin Sodium (Porcine) (Heparin 5000 units/ml) 5,000 units EVERY 12 HOURS SUBQ 06/03/17 21:00 07/03/17 20:59 06/05/17 20:43 Hydralazine HCl (Apresoline) 25 mg Q8HR ORAL 06/04/17 20:16 07/04/17 20:15 06/07/17 05:56 Lisinopril (Prinivil) 20 mg Q12HR ORAL 06/03/17 21:00 07/03/17 08:59 06/06/17 21:46 Lorazepam (Ativan) 1 mg Q6H PRN ORAL For Anxiety 06/05/17 04:15 06/12/17 04:14 Ondansetron HCl (Zofran) 4 mg Q6H PRN IVP Nausea & Vomiting 06/05/17 12:00 07/05/17 11:59 06/05/17 11:55 Sertraline HCl (Zoloft) 25 mg DAILY ORAL 06/05/17 09:00 07/05/17 08:59 06/05/17 09:02 Sevelamer Carbonate (Renvela) 800 mg THREE TIMES A DAY ORAL 06/03/17 13:00 07/03/17 12:59 06/05/17 09:03 Neha Doan NP ([facility]) Jun 07, 2017 08:19
[2017-06-07] MEDS: Sertraline 50mg tab ORAL SCH (08:35)
[2017-06-07] MEDS: Lisinopril 20mg tab ORAL SCH (08:35)
[2017-06-07] MEDS: Heparin 5000 units/ml inj SUBQ SCH ×2 (08:37→08:45)
--- NOTE | 2017-06-07 09:00 | Consultation ---
DATE OF CONSULTATION: 06/06/2017 CONSULTING PHYSICIAN: Parish Fajardo M.D. REFERRING PHYSICIAN: Mateusz Peters D.O. HISTORY OF PRESENT ILLNESS: This is a 71-year-old female patient with congestive heart failure. She has increased depression high levels of anxiety worsened by stress of her medical illness, that is why her attending has requested daily psychiatric consultation. MENTAL STATUS EXAMINATION: This is a 71-year-old female with psychomotor retardation. Mood is depressed. Affect guarded and restricted. Thought process is disorganized. Denies any present suicidal or homicidal thoughts. Insight and judgment is poor. DIAGNOSIS: Generalized mild, recurrent without psychotic features. PLAN: Treat her with Ativan 1 every 6 hours p.r.n. anxiety and agitation, and Zoloft mg a day. Provide supportive therapy provided. Chart reviewed. Discussed with staff. Seen and assessed at bedside. Parish Fajardo M.D. : Geraldine JOB#: [id number] CC:
--- NOTE | 2017-06-07 09:46 | Nephrology Progress Note ---
Assessment/Plan Assessment 1. Fluid overload. 2. End-stage renal disease 3. Renal osteodystrophy with elevation of the phosphorus of 7. 4. Anemia of chronic kidney disease. Plan dialysis as schedule Continue epogen continue renagel monitoring electrolyte Subjective Constitutional: Reports: no symptoms HEENT: Reports: no symptoms Genitourinary: Reports: no symptoms Neurologic/Psychiatric: Reports: no symptoms Subjective feeling much better good appetite Objective Objective Last 24 Hour Vital Signs Date Time Temp Pulse Resp B/P (MAP) Pulse Ox O2 Delivery O2 Flow Rate FiO2 06/07/17 08:35 122/57 06/07/17 08:01 95 18 Room Air 21 06/07/17 08:00 98.1 91 18 122/57 97 98.1 06/07/17 05:56 147/75 06/07/17 04:00 98.1 89 21 147/75 96 Room Air 98.1 06/07/17 04:00 84 06/07/17 00:00 97.0 87 20 131/60 97 Room Air 97.0 06/07/17 00:00 89 06/06/17 21:48 136/66 06/06/17 21:46 136/66 06/06/17 20:00 89 06/06/17 20:00 98.0 88 20 136/66 100 Room Air 98.0 06/06/17 16:00 97.0 86 18 138/63 93 Room Air 97.0 06/06/17 16:00 95 06/06/17 14:07 132/60 06/06/17 12:00 96.6 86 19 140/49 94 Room Air 96.6 06/06/17 12:00 87 Intake and Output 06/06/17 06/07/17 19:00 07:00 Intake Total 476 ml Balance 476 ml Intake Oral 476 ml # Voids 1 2 # Bowel Movements 2 Laboratory Tests 06/07/17 07:05: White Blood Count 3.6L, Red Blood Count 2.88L, Hemoglobin 9.9L, Hematocrit 29.8L , Mean Corpuscular Volume 103H, Mean Corpuscular Hemoglobin 34.3H, Mean Corpuscular Hemoglobin Concent 33.1, Red Cell Distribution Width 14.9H, Platelet Count 148L, Mean Platelet Volume 7.1, Neutrophils (%) (Auto) 56.7, Lymphocytes (%) (Auto) 23.4, Monocytes (%) (Auto) 9.9, Eosinophils (%) (Auto) 8.7H, Basophils (%) (Auto) 1.4, Sodium Level 143, Potassium Level 3.8, Chloride Level 102, Carbon Dioxide Level 30, Anion Gap 11, Blood Urea Nitrogen 53H, Creatinine 9.8H, Estimat Glomerular Filtration Rate , Glucose Level 85, Calcium Level 9.0 Height (Feet): 5 Height (Inches): 0.00 Weight (Pounds): 163 Objective HEAD AND NECK: No JVP. No LAD. No thyromegaly. Extraocular movement intact. Pupils are reactive to light and accommodation. LUNGS: She has bilateral rhonchi. CARDIAC: Regular rate and rhythm. S1 and S2. No murmur. No rub. ABDOMEN: Soft, nontender, and nondistended. EXTREMITIES: No edema. No clubbing. No cyanosis. SCAR COOLEY Jun 07, 2017 09:46
--- NOTE | 2017-06-07 11:00 | Infectious Diseases Prog Note ---
Assessment/Plan Assessment/Plan Abx: None Assessment: NSTEMI SOB - 2ry to above. CXR no PNA -CXR: no acute process Afebrile, no leukocytosis Pyuria, mild-however u/a contaminated with many sq cells; no UTI symptosm -ucx >100k diptheroids- colonizers HTN ESRD on HD hx CVA Plan: -Continue to monitor off abx; ok to discharge from ID perspective -f/u Cx -MOnitor CBC/BMP, temperatures -aspiration precautions -cards, renal f/u Thank you for this consultation. Will continue to follow along with you. Discussed with RN. Subjective Allergies: Coded Allergies: No Known Allergies (Unverified , 04/20/17) Subjective afebrile no leukocytosis at RA off abx awaiting discharge Objective Vital Signs Last 24 Hour Vital Signs Date Time Temp Pulse Resp B/P (MAP) Pulse Ox O2 Delivery O2 Flow Rate FiO2 06/07/17 08:35 122/57 06/07/17 08:01 95 18 Room Air 21 06/07/17 08:00 98.1 91 18 122/57 97 98.1 06/07/17 05:56 147/75 06/07/17 04:00 98.1 89 21 147/75 96 Room Air 98.1 06/07/17 04:00 84 06/07/17 00:00 97.0 87 20 131/60 97 Room Air 97.0 06/07/17 00:00 89 06/06/17 21:48 136/66 06/06/17 21:46 136/66 06/06/17 20:00 89 06/06/17 20:00 98.0 88 20 136/66 100 Room Air 98.0 06/06/17 16:00 97.0 86 18 138/63 93 Room Air 97.0 06/06/17 16:00 95 06/06/17 14:07 132/60 06/06/17 12:00 96.6 86 19 140/49 94 Room Air 96.6 06/06/17 12:00 87 Height (Feet): 5 Height (Inches): 0.00 Weight (Pounds): 163 Objective General Appearance: WD/WN Lines, tubes and drains: peripheral, dialysis access - right chest HEENT: normocephalic, atraumatic Neck: non-tender, normal alignment, supple Respiratory/Chest: no respiratory distress Cardiovascular/Chest: regular rhythm Abdomen: normal bowel sounds, non tender Genitourinary/Rectal: normal genital exam, normal rectal exam Extremities: normal range of motion, non-tender, non-pitting Neurologic: director of agriculture II-XII grossly normal Laboratory Tests Test 06/07/17 07:05 White Blood Count 3.6 K/UL (4.8-10.8) L Red Blood Count 2.88 M/UL (4.20-5.40) L Hemoglobin 9.9 G/DL (12.0-16.0) L Hematocrit 29.8 % (37.0-47.0) L Mean Corpuscular Volume 103 FL (80-99) H Mean Corpuscular Hemoglobin 34.3 PG (27.0-31.0) H Mean Corpuscular Hemoglobin Concent 33.1 G/DL (32.0-36.0) Red Cell Distribution Width 14.9 % (11.6-14.8) H Platelet Count 148 K/UL (150-450) L Mean Platelet Volume 7.1 FL (6.5-10.1) Neutrophils (%) (Auto) 56.7 % (45.0-75.0) Lymphocytes (%) (Auto) 23.4 % (20.0-45.0) Monocytes (%) (Auto) 9.9 % (1.0-10.0) Eosinophils (%) (Auto) 8.7 % (0.0-3.0) H Basophils (%) (Auto) 1.4 % (0.0-2.0) Sodium Level 143 MMOL/L (136-145) Potassium Level 3.8 MMOL/L (3.5-5.1) Chloride Level 102 MMOL/L (98-107) Carbon Dioxide Level 30 MMOL/L (21-32) Anion Gap 11 mmol/L (5-15) Blood Urea Nitrogen 53 mg/dL (7-18) H Creatinine 9.8 MG/DL (0.55-1.30) H Estimat Glomerular Filtration Rate mL/min (>60) Glucose Level 85 MG/DL (74-106) Calcium Level 9.0 MG/DL (8.5-10.1) Current Medications Medications (Trade) Dose Ordered Sig/Ladarius Route PRN Reason Start Time Stop Time Status Last Admin Dose Admin Acetaminophen (Tylenol) 650 mg Q4H PRN ORAL Mild Pain/Temp > 100.5 06/03/17 08:00 07/03/17 07:59 06/04/17 05:14 Albuterol/ Ipratropium (Albuterol/ Ipratropium) 3 ml Q4H PRN HHN Shortness of Breath 06/06/17 08:00 06/11/17 07:59 Aspirin (ASA) 325 mg DAILY ORAL 06/03/17 09:00 07/03/17 08:59 06/07/17 08:35 Atorvastatin Calcium (Lipitor) 40 mg BEDTIME ORAL 06/04/17 21:00 07/04/17 20:59 06/05/17 20:44 Chlorhexidine Gluconate (Nisha-Hex 2%) 1 applic DAILY@1999 TOPIC 06/03/17 20:00 07/03/17 19:59 06/06/17 21:44 Epoetin Devon (Procrit (for ESRD on dialysis)) 5,000 units WED-WED-WED SUBQ 06/04/17 21:00 07/04/17 20:59 06/04/17 21:21 Heparin Sodium (Porcine) (Heparin 5000 units/ml) 5,000 units EVERY 12 HOURS SUBQ 06/03/17 21:00 07/03/17 20:59 06/05/17 20:43 Hydralazine HCl (Apresoline) 25 mg Q8HR ORAL 06/04/17 20:16 07/04/17 20:15 06/07/17 05:56 Lisinopril (Prinivil) 20 mg Q12HR ORAL 06/03/17 21:00 07/03/17 08:59 06/07/17 08:35 Lorazepam (Ativan) 1 mg Q6H PRN ORAL For Anxiety 06/05/17 04:15 06/12/17 04:14 Ondansetron HCl (Zofran) 4 mg Q6H PRN IVP Nausea & Vomiting 06/05/17 12:00 07/05/17 11:59 06/07/17 10:22 Sertraline HCl (Zoloft) 25 mg DAILY ORAL 06/05/17 09:00 07/05/17 08:59 06/07/17 08:35 Sevelamer Carbonate (Renvela) 800 mg THREE TIMES A DAY ORAL 06/03/17 13:00 07/03/17 12:59 06/05/17 09:03 Sapna Bautista M.D. Jun 07, 2017 11:00
[2017-06-07 12:00] VITALS: BP 137/68
--- NOTE | 2017-06-07 13:10 | General Progress Note ---
Assessment/Plan Problem List: (1) Pneumonia ICD Codes: J18.9 - Pneumonia, unspecified organism SNOMED: 467875827 (2) Dyspnea ICD Codes: R06.00 - Dyspnea, unspecified SNOMED: 610431175 (3) Mitral regurgitation ICD Codes: I34.0 - Nonrheumatic mitral (valve) insufficiency SNOMED: 77847135 Qualifiers: Qualified Codes: I34.0 - Nonrheumatic mitral (valve) insufficiency (4) ESRD (end stage renal disease) ICD Codes: N18.6 - End stage renal disease SNOMED: 38409342 (5) Non-STEMI (non-ST elevated myocardial infarction) ICD Codes: I21.4 - Non-ST elevation (NSTEMI) myocardial infarction SNOMED: 378537132 (6) Anemia ICD Codes: D64.9 - Anemia, unspecified SNOMED: 930187412 (7) HTN (hypertension) ICD Codes: I10 - Essential (primary) hypertension SNOMED: 05672634 Status: progressing Assessment/Plan anemia esrd afebrile reviwed chart and labs no wheezing resp insuff nstemi Subjective ROS Limited/Unobtainable: Yes Constitutional: Reports: no symptoms Allergies: Coded Allergies: No Known Allergies (Unverified , 04/20/17) Objective Last 24 Hour Vital Signs Date Time Temp Pulse Resp B/P (MAP) Pulse Ox O2 Delivery O2 Flow Rate FiO2 06/07/17 08:35 122/57 06/07/17 08:01 95 18 Room Air 21 06/07/17 08:00 95 06/07/17 08:00 98.1 91 18 122/57 97 98.1 06/07/17 05:56 147/75 06/07/17 04:00 98.1 89 21 147/75 96 Room Air 98.1 06/07/17 04:00 84 06/07/17 00:00 97.0 87 20 131/60 97 Room Air 97.0 06/07/17 00:00 89 06/06/17 21:48 136/66 06/06/17 21:46 136/66 06/06/17 20:00 89 06/06/17 20:00 98.0 88 20 136/66 100 Room Air 98.0 06/06/17 16:00 97.0 86 18 138/63 93 Room Air 97.0 06/06/17 16:00 95 06/06/17 14:07 132/60 Intake and Output 06/06/17 06/07/17 19:00 07:00 Intake Total 476 ml Balance 476 ml Intake Oral 476 ml # Voids 1 2 # Bowel Movements 2 Laboratory Tests 06/07/17 07:05: White Blood Count 3.6L, Red Blood Count 2.88L, Hemoglobin 9.9L, Hematocrit 29.8L , Mean Corpuscular Volume 103H, Mean Corpuscular Hemoglobin 34.3H, Mean Corpuscular Hemoglobin Concent 33.1, Red Cell Distribution Width 14.9H, Platelet Count 148L, Mean Platelet Volume 7.1, Neutrophils (%) (Auto) 56.7, Lymphocytes (%) (Auto) 23.4, Monocytes (%) (Auto) 9.9, Eosinophils (%) (Auto) 8.7H, Basophils (%) (Auto) 1.4, Sodium Level 143, Potassium Level 3.8, Chloride Level 102, Carbon Dioxide Level 30, Anion Gap 11, Blood Urea Nitrogen 53H, Creatinine 9.8H, Estimat Glomerular Filtration Rate , Glucose Level 85, Calcium Level 9.0 Height (Feet): 5 Height (Inches): 0.00 Weight (Pounds): 163 EENT: PERRL/EOMI Neck: supple Cardiovascular: normal rate Respiratory/Chest: lungs clear Abdomen: non tender Jon Martel MD Jun 07, 2017 13:10
[2017-06-07 16:00] VITALS: BP 140/98
[2017-06-07] MEDS ORDERED: HYDRALAZINE HCL25 M2 PO (17:14)
[2017-06-07] MEDS ORDERED: ASPIRIN-LOW81 MG ORAL (17:17)
[2017-06-07] MEDS ORDERED: EPOGEN20000 UNI1 SUBQ (17:19)
[2017-06-07] MEDS ORDERED: DUONEB 0.5-3(2.53 ML HHN (17:21)
[2017-06-07] MEDS ORDERED: ATIVAN1 MG ORAL ×2 (17:25→17:26)
[2017-06-07] MEDS ORDERED: SEVELAMER CARB0.8 GM PO (17:28)
[2017-06-07] MEDS ORDERED: SERTRALINE HCL25 MG ORAL (17:30)
[2017-06-07] MEDS ORDERED: RENVELA800 MG ORAL (17:31)
--- NOTE | 2017-06-07 19:14 | Cardiology Report ---
APPROVED REPORT EXAM: Two-dimensional and M-mode echocardiogram with Doppler and color Doppler. INDICATION Acute IL M-Mode DIMENSIONS IVSd1.8 (0.7-1.1cm)Left Atrium (MM)4.2 (1.6-4.0cm) LVDd5.7 (3.5-5.6cm)Aortic Root2.8 (2.0-3.7cm) PWd1.0 (0.7-1.1cm)Aortic Cusp Exc.1.2 (1.5-2.0cm) IVSs1.9 cm LVDs4.6 (2.5-4.0cm) PWs1.4 cm Mild global left ventricular hypokinesis. Mild left ventricular enlargement. Left ventricular ejection fraction estimated to be 35-40%. No evidence of left ventricular hypertrophy. No evidence of pericardial effusion Mild Left atrial enlargement. Right ventricular chamber sizes is within normal limits. Focal aortic valve sclerosis . Moderately Thickened mitral valve leaflets with normal excursion. Moderately Mitral annulus and aortic root calcification. Pulmonic valve not well visualized. Normal tricuspid valve structure. IVC at normal size with physiologic collapse. A color flow and spectral Doppler study was performed and revealed: Severe aortic regurgitation, poorly tolerated from the hemodynamic standpoint. Peak aortic valve gradient of 18 mm Hg and a mean of 7mmHg. Aortic valve area 1.7cm2 calculated by continuity equation. Severe mitral regurgitation. Mitral inflow velocities indicates possible pseudo normalization pattern implying moderately elevated left atrial pressure (Grade II ). Mild tricuspid regurgitation. Trace Pulmonic regurgitation present.
--- NOTE | 2017-06-07 23:16 | Progress Note ---
DATE: 06/07/2017 HISTORY OF PRESENT ILLNESS: She is a 71-year-old female patient with non ST-segment elevated NE. The patient also has congestive heart failure. She also has mood lability and confusion secondary to stress of her illness that is why she does require daily psychiatric consultation as requested by her attending physician. Attending physician has requested daily psychiatric consultation. She still has mood lability, confusion and disorganized thought process depression and anxiety. MENTAL STATUS EXAMINATION: Appearance is disheveled, irritable, and agitated. Affect guarded and restricted. Intellect poor. Mood depressed and anxious. Motor activity, psychomotor agitation. Attention span is poor. Orientation x2. Speech is low volume and slurred. Insight and judgment is poor. DIAGNOSIS: Generalized anxiety disorder, rule out major depressive disorder, mild, recurrent without psychotic features. PLAN: Treat with Zoloft 25 mg daily and Ativan 1 mg every six hours p.r.n. anxiety and agitation. Provide 18 to 20 minutes of supportive therapy and encourage her to interact appropriately with staff and other patients. Chart reviewed and discussed with staff. The patient was seen and assessed in her room. Parish Fajardo M.D. DR: Harvey JOB#: [id number] CC:
--- NOTE | 2017-06-10 08:49 | Discharge Summary ---
Discharge Summary Hospital Course Date of Admission Jun 03, 2017 at 00:18 Date of Discharge Jun 07, 2017 at 21:30 Admitting Diagnosis CONGESTIVE HEART FAILURE,NSTEMI HPI Scarlet Murray is a 71 year old female who was admitted on Jun 03, 2017 at 00:18 for Congestive Heart Failure,Nstemi Hospital Course dc summary #[id number] Discharge Medications Changed Medications: Epoetin Devon (Epogen) 20,000 Unit/2 Ml Vial 5000 UNIT SUBQ 3XW, VIAL (Changed from: 70504 UNIT) Hydralazine HCl (Hydralazine HCl) 25 Mg Tablet 1 TAB PO QID, TAB (Changed from: 25 MG) Ipratropium/Albuterol Sulfate (DuoNeb 0.5-3(2.5)mg/3ml) 3 Ml Ampul.neb 3 ML HHN PRN Q 4 hours for Shortness Of Breath , EA (Medication details modified) Lorazepam* (Ativan*) 1 Mg Tablet 1 MG ORAL PRN PRN for For Anxiety, TAB (Changed from: BEDTIME) Continued Medications: Acetaminophen* (Acetaminophen 325MG Tablet*) 325 Mg Tablet 650 MG ORAL Q4H PRN for Fever/Headache/Mild Pain, TAB (This prescription has been renewed) Aspirin (Aspirin EC) 81 Mg Tablet.dr 81 MG ORAL DAILY, TAB (This prescription has been renewed) Atorvastatin Calcium* (Lipitor*) 10 Mg Tablet 10 MG ORAL BEDTIME, TAB (This prescription has been renewed) Heparin Sod (Porcine) (Heparin Sodium*) 5 000/1 Ml Vial 5000 UNITS SUBQ EVERY 12 HOURS, VIAL (This prescription has been renewed) Lisinopril (Lisinopril*) 20 Mg Tablet 20 MG ORAL BID, TAB (This prescription has been renewed) Sertraline Hcl* (Sertraline Hcl*) 25 Mg Tablet 25 MG ORAL DAILY, TAB (This prescription has been renewed) Sevelamer Carbonate (Renvela) 800 Mg Tablet 800 MG ORAL THREE TIMES A DAY, TAB (This prescription has been renewed) Discontinued Medications: Aspirin* (Aspirin*) 325 Mg Tablet 325 MG ORAL DAILY, TAB Atenolol* (Tenormin*) 25 Mg Tablet Unknown Dose ORAL DAILY, TAB Epoetin Devon (Epogen) 4,000 Unit/1 Ml Vial 4000 UNIT SUBQ 3XW, VIAL Levofloxacin* (Levaquin*) 250 Mg Tablet 250 MG ORAL DAILY for 3 Days, TAB Lorazepam* (Ativan*) 1 Mg Tablet 1 MG ORAL BEDTIME, TAB Metoprolol Tartrate (Metoprolol Tartrate) 25 Mg Tablet 25 MG ORAL EVERY 12 HOURS, TAB Metoprolol Tartrate* (Metoprolol Tartrate*) 50 Mg Tablet 50 MG ORAL EVERY 12 HOURS, TAB Nitroglycerin (Nitroglycerin Patch) 1 Each Patch.td24 1 EACH TD, PATCH Nitroglycerin (Nitroglycerin Patch) 1 Each Patch.td24 1 EACH TD Q24 HR, PATCH Pantoprazole* (Pantoprazole*) 40 Mg Tablet.dr 40 MG ORAL DAILY, TAB Polyethylene Glycol 3350* (Miralax*) 17 Gm Powd.pack 17 GM ORAL DAILY PRN for Constipation, PACKET Ranitidine Hcl* (Zantac*) 150 Mg Tablet Unknown Dose ORAL DAILY, #30 TAB 0 Refills Sevelamer Carbonate* (Renvela*) 2.4 Gm Powd.pack 2400 MG ORAL THREE TIMES A DAY, PACK Temazepam (Temazepam*) 15 Mg Capsule 15 MG ORAL BEDTIME PRN for Insomnia, CAP 0 Refills Tramadol Hcl* (Ultram*) 50 Mg Tablet 50 MG ORAL Q6H PRN for For Pain, TAB 0 Refills Discharge Discharge Disposition Patient was discharged to Home with Home Health(06) Franki (Api HealthcareNeha Motley NP Jun 10, 2017 08:49
--- NOTE | 2017-06-11 01:01 | Discharge Summary 2 SIG ---
DATE OF ADMISSION: 06/03/2017 DATE OF DISCHARGE: 06/07/2017 REASON FOR ADMISSION: 71-year-old female with a history of end-stage renal disease on hemodialysis, hypertension, and cerebrovascular accident with left hemiparesis presented to the hospital with complaints of palpitations and shortness of breath. Chest x-ray showed increased congestion. Renal parameters were consistent with known history of end-stage renal disease. Noted elevated troponin 0.097 and pro BNP 39,812. EKG showed sinus tachycardia, no acute ischemic changes. Pulse oximetry was stable on room air. Aspirin was given in the field, nitroglycerin patch was placed, and metoprolol were given. The patient denied chest pain. Initial tachycardia of 106 resolved. Urinalysis with evidence of moderate bacteria and pyuria. Hemoglobin 9.4 and hematocrit 29.3.The patient was admitted for elevated troponin, possible non-STEMI, CHF, end-stage renal disease, anemia, hypertension, and urinary tract infection. CONSULTANTS: 1. Duc Hawk M.D., Gear Tooth Grinding Machine Operator. 2. Deshaun Jiang M.D., Furnace Mechanic Helper. 3. Anne Mcneill M.D., Senior Advisor. 4. Parish Fajardo M.D., Psychiatrist. HOSPITAL COURSE: The patient was admitted to telemetry floor. Serial troponin were monitored. The patient had an echocardiogram done, which revealed mild global left ventricular hypokinesis with mild left ventricular enlargement, left ventricular ejection fraction of 35% to 40%, no evidence of left ventricular hypertrophy, moderately elevated left arterial pressure grade 2, severe mitral regurgitation, and severe aortic regurgitation. Venous duplex pf bilateral lower extremities revealed chronic recanalized thrombus of left lower extremity. No evidence of acute DVT. According to box toe maker, the patient had a valvular disease with severe aortic regurgitation and severe mitral regurgitation. Given low ejection fraction, the patient was symptomatic with dyspnea and evidence of heart failure.The patient will require aortic valve replacement. At this time, the patient was continued on hydralazine and lisinopril. Blood pressure was stable. She will also require mitral valve replacement based on internal dimension and ejection fraction. Hemodialysis for decreasing preload continued. Gear Tooth Grinding Machine Operator stated that the patient had acute heart failure likely due to valvular heart disease and slight elevation of troponin was probably due to renal failure. However consideration for possible NSTEMi was given by attending physician and sound assistant/education specialist. Per box toe maker, palpitations were due to tachycardia and resolved when heart rate stabilized. Supplemental oxygen and pulmonary toilet provided as needed. Chest x-ray revealed no acute cardiopulmonary pathology. Borderline cardiomegaly. Followup chest x-ray still revealed some mild interstitial edema. ID followed the patient. Cardiology did not recommend beta-rhianna for this patient, but started on SHAUN inhibitor for afterload reduction along with the hemodialysis. Statin and aspirin were continued. The patient will need both aortic and mitral valve replacement as an outpatient. Hemodialysis provided as per internet specialist's orders. Renal parameters were closely monitored. Electrolytes corrected as needed. Renagel was continued. DVT prophylaxis provided. Urine culture showed diphtheroids, which was colonizer per Infectious Disease specialist. The patient did have pyuria, but no evidence of urinary tract infection. No urinary symptoms. She recommended to keep the patient off antibiotics. Hemoglobin and hematocrit were closely monitored and remained on the baseline. The patient was on Epogen. Pulse oximetry on room air prior to discharge was stable. Initial hypernatremia resolved, sodium -143.The patient was stable for discharge back home and follow up with the primary care provider. DISCHARGE MEDICATIONS: See medication reconciliation list. DISCHARGE INSTRUCTIONS: The patient was discharged home with home health services. Patient to follow up with primary care provider with referral for both aortic and mitral valve replacement, which was explained to patient in detail. FINAL DIAGNOSES: 1. Elevated troponin, possible non-ST elevation myocardial infarction. 2. Acute diastolic heart failure. 3. Valvular heart disease with [id number] aortic regurgitation and severe mitral regurgitation. 4. Dyspnea due to CHF exacerbation, resolving. 5. End-stage renal disease with hypernatremia, on hemodialysis. 6. Hypertension. 7. Anemia of chronic kidney disease. 8. History of CVA. Mateusz Peters D.O. Neha Doan (Vanchtein) N.PSalbador DR: DARYL JOB#: [id number] CC: PROSPER
--- NOTE | 2017-06-11 08:54 | Diagnostic Imaging Report ---
APPROVED REPORT CPT Code: 35934 Present Symptoms Comments: PAIN RIGHT LEG: Venous imaging reveals a patent deep venous system. There is no evidence of thrombus within the femoral, popliteal or tibial segments. The greater saphenous vein is also within normal limits. Doppler indicates normal spontaneous flow within these segments. LEFT LEG: Venous imaging reveals recanalized chronic thrombus in the superficial femoral vein. Large collateral vein noted anterior to the superficial femoral artery. Imaging also reveals patency of the common femoral, popliteal and calf veins. The greater saphenous vein is also within normal limits. Doppler indicates normal spontaneous flow within these segments. There is no evidence of acute deep vein thrombosis.
--- NOTE | 2017-06-12 18:20 | Cardiology Report ---
APPROVED REPORT EKG Measurement Heart [id number] Normal sinus rhythm with sinus arrhythmia Left anterior fascicular block Left ventricular hypertrophy with QRS widening and repolarization abnormality Cannot rule out Septal infarct, age undetermined Abnormal ECG
== END 2017-06-07 21:30 | disposition home health service (06) | DRG 280 ==
LOC: EDUNIT# 22:53 → EDBD 22:53 → EMR 23:03 → 2W 06-03 00:18 → EDBEDREQ 06-03 00:28 → EDBEDREQSVC 06-03 00:28 → EDBEDREQ 06-03 00:43 → 2W 06-03 15:35 → 2E 06-05 12:55
DX: I21.4 Non-ST elevation (NSTEMI) myocardial infarction (principal); N18.6 End stage renal disease; I50.33 Acute on chronic diastolic (congestive) heart failure; E87.0 Hyperosmolality and hypernatremia; I69.354 Hemiplegia and hemiparesis following cerebral infarction affecting left non-dominant side; I13.2 Hypertensive heart and chronic kidney disease with heart failure and with stage 5 chronic kidney disease, or end stage renal disease; L89.152 Pressure ulcer of sacral region, stage 2; L89.610 Pressure ulcer of right heel, unstageable; D63.1 Anemia in chronic kidney disease; Z99.2 Dependence on renal dialysis; I34.0 Nonrheumatic mitral (valve) insufficiency; N25.0 Renal osteodystrophy; I35.1 Nonrheumatic aortic (valve) insufficiency; R00.0 Tachycardia, unspecified; F41.1 Generalized anxiety disorder
CPT/HCPCS: 36415; 71045; 80048; 80053; 81001; 82043; 82044; 82550; 82570; 82962; 83735; 83880; 84100; 84300; 84484; 85025; 85610; 85730; 87081; 87086; 89050; 93005; 93306; 93970; 94664; 97803; 99285; J2405; J8499

== ENCOUNTER 2017-06-27 20:54 | Inpatient (IN) | payer MEDICARE, MEDICAID ==
[~2017-06-27] VITALS: Ht 157.5 cm; Wt 73.5 kg
[~2017-06-27 20:54] MED LIST changes: +ASPIRIN-LOW81 MG ORAL; +ATENOLOL25 MG ORAL; +ATIVAN1 MG ORAL; +DUONEB 0.5-3(2.53 ML HHN; +EPOGEN20000 UNI1 SUBQ; +HYDRALAZINE HCL25 M2 PO; +RENVELA800 MG ORAL; +SERTRALINE HCL25 MG ORAL; +SEVELAMER CARB0.8 GM PO; +ZANTAC150 MG ORAL
[2017-06-27 20:55] VITALS: BP 151/80
--- NOTE | 2017-06-27 21:30 | Emergency Room Report ---
History of Present Illness General Chief Complaint: Dyspnea/Respdistress Source: Patient, Medical Record Present Illness HPI 71-year-old female, history of CHF, end-stage renal disease on dialysis, Wednesday, but the last dialysis was Wednesday, severe aortic and mitral regurgitation, recent hospitalization within the last month for possible N STEMI, presenting with shortness of breath for one day. Patient is at home, has home health aid, states she more short of breath the last 2-3 hours. No chest pain. Not any oxygen at home. Has lower extremity extremity swelling but not worse than her normal. Denying fever chills or cough. Allergies: Coded Allergies: No Known Allergies (Unverified , 04/20/17) Patient History Past Medical History: see triage record Past Surgical History: none Pertinent Family History: none Now: No Reviewed Nursing Documentation: PMH: Agreed; PSxH: Agreed Nursing Documentation-PMH Past Medical History: No History, Except For Hx Hypertension: Yes Hx Cancer: No Hx Gastrointestinal Problems: No Hx Dialysis: Yes - Wednesday, , Wednesday Hx Neurological Problems: No Hx Cerebrovascular Accident: Yes Review of Systems All Other Systems: negative except mentioned in HPI Physical Exam Vital Signs Date Time Temp Pulse Resp B/P (MAP) Pulse Ox O2 Delivery O2 Flow Rate FiO2 06/27/17 20:41 97.5 104 24 172/108 100 Room Air 97.5 Sp02 EP Interpretation: reviewed, normal General Appearance: alert, GCS 15, moderate distress Head: normocephalic, atraumatic Eyes: bilateral eye normal inspection, bilateral eye PERRL, bilateral eye EOMI ENT: normal ENT inspection, normal pharynx, normal voice, moist mucus membranes Neck: normal inspection, full range of motion, supple Respiratory: respiratory distress, accessory muscle use, crackles, speaking full sentences Cardiovascular #1: regular rate, rhythm, normal capillary refill, edema Cardiovascular #2: 2+ radial (R), 2+ radial (L) Gastrointestinal: normal inspection, non tender, soft, non-distended, no guarding Musculoskeletal: normal inspection, back normal, normal range of motion, non- tender Neurologic: normal inspection, alert, oriented x3, responsive, motor strength/ tone normal, sensory intact, normal gait, speech normal Psychiatric: normal inspection, judgement/insight normal, memory normal Skin: normal inspection, normal color, no rash, warm/dry, well hydrated, normal turgor Medical Decision Making Diagnostic Impression: Primary Impression: Respiratory distress Additional Impressions: Dyspnea ESRD (end stage renal disease) Hyperkalemia ER Course 71-year-old female history of end-stage renal disease, CHF p/w SOB for 1 day DDX: CHF exacerbation, fluid overload/end-stage renal disease, ACS, pneumonia, asthma /copd Plan: IV access, telemetry monitor, O2 nasal cannula obtain basic labs including blood gas, troponin, BNP Will consider BIPAP for persistent or worsening respiratory status Anticipate admission ER course: Patient has remained on the monitor. Continues to be tachypneic. hyperkalemia treated remains on 2L NC and satting 100 Disposition: Patient to be admitted to Tele D/w hospitalist Dr Mateusz Peters Please note that this Emergency Department Report was dictated using [employer]ensors[employer] tester technology software, occasionally this can lead to erroneous entry secondary to interpretation by the dictation equipment. EKG Diagnostic Results EP Interpretation: Yes Rate: Tachycardic Rhythm: NSR ST Segments: T-wave inversion 1, aVL, left axis ASA given to patient:no Rhythm Strip EP Interpretation: Yes Rate: 109 Rhythm: NSR, no PVCs, no ectopy Chest X-ray CXR: Ordered: Yes 1 view Indication: SOB EP interpretation: Yes Interpretation: Cardiomegaly, CHF Impression: Cardiomegaly and CHF Electronically signed by Alison Vega MD Laboratory Tests Test 06/27/17 21:30 06/27/17 22:38 Sodium Level 139 MMOL/L (136-145) Potassium Level 5.7 MMOL/L (3.5-5.1) H Chloride Level 101 MMOL/L (98-107) Carbon Dioxide Level 24 MMOL/L (21-32) Anion Gap 15 mmol/L (5-15) Blood Urea Nitrogen 73 mg/dL (7-18) H Creatinine 11.1 MG/DL (0.55-1.30) H Estimate Glomerular Filtration Rate mL/min (>60) Glucose Level 94 MG/DL (74-106) Lactic Acid Level 1.50 mmol/L (0.66-2.22) Calcium Level 10.0 MG/DL (8.5-10.1) Total Bilirubin 0.4 MG/DL (0.2-1.0) Aspartate Amino Transferase (AST) 28 U/L (15-37) Alanine Aminotransferase (ALT) 23 U/L (12-78) Alkaline Phosphatase 59 U/L (46-116) Total Creatine Kinase 47 U/L (26-308) Troponin I 0.078 ng/mL (0.000-0.056) Pro-B-Type Natriuretic Peptide 46769 pg/mL (0-125) H Total Protein 7.6 G/DL (6.4-8.2) Albumin 3.3 G/DL (3.4-5.0) L Globulin 4.3 g/dL Albumin/Globulin Ratio 0.8 (1.0-2.7) L White Blood Count 6.6 K/UL (4.8-10.8) Red Blood Count 3.29 M/UL (4.20-5.40) L Hemoglobin 10.7 G/DL (12.0-16.0) L Hematocrit 32.7 % (37.0-47.0) L Mean Corpuscular Volume 99 FL (80-99) Mean Corpuscular Hemoglobin 32.5 PG (27.0-31.0) H Mean Corpuscular Hemoglobin Concent 32.7 G/DL (32.0-36.0) Red Cell Distribution Width 15.4 % (11.6-14.8) H Platelet Count 192 K/UL (150-450) Mean Platelet Volume 6.0 FL (6.5-10.1) L Neutrophils (%) (Auto) 74.9 % (45.0-75.0) Lymphocytes (%) (Auto) 12.6 % (20.0-45.0) L Monocytes (%) (Auto) 7.0 % (1.0-10.0) Eosinophils (%) (Auto) 4.0 % (0.0-3.0) H Basophils (%) (Auto) 1.5 % (0.0-2.0) Last Vital Signs Date Time Temp Pulse Resp B/P (MAP) Pulse Ox O2 Delivery O2 Flow Rate FiO2 06/27/17 20:41 97.5 104 24 172/108 100 Room Air 97.5 Disposition: ADMITTED INPATIENT Condition: Serious Alison Vega M.D. Jun 27, 2017 21:30
[2017-06-27 22:37] LABS: ANION GAP 15 mmol/L (5-15); BLOOD UREA NITROGEN 73 mg/dL (7-18); CARBON DIOXIDE 24 MMOL/L (21-32); CHLORIDE 101 MMOL/L (98-107); CREATININE 11.1 MG/DL (0.55-1.30); POTASSIUM 5.7 MMOL/L (3.5-5.1); SODIUM 139 MMOL/L (136-145)
[2017-06-27] MEDS ORDERED: Calcium Gluconate 1gm/10ml vial IVP ONE (22:45)
[2017-06-27] MEDS ORDERED: Sodium Bicarbonate 50ml Carp IV ONE (22:45)
[2017-06-27 22:48] LABS: ALANINE AMINOTRANSFERASE 23 U/L (12-78); ALBUMIN 3.3 G/DL (3.4-5.0); ALBUMIN/GLOBULIN RATIO 0.8 (1.0-2.7); ALKALINE PHOSPHATASE 59 U/L (46-116); ASPARTATE AMINO TRANSFERASE 28 U/L (15-37); BILIRUBIN,TOTAL 0.4 MG/DL (0.2-1.0); CREATINE KINASE 47 U/L (26-308)
[2017-06-27 22:51] LABS: BASOPHILS % (AUTO) 1.5 % (0.0-2.0); HEMATOCRIT 32.7 % (37.0-47.0); HEMOGLOBIN 10.7 G/DL (12.0-16.0); LYMPHOCYTES % (AUTO) 12.6 % (20.0-45.0); MEAN CORPUSCULAR VOLUME 99 FL (80-99); NEUTROPHILS % (AUTO) 74.9 % (45.0-75.0); PLATELET COUNT 192 K/UL (150-450); RED BLOOD COUNT 3.29 M/UL (4.20-5.40); RED CELL DISTRIBUTION WIDTH 15.4 % (11.6-14.8); WHITE BLOOD COUNT 6.6 K/UL (4.8-10.8)
[2017-06-27] MEDS ORDERED: LORazepam Inj 2mg/ml 1ml IV ONE (23:00)
[2017-06-28] VITALS (8 sets, daily range): BP systolic 127–158; BP diastolic 66–93
[2017-06-28] MEDS ORDERED: LORazepam 0.5mg tab ORAL PRN (04:00)
[2017-06-28] MEDS ORDERED: Albuterol/Ipratropium 3ml neb HHN PRN (07:00)
[2017-06-28] MEDS ORDERED: Miralax 17gm pkt ORAL PRN (07:00)
--- NOTE | 2017-06-28 08:17 | General Progress Note ---
Progress Note Progress Note pt seen and examined stat dialysis was placed also I also informed dialysis nurse regarding stat order SCAR COOLEY Jun 28, 2017 08:17
--- NOTE | 2017-06-28 09:07 | Diagnostic Imaging Report ---
Indication: Shortness of breath Technique: One view of the chest Comparison: 06/06/2017 Findings: Inspiration is suboptimal. The heart is enlarged. There is mild interstitial congestion, appearing similar to the previous exam. The aorta is calcified. No focal airspace consolidation. There may be trace pleural fluid bilaterally. Tunneled dialysis catheter is again demonstrated on the right Impression: Pulmonary interstitial congestion, appearing similar to prior study 06/06/2017 Possible trace bilateral pleural effusions
[2017-06-28] MEDS: Aspirin EC 81mg tab ORAL SCH (09:36)
[2017-06-28] MEDS: HydrALAZINE 10mg Tab ORAL SCH ×4 (09:37→20:59)
[2017-06-28] MEDS: Sertraline 50mg tab ORAL SCH (09:37)
[2017-06-28] MEDS: Lisinopril 20mg tab ORAL SCH ×2 (09:38→18:00)
[2017-06-28] MEDS: Heparin 5000 units/ml inj SUBQ SCH ×2 (09:39→21:01)
--- NOTE | 2017-06-28 12:30 | Consultation ---
History of Present Illness General Date patient seen: Jun 28, 2017 Chief Complaint: Dyspnea/Respdistress Present Illness HPI 71-year-old female with hx of CHF, severe aortic and mitral regurgitation end- stage renal disease on dialysis, Wednesday missed her dialysis and , presented to ER with shortness of breath for one day. No chest pain. Not any oxygen at home. She is admitted to telemetry for acute pulmonary edema and dyspnea. Allergies: Coded Allergies: No Known Allergies (Unverified , 04/20/17) Medication History Scheduled Aspirin (Aspirin EC), 81 MG ORAL DAILY, (Reported) Atorvastatin Calcium* (Lipitor*), 10 MG ORAL BEDTIME, (Reported) Epoetin Devon (Epogen), 5,000 UNIT SUBQ 3XW, (Reported) Heparin Sod (Porcine) (Heparin Sodium*), 5,000 UNITS SUBQ EVERY 12 HOURS, ( Reported) Hydralazine HCl (Hydralazine HCl), 1 TAB PO QID, (Reported) Ipratropium/Albuterol Sulfate (DuoNeb 0.5-3(2.5)mg/3ml), 3 ML HHN PRN Q 4 hours , (Reported) Lisinopril (Lisinopril*), 20 MG ORAL BID, (Reported) Sertraline Hcl* (Sertraline Hcl*), 25 MG ORAL DAILY, (Reported) Sevelamer Carbonate (Renvela), 800 MG ORAL THREE TIMES A DAY, (Reported) Scheduled PRN Acetaminophen* (Acetaminophen 325MG Tablet*), 650 MG ORAL Q4H PRN for Fever/ Headache/Mild Pain, (Reported) Lorazepam* (Ativan*), 1 MG ORAL PRN PRN for For Anxiety, (Reported) Patient History Healthcare decision maker Resuscitation status Full Code Advanced Directive on File Past Medical/Surgical History Past Medical/Surgical History: (1) ESRD (end stage renal disease) (2) HTN (hypertension) (3) Anemia (4) Decubital ulcer Review of Systems Respiratory: Reports: cough, GILBERT All Other Systems: negative except mentioned in HPI Physical Exam General Appearance: WD/WN, no apparent distress Lines, tubes and drains: peripheral HEENT: normocephalic Neck: non-tender, normal alignment Respiratory/Chest: chest wall non-tender, normal breath sounds Cardiovascular/Chest: normal peripheral pulses, normal rate Abdomen: hyperactive bowel sounds Genitourinary/Rectal: normal genital exam, normal prostate exam Extremities: normal range of motion Last 24 Hour Vital Signs Date Time Temp Pulse Resp B/P (MAP) Pulse Ox O2 Delivery O2 Flow Rate FiO2 06/28/17 09:38 136/76 06/28/17 09:37 136/76 06/28/17 08:00 98.1 91 20 136/76 94 Room Air 98.1 06/28/17 07:50 114 06/28/17 04:00 101 06/28/17 04:00 97.3 111 20 139/78 96 Room Air 97.3 06/28/17 01:40 97.2 108 25 134/78 98 Room Air 97.2 06/28/17 01:30 97.5 103 25 127/71 100 Room Air 97.5 06/28/17 01:25 97.5 103 25 127/71 100 Room Air 97.5 06/28/17 00:01 97.3 100 26 147/77 100 Room Air 97.3 06/27/17 20:55 104 29 Room Air 06/27/17 20:55 97.5 106 26 151/80 100 Room Air 97.5 06/27/17 20:41 97.5 104 24 172/108 100 Room Air 97.5 Intake and Output 06/27/17 06/28/17 19:00 07:00 Intake Total 120 ml Balance 120 ml Intake Oral 120 ml # Bowel Movements 1 Laboratory Tests Test 06/27/17 21:30 06/27/17 22:38 06/28/17 10:15 Sodium Level 139 MMOL/L (136-145) Potassium Level 5.7 MMOL/L (3.5-5.1) H Chloride Level 101 MMOL/L (98-107) Carbon Dioxide Level 24 MMOL/L (21-32) Anion Gap 15 mmol/L (5-15) Blood Urea Nitrogen 73 mg/dL (7-18) H Creatinine 11.1 MG/DL (0.55-1.30) H Estimat Glomerular Filtration Rate mL/min (>60) Glucose Level 94 MG/DL (74-106) Lactic Acid Level 1.50 mmol/L (0.66-2.22) Calcium Level 10.0 MG/DL (8.5-10.1) Total Bilirubin 0.4 MG/DL (0.2-1.0) Aspartate Amino Transf (AST/SGOT) 28 U/L (15-37) Alanine Aminotransferase (ALT/SGPT) 23 U/L (12-78) Alkaline Phosphatase 59 U/L (46-116) Total Creatine Kinase 47 U/L (26-308) Troponin I 0.078 ng/mL (0.000-0.056) 0.091 ng/mL (0.000-0.056) Pro-B-Type Natriuretic Peptide 75186 pg/mL (0-125) H Total Protein 7.6 G/DL (6.4-8.2) Albumin 3.3 G/DL (3.4-5.0) L Globulin 4.3 g/dL Albumin/Globulin Ratio 0.8 (1.0-2.7) L White Blood Count 6.6 K/UL (4.8-10.8) Red Blood Count 3.29 M/UL (4.20-5.40) L Hemoglobin 10.7 G/DL (12.0-16.0) L Hematocrit 32.7 % (37.0-47.0) L Mean Corpuscular Volume 99 FL (80-99) Mean Corpuscular Hemoglobin 32.5 PG (27.0-31.0) H Mean Corpuscular Hemoglobin Concent 32.7 G/DL (32.0-36.0) Red Cell Distribution Width 15.4 % (11.6-14.8) H Platelet Count 192 K/UL (150-450) Mean Platelet Volume 6.0 FL (6.5-10.1) L Neutrophils (%) (Auto) 74.9 % (45.0-75.0) Lymphocytes (%) (Auto) 12.6 % (20.0-45.0) L Monocytes (%) (Auto) 7.0 % (1.0-10.0) Eosinophils (%) (Auto) 4.0 % (0.0-3.0) H Basophils (%) (Auto) 1.5 % (0.0-2.0) Height (Feet): 5 Height (Inches): 2.00 Weight (Pounds): 162 Medications Current Medications Medications (Trade) Dose Ordered Sig/Ladarius Route PRN Reason Start Time Stop Time Status Last Admin Dose Admin Acetaminophen (Tylenol) 650 mg Q4H PRN ORAL Fever 06/28/17 07:00 07/28/17 06:59 Albuterol/ Ipratropium (Albuterol/ Ipratropium) 3 ml EVERY 4 HOURS PRN HHN Shortness of Breath 06/28/17 07:00 07/03/17 06:59 Aspirin (Ecotrin) 81 mg DAILY ORAL 06/28/17 09:00 07/28/17 08:59 06/28/17 09:36 Atorvastatin Calcium (Lipitor) 10 mg BEDTIME ORAL 06/28/17 21:00 07/28/17 20:59 Dextrose (Dextrose 50%) 25 ml STAT PRN IV Hypoglycemia BS 60-69 06/28/17 07:00 07/28/17 06:59 Dextrose (Dextrose 50%) 50 ml STAT PRN IV Hypoglycemia BS<60 06/28/17 08:15 07/28/17 08:14 Heparin Sodium (Porcine) (Heparin 5000 units/ml) 5,000 units EVERY 12 HOURS SUBQ 06/28/17 09:00 07/28/17 08:59 06/28/17 09:39 Hydralazine HCl (Apresoline) 10 mg QID ORAL 06/28/17 09:00 07/28/17 08:59 06/28/17 09:37 Lisinopril (Prinivil) 20 mg BID ORAL 06/28/17 09:00 07/28/17 08:59 06/28/17 09:38 Lorazepam (Ativan) 0.5 mg Q6H PRN ORAL For Anxiety 06/28/17 04:00 07/05/17 03:59 Ondansetron HCl (Zofran) 4 mg Q6H PRN IVP Nausea & Vomiting 06/28/17 07:00 07/28/17 06:59 Polyethylene Glycol (Miralax) 17 gm DAILYPRN PRN ORAL Constipation 06/28/17 07:00 07/28/17 06:59 Sertraline HCl (Zoloft) 25 mg DAILY ORAL 06/28/17 09:00 07/28/17 08:59 06/28/17 09:37 Sevelamer Carbonate (Renvela) 800 mg THREE TIMES A DAY ORAL 06/28/17 09:00 07/28/17 08:59 06/28/17 09:37 Temazepam (Restoril) 15 mg HSPRN PRN ORAL Insomnia 06/28/17 07:00 07/05/17 06:59 Assessment/Plan Problem List: (1) Acute respiratory failure ICD Codes: J96.00 - Acute respiratory failure, unspecified whether with hypoxia or hypercapnia SNOMED: 17474255 (2) Dyspnea ICD Codes: R06.00 - Dyspnea, unspecified SNOMED: 629204001 (3) Anemia ICD Codes: D64.9 - Anemia, unspecified SNOMED: 363748416 (4) Hyperkalemia ICD Codes: E87.5 - Hyperkalemia SNOMED: 47729899 (5) HTN (hypertension) ICD Codes: I10 - Essential (primary) hypertension SNOMED: 32417241 Assessment/Plan respiratory treatment titrate fio2 HD michael monitor BP watch h/h cxr in am med/surg after HD. Deshaun Jiang MD Jun 28, 2017 12:30
--- NOTE | 2017-06-28 16:00 | Consultation ---
DATE OF CONSULTATION: 06/28/2017 HISTORY OF PRESENT ILLNESS: The patient is a 71-year-old female patient with dyspnea. She has some confusion and disorganized thought process but she came in with but she also has a history of major depressive disorder, that is why daily psychiatric consultation requested to manage this patient's depression, she is still slightly sedated and confused but she does state that she does have some anxiety from time to time. She is unsure of this depression. ALLERGIES: She has no known drug allergies. MEDICAL HISTORY: She has a history of hypertension, COPD, hyperlipidemia. She is status post urinary tract infection, dyspnea, end-stage renal disease, non-ST segment elevated NE in the past. SOCIAL HISTORY: She is financially supported by [employer] and Medicare. SUBSTANCE ABUSE HISTORY: Denies drug and alcohol use. PSYCHIATRIC HISTORY: Major depressive disorder. STRENGTHS: She is motivated to get better. WEAKNESSES: She is slightly impulsive. MENTAL STATUS EXAMINATION: This is a 71-year-old female. Appearance is slightly disheveled. Attitude irritable and agitated. Affect guarded and restricted. Intellect poor. Mood depressed and anxious. Motor activity, psychomotor agitation. Attention span is poor. Orientation x2. Speech is low volume and slurred. Thought process disorganized. Thought content, slight paranoia. Insight and judgment is poor. 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 PLAN: Plan for this patient, I am going to treat with Zoloft 25 mg daily, Ativan 0.5 mg every four hours as needed for anxiety and 20 minutes of supportive therapy is provided. Chart reviewed and discussed with staff. The patient seen and assessed in her room. I would like to thank Dr. Mateusz Peters for this interesting consultation. Parish Fajardo M.D. DR: Rupa JOB#: [id number] CC:
--- NOTE | 2017-06-28 18:15 | History and Physical Report ---
DATE OF ADMISSION: 06/27/2017 CONSULTANTS: 1. Deshaun Jiang M.D. 2. Duc Hawk M.D. 3. Anne Mcneill M.D. CHIEF COMPLAINT: 1. ESRD. 2. Missed dialysis. 3. Shortness of breath. 4. Edema. BRIEF HISTORY: This is a 31-year-old female with history ESRD, apparently missed her dialysis. She became very short of breath, came to [facility], diagnosed with the above, and admitted to telemetry for further care. Currently calm, slightly short of breath, O2 mask in place, in bed, no complaint. REVIEW OF SYSTEMS: No chest pain. Slight short of breath. No nausea, vomiting, or diarrhea. PAST MEDICAL HISTORY: Includes hypertension and ESRD. PAST SURGICAL HISTORY: Shunt. ALLERGIES: Denies. SOCIAL HISTORY: No smoking. No alcohol. No intravenous drug abuse. FAMILY HISTORY: Noncontributory. PHYSICAL EXAMINATION: GENERAL: Calm, slightly short of breath in bed, oriented x3, in no acute distress. VITAL SIGNS: Temperature 97, pulse 114, respiratory rate 21, blood pressure 150/87. CARDIOVASCULAR: No murmur. LUNGS: Poor air exchange. ABDOMEN: Soft. Bowel sound distant. EXTREMITIES: No cyanosis or clubbing. 1+ edema. NEUROLOGIC: The patient moves all extremities, slightly weak. LABORATORY AND DIAGNOSTIC DATA: Hemoglobin 10.7, otherwise, CBC is normal. BMP shows potassium 5.7, BUN and creatinine 72 and 1.1. BNP is 34,690. Troponin 0.078, 0.091. Albumin 3.3. MEDICATIONS: Include Lipitor, Zoloft, Ecotrin, Apresoline, Prinivil, Renvela, albuterol, Zofran, and MiraLAX. ASSESSMENT: 1. End-stage renal disease. 2. Shortness of breath. 3. Elevated troponin. 4. Edema. 5. Hypertension. 6. Anemia. PLAN: 1. O2 and pulmonary treatment. 2. OT/PT. 3. Dietary followup. 4. Blood pressure control. 5. Pain control. 6. Troponin q.8 h. x3. 7. Resume home medications. 8. Dialysis. 9. CBC and BMP in the morning. 10. Dr. Jiang, Dr. Hawk, and Dr. Mcneill to consult. Mateusz Peters D.O. DR: JUANJO JOB#: [id number] CC:
--- NOTE | 2017-06-28 21:30 | Consultation ---
DATE OF CONSULTATION: 06/28/2017 NEPHROLOGY CONSULTATION CONSULTING PHYSICIAN: Anne Mcneill M.D. REFERRING PHYSICIAN: Mateusz Peters D.O. REASON FOR CONSULTATION: End-stage renal disease, hyperkalemia, and need for dialysis. HISTORY OF PRESENT ILLNESS: The patient is a 71-year-old female with past medical history significant for history of end-stage renal disease anemia of chronic kidney disease, renal osteodystrophy, history of hypertension, and history of fluid overload in the past. In the past, she had this noncompliance issue that even on the last admission, she does not want any dialysis more than two hours. She refused everyday dialysis. She refused AV fistula placement. So, basically she refused to get the treatment for her fluid overload. At this time, the patient again presented to the emergency room complaining of increasing shortness of breath and hyperkalemia. The patient was admitted. I was called for management of renal disease and electrolyte imbalance. PAST MEDICAL HISTORY: 1. History of end-stage renal disease. 2. Anemia of chronic kidney disease. 3. Renal osteodystrophy. 4. Hypertension. 5. Fluid overload. 6. History of noncompliance with treatment. 7. History of dyslipidemia. 8. History of decubitus ulcer. ALLERGIES: Not known drug allergies. MEDICATIONS AT HOME: 1. Aspirin 81 mg p.o. daily. 2. mg p.o. daily. 3. Epogen 5000 units 3 times a week. 4. Hydralazine 50 mg p.o. t.i.d. 5. Lisinopril 20 mg daily. 6. Elavil 25 mg p.o. daily. 7. Renvela 800 mg p.o. daily. 8. Ativan p.r.n. FAMILY HISTORY: Noncontributory. REVIEW OF SYSTEMS: GENERAL: He is complaining of generalized weakness. Denied any fever, chills, or night sweats. HEAD AND NECK: Denies any dysphagia, odynophagia, blurry vision, headache, or neck stiffness. PULMONARY: Complained of shortness of breath. No cough. No sputum. CARDIOVASCULAR: Denies any chest pain or palpitations. GASTROINTESTINAL: Denies any nausea, vomiting, diarrhea, hematemesis, or hematochezia. GENITOURINARY: Denies any dysuria, frequency, or hematuria. PHYSICAL EXAMINATION: VITAL SIGNS: Temperature of 98 degrees, blood pressure 136/76, pulse rate of 94, and respiratory rate of 18. HEAD AND NECK: No JVP. No LAD. No thyromegaly. Extraocular movement intact. Pupils are reactive to light and accommodation. LUNGS: Clear to auscultation. CARDIAC: Regular rate and rhythm. S1, S2. No murmur. No rub. ABDOMEN: Soft, nontender, and nondistended. EXTREMITIES: A 3+ edema. No clubbing. No cyanosis. LABORATORY DATA: On admission, the patient had sodium 139, potassium 5.7, chloride , bicarb 24, BUN is 73, creatinine of 11.1, glucose of 94, and calcium of 10. AST of 28 and ALT of 23. Alkaline phosphatase of 59. CBC revealed WBC count of 6.6, hemoglobin of 10.7, hematocrit of 32, and platelet count of 192,000. ASSESSMENT: 1. End-stage renal disease. 2. Fluid overload. 3. Hyperkalemia. 4. Anemia of chronic kidney disease. 5. Renal osteodystrophy. 6. Noncompliant with treatment. PLAN: Plan for the patient to schedule the patient for dialysis to be done today. Continue with Epogen and low-potassium diet. I will discuss with the patient with possible repeating dialysis in the morning. I would monitor electrolytes closely. Restart the patient on Renagel. At the end, I would like to thank, Dr. Mateusz Peters for allowing me to participate in the care of this patient. Anne Mcneill M.D. DR: YESSICA JOB#: [id number] CC:
--- NOTE | 2017-06-28 21:40 | Cardiology Report ---
APPROVED REPORT EKG Measurement Heart [id number] PA 144P51 [id number] Sinus tachycardia Left anterior fascicular block Left ventricular hypertrophy with repolarization abnormality Cannot rule out Septal infarct, age undetermined Abnormal ECG
--- NOTE | 2017-06-28 23:44 | Cardiology Progress Note ---
Assessment/Plan Assessment/Plan The patient is seen and examined, full consult note will be dictated shortly. Objective Last 24 Hour Vital Signs Date Time Temp Pulse Resp B/P (MAP) Pulse Ox O2 Delivery O2 Flow Rate FiO2 06/28/17 20:59 157/93 06/28/17 20:00 97.3 114 21 157/93 96 Room Air 97.3 06/28/17 20:00 114 06/28/17 18:15 82 06/28/17 16:00 97.6 111 18 132/66 96 Room Air 97.6 06/28/17 14:42 Simple Mask 06/28/17 12:00 97.7 114 21 158/87 95 Nasal Cannula 3.0 97.7 06/28/17 11:46 121 06/28/17 11:15 Simple Mask 06/28/17 09:38 136/76 06/28/17 09:37 136/76 06/28/17 08:00 98.1 91 20 136/76 94 Room Air 98.1 06/28/17 07:50 114 06/28/17 04:00 101 06/28/17 04:00 97.3 111 20 139/78 96 Room Air 97.3 06/28/17 01:40 97.2 108 25 134/78 98 Room Air 97.2 06/28/17 01:30 97.5 103 25 127/71 100 Room Air 97.5 06/28/17 01:25 97.5 103 25 127/71 100 Room Air 97.5 06/28/17 00:01 97.3 100 26 147/77 100 Room Air 97.3 Intake and Output 06/27/17 06/28/17 19:00 07:00 Intake Total 120 ml Balance 120 ml Intake Oral 120 ml # Bowel Movements 1 Laboratory Tests Test 06/28/17 10:15 Troponin I 0.091 ng/mL (0.000-0.056) JAKE DOE Jun 28, 2017 23:44
[2017-06-29] VITALS: BP 151/78
[2017-06-29 04:00] VITALS: BP 150/85
--- NOTE | 2017-06-29 05:30 | Progress Note ---
DATE: 06/29/2017 SUBJECTIVE: The patient is a 71-year-old female patient with dyspnea. She has some confusion and altered mental status. She has some mood lability, confusion, disorganized thought process, and poor cognition, secondary to stress of her medical illness. That is why, she does require inpatient treatment at this time and so her attending has requested daily psychiatric consultation because she has increased depression and anxiety and her cognition has declined below her baseline. MENTAL STATUS EXAM: The patient is a 71-year-old female. Appearance is disheveled. Attitude, irritable and agitated. Affect, guarded and restricted. Intellect poor. Mood depressed and anxious. Motor activity, psychomotor agitation. Attention span is poor. Orientation x2. Speech is pressured. Thought process is disorganized and illogical. Thought content, auditory hallucinations and paranoid delusions. Insight and judgment is poor. 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 PLAN: Treat her with Zoloft 25 mg daily. Also provide Ativan 0.5 mg every four hours p.r.n. anxiety and agitation. Encouraged her to interact appropriately with staff and other patients, and provide 18 to 20 minutes of supportive therapy. Chart is reviewed and discussed with staff. Seen and assessed at the bedside. Parish Fajardo M.D. DR: CASSIA JOB#: [id number] CC:
[2017-06-29 07:59] LABS: BASOPHILS % (AUTO) 1.1 % (0.0-2.0); EOSINOPHILS % (AUTO) 4.4 % (0.0-3.0); HEMATOCRIT 31.8 % (37.0-47.0); HEMOGLOBIN 10.9 G/DL (12.0-16.0); MEAN CORPUSCULAR VOLUME 100 FL (80-99); MONOCYTES % (AUTO) 10.5 % (1.0-10.0); PLATELET COUNT 156 K/UL (150-450); RED BLOOD COUNT 3.18 M/UL (4.20-5.40); WHITE BLOOD COUNT 4.3 K/UL (4.8-10.8)
[2017-06-29 08:00] VITALS: BP 148/80
[2017-06-29 08:10] LABS: ALBUMIN 3.1 G/DL (3.4-5.0); ANION GAP 13 mmol/L (5-15); BLOOD UREA NITROGEN 57 mg/dL (7-18); CALCIUM 9.5 MG/DL (8.5-10.1); CARBON DIOXIDE 26 MMOL/L (21-32); CHLORIDE 100 MMOL/L (98-107); CREATININE 9.7 MG/DL (0.55-1.30); PHOSPHORUS 7.2 MG/DL (2.5-4.9); POTASSIUM 4.3 MMOL/L (3.5-5.1); SODIUM 139 MMOL/L (136-145)
[2017-06-29] MEDS: HydrALAZINE 10mg Tab ORAL SCH ×4 (09:01→21:59)
[2017-06-29] MEDS: Sertraline 50mg tab ORAL SCH (09:01)
[2017-06-29] MEDS: Aspirin EC 81mg tab ORAL SCH (09:01)
[2017-06-29] MEDS: Lisinopril 20mg tab ORAL SCH ×2 (09:01→18:12)
[2017-06-29] MEDS: Heparin 5000 units/ml inj SUBQ SCH ×2 (09:03→21:00)
[2017-06-29 12:00] VITALS: BP 149/91
--- NOTE | 2017-06-29 13:02 | Pulmonology Progress Note ---
Assessment/Plan Problems: (1) Acute respiratory failure (2) Dyspnea (3) Anemia (4) Hyperkalemia (5) HTN (hypertension) Assessment/Plan received HD yesterday less short of breath titrate fio2 to sat of 92% check electrolytes monitor BP respiratory treatment. Subjective ROS Limited/Unobtainable: No Constitutional: Reports: no symptoms HEENT: Repors: no symptoms Respiratory: Reports: no symptoms Allergies: Coded Allergies: No Known Allergies (Unverified , 04/20/17) Objective Last 24 Hour Vital Signs Date Time Temp Pulse Resp B/P (MAP) Pulse Ox O2 Delivery O2 Flow Rate FiO2 06/29/17 12:00 97.3 116 18 149/91 98 Room Air 97.3 06/29/17 11:37 117 06/29/17 09:01 148/80 06/29/17 09:01 148/80 06/29/17 08:00 98.2 115 19 148/80 93 Room Air 98.2 06/29/17 07:28 127 06/29/17 04:00 111 06/29/17 04:00 97.7 111 22 150/85 98 Room Air 97.7 06/29/17 00:00 98 06/29/17 00:00 97.7 116 21 151/78 98 Room Air 97.7 06/28/17 20:59 157/93 06/28/17 20:00 97.3 114 21 157/93 96 Room Air 97.3 06/28/17 20:00 114 06/28/17 18:15 82 06/28/17 16:00 97.6 111 18 132/66 96 Room Air 97.6 06/28/17 14:42 Simple Mask Intake and Output 06/28/17 06/29/17 19:00 07:00 Intake Total 400 ml Output Total 2800 ml Balance -2400 ml Intake Oral 400 ml Output Hemodialysis UF 2800 ml # Voids 3 # Bowel Movements 1 General Appearance: WD/WN HEENT: normocephalic Respiratory/Chest: chest wall non-tender Breasts: no masses Cardiovascular: normal peripheral pulses Abdomen: normal bowel sounds, soft, non tender Genitourinary: normal external genitalia Extremities: no cyanosis Skin: no lesions Neurologic/Psychiatric: wellness instructor II-XII grossly normal Microbiology Date/Time Source Procedure Growth Status 06/27/17 21:30 Blood Blood Culture - Preliminary NO GROWTH AFTER 24 HOURS Resulted 06/27/17 21:30 Blood Blood Culture - Preliminary NO GROWTH AFTER 24 HOURS Resulted Laboratory Tests 06/29/17 07:35: White Blood Count 4.3L, Red Blood Count 3.18L, Hemoglobin 10.9L, Hematocrit 31.8L, Mean Corpuscular Volume 100H, Mean Corpuscular Hemoglobin 34.3H, Mean Corpuscular Hemoglobin Concent 34.2, Red Cell Distribution Width 15.0H, Platelet Count 156, Mean Platelet Volume 7.1, Neutrophils (%) (Auto) 68.0, Lymphocytes (%) (Auto) 16.0L, Monocytes (%) (Auto) 10.5H, Eosinophils (%) (Auto ) 4.4H, Basophils (%) (Auto) 1.1, Sodium Level 139, Potassium Level 4.3, Chloride Level 100, Carbon Dioxide Level 26, Anion Gap 13, Blood Urea Nitrogen 57H, Creatinine 9.7H, Estimat Glomerular Filtration Rate , Glucose Level 98, Calcium Level 9.5, Phosphorus Level 7.2H, Troponin I 0.109H, Albumin 3.1L Current Medications Medications (Trade) Dose Ordered Sig/Ladarius Route PRN Reason Start Time Stop Time Status Last Admin Dose Admin Acetaminophen (Tylenol) 650 mg Q4H PRN ORAL Fever 06/28/17 07:00 07/28/17 06:59 Albuterol/ Ipratropium (Albuterol/ Ipratropium) 3 ml EVERY 4 HOURS PRN HHN Shortness of Breath 06/28/17 07:00 07/03/17 06:59 Aspirin (Ecotrin) 81 mg DAILY ORAL 06/28/17 09:00 07/28/17 08:59 06/29/17 09:01 Atorvastatin Calcium (Lipitor) 10 mg BEDTIME ORAL 06/28/17 21:00 07/28/17 20:59 Dextrose (Dextrose 50%) 25 ml STAT PRN IV Hypoglycemia BS 60-69 06/28/17 07:00 07/28/17 06:59 Dextrose (Dextrose 50%) 50 ml STAT PRN IV Hypoglycemia BS<60 06/28/17 08:15 07/28/17 08:14 Heparin Sodium (Porcine) (Heparin 5000 units/ml) 5,000 units EVERY 12 HOURS SUBQ 06/28/17 09:00 07/28/17 08:59 06/29/17 09:03 Hydralazine HCl (Apresoline) 10 mg QID ORAL 06/28/17 09:00 07/28/17 08:59 06/29/17 09:01 Lisinopril (Prinivil) 20 mg BID ORAL 06/28/17 09:00 07/28/17 08:59 06/29/17 09:01 Lorazepam (Ativan) 0.5 mg Q6H PRN ORAL For Anxiety 06/28/17 04:00 07/05/17 03:59 Ondansetron HCl (Zofran) 4 mg Q6H PRN IVP Nausea & Vomiting 06/28/17 07:00 07/28/17 06:59 Polyethylene Glycol (Miralax) 17 gm DAILYPRN PRN ORAL Constipation 06/28/17 07:00 07/28/17 06:59 Sertraline HCl (Zoloft) 25 mg DAILY ORAL 06/28/17 09:00 07/28/17 08:59 06/29/17 09:01 Sevelamer Carbonate (Renvela) 800 mg THREE TIMES A DAY ORAL 06/28/17 09:00 07/28/17 08:59 06/29/17 09:01 Temazepam (Restoril) 15 mg HSPRN PRN ORAL Insomnia 06/28/17 07:00 07/05/17 06:59 Deshaun Jiang MD Jun 29, 2017 13:02
--- NOTE | 2017-06-29 14:12 | General Progress Note ---
Assessment/Plan Problem List: (1) ESRD (end stage renal disease) ICD Codes: N18.6 - End stage renal disease SNOMED: 30012681 (2) Dyspnea ICD Codes: R06.00 - Dyspnea, unspecified SNOMED: 776726896 (3) Respiratory distress ICD Codes: R06.03 - Acute respiratory distress SNOMED: 036277074 (4) Anemia ICD Codes: D64.9 - Anemia, unspecified SNOMED: 581833772 (5) HTN (hypertension) ICD Codes: I10 - Essential (primary) hypertension SNOMED: 09110244 Status: unchanged Assessment/Plan ot pt diet 02 pulm tx prn dialysis cbc bmp am Subjective Constitutional: Reports: weakness Respiratory: Reports: shortness of breath Allergies: Coded Allergies: No Known Allergies (Unverified , 04/20/17) All Systems: reviewed and negative except above Objective Last 24 Hour Vital Signs Date Time Temp Pulse Resp B/P (MAP) Pulse Ox O2 Delivery O2 Flow Rate FiO2 06/29/17 13:48 149/91 06/29/17 12:00 97.3 116 18 149/91 98 Room Air 97.3 06/29/17 11:37 117 06/29/17 09:01 148/80 06/29/17 09:01 148/80 06/29/17 08:00 98.2 115 19 148/80 93 Room Air 98.2 06/29/17 07:28 127 06/29/17 04:00 111 06/29/17 04:00 97.7 111 22 150/85 98 Room Air 97.7 06/29/17 00:00 98 06/29/17 00:00 97.7 116 21 151/78 98 Room Air 97.7 06/28/17 20:59 157/93 06/28/17 20:00 97.3 114 21 157/93 96 Room Air 97.3 06/28/17 20:00 114 06/28/17 18:15 82 06/28/17 16:00 97.6 111 18 132/66 96 Room Air 97.6 06/28/17 14:42 Simple Mask Intake and Output 06/28/17 06/29/17 19:00 07:00 Intake Total 400 ml Output Total 2800 ml Balance -2400 ml Intake Oral 400 ml Output Hemodialysis UF 2800 ml # Voids 3 # Bowel Movements 1 Laboratory Tests 06/29/17 07:35: White Blood Count 4.3L, Red Blood Count 3.18L, Hemoglobin 10.9L, Hematocrit 31.8L, Mean Corpuscular Volume 100H, Mean Corpuscular Hemoglobin 34.3H, Mean Corpuscular Hemoglobin Concent 34.2, Red Cell Distribution Width 15.0H, Platelet Count 156, Mean Platelet Volume 7.1, Neutrophils (%) (Auto) 68.0, Lymphocytes (%) (Auto) 16.0L, Monocytes (%) (Auto) 10.5H, Eosinophils (%) (Auto ) 4.4H, Basophils (%) (Auto) 1.1, Sodium Level 139, Potassium Level 4.3, Chloride Level 100, Carbon Dioxide Level 26, Anion Gap 13, Blood Urea Nitrogen 57H, Creatinine 9.7H, Estimat Glomerular Filtration Rate , Glucose Level 98, Calcium Level 9.5, Phosphorus Level 7.2H, Troponin I 0.109H, Albumin 3.1L Height (Feet): 5 Height (Inches): 2.00 Weight (Pounds): 162 General Appearance: alert EENT: normal ENT inspection Neck: normal alignment Cardiovascular: normal peripheral pulses, normal rate, regular rhythm Respiratory/Chest: chest wall non-tender, lungs clear, normal breath sounds Abdomen: normal bowel sounds, non tender, soft Extremities: normal inspection Edema: no edema noted Arm (L), no edema noted Arm (R), no edema noted Leg (L), no edema noted Leg (R), no edema noted Pedal (L), no edema noted Pedal (R), no edema noted Generalized Neurologic: motor weakness Skin: normal pigmentation, warm/dry ROSA NEIL Jun 29, 2017 14:12
--- NOTE | 2017-06-29 14:53 | Cardiology Report ---
APPROVED REPORT EXAM: Two-dimensional and M-mode echocardiogram with Doppler and color Doppler. INDICATION Hypertension/HCVD Technically difficult study due to pts position and sensitivity to scan probe. M-mode measurements of left ventricle not obtainable due to cardiac position (angle) Mild left ventricular enlargement by 2-D. Global left ventricular hypokinesis to extent visualized. Left ventricular ejection fraction estimated to be 35-40 %. Study quality precludes accurate assessment of regional wall motion. Mild left ventricular hypertrophy by 2-D. No evidence of pericardial effusion. Severe left atrial enlargement. Right atrial size at upper limits of normal. Right ventricular chamber size is within normal limits. Aortic valve calcification with decreased cusp excursion c/w mild aortic stenosis. Moderately thickened mitral valve leaflets with normal excursion. Mitral annulus and aortic root calcification. Pulmonic valve not well visualized. Normal tricuspid valve structure. IVC at normal size with physiologic collapse. A color flow and spectral Doppler study was performed and revealed: Mild aortic regurgitation. Peak aortic valve gradient of 17 mm Hg and a mean of 8 mmHg. Aortic valve area 1.7 cm2 calculated by continuity equation. Severe mitral regurgitation. Mitral inflow velocities nondiagnostic Mild tricuspid regurgitation. Tricuspid systolic velocities suggests peak right ventricular systolic pressure of 48 mmHg, consistent with moderate pulmonary hypertension. Pulmonic regurgitation present.
--- NOTE | 2017-06-29 15:15 | Nephrology Progress Note ---
Assessment/Plan Assessment 1. End-stage renal disease. 2. Fluid overload. 3. Hyperkalemia. 4. Anemia of chronic kidney disease. 5. Renal osteodystrophy. 6. Noncompliant with treatment. Plan plan dialysis in am continue epogen continue renagel low k diet Subjective Constitutional: Reports: no symptoms HEENT: Reports: no symptoms Genitourinary: Reports: no symptoms Neurologic/Psychiatric: Reports: no symptoms Subjective had dialysis only for 2 hours refused longer treatment Objective Objective Last 24 Hour Vital Signs Date Time Temp Pulse Resp B/P (MAP) Pulse Ox O2 Delivery O2 Flow Rate FiO2 06/29/17 13:48 149/91 06/29/17 12:00 97.3 116 18 149/91 98 Room Air 97.3 06/29/17 11:37 117 06/29/17 09:01 148/80 06/29/17 09:01 148/80 06/29/17 08:00 98.2 115 19 148/80 93 Room Air 98.2 06/29/17 07:28 127 06/29/17 04:00 111 06/29/17 04:00 97.7 111 22 150/85 98 Room Air 97.7 06/29/17 00:00 98 06/29/17 00:00 97.7 116 21 151/78 98 Room Air 97.7 06/28/17 20:59 157/93 06/28/17 20:00 97.3 114 21 157/93 96 Room Air 97.3 06/28/17 20:00 114 06/28/17 18:15 82 06/28/17 16:00 97.6 111 18 132/66 96 Room Air 97.6 Intake and Output 06/28/17 06/29/17 19:00 07:00 Intake Total 400 ml Output Total 2800 ml Balance -2400 ml Intake Oral 400 ml Output Hemodialysis UF 2800 ml # Voids 3 # Bowel Movements 1 Laboratory Tests 06/29/17 07:35: White Blood Count 4.3L, Red Blood Count 3.18L, Hemoglobin 10.9L, Hematocrit 31.8L, Mean Corpuscular Volume 100H, Mean Corpuscular Hemoglobin 34.3H, Mean Corpuscular Hemoglobin Concent 34.2, Red Cell Distribution Width 15.0H, Platelet Count 156, Mean Platelet Volume 7.1, Neutrophils (%) (Auto) 68.0, Lymphocytes (%) (Auto) 16.0L, Monocytes (%) (Auto) 10.5H, Eosinophils (%) (Auto ) 4.4H, Basophils (%) (Auto) 1.1, Sodium Level 139, Potassium Level 4.3, Chloride Level 100, Carbon Dioxide Level 26, Anion Gap 13, Blood Urea Nitrogen 57H, Creatinine 9.7H, Estimat Glomerular Filtration Rate , Glucose Level 98, Calcium Level 9.5, Phosphorus Level 7.2H, Troponin I 0.109H, Albumin 3.1L Height (Feet): 5 Height (Inches): 2.00 Weight (Pounds): 162 Objective HEAD AND NECK: No JVP. No LAD. No thyromegaly. Extraocular movement intact. Pupils are reactive to light and accommodation. LUNGS: Clear to auscultation. CARDIAC: Regular rate and rhythm. S1, S2. No murmur. No rub. ABDOMEN: Soft, nontender, and nondistended. EXTREMITIES: A 3+ edema. No clubbing. No cyanosis. SCAR COOLEY Jun 29, 2017 15:15
[2017-06-29 16:00] VITALS: BP 147/87
[2017-06-29 20:00] VITALS: BP 144/90
--- NOTE | 2017-06-29 20:32 | Cardiology Progress Note ---
Assessment/Plan Assessment/Plan 1.Acute on chronic heart failure with preserved ejection fraction, continue HD for preload reduction, ? diuretic use, afterload reduction. 2. Severe aortic regurgitation, symptomatic with dyspnea and e/o heart failure, she requires to have AVR done. Continue hydralazine and lisinopril. 3. Severe MR, based in internal dimension in systole and EF, she requires to have MVR as well, continue HD for decreasing preload. 4. Slight elevation of trop is due to renal failure. Subjective Subjective Sinus tachycardia at 114. Objective Last 24 Hour Vital Signs Date Time Temp Pulse Resp B/P (MAP) Pulse Ox O2 Delivery O2 Flow Rate FiO2 06/29/17 18:12 147/87 06/29/17 18:12 147/87 06/29/17 16:00 97.5 115 19 147/87 95 Room Air 97.5 06/29/17 15:20 121 06/29/17 13:48 149/91 06/29/17 12:00 97.3 116 18 149/91 98 Room Air 97.3 06/29/17 11:37 117 06/29/17 09:01 148/80 06/29/17 09:01 148/80 06/29/17 08:00 98.2 115 19 148/80 93 Room Air 98.2 06/29/17 07:28 127 06/29/17 04:00 111 06/29/17 04:00 97.7 111 22 150/85 98 Room Air 97.7 06/29/17 00:00 98 06/29/17 00:00 97.7 116 21 151/78 98 Room Air 97.7 06/28/17 20:59 157/93 Intake and Output 06/28/17 06/29/17 19:00 07:00 Intake Total 400 ml Output Total 2800 ml Balance -2400 ml Intake Oral 400 ml Output Hemodialysis UF 2800 ml # Voids 3 # Bowel Movements 1 2D Echo: EF45%,LVE,Global LV HK,SevMR/AR(poorly tolerated hemodyn), Pseudonormal LVD Laboratory Tests Test 06/29/17 07:35 White Blood Count 4.3 K/UL (4.8-10.8) L Red Blood Count 3.18 M/UL (4.20-5.40) L Hemoglobin 10.9 G/DL (12.0-16.0) L Hematocrit 31.8 % (37.0-47.0) L Mean Corpuscular Volume 100 FL (80-99) H Mean Corpuscular Hemoglobin 34.3 PG (27.0-31.0) H Mean Corpuscular Hemoglobin Concent 34.2 G/DL (32.0-36.0) Red Cell Distribution Width 15.0 % (11.6-14.8) H Platelet Count 156 K/UL (150-450) Mean Platelet Volume 7.1 FL (6.5-10.1) Neutrophils (%) (Auto) 68.0 % (45.0-75.0) Lymphocytes (%) (Auto) 16.0 % (20.0-45.0) L Monocytes (%) (Auto) 10.5 % (1.0-10.0) H Eosinophils (%) (Auto) 4.4 % (0.0-3.0) H Basophils (%) (Auto) 1.1 % (0.0-2.0) Sodium Level 139 MMOL/L (136-145) Potassium Level 4.3 MMOL/L (3.5-5.1) Chloride Level 100 MMOL/L (98-107) Carbon Dioxide Level 26 MMOL/L (21-32) Anion Gap 13 mmol/L (5-15) Blood Urea Nitrogen 57 mg/dL (7-18) H Creatinine 9.7 MG/DL (0.55-1.30) H Estimat Glomerular Filtration Rate mL/min (>60) Glucose Level 98 MG/DL (74-106) Calcium Level 9.5 MG/DL (8.5-10.1) Phosphorus Level 7.2 MG/DL (2.5-4.9) H Troponin I 0.109 ng/mL (0.000-0.056) Albumin 3.1 G/DL (3.4-5.0) L Microbiology Date/Time Source Procedure Growth Status 06/27/17 21:30 Blood Blood Culture - Preliminary NO GROWTH AFTER 24 HOURS Resulted 06/27/17 21:30 Blood Blood Culture - Preliminary NO GROWTH AFTER 24 HOURS Resulted Objective HEENT: PERRLA, EOMI, Anicteric, + pallor NECK: JVP cannot be assessed, B/L bruit CARDIOVASCULAR: Normal S1S2, tachycardic, 2/6 MSM at B, 3/6 EDM at 2nd ICS LUNGS: Poor air exchange o/w clear ABDOMEN: Bowel sounds positive. Nontender, nondistended. EXTREMITIES: No cyanosis, clubbing, or edema. NEUROLOGIC: Move all extremities JAKE DOE Jun 29, 2017 20:32
--- NOTE | 2017-06-29 23:15 | Consultation ---
DATE OF CONSULTATION: 06/29/2017 CARDIOLOGY CONSULTATION CONSULTING PHYSICIAN: Duc Hawk M.D. REFERRING PHYSICIAN: Mateusz Peters D.O. REASON FOR CONSULTATION: Management of acute heart failure. 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 In the office, the patient was given some extra combination of ARB and thiazide diuretics; however, the efficacy of those medication whether the patient benefited from this regimen cannot be determined. The patient is on hemodialysis 3 days a week. We have discussed in the past the fact that she requires a detailed evaluation of aortic and mitral valve and it seems to me that the patient requires to have both mitral and aortic valve replacement due to severe regurgitation and the fact that she is very symptomatic. She also meets the criteria for aortic valve regurgitation based on the echocardiographic parameters that we obtained in the last admission in this facility. PAST MEDICAL HISTORY: 1. Severe aortic regurgitation with some acute component, significant for poorly tolerated hemodynamically. 2. History of severe mitral regurgitation. 3. Heart failure with preserved ejection fraction with EF of approximately 45%. 4. History of hypertension. 5. History of end-stage renal disease on hemodialysis on Tuesdays, , and Saturdays. 6. History of cerebrovascular accident. MEDICATIONS: List of medications including acetaminophen 650 mg q.4 h. p.r.n. fever, headache and mild pain, aspirin 81 mg p.o. daily, Lipitor 10 mg p.o. at bedtime, Epogen 5000 units subcutaneous 3 times a week, heparin sodium 5000 units subcutaneous q.12 h., hydralazine 1 tablet p.o. q.i.d., DuoNeb 3 mL HHN p.r.n. q.4 h. shortness of breath, lisinopril 20 mg p.o. twice daily, Ativan 1 mg daily p.r.n. anxiety, sertraline 25 mg p.o. daily, and Renvela 800 mg 3 times daily. ALLERGIES: No known drug allergies. SOCIAL HISTORY: Denies any tobacco, alcohol, or illicit drug use. She lives at home, surrounded by a very supportive family. REVIEW OF SYSTEMS: HEENT: Denies any headache, diplopia, or blurred vision. CONSTITUTIONAL: Denies any fever, chills, night sweats or weight loss. CARDIOVASCULAR: Complains of shortness of breath, but no chest pain. She has 3+ orthopnea. She has NYHA class 3. Complaints of bilateral lower extremity edema as well. PULMONARY: Denies any cough, hemoptysis, or wheezing. GASTROINTESTINAL: Denies any nausea, vomiting, diarrhea, constipation, abdominal pain, or GI bleed. GENITOURINARY: On hemodialysis 3 days a week. Continues to urinate. NEUROLOGY: Denies any motor dysfunction or sensory deficit. There is some decreased motor function in the left upper arm due to prior CVA. PHYSICAL EXAMINATION: GENERAL: The patient is a very unfortunate 71-year-old female in [id number] respiratory distress. VITAL SIGNS: At the time of arrival to the hospital, blood pressure was 172/108, respirations 24, pulse of 104, temperature 97.5 degrees Fahrenheit, and O2 saturation 100% on room air. HEENT: Atraumatic and normocephalic. ENT, pupils are equal, round, and reactive to light and accommodation. Extraocular muscles intact. NECK: JVP cannot be assessed due to the presence of [id number]. Bilateral carotid bruit. CARDIOVASCULAR: Normal S1 and S2. Tachycardic. There is 2/6 mid systolic murmur at the left sternal border. There is 2/6 early diastolic murmur at the left second intercostal space and 2/6 holosystolic murmur at the apex. LUNGS: Diminished breath sounds in both bases with some scattered crackles. ABDOMEN: Soft, nontender, and nondistended. No hepatosplenomegaly. Positive bowel sounds. EXTREMITIES: There is 1+ edema bilaterally. There is decreased motor strength in the left extremity. LABORATORY AND DIAGNOSTIC DATA: Sodium was 139, potassium is 5.7, chloride 101, bicarbonate 24, BUN of 73, creatinine 11.1, and glucose is 94. Calcium is 10.0. Troponin I was 0.078 and proBNP was 34,690. WBC was 6.6, hemoglobin of 10.7, hematocrit 32.7 and platelet count is 192. Chest x-ray showed pulmonary interstitial congestion consistent with congestive heart failure as well as cardiomegaly and presence of PermCath, pulmonary vascular congestion. A 2D echocardiography shows mild left ventricular enlargement. LVEF approximately 40% to 45%, global left ventricular hypokinesia, mild left ventricular hypertrophy, severe left atrial enlargement, severe aortic regurgitation, severe mitral regurgitation, and right ventricular systolic pressure measured at 48 mmHg. A 12-leadelectrocardiogram was significant for sinus tachycardia rate of 109 with LVH and repolarization abnormalities and possible septal wall infarct. ASSESSMENT AND PLAN: The patient is a very unfortunate 71-year-old female, who was seen in Cardiology consultation at request of Dr. Peters. 1. Acute on chronic heart failure with preserved ejection fraction, left ventricular ejection fraction approximately 40% to 45%. We will try to continue with diuretic use as she continues to urinate. The patient requires to have more aggressive preload reduction during dialysis. Also, we will continue with afterload reduction including use of hydralazine and SHAUN inhibitors. 2. Severe aortic regurgitation, symptomatic with diminished left ventricular ejection fraction. We have discussed aortic valve replacement. In the meantime, we will continue with afterload therapy. 3. Severe mitral regurgitation. She also is a candidate for mitral valve replacement. In the meantime, we will continue with the preload and afterload reduction. 4. Slight elevation of troponin I level likely due to myocarditis/cardiomyopathy associated with severe valvular regurgitation rather than acute coronary syndrome. 5. This elevation could be explained by her underlying end-stage renal disease. I would like to thank, Dr. Peters, for the courtesy of this consultation. Duc Hawk M.D. DR: TREVOR JOB#: [id number] CC:
[2017-06-30] VITALS: BP 150/89
[2017-06-30 03:52] VITALS: BP 141/87
[2017-06-30 08:00] VITALS: BP 160/86
--- NOTE | 2017-06-30 08:22 | Nephrology Progress Note ---
Assessment/Plan Assessment 1. End-stage renal disease. 2. Fluid overload. 3. Hyperkalemia. 4. Anemia of chronic kidney disease. 5. Renal osteodystrophy. 6. Noncompliant with treatment. Plan plan dialysis in today continue epogen continue renagel low k diet Subjective Constitutional: Reports: no symptoms HEENT: Reports: no symptoms Genitourinary: Reports: no symptoms Neurologic/Psychiatric: Reports: no symptoms Subjective alert and awake no complaints Objective Objective Last 24 Hour Vital Signs Date Time Temp Pulse Resp B/P (MAP) Pulse Ox O2 Delivery O2 Flow Rate FiO2 06/30/17 03:52 97.0 96 16 141/87 95 Room Air 97.0 06/30/17 03:47 121 06/30/17 00:00 97.5 116 16 150/89 95 97.5 06/29/17 23:51 117 06/29/17 21:59 142/91 06/29/17 20:00 97.0 119 16 144/90 94 97.0 06/29/17 19:53 115 06/29/17 18:12 147/87 06/29/17 18:12 147/87 06/29/17 16:00 97.5 115 19 147/87 95 Room Air 97.5 06/29/17 15:20 121 06/29/17 13:48 149/91 06/29/17 12:00 97.3 116 18 149/91 98 Room Air 97.3 06/29/17 11:37 117 06/29/17 09:01 148/80 06/29/17 09:01 148/80 Intake and Output 06/29/17 06/30/17 19:00 07:00 Intake Total 360 ml Output Total 400 ml Balance 360 ml -400 ml Intake Oral 360 ml Output Urine Total 400 ml # Bowel Movements 2 Height (Feet): 5 Height (Inches): 2.00 Weight (Pounds): 162 Objective HEAD AND NECK: No JVP. No LAD. No thyromegaly. Extraocular movement intact. Pupils are reactive to light and accommodation. LUNGS: Clear to auscultation. CARDIAC: Regular rate and rhythm. S1, S2. No murmur. No rub. ABDOMEN: Soft, nontender, and nondistended. EXTREMITIES: A 3+ edema. No clubbing. No cyanosis. SCAR COOLEY Jun 30, 2017 08:22
[2017-06-30] MEDS: Heparin 5000 units/ml inj SUBQ SCH ×2 (09:00→21:00)
[2017-06-30] MEDS: Sertraline 50mg tab ORAL SCH (09:00)
[2017-06-30] MEDS: Lisinopril 20mg tab ORAL SCH ×2 (09:00→18:00)
[2017-06-30] MEDS: Aspirin EC 81mg tab ORAL SCH (09:17)
[2017-06-30] MEDS: HydrALAZINE 10mg Tab ORAL SCH ×4 (09:17→22:04)
[2017-06-30 09:52] LABS: BASOPHILS % (AUTO) 1.6 % (0.0-2.0); EOSINOPHILS % (AUTO) 3.7 % (0.0-3.0); HEMATOCRIT 31.2 % (37.0-47.0); HEMOGLOBIN 10.2 G/DL (12.0-16.0); LYMPHOCYTES % (AUTO) 14.1 % (20.0-45.0); MEAN CORPUSCULAR VOLUME 101 FL (80-99); MONOCYTES % (AUTO) 7.6 % (1.0-10.0); NEUTROPHILS % (AUTO) 73.1 % (45.0-75.0); PLATELET COUNT 147 K/UL (150-450); RED BLOOD COUNT 3.11 M/UL (4.20-5.40); RED CELL DISTRIBUTION WIDTH 14.9 % (11.6-14.8)
[2017-06-30 10:13] LABS: ANION GAP 15 mmol/L (5-15); BLOOD UREA NITROGEN 73 mg/dL (7-18); CALCIUM 9.7 MG/DL (8.5-10.1); CARBON DIOXIDE 26 MMOL/L (21-32); CHLORIDE 101 MMOL/L (98-107); CREATININE 11.8 MG/DL (0.55-1.30); POTASSIUM 4.3 MMOL/L (3.5-5.1); SODIUM 142 MMOL/L (136-145)
--- NOTE | 2017-06-30 11:20 | Pulmonology Progress Note ---
Assessment/Plan Problems: (1) Acute respiratory failure (2) Dyspnea (3) Anemia (4) Hyperkalemia (5) HTN (hypertension) Assessment/Plan received HD yesterday less short of breath titrate fio2 to sat of 92% check electrolytes monitor BP respiratory treatment. creatinine increasing f/u cardiology recommendations echo showing EF of 25% Subjective ROS Limited/Unobtainable: No Constitutional: Reports: no symptoms HEENT: Repors: no symptoms Respiratory: Reports: no symptoms Allergies: Coded Allergies: No Known Allergies (Unverified , 04/20/17) Objective Last 24 Hour Vital Signs Date Time Temp Pulse Resp B/P (MAP) Pulse Ox O2 Delivery O2 Flow Rate FiO2 06/30/17 09:17 160/86 06/30/17 09:00 160/86 06/30/17 08:00 122 06/30/17 08:00 98.2 115 22 160/86 96 Room Air 98.2 06/30/17 03:52 97.0 96 16 141/87 95 Room Air 97.0 06/30/17 03:47 121 06/30/17 00:00 97.5 116 16 150/89 95 97.5 06/29/17 23:51 117 06/29/17 21:59 142/91 06/29/17 20:00 97.0 119 16 144/90 94 97.0 06/29/17 19:53 115 06/29/17 18:12 147/87 06/29/17 18:12 147/87 06/29/17 16:00 97.5 115 19 147/87 95 Room Air 97.5 06/29/17 15:20 121 06/29/17 13:48 149/91 06/29/17 12:00 97.3 116 18 149/91 98 Room Air 97.3 06/29/17 11:37 117 Intake and Output 06/29/17 06/30/17 19:00 07:00 Intake Total 360 ml Output Total 400 ml Balance 360 ml -400 ml Intake Oral 360 ml Output Urine Total 400 ml # Bowel Movements 2 General Appearance: WD/WN HEENT: normocephalic Respiratory/Chest: chest wall non-tender, lungs clear Cardiovascular: normal peripheral pulses Abdomen: normal bowel sounds Genitourinary: normal external genitalia Neurologic/Psychiatric: garden worker II-XII grossly normal Microbiology Date/Time Source Procedure Growth Status 06/27/17 21:30 Blood Blood Culture - Preliminary NO GROWTH AFTER 48 HOURS Resulted 06/27/17 21:30 Blood Blood Culture - Preliminary NO GROWTH AFTER 48 HOURS Resulted 06/27/17 22:41 Nasal Nares MRSA Culture - Final NO METHICILLIN RESISTANT STAPH AUREUS... Complete 06/27/17 22:41 Rectum VRE Culture - Final Enterococcus Faecalis - Vre Complete Laboratory Tests 06/30/17 04:00: White Blood Count 4.0L, Red Blood Count 3.11L, Hemoglobin 10.2L, Hematocrit 31.2L, Mean Corpuscular Volume 101H, Mean Corpuscular Hemoglobin 32.9H, Mean Corpuscular Hemoglobin Concent 32.8, Red Cell Distribution Width 14.9H, Platelet Count 147L, Mean Platelet Volume 6.8, Neutrophils (%) (Auto) 73.1, Lymphocytes (%) (Auto) 14.1L, Monocytes (%) (Auto) 7.6, Eosinophils (%) (Auto) 3.7H, Basophils (%) (Auto) 1.6, Sodium Level 142, Potassium Level 4.3, Chloride Level 101, Carbon Dioxide Level 26, Anion Gap 15, Blood Urea Nitrogen 73H, Creatinine 11.8H, Estimat Glomerular Filtration Rate , Glucose Level 153H, Calcium Level 9.7 06/30/17 09:10: Magnesium Level [Pending] 06/30/17 09:57: Troponin I 0.125H Current Medications Medications (Trade) Dose Ordered Sig/Ladarius Route PRN Reason Start Time Stop Time Status Last Admin Dose Admin Acetaminophen (Tylenol) 650 mg Q4H PRN ORAL Fever 06/28/17 07:00 07/28/17 06:59 Albuterol/ Ipratropium (Albuterol/ Ipratropium) 3 ml EVERY 4 HOURS PRN HHN Shortness of Breath 06/28/17 07:00 07/03/17 06:59 Aspirin (Ecotrin) 81 mg DAILY ORAL 06/28/17 09:00 07/28/17 08:59 06/30/17 09:17 Atorvastatin Calcium (Lipitor) 10 mg BEDTIME ORAL 06/28/17 21:00 07/28/17 20:59 Dextrose (Dextrose 50%) 25 ml STAT PRN IV Hypoglycemia BS 60-69 06/28/17 07:00 07/28/17 06:59 Dextrose (Dextrose 50%) 50 ml STAT PRN IV Hypoglycemia BS<60 06/28/17 08:15 07/28/17 08:14 Heparin Sodium (Porcine) (Heparin 5000 units/ml) 5,000 units EVERY 12 HOURS SUBQ 06/28/17 09:00 07/28/17 08:59 06/29/17 09:03 Hydralazine HCl (Apresoline) 10 mg QID ORAL 06/28/17 09:00 07/28/17 08:59 06/30/17 09:17 Lisinopril (Prinivil) 20 mg BID ORAL 06/28/17 09:00 07/28/17 08:59 06/29/17 18:12 Lorazepam (Ativan) 0.5 mg Q6H PRN ORAL For Anxiety 06/28/17 04:00 07/05/17 03:59 Ondansetron HCl (Zofran) 4 mg Q6H PRN IVP Nausea & Vomiting 06/28/17 07:00 07/28/17 06:59 06/30/17 04:54 Polyethylene Glycol (Miralax) 17 gm DAILYPRN PRN ORAL Constipation 06/28/17 07:00 07/28/17 06:59 Sertraline HCl (Zoloft) 25 mg DAILY ORAL 06/28/17 09:00 07/28/17 08:59 06/29/17 09:01 Sevelamer Carbonate (Renvela) 800 mg THREE TIMES A DAY ORAL 06/28/17 09:00 07/28/17 08:59 06/29/17 18:12 Temazepam (Restoril) 15 mg HSPRN PRN ORAL Insomnia 06/28/17 07:00 07/05/17 06:59 Deshaun Jiang MD Jun 30, 2017 11:20
[2017-06-30 11:39] VITALS: BP 140/89
--- NOTE | 2017-06-30 15:00 | Progress Note ---
DATE: 06/30/2017 SUBJECTIVE: The patient is a 71-year-old female patient with dyspnea. She continues to be confused and disorganized. She has mood labile. She has got no logical plan for her own self-care. Feelings of helpless over some mood thought loss of interest in activity and she does have some confusion. That is why, her attending has requested daily psychiatric consultation. She also has increased depression and anxiety as well. MENTAL STATUS EXAMINATION: This is a 71-year-old female. Appearance is disheveled. Attitude, irritable and agitated. Affect, guarded and restricted. Intellect poor. Mood depressed, anxious. Motor activity, psychomotor agitation. Attention span is poor. Orientation x2. Speech is low volume and slurred. Thought process, disorganized and illogical. Thought content, some paranoia. Insight and judgment is poor. Denies suicidal or homicidal thoughts. DIAGNOSIS: Major depressive disorder, mild, recurrent, without psychotic features. PLAN: Treat her with Zoloft 25 mg daily. An 18 to 20 minutes of supportive therapy is provided. Chart reviewed. Discussed with staff. Seen and assessed at her room. Parish Fajardo M.D. DR: GILLIAN JOB#: [id number] CC:
--- NOTE | 2017-06-30 15:01 | General Progress Note ---
Assessment/Plan Problem List: (1) ESRD (end stage renal disease) ICD Codes: N18.6 - End stage renal disease SNOMED: 51640196 (2) Dyspnea ICD Codes: R06.00 - Dyspnea, unspecified SNOMED: 860354262 (3) Respiratory distress ICD Codes: R06.03 - Acute respiratory distress SNOMED: 888352254 (4) Anemia ICD Codes: D64.9 - Anemia, unspecified SNOMED: 688929921 (5) HTN (hypertension) ICD Codes: I10 - Essential (primary) hypertension SNOMED: 92958515 (6) Pancytopenia ICD Codes: D61.818 - Other pancytopenia SNOMED: 600821033 Status: stable, progressing, tolerating diet Assessment/Plan ot pt diet 02 pulm tx prn dialysis cbc bmp am heme eval dc plan Subjective Constitutional: Reports: malaise Allergies: Coded Allergies: No Known Allergies (Unverified , 04/20/17) All Systems: reviewed and negative except above Subjective getting dialysis Objective Last 24 Hour Vital Signs Date Time Temp Pulse Resp B/P (MAP) Pulse Ox O2 Delivery O2 Flow Rate FiO2 06/30/17 13:00 140/89 06/30/17 11:39 98.1 105 20 140/89 99 Room Air 98.1 06/30/17 11:36 108 25 Room Air 21 06/30/17 09:17 160/86 06/30/17 09:00 160/86 06/30/17 08:00 122 06/30/17 08:00 98.2 115 22 160/86 96 Room Air 98.2 06/30/17 03:52 97.0 96 16 141/87 95 Room Air 97.0 06/30/17 03:47 121 06/30/17 00:00 97.5 116 16 150/89 95 97.5 06/29/17 23:51 117 06/29/17 21:59 142/91 06/29/17 20:00 97.0 119 16 144/90 94 97.0 06/29/17 19:53 115 06/29/17 18:12 147/87 06/29/17 18:12 147/87 06/29/17 16:00 97.5 115 19 147/87 95 Room Air 97.5 06/29/17 15:20 121 Intake and Output 06/29/17 06/30/17 18:59 06:59 Intake Total 360 ml Output Total 400 ml Balance 360 ml -400 ml Intake Oral 360 ml Output Urine Total 400 ml # Bowel Movements 2 Laboratory Tests 06/30/17 04:00: White Blood Count 4.0L, Red Blood Count 3.11L, Hemoglobin 10.2L, Hematocrit 31.2L, Mean Corpuscular Volume 101H, Mean Corpuscular Hemoglobin 32.9H, Mean Corpuscular Hemoglobin Concent 32.8, Red Cell Distribution Width 14.9H, Platelet Count 147L, Mean Platelet Volume 6.8, Neutrophils (%) (Auto) 73.1, Lymphocytes (%) (Auto) 14.1L, Monocytes (%) (Auto) 7.6, Eosinophils (%) (Auto) 3.7H, Basophils (%) (Auto) 1.6, Sodium Level 142, Potassium Level 4.3, Chloride Level 101, Carbon Dioxide Level 26, Anion Gap 15, Blood Urea Nitrogen 73H, Creatinine 11.8H, Estimat Glomerular Filtration Rate , Glucose Level 153H, Calcium Level 9.7 06/30/17 09:10: Magnesium Level 2.4 06/30/17 09:57: Troponin I 0.125H Height (Feet): 5 Height (Inches): 2.00 Weight (Pounds): 162 General Appearance: lethargic EENT: normal ENT inspection Neck: normal alignment Cardiovascular: normal peripheral pulses, normal rate, regular rhythm Respiratory/Chest: chest wall non-tender, lungs clear, normal breath sounds Abdomen: normal bowel sounds, non tender, soft Extremities: normal inspection Edema: no edema noted Arm (L), no edema noted Arm (R), no edema noted Leg (L), no edema noted Leg (R), no edema noted Pedal (L), no edema noted Pedal (R), no edema noted Generalized Neurologic: responsive, motor weakness Skin: normal pigmentation, warm/dry ROSA NEIL Jun 30, 2017 15:01
[2017-06-30 16:00] VITALS: BP 149/86
--- NOTE | 2017-06-30 16:49 | Cardiology Report ---
APPROVED REPORT EKG Measurement Heart [id number] [id number] Sinus tachycardia with occasional premature ventricular complexes and fusion complexes Left axis deviation Left ventricular hypertrophy with repolarization abnormality Cannot rule out Septal infarct, age undetermined Abnormal ECG
[2017-06-30 20:00] VITALS: BP 130/66
[2017-06-30] MEDS: Epogen (for ESRD on dialysis) SUBQ SCH ×3 (21:00→22:09)
--- NOTE | 2017-06-30 21:43 | Cardiology Progress Note ---
Assessment/Plan Assessment/Plan 1. Acute on chronic heart failure with preserved ejection fraction, continue HD for preload reduction, ? diuretic use, afterload reduction. Non-compliant with dialysis orders, insufficient fluid removal. 2. Severe aortic regurgitation, symptomatic with dyspnea and e/o heart failure, she requires to have AVR done. Continue hydralazine and lisinopril. 3. Severe MR, based in internal dimension in systole and EF, she requires to have MVR as well, continue HD for decreasing preload. 4. Slight elevation of trop is due to renal failure. Subjective Subjective Sinus rhythm at 71. Objective Last 24 Hour Vital Signs Date Time Temp Pulse Resp B/P (MAP) Pulse Ox O2 Delivery O2 Flow Rate FiO2 06/30/17 19:26 109 20 Room Air 21 06/30/17 18:39 149/86 06/30/17 18:38 97.9 06/30/17 17:23 Room Air 3.0 21 06/30/17 16:00 97.9 71 20 149/86 95 Room Air 97.9 06/30/17 16:00 83 06/30/17 13:00 140/89 06/30/17 12:00 89 06/30/17 11:39 98.1 105 20 140/89 99 Room Air 98.1 06/30/17 11:36 108 25 Room Air 21 06/30/17 11:30 Room Air 3.0 06/30/17 09:17 160/86 06/30/17 09:00 160/86 06/30/17 08:00 122 06/30/17 08:00 98.2 115 22 160/86 96 Room Air 98.2 06/30/17 03:52 97.0 96 16 141/87 95 Room Air 97.0 06/30/17 03:47 121 06/30/17 00:00 97.5 116 16 150/89 95 97.5 06/29/17 23:51 117 06/29/17 21:59 142/91 Intake and Output 06/29/17 06/30/17 19:00 07:00 Intake Total 360 ml Output Total 400 ml Balance 360 ml -400 ml Intake Oral 360 ml Output Urine Total 400 ml # Bowel Movements 2 2D Echo: EF45%,LVE,Global LV HK,SevMR/AR(poorly tolerated hemodyn), Pseudonormal LVD Laboratory Tests Test 06/30/17 04:00 06/30/17 09:10 06/30/17 09:57 White Blood Count 4.0 K/UL (4.8-10.8) L Red Blood Count 3.11 M/UL (4.20-5.40) L Hemoglobin 10.2 G/DL (12.0-16.0) L Hematocrit 31.2 % (37.0-47.0) L Mean Corpuscular Volume 101 FL (80-99) H Mean Corpuscular Hemoglobin 32.9 PG (27.0-31.0) H Mean Corpuscular Hemoglobin Concent 32.8 G/DL (32.0-36.0) Red Cell Distribution Width 14.9 % (11.6-14.8) H Platelet Count 147 K/UL (150-450) L Mean Platelet Volume 6.8 FL (6.5-10.1) Neutrophils (%) (Auto) 73.1 % (45.0-75.0) Lymphocytes (%) (Auto) 14.1 % (20.0-45.0) L Monocytes (%) (Auto) 7.6 % (1.0-10.0) Eosinophils (%) (Auto) 3.7 % (0.0-3.0) H Basophils (%) (Auto) 1.6 % (0.0-2.0) Sodium Level 142 MMOL/L (136-145) Potassium Level 4.3 MMOL/L (3.5-5.1) Chloride Level 101 MMOL/L (98-107) Carbon Dioxide Level 26 MMOL/L (21-32) Anion Gap 15 mmol/L (5-15) Blood Urea Nitrogen 73 mg/dL (7-18) H Creatinine 11.8 MG/DL (0.55-1.30) H Estimat Glomerular Filtration Rate mL/min (>60) Glucose Level 153 MG/DL (74-106) H Calcium Level 9.7 MG/DL (8.5-10.1) Magnesium Level 2.4 MG/DL (1.8-2.4) Troponin I 0.125 ng/mL (0.000-0.056) Microbiology Date/Time Source Procedure Growth Status 06/27/17 22:41 Nasal Nares MRSA Culture - Final NO METHICILLIN RESISTANT STAPH AUREUS... Complete 06/27/17 22:41 Rectum VRE Culture - Final Enterococcus Faecalis - Vre Complete Objective HEENT: PERRLA, EOMI, Anicteric, + pallor NECK: JVP cannot be assessed, B/L bruit CARDIOVASCULAR: Normal S1S2, tachycardic, 2/6 MSM at LSB, 3/6 EDM at 2nd ICS LUNGS: Poor air exchange o/w clear ABDOMEN: Bowel sounds positive. Nontender, nondistended. EXTREMITIES: No cyanosis, clubbing, or edema. NEUROLOGIC: Move all extremities JAKE DOE Jun 30, 2017 21:43
[2017-07-01] VITALS: BP 151/97
--- NOTE | 2017-07-01 01:15 | Consultation ---
DATE OF CONSULTATION: 06/30/2017 CONSULTING PHYSICIAN: Otto Mijares M.D. ADMITTING PHYSICIAN: Mateusz Peters D.O. REASON FOR CONSULTATION: Significant anemia. CURRENT COMPLAINT AND HISTORY OF PRESENT ILLNESS: Dear Dr. Mateusz Peters, Today, I had an opportunity to see one of your patients, Ms. Scarlet Murray, who as you well aware, 71-year-old delightful female with past medical history remarkable for end-stage renal disease, hemodialysis dependent. Apparently, the patient missed hemodialysis and became short of breath. The patient came to the emergency room at [facility]. During evaluation, it was found the patient developed significant anemia. My service was called to handle the issue of significant anemia. PAST MEDICAL HISTORY: 1. End-stage renal disease, hemodialysis dependent. 2. Anemia of kidney disease. 3. Anemia of chronic disease. 4. Dyspnea. 5. Elevated troponin. 6. Hypertension. 7. Edema. MEDICATIONS: 1. Atorvastatin. 2. Zoloft. 3. Aspirin. 4. Hydralazine. 5. Lisinopril. 6. Heparin subcutaneous. 7. Albuterol. 8. Zofran. 9. Tylenol. 10. MiraLAX. 11. Restoril. 12. lorazepam. ALLERGIES: NKDA. FAMILY HISTORY: Noncontributory. SOCIAL HISTORY: Noncontributory. No history of smoking. No history alcohol abuse. No history of illicit drug use. REVIEW OF SYSTEMS: RESPIRATORY: Mild shortness of breath on exertion. GASTROINTESTINAL: The patient claims constipation. NEUROMUSCULAR: The patient claims muscle aches. PHYSICAL EXAMINATION: GENERAL: The patient not in any significant distress, but looks chronically ill. VITAL SIGNS: T-max 97 degrees. Respiratory rate 20. Heart rate 80. Blood pressure 130/80. HEENT: Head, normocephalic and atraumatic. NECK: Supple. No thyroid enlargement. No lymphadenopathy. LUNGS: Decreased breath sounds bilaterally with few rhonchi in the bases. HEART: S1 and S2 regular. ABDOMEN: Benign. No organomegaly present. Bowel sounds present. EXTREMITIES: No cyanosis, clubbing, or edema. LABORATORY AND DIAGNOSTIC DATA: WBC 4.0, hemoglobin 10.2, hematocrit 31.2, and platelets are 147. Chemistry shows troponin 0.109. Creatinine 11.8. IMPRESSION: 1. Anemia of kidney disease. 2. Anemia of chronic disease. 3. Anemia of iron deficiency. 4. Decreased hemoglobin and hematocrit, rule out gastrointestinal bleed. 5. History of congestive heart failure. 6. History of severe mitral regurgitation. 7. Severe aortic regurgitation. 8. History of end-stage renal disease, hemodialysis dependent. 9. Hypertension. 10. History of cerebrovascular accident. 11. Slight elevation of troponin. 12. Dyspnea. 13. Failure to thrive. RECOMMENDATIONS: 1. Watch count. 2. Watch coagulopathy. 3. PRBC transfusion on p.r.n. basis. 4. Hemodialysis on p.r.n. basis. 5. Heparin subcutaneous. 6. Procrit subcutaneous. 7. Skin care. 8. Nutrition. 9. Cardiology followup. 10. Nephrology followup. 11. Continue current treatment. 12. Discussed with the staff. Dear Dr. Mateusz Peters, I greatly appreciate the opportunity to participate in the care of one of your patients. It is a privilege to me to be on this interesting and challenging case. Otto Mijares MD DR: TAYLOR JOB#: [id number] CC:
[2017-07-01 04:00] VITALS: BP 141/81
--- NOTE | 2017-07-01 07:45 | Nephrology Progress Note ---
Assessment/Plan Assessment 1. End-stage renal disease. 2. Fluid overload. 3. Hyperkalemia. 4. Anemia of chronic kidney disease. 5. Renal osteodystrophy. 6. Noncompliant with treatment. Plan plan dialysis as schedule continue epogen continue renagel low k diet Subjective Constitutional: Reports: no symptoms HEENT: Reports: no symptoms Genitourinary: Reports: no symptoms Neurologic/Psychiatric: Reports: no symptoms Subjective alert and awake no complaints Objective Objective Last 24 Hour Vital Signs Date Time Temp Pulse Resp B/P (MAP) Pulse Ox O2 Delivery O2 Flow Rate FiO2 07/01/17 04:00 110 07/01/17 04:00 96.8 113 16 141/81 98 Nasal Cannula 2.0 96.8 07/01/17 00:00 86 07/01/17 00:00 98.4 101 18 151/97 96 Room Air 98.4 06/30/17 23:40 96 Nasal Cannula 2.0 28 06/30/17 23:40 Nasal Cannula 2.0 28 06/30/17 22:04 130/66 06/30/17 20:00 97.6 90 20 130/66 100 Nasal Cannula 2.0 97.6 06/30/17 20:00 116 06/30/17 19:26 109 20 Room Air 21 06/30/17 18:39 149/86 06/30/17 18:38 97.9 06/30/17 17:23 Room Air 3.0 21 06/30/17 16:00 97.9 71 20 149/86 95 Room Air 97.9 06/30/17 16:00 83 06/30/17 13:00 140/89 06/30/17 12:00 89 06/30/17 11:39 98.1 105 20 140/89 99 Room Air 98.1 06/30/17 11:36 108 25 Room Air 21 06/30/17 11:30 Room Air 3.0 06/30/17 09:17 160/86 06/30/17 09:00 160/86 06/30/17 08:00 122 06/30/17 08:00 98.2 115 22 160/86 96 Room Air 98.2 Intake and Output 06/30/17 07/01/17 19:00 07:00 Intake Total 360 ml Output Total 1300 ml Balance -940 ml Intake Oral 360 ml Hemodialysis UF 1300 ml # Voids 1 # Bowel Movements 1 Laboratory Tests 06/30/17 09:10: Magnesium Level 2.4 06/30/17 09:57: Troponin I 0.125H 06/30/17 20:30: Stool Occult Blood Negative Height (Feet): 5 Height (Inches): 2.00 Weight (Pounds): 162 Objective HEAD AND NECK: No JVP. No LAD. No thyromegaly. Extraocular movement intact. Pupils are reactive to light and accommodation. LUNGS: Clear to auscultation. CARDIAC: Regular rate and rhythm. S1, S2. No murmur. No rub. ABDOMEN: Soft, nontender, and nondistended. EXTREMITIES: A 3+ edema. No clubbing. No cyanosis. SCAR COOLEY Jul 01, 2017 07:45
[2017-07-01 08:00] VITALS: BP 157/92
[2017-07-01] MEDS: Sertraline 50mg tab ORAL SCH (09:00)
[2017-07-01] MEDS: Lisinopril 20mg tab ORAL SCH (09:00)
[2017-07-01] MEDS: Heparin 5000 units/ml inj SUBQ SCH (09:00)
[2017-07-01] MEDS: Aspirin EC 81mg tab ORAL SCH (09:12)
[2017-07-01] MEDS: HydrALAZINE 10mg Tab ORAL SCH ×3 (09:13→18:00)
[2017-07-01 10:04] LABS: BASOPHILS % (AUTO) 2.1 % (0.0-2.0); EOSINOPHILS % (AUTO) 5.7 % (0.0-3.0); HEMATOCRIT 30.8 % (37.0-47.0); HEMOGLOBIN 10.2 G/DL (12.0-16.0); LYMPHOCYTES % (AUTO) 9.5 % (20.0-45.0); MEAN CORPUSCULAR VOLUME 102 FL (80-99); NEUTROPHILS % (AUTO) 72.7 % (45.0-75.0); PLATELET COUNT 128 K/UL (150-450); RED BLOOD COUNT 3.02 M/UL (4.20-5.40); RED CELL DISTRIBUTION WIDTH 15.3 % (11.6-14.8); WHITE BLOOD COUNT 3.8 K/UL (4.8-10.8)
[2017-07-01 10:27] LABS: % IRON SATURATION 24 % (15-50); IRON 38 ug/dL (50-175); TOTAL IRON BINDING CAPACITY 160 ug/dL (250-450)
[2017-07-01 10:39] LABS: ANION GAP 8 mmol/L (5-15); BLOOD UREA NITROGEN 43 mg/dL (7-18); CALCIUM 9.3 MG/DL (8.5-10.1); CARBON DIOXIDE 30 MMOL/L (21-32); CHLORIDE 102 MMOL/L (98-107); CREATININE 8.6 MG/DL (0.55-1.30); FERRITIN 651 NG/ML (8-388); SODIUM 140 MMOL/L (136-145)
[2017-07-01 12:00] VITALS: BP 157/86
--- NOTE | 2017-07-01 13:24 | Pulmonology Progress Note ---
Assessment/Plan Problems: (1) Acute respiratory failure (2) Dyspnea (3) Anemia (4) Hyperkalemia (5) HTN (hypertension) Assessment/Plan no new complains less short of breath titrate fio2 to sat of 92% check electrolytes monitor BP respiratory treatment. f/u cardiology recommendations echo showing EF of 25% dc planning Subjective ROS Limited/Unobtainable: No Constitutional: Reports: no symptoms HEENT: Repors: no symptoms Respiratory: Reports: no symptoms Allergies: Coded Allergies: No Known Allergies (Unverified , 04/20/17) Objective Last 24 Hour Vital Signs Date Time Temp Pulse Resp B/P (MAP) Pulse Ox O2 Delivery O2 Flow Rate FiO2 07/01/17 12:53 157/86 07/01/17 12:00 97.5 119 19 157/86 98 Room Air 97.5 07/01/17 09:13 152/97 07/01/17 08:00 98.2 119 20 157/92 100 Nasal Cannula 1.0 98.2 07/01/17 08:00 122 07/01/17 07:58 Nasal Cannula 2.0 28 07/01/17 07:56 94 Nasal Cannula 2.0 28 07/01/17 07:55 110 20 Nasal Cannula 2.0 07/01/17 04:00 110 07/01/17 04:00 96.8 113 16 141/81 98 Nasal Cannula 2.0 96.8 07/01/17 00:00 86 07/01/17 00:00 98.4 101 18 151/97 96 Room Air 98.4 06/30/17 23:40 96 Nasal Cannula 2.0 28 06/30/17 23:40 Nasal Cannula 2.0 28 06/30/17 22:04 130/66 06/30/17 20:00 97.6 90 20 130/66 100 Nasal Cannula 2.0 97.6 06/30/17 20:00 116 06/30/17 19:26 109 20 Room Air 21 06/30/17 18:39 149/86 06/30/17 18:38 97.9 06/30/17 17:23 Room Air 3.0 21 06/30/17 16:00 97.9 71 20 149/86 95 Room Air 97.9 06/30/17 16:00 83 Intake and Output 06/30/17 07/01/17 19:00 07:00 Intake Total 360 ml Output Total 1300 ml Balance -940 ml Intake Oral 360 ml Hemodialysis UF 1300 ml # Voids 1 # Bowel Movements 1 General Appearance: WD/WN HEENT: normocephalic, atraumatic Respiratory/Chest: chest wall non-tender, lungs clear Breasts: no masses Cardiovascular: normal peripheral pulses, normal rate Abdomen: normal bowel sounds, soft, non tender Genitourinary: normal external genitalia Extremities: no cyanosis Skin: no rash 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 Laboratory Tests 06/30/17 20:30: Stool Occult Blood Negative 07/01/17 09:25: Sodium Level 140, Potassium Level 4.0, Chloride Level 102, Carbon Dioxide Level 30, Anion Gap 8, Blood Urea Nitrogen 43H, Creatinine 8.6H, Estimat Glomerular Filtration Rate , Glucose Level 142H, Calcium Level 9.3, Iron Level 38L, Total Iron Binding Capacity 160L, Percent Iron Saturation 24, Unsaturated Iron Binding 122, Ferritin 651H 07/01/17 09:30: White Blood Count 3.8L, Red Blood Count 3.02L, Hemoglobin 10.2L, Hematocrit 30.8L, Mean Corpuscular Volume 102H, Mean Corpuscular Hemoglobin 33.8H, Mean Corpuscular Hemoglobin Concent 33.2, Red Cell Distribution Width 15.3H, Platelet Count 128L, Mean Platelet Volume 8.4, Neutrophils (%) (Auto) 72.7, Lymphocytes (%) (Auto) 9.5L, Monocytes (%) (Auto) 10.0, Eosinophils (%) (Auto) 5.7H, Basophils (%) (Auto) 2.1H Current Medications Medications (Trade) Dose Ordered Sig/Ladarius Route PRN Reason Start Time Stop Time Status Last Admin Dose Admin Acetaminophen (Tylenol) 650 mg Q4H PRN ORAL Fever 06/28/17 07:00 07/28/17 06:59 06/30/17 18:38 Albuterol/ Ipratropium (Albuterol/ Ipratropium) 3 ml EVERY 4 HOURS PRN HHN Shortness of Breath 06/28/17 07:00 07/03/17 06:59 Aspirin (Ecotrin) 81 mg DAILY ORAL 06/28/17 09:00 07/28/17 08:59 07/01/17 09:12 Atorvastatin Calcium (Lipitor) 10 mg BEDTIME ORAL 06/28/17 21:00 07/28/17 20:59 Dextrose (Dextrose 50%) 25 ml STAT PRN IV Hypoglycemia BS 60-69 06/28/17 07:00 07/28/17 06:59 Dextrose (Dextrose 50%) 50 ml STAT PRN IV Hypoglycemia BS<60 06/28/17 08:15 07/28/17 08:14 Epoetin [place] (Procrit (for ESRD on dialysis)) 5,000 units WED-WED-WED SUBQ 06/30/17 21:00 07/30/17 20:59 Heparin Sodium (Porcine) (Heparin 5000 units/ml) 5,000 units EVERY 12 HOURS SUBQ 06/28/17 09:00 07/28/17 08:59 06/29/17 09:03 Hydralazine HCl (Apresoline) 10 mg QID ORAL 06/28/17 09:00 07/28/17 08:59 07/01/17 12:53 Lisinopril (Prinivil) 20 mg BID ORAL 06/28/17 09:00 07/28/17 08:59 06/29/17 18:12 Lorazepam (Ativan) 0.5 mg Q6H PRN ORAL For Anxiety 06/28/17 04:00 07/05/17 03:59 Ondansetron HCl (Zofran) 4 mg Q6H PRN IVP Nausea & Vomiting 06/28/17 07:00 07/28/17 06:59 06/30/17 04:54 Polyethylene Glycol (Miralax) 17 gm DAILYPRN PRN ORAL Constipation 06/28/17 07:00 07/28/17 06:59 Sertraline HCl (Zoloft) 25 mg DAILY ORAL 06/28/17 09:00 07/28/17 08:59 06/29/17 09:01 Sevelamer Carbonate (Renvela) 800 mg THREE TIMES A DAY ORAL 06/28/17 09:00 07/28/17 08:59 06/29/17 18:12 Temazepam (Restoril) 15 mg HSPRN PRN ORAL Insomnia 06/28/17 07:00 07/05/17 06:59 Deshaun Jiang MD Jul 01, 2017 13:24
--- NOTE | 2017-07-01 15:59 | General Progress Note ---
Assessment/Plan Problem List: (1) ESRD (end stage renal disease) ICD Codes: N18.6 - End stage renal disease SNOMED: 61335668 (2) Dyspnea ICD Codes: R06.00 - Dyspnea, unspecified SNOMED: 260986574 (3) Respiratory distress ICD Codes: R06.03 - Acute respiratory distress SNOMED: 896412285 (4) Anemia ICD Codes: D64.9 - Anemia, unspecified SNOMED: 950149915 (5) HTN (hypertension) ICD Codes: I10 - Essential (primary) hypertension SNOMED: 08041271 (6) Pancytopenia ICD Codes: D61.818 - Other pancytopenia SNOMED: 158371712 Status: stable, progressing, tolerating diet Assessment/Plan ot pt diet 02 pulm tx prn dialysis dc w hh if clear Subjective Constitutional: Reports: weakness Allergies: Coded Allergies: No Known Allergies (Unverified , 04/20/17) All Systems: reviewed and negative except above Subjective calm feeling better Objective Last 24 Hour Vital Signs Date Time Temp Pulse Resp B/P (MAP) Pulse Ox O2 Delivery O2 Flow Rate FiO2 07/01/17 12:53 157/86 07/01/17 12:00 118 07/01/17 12:00 97.5 119 19 157/86 98 Room Air 97.5 07/01/17 09:13 152/97 07/01/17 08:00 98.2 119 20 157/92 100 Nasal Cannula 1.0 98.2 07/01/17 08:00 122 07/01/17 07:58 Nasal Cannula 2.0 28 07/01/17 07:56 94 Nasal Cannula 2.0 28 07/01/17 07:55 110 20 Nasal Cannula 2.0 07/01/17 04:00 110 07/01/17 04:00 96.8 113 16 141/81 98 Nasal Cannula 2.0 96.8 07/01/17 00:00 86 07/01/17 00:00 98.4 101 18 151/97 96 Room Air 98.4 06/30/17 23:40 96 Nasal Cannula 2.0 28 06/30/17 23:40 Nasal Cannula 2.0 28 06/30/17 22:04 130/66 06/30/17 20:00 97.6 90 20 130/66 100 Nasal Cannula 2.0 97.6 06/30/17 20:00 116 06/30/17 19:26 109 20 Room Air 21 06/30/17 18:39 149/86 06/30/17 18:38 97.9 06/30/17 17:23 Room Air 3.0 21 06/30/17 16:00 97.9 71 20 149/86 95 Room Air 97.9 06/30/17 16:00 83 Intake and Output 06/30/17 07/01/17 19:00 07:00 Intake Total 360 ml Output Total 1300 ml Balance -940 ml Intake Oral 360 ml Hemodialysis UF 1300 ml # Voids 1 # Bowel Movements 1 Laboratory Tests 06/30/17 20:30: Stool Occult Blood Negative 07/01/17 09:25: Sodium Level 140, Potassium Level 4.0, Chloride Level 102, Carbon Dioxide Level 30, Anion Gap 8, Blood Urea Nitrogen 43H, Creatinine 8.6H, Estimat Glomerular Filtration Rate , Glucose Level 142H, Calcium Level 9.3, Iron Level 38L, Total Iron Binding Capacity 160L, Percent Iron Saturation 24, Unsaturated Iron Binding 122, Ferritin 651H 07/01/17 09:30: White Blood Count 3.8L, Red Blood Count 3.02L, Hemoglobin 10.2L, Hematocrit 30.8L, Mean Corpuscular Volume 102H, Mean Corpuscular Hemoglobin 33.8H, Mean Corpuscular Hemoglobin Concent 33.2, Red Cell Distribution Width 15.3H, Platelet Count 128L, Mean Platelet Volume 8.4, Neutrophils (%) (Auto) 72.7, Lymphocytes (%) (Auto) 9.5L, Monocytes (%) (Auto) 10.0, Eosinophils (%) (Auto) 5.7H, Basophils (%) (Auto) 2.1H Height (Feet): 5 Height (Inches): 2.00 Weight (Pounds): 162 General Appearance: alert EENT: normal ENT inspection Neck: normal alignment Cardiovascular: normal peripheral pulses, normal rate, regular rhythm Respiratory/Chest: chest wall non-tender, lungs clear, normal breath sounds Abdomen: normal bowel sounds, non tender, soft Extremities: normal inspection Edema: no edema noted Arm (L), no edema noted Arm (R), no edema noted Leg (L), no edema noted Leg (R), no edema noted Pedal (L), no edema noted Pedal (R), no edema noted Generalized Neurologic: responsive, motor weakness Skin: normal pigmentation, warm/dry ROSA NEIL Jul 01, 2017 15:59
[2017-07-01] MEDS ORDERED: TYLENOL650 MG PR (16:42)
[2017-07-01 17:38] VITALS: BP 138/62
[2017-07-01 18:00] VITALS: BP 138/62
--- NOTE | 2017-07-01 19:15 | Progress Note ---
DATE: 07/01/2017 HISTORY: This is a 71-year-old female with dyspnea, but she has increasing depression, worsened by stress of her medical illness. That is why, her attending physician has requested daily psychiatric consultation. MENTAL STATUS EXAMINATION: This is a 71-year-old female. Appearance is disheveled, irritable, and agitated. Affect guarded and restricted. Intellect poor. Mood depressed and anxious. Motor activity, psychomotor agitation. Attention span is poor. Orientation x2. Speech is pressured. Thought process, disorganized and illogical. Thought content, auditory hallucinations and paranoid delusions. Insight and judgment is poor. DIAGNOSIS: Major depressive disorder, mild, recurrent, without psychotic features. PLAN: Treat her with the medication regimen Zoloft 25 mg daily. Provided 18 to 20 minutes of supportive therapy. Seen and assessed at bedside. Chart reviewed and discussed with staff. The patient is seen and assessed at bedside. Parish Fajardo M.D. DR: KYARA JOB#: [id number] CC:
--- NOTE | 2017-07-01 23:16 | General Progress Note ---
Assessment/Plan Assessment/Plan IMPRESSION: 1. Anemia of kidney disease. 2. Anemia of chronic disease. 3. Anemia of iron deficiency. 4. Decreased hemoglobin and hematocrit, rule out gastrointestinal bleed. 5. History of congestive heart failure. 6. History of severe mitral regurgitation. 7. Severe aortic regurgitation. 8. History of end-stage renal disease, hemodialysis dependent. 9. Hypertension. 10. History of cerebrovascular accident. 11. Slight elevation of troponin. 12. Dyspnea. 13. Failure to thrive. RECOMMENDATIONS: 1. Watch count. 2. Watch coagulopathy. 3. PRBC transfusion on p.r.n. basis. 4. Hemodialysis on p.r.n. basis. 5. Heparin subcutaneous. 6. Procrit subcutaneous. 7. Skin care. 8. Nutrition. 9. Cardiology followup. 10. Nephrology followup. 11. Continue current treatment. 12. Discussed with the staff. Subjective Date patient seen: Jul 01, 2017 Constitutional: Denies: no symptoms, chills, diaphoresis, fever, malaise, weakness, other HEENT: Denies: no symptoms, eye pain, blurred vision, tearing, double vision, ear pain, ear discharge, nose pain, nose congestion, throat pain, throat swelling, mouth pain, mouth swelling, other Cardiovascular: Denies: no symptoms, chest pain, edema, irregular heart rate, lightheadedness, palpitations, syncope, other Respiratory: Denies: no symptoms, cough, orthopnea, shortness of breath, SOB with excertion, SOB at rest, sputum, stridor, wheezing, other Gastrointestinal/Abdominal: Denies: no symptoms, abdomen distended, abdominal pain, black stools, tarry stools, blood in stool, constipated, diarrhea, difficulty swallowing, nausea, poor appetite, poor fluid intake, rectal bleeding , vomiting, other Genitourinary: Denies: no symptoms, burning, discharge, frequency, flank pain, hematuria, incontinence, pain, urgency, other Neurologic/Psychiatric: Denies: no symptoms, anxiety, depressed, emotional problems, headache, numbness, paresthesia, pre-existing deficit, seizure, tingling, tremors, weakness, other Hematologic/Lymphatic: Reports: anemia Allergies: Coded Allergies: No Known Allergies (Unverified , 04/20/17) Subjective H/H stable. No acute distress. No fever or chills. Objective Last 24 Hour Vital Signs Date Time Temp Pulse Resp B/P (MAP) Pulse Ox O2 Delivery O2 Flow Rate FiO2 07/01/17 18:00 138/62 07/01/17 17:38 98.2 110 19 138/62 96 Room Air 98.2 07/01/17 16:00 106 07/01/17 12:53 157/86 07/01/17 12:00 118 07/01/17 12:00 97.5 119 19 157/86 98 Room Air 97.5 07/01/17 09:13 152/97 07/01/17 08:00 98.2 119 20 157/92 100 Nasal Cannula 1.0 98.2 07/01/17 08:00 122 07/01/17 07:58 Nasal Cannula 2.0 28 07/01/17 07:56 94 Nasal Cannula 2.0 28 07/01/17 07:55 110 20 Nasal Cannula 2.0 07/01/17 04:00 110 07/01/17 04:00 96.8 113 16 141/81 98 Nasal Cannula 2.0 96.8 07/01/17 00:00 86 07/01/17 00:00 98.4 101 18 151/97 96 Room Air 98.4 06/30/17 23:40 96 Nasal Cannula 2.0 28 06/30/17 23:40 Nasal Cannula 2.0 28 Intake and Output 06/30/17 07/01/17 19:00 07:00 Intake Total 360 ml Output Total 1300 ml Balance -940 ml Intake Oral 360 ml Hemodialysis UF 1300 ml # Voids 1 # Bowel Movements 1 Laboratory Tests 07/01/17 09:25: Sodium Level 140, Potassium Level 4.0, Chloride Level 102, Carbon Dioxide Level 30, Anion Gap 8, Blood Urea Nitrogen 43H, Creatinine 8.6H, Estimat Glomerular Filtration Rate , Glucose Level 142H, Calcium Level 9.3, Iron Level 38L, Total Iron Binding Capacity 160L, Percent Iron Saturation 24, Unsaturated Iron Binding 122, Ferritin 651H 07/01/17 09:30: White Blood Count 3.8L, Red Blood Count 3.02L, Hemoglobin 10.2L, Hematocrit 30.8L, Mean Corpuscular Volume 102H, Mean Corpuscular Hemoglobin 33.8H, Mean Corpuscular Hemoglobin Concent 33.2, Red Cell Distribution Width 15.3H, Platelet Count 128L, Mean Platelet Volume 8.4, Neutrophils (%) (Auto) 72.7, Lymphocytes (%) (Auto) 9.5L, Monocytes (%) (Auto) 10.0, Eosinophils (%) (Auto) 5.7H, Basophils (%) (Auto) 2.1H Height (Feet): 5 Height (Inches): 2.00 Weight (Pounds): 162 General Appearance: no apparent distress EENT: normal ENT inspection Neck: normal alignment Cardiovascular: normal rate Respiratory/Chest: decreased breath sounds Abdomen: non tender, soft BASILIA HENSON Jul 01, 2017 23:16
--- NOTE | 2017-07-01 23:57 | Cardiology Progress Note ---
Assessment/Plan Assessment/Plan 1. Acute on chronic heart failure with preserved ejection fraction, continue HD for preload reduction, afterload reduction. Non-compliant with dialysis orders, insufficient fluid removal. 2. Severe aortic regurgitation, symptomatic with dyspnea and e/o heart failure, she requires to have AVR done. Continue hydralazine and lisinopril. 3. Severe MR, based in internal dimension in systole and EF, she requires to have MVR as well, continue HD for decreasing preload. 4. Slight elevation of trop is due to renal failure 5. Sinus tachycardia due to heart failure.. Subjective Subjective Sinus tachycardia at 110. Objective Last 24 Hour Vital Signs Date Time Temp Pulse Resp B/P (MAP) Pulse Ox O2 Delivery O2 Flow Rate FiO2 07/01/17 18:00 138/62 07/01/17 17:38 98.2 110 19 138/62 96 Room Air 98.2 07/01/17 16:00 106 07/01/17 12:53 157/86 07/01/17 12:00 118 07/01/17 12:00 97.5 119 19 157/86 98 Room Air 97.5 07/01/17 09:13 152/97 07/01/17 08:00 98.2 119 20 157/92 100 Nasal Cannula 1.0 98.2 07/01/17 08:00 122 07/01/17 07:58 Nasal Cannula 2.0 28 07/01/17 07:56 94 Nasal Cannula 2.0 28 07/01/17 07:55 110 20 Nasal Cannula 2.0 07/01/17 04:00 110 07/01/17 04:00 96.8 113 16 141/81 98 Nasal Cannula 2.0 96.8 07/01/17 00:00 86 07/01/17 00:00 98.4 101 18 151/97 96 Room Air 98.4 Intake and Output 06/30/17 07/01/17 19:00 07:00 Intake Total 360 ml Output Total 1300 ml Balance -940 ml Intake Oral 360 ml Hemodialysis UF 1300 ml # Voids 1 # Bowel Movements 1 2D Echo: EF45%,LVE,Global LV HK,SevMR/AR(poorly tolerated hemodyn), Pseudonormal LVDD Laboratory Tests Test 07/01/17 09:25 07/01/17 09:30 Sodium Level 140 MMOL/L (136-145) Potassium Level 4.0 MMOL/L (3.5-5.1) Chloride Level 102 MMOL/L (98-107) Carbon Dioxide Level 30 MMOL/L (21-32) Anion Gap 8 mmol/L (5-15) Blood Urea Nitrogen 43 mg/dL (7-18) H Creatinine 8.6 MG/DL (0.55-1.30) H Estimat Glomerular Filtration Rate mL/min (>60) Glucose Level 142 MG/DL (74-106) H Calcium Level 9.3 MG/DL (8.5-10.1) Iron Level 38 ug/dL (50-175) L Total Iron Binding Capacity 160 ug/dL (250-450) L Percent Iron Saturation 24 % (15-50) Unsaturated Iron Binding 122 ug/dL (112-346) Ferritin 651 NG/ML (8-388) H White Blood Count 3.8 K/UL (4.8-10.8) L Red Blood Count 3.02 M/UL (4.20-5.40) L Hemoglobin 10.2 G/DL (12.0-16.0) L Hematocrit 30.8 % (37.0-47.0) L Mean Corpuscular Volume 102 FL (80-99) H Mean Corpuscular Hemoglobin 33.8 PG (27.0-31.0) H Mean Corpuscular Hemoglobin Concent 33.2 G/DL (32.0-36.0) Red Cell Distribution Width 15.3 % (11.6-14.8) H Platelet Count 128 K/UL (150-450) L Mean Platelet Volume 8.4 FL (6.5-10.1) Neutrophils (%) (Auto) 72.7 % (45.0-75.0) Lymphocytes (%) (Auto) 9.5 % (20.0-45.0) L Monocytes (%) (Auto) 10.0 % (1.0-10.0) Eosinophils (%) (Auto) 5.7 % (0.0-3.0) H Basophils (%) (Auto) 2.1 % (0.0-2.0) H Objective HEENT: PERRLA, EOMI, Anicteric, + pallor NECK: JVP cannot be assessed, B/L bruit CARDIOVASCULAR: Normal S1S2, tachycardic, 2/6 MSM at LSB, 3/6 EDM at 2nd ICS LUNGS: Poor air exchange o/w clear ABDOMEN: Bowel sounds positive. Nontender, nondistended. EXTREMITIES: No cyanosis, clubbing, or edema. NEUROLOGIC: Move all extremities JAKE DOE Jul 01, 2017 23:57
--- NOTE | 2017-07-02 12:48 | Discharge Summary ---
Discharge Summary Discharge Summary Discharge Summary DATE OF ADMISSION: 06/27/2017 DATE OF DISCHARGE: 07/01/2017 CONSULTANTS: Dr. Duc Jiang BRIEF HOSPITAL COURSE: Patient is a 71-year-old female with history of end-stage renal disease, apparently missed her dialysis and became very short of breath. She presented to ED complaining of shortness of breath for the last 2-3 hours, there was no chest pain, no fever, no chills, or cough. She had lower extremity swelling and is not on oxygen at home. She has medical history significant for end- stage renal disease on hemodialysis Wednesday, , and Wednesday, history of severe aortic and mitral regurgitation, CVA, hypertension. On evaluation at ED, blood work did not show any leukocytosis. He remained tachypneic, blood work showed elevated potassium level 5.7. Creatinine was 11, BUN 73, initial troponin 0.078, BNP 34,690. She had an EKG that showed sinus tachycardia with T-wave inversions in leads 1 and aVL. Chest x-ray showed cardiomegaly and pulmonary interstitial congestion. She was admitted for acute CHF exacerbation, dyspnea, hyperkalemia, and end-stage renal disease. She was seen by mobility developer, Dr. Hawk. She had an echocardiogram that showed global left ventricular hypokinesia, mild left ventricular hypertrophy, severe left atrial enlargement, severe aortic regurgitation, severe mitral regurgitation, right ventricular systolic pressure 48 mmHg, ejection fraction 40 -45% per cardiology. She was given preload and afterload reduction with hydralazine and lisinopril. 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 She was continued on inpatient hemodialysis. Phosphorus was elevated to 7 and was given Renagel. Anemia workup showed anemia from chronic kidney disease. She was given Epogen. Stool OB was negative. She had signs of confusion and disorganized thought process. She was diagnosed with major depressive disorder and was given Zoloft 25 mg daily and Ativan 0.5 mg when necessary. She was given respiratory treatments, her breathing improved. She was eventually discharged home with home health. FINAL DIAGNOSES: Acute on chronic heart failure with preserved ejection fraction Severe aortic regurgitation Severe mitral regurgitation Slight elevation of troponin due to renal failure Sinus tachycardia due to renal failure Anemia of kidney disease Anemia of chronic disease Anemia of iron deficiency Hyperkalemia Fluid overload End-stage renal disease Renal osteodystrophy Noncompliant with treatment Major depressive disorder, mild DISPOSITION: Patient was discharged home with home health DISCHARGE INSTRUCTIONS: Follow up with in a week. Patient will need MVR and AVR. I have been assigned to dictate discharge summary on this account, and I was not involved in the patient's management. Bernice Enriquez NP Jul 02, 2017 12:48
== END 2017-07-01 18:25 | disposition home or self-care (01) | DRG 291 ==
LOC: EDBD 20:54 → EMR 21:00 → 2E 22:40 → EDBEDREQ 23:56 → 2E 06-30 10:42
PROC: 5A1D70Z Performance of Urinary Filtration, Intermittent, Less than 6 Hours Per Day (ICD-10-PCS; principal; 2017-06-28)
PROC: 5A1D70Z Performance of Urinary Filtration, Intermittent, Less than 6 Hours Per Day (ICD-10-PCS; 2017-06-30)
DX: I13.2 Hypertensive heart and chronic kidney disease with heart failure and with stage 5 chronic kidney disease, or end stage renal disease (principal); J96.00 Acute respiratory failure, unspecified whether with hypoxia or hypercapnia; N18.6 End stage renal disease; F33.9 Major depressive disorder, recurrent, unspecified; D61.818 Other pancytopenia; Z99.2 Dependence on renal dialysis; E87.5 Hyperkalemia; I50.9 Heart failure, unspecified; I35.1 Nonrheumatic aortic (valve) insufficiency; I34.0 Nonrheumatic mitral (valve) insufficiency; D63.1 Anemia in chronic kidney disease; D50.9 Iron deficiency anemia, unspecified; N25.0 Renal osteodystrophy; Z91.19 Patient's noncompliance with other medical treatment and regimen; J44.9 Chronic obstructive pulmonary disease, unspecified; I25.2 Old myocardial infarction; Z86.73 Personal history of transient ischemic attack (TIA), and cerebral infarction without residual deficits
CPT/HCPCS: 36415; 71045; 80048; 80053; 80069; 82270; 82550; 82728; 82962; 83540; 83550; 83605; 83735; 83880; 84484; 85025; 87040; 87081; 93005; 93306; 94664; 94760; 97803; 99285; J2405